=== PATIENT | male | born 1960 | race Hispanic/Latino ===

== ENCOUNTER 2019-04-22 16:27 | Inpatient (IN) | payer OTHER, SELFPAY ==
[2019-04-22] VITALS (17 sets, daily range): BP systolic 112–164; BP diastolic 56–102; PULSE 88–133; RESP 17–33; TEMP 36.9–38.8; O2SAT 90–94; BMI 26.7
--- NOTE | 2019-04-22 16:38 | ED_ITS ---
HPI - Fall General Chief Complaint: Fall Stated Complaint: CP Time Seen by Provider: 04/22/19 16:35 Source: patient, family and EMS Mode of arrival: EMS Limitations: no limitations History of Present Illness HPI Narrative: This is a 58-year-old who comes to the emergency department complaint of left-sided chest pain. Patient and his state that yesterday he tripped on his flip-flops and fell in the kitchen onto the edge of a step stool. It was sort of hard corner made out of wood. Since then patient has had left-sided chest pain. Patient states that it hurts if he coughs, he takes a deep breath her rolls over. Patient states that he does feel like he can breathe okay. He denies hitting his head or any loss of consciousness. The injury was witnessed by his . He denies any neck pain, back pain, no issues with his hips or lower extremities. Patient does have increased pain with movement of his left upper extremity. Patient denies any headache, no vision changes, no nausea vomiting no other GI or urinary symptoms. He does have a fever upon arrival. He has been feeling shaky. Patient takes medication for diabetes, He denies any surgical history. Smokes tobacco, he drinks about a six-pack daily, denies illicit Related Data Allergies Allergy/AdvReac Type Severity Reaction Status Date / Time No Known Drug Allergies Allergy Verified 04/22/19 16:34 Review of Systems Review of Systems ROS Unobtainable: All systems reviewed & are unremarkable except as noted in HPI and below Constitutional Reports chills, Denies fever(s), Denies lethargy, Denies weakness and Reports other (feeling shaky.) ENT Ears, Nose, Mouth, and Throat: Denies neck pain Cardiovascular Reports chest pain, Denies diaphoresis, Denies syncope, Denies leg edema, Denies lightheadedness, Denies radiating jaw, neck or arm pain, Reports dyspnea, Denies orthopnea and Denies paroxysmal nocturnal dyspnea Respiratory Denies chest congestion, Denies hemoptysis, Reports pain on inspiration, Reports pain with cough, Reports dyspnea and Denies wheezing Gastrointestinal Gastrointestinal: Denies abdominal pain, Denies melena, Denies hematochezia, Denies change in bowel habits, Denies diarrhea, Denies nausea and Denies vomiti ng Genitourinary Denies hematuria, Denies flank pain, Denies urinary frequency, Denies urinary incontinence and Denies urinary urgency Musculoskeletal Denies back pain, Denies muscle weakness, Denies neck pain, Denies numbness and Denies tingling Integumentary/Breasts Denies erythema and Denies unusual bruising Neurologic Denies confusion, Denies syncope, Denies focal weakness, Denies numbness, Denies tingling and Denies weakness Psychiatric Denies confusion Allergic/Immunologic Denies wheezing Exam Narrative Exam Narrative: GEN: Patient appears in moderate distress. HEAD: No evidence of trauma, no raccoon/Mckeon sign. NECK: Nontender, painless range of motion, trachea midline Negative Nexus criteria, there is no midline tenderness, distracting injury, altered mental status, neuro deficit, denies recent EtOH. EYES: PERRLA, EOMI ENT: External inspection normal, trachea is midline, TM's are normal no hemotypanum, Nares are clear, no septal hematoma, no dental or oral injury, airway is normal and with normal occlusion, No bony tenderness RESP: Chest is tender to palpation on left,has symmetric movement, no ecchymosis, breath sounds are normal no crackles, wheezes or rales, no subcutaneous emphysema, no flail chest. CVS: Heart sounds are normal, no murmur noted, No JVD. ABG/GI: Nontender, soft, normal bowel sounds, no distention, no organomegaly, pelvic rock is negative NEURO: Oriented AOx3, neuro is grossly intact, sensation and motor is normal all 4 extremities moving, cranial nerves II through XII are intact, GCS is 15 PSYCH: Normal mood and affect SKIN: Intact, warm and dry, no crepitus and without decubitus BACK: No CVA tenderness, no vertebral tenderness, no step-off's, no crepitus EXT: Atraumatic, hips are nontender, no pedal edema, normal color and temperature, normal range of motion of extremities with normal tendon exam, 2+ pulses in all four extremities Initial Vital Signs Initial Vital Signs: Vital Signs Pulse Rate 133 H 04/22/19 16:25 Respiratory Rate 18 04/22/19 16:25 Blood Pressure 164/102 H 04/22/19 16:25 Pulse Oximetry 93 04/22/19 16:25 [facility] Medical History (Updated 04/22/19 @ 19:06 by La Arce DO) Diabetes (Chronic) GERD (gastroesophageal reflux disease) (Chronic) Hypertension (Chronic) Social History (Updated 04/22/19 @ 16:54 by La Arce DO) marital status: Smoking Status: Current every day smoker alcohol intake: current substance use type: does not use Social History (Updated 04/22/19 @ 16:54 by La Arce DO) marital status: Smoking Status: Current every day smoker alcohol intake: current substance use type: does not use Scores GCS Selfridge coma scale eye opening: Spontaneous Selfridge coma scale verbal response: Orientated Lili coma scale motor response: Obey commands Lili coma scale total score: 15 Course Orders Ordered: ED Orders 04/22/19 16:31 EKG-12 Lead Stat 04/22/19 16:56 Blood Culture Stat Complete Blood Count AUTO DIFF Stat Comprehensive Metabolic Panel Stat Ethanol (ETOH) Stat Lactate (Lactic Acid) Stat Lipase Stat Partial Thromboplastin Time Stat Procalcitonin Stat Prothrombin Time INR Stat Troponin & CK Cardiac Panel Stat Type and Screen Stat 04/22/19 17:06 XR chest 1V Stat 04/22/19 17:36 CT cervical spine wo con Stat CT chest abd pel w con Stat CT head/brain wo con Stat 04/22/19 18:30 Urine Drug Screen, Rapid Stat Clindamycin Phosphate (Cleocin) 900 mg in 50 mls @ 50 mls/hr IV NOW ONE Stop: 04/22/19 19:53 Last Admin: 04/22/19 19:00 Dose: 50 mls/hr Discontinued Medications Acetaminophen (Tylenol) 975 mg PO NOW ONE Stop: 04/22/19 16:41 Last Admin: 04/22/19 16:54 Dose: 975 mg Sodium Chloride (Normal Saline 0.9%) 1,000 mls @ 1,000 mls/hr IV BOLUS ONE Stop: 04/22/19 17:34 Last Infusion: 04/22/19 17:54 Dose: 0 mls/hr Admin: 04/22/19 16:43 Dose: 1,000 mls/hr Sodium Chloride (Normal Saline 0.9%) 1,000 mls @ 1,000 mls/hr IV BOLUS ONE Stop: 04/22/19 18:52 Last Infusion: 04/22/19 18:46 Dose: 125 mls/hr Admin: 04/22/19 17:54 Dose: 1,000 mls/hr Lorazepam (Ativan) 1 mg IV NOW ONE Stop: 04/22/19 17:38 Last Admin: 04/22/19 17:45 Dose: 1 mg Lorazepam (Ativan) 1 mg IV NOW ONE Stop: 04/22/19 18:53 Last Admin: 04/22/19 19:00 Dose: 1 mg Morphine Sulfate (Morphine) 4 mg IV NOW ONE Stop: 04/22/19 16:36 Last Admin: 04/22/19 16:42 Dose: 4 mg Morphine Sulfate (Morphine) 4 mg IV NOW ONE Stop: 04/22/19 18:04 Last Admin: 04/22/19 18:17 Dose: 4 mg Pantoprazole Sodium (Protonix) 40 mg IV NOW ONE Stop: 04/22/19 17:42 Last Admin: 04/22/19 17:46 Dose: 40 mg Vital Signs - 8 hr 04/22/19 16:25 04/22/19 16:37 04/22/19 16:54 Temperature 101.6 F H 101.6 F H Pulse Rate 133 H Respiratory Rate 18 Blood Pressure 164/102 H Blood Pressure [Right Arm] Pulse Oximetry 93 04/22/19 17:01 04/22/19 17:30 04/22/19 17:40 Temperature 101.6 F H 101.8 F H Pulse Rate 133 H 123 H 123 H Respiratory Rate 18 25 H 29 H Blood Pressure 164/102 H Blood Pressure [Right Arm] 142/81 H 145/80 H Pulse Oximetry 93 94 93 04/22/19 17:45 04/22/19 17:50 04/22/19 18:22 Temperature 101.8 F H Pulse Rate 120 H 118 H Respiratory Rate 33 H 30 H Blood Pressure Blood Pressure [Right Arm] 146/83 H Pulse Oximetry 93 93 04/22/19 18:30 Temperature Pulse Rate 120 H Respiratory Rate 30 H Blood Pressure Blood Pressure [Right Arm] 147/79 H Pulse Oximetry MDM - Fall Lab Data Attestation: I reviewed the patient's lab results. Result diagrams: 04/22/19 16:56 04/22/19 16:56 Lab Results 04/22/19 04/22/19 04/22/19 Range/Units 16:56 16:56 16:56 WBC 14.3 H (4.5-11.0) X10^3/uL RBC 3.74 L (4.5-5.9) X10^6/uL Hgb 12.8 L (13.5-17.5) g/dL Hct 36.5 L (41-53) % MCV 97.7 (80-100) fL MCH 34.3 H (26-34) PG MCHC 35.1 (30-36) % RDW 13.3 (11.6-14.8) % Plt Count 254 (150-400) X10^3/uL Neut % (Auto) 88.7 H (50-75) % Lymph % (Auto) 3.2 L (25-40) % [place] % (Auto) 7.8 (3-14) % Eos % (Auto) 0.1 L (2-4) % Baso % (Auto) 0.2 (0-2) % Neut # (Auto) 69978 H (6376-6853) /uL Lymph # (Auto) 500 L (6373-7158) /uL [place] # (Auto) 1100 H (0-900) /uL Eos # (Auto) 0 (0-450) /uL Baso # (Auto) 0 (0-100) /uL PT 11.0 (10.1-12.7) SECONDS INR 1.0 (0.9-1.3) APTT 35 (26.4-36.2) SECONDS Sodium 127 L (137-145) mmol/L Potassium 3.9 (3.4-5.1) mmol/L Chloride 95 L (98-107) mmol/L Carbon Dioxide 21 L (22-32) mmol/L BUN 5 L (9-20) mg/dL Creatinine 0.50 L (0.66-1.25) mg/dL Estimated GFR > 60.0 (>60) mL/min BUN/Creatinine Ratio 10.0 (6-22) Glucose 134 H (70-100) mg/dL Lactate (0.7-2.1) mmol/L Calcium 8.6 (8.4-10.2) mg/dL Total Bilirubin 0.7 (0.2-1.3) mg/dL AST 22 (17-59) IU/L ALT 14 L (21-72) IU/L Alkaline Phosphatase 58 (38-126) U/L Total Creatine Kinase 104 (55-170) U/L CK-MB (CK-2) 1.36 (<2.37) ng/mL CK-MB (CK-2) Rel Index 1.3 L (1.5-5.0) % Troponin I < 0.012 (0.01-0.034) ng/mL Total Protein 5.9 L (6.3-8.2) g/dL Albumin 3.6 (3.5-5.0) g/dL Globulin 2.3 (1.7-4.1) g/dL Albumin/Globulin Ratio 1.6 (1.0-2.8) Lipase 29 (23-300) U/L Procalcitonin (<0.5) ng/mL Urine Opiates Screen (Negative) Ur Oxycodone Screen (Negative) Urine Methadone Screen (Negative) Ur Barbiturates Screen (Negative) U Tricyclic Antidepress (Negative) Ur Phencyclidine Scrn (Negative) Ur Amphetamines Screen (Negative) U Methamphetamines Scrn (Negative) Ur MDMA Scrn (Ecstasy) (Negative) U Benzodiazepines Scrn (Negative) Urine Cocaine Screen (Negative) U Marijuana (THC) Screen (Negative) Ethyl Alcohol 37 mg/dL Blood Type Antibody Screen 04/22/19 04/22/19 04/22/19 Range/Units 16:56 16:56 16:56 WBC (4.5-11.0) X10^3/uL RBC (4.5-5.9) X10^6/uL Hgb (13.5-17.5) g/dL Hct (41-53) % MCV (80-100) fL MCH (26-34) PG MCHC (30-36) % RDW (11.6-14.8) % Plt Count (150-400) X10^3/uL Neut % (Auto) (50-75) % Lymph % (Auto) (25-40) % [place] % (Auto) (3-14) % Eos % (Auto) (2-4) % Baso % (Auto) (0-2) % Neut # (Auto) (5751-9753) /uL Lymph # (Auto) (8535-4918) /uL [place] # (Auto) (0-900) /uL Eos # (Auto) (0-450) /uL Baso # (Auto) (0-100) /uL PT (10.1-12.7) SECONDS INR (0.9-1.3) APTT (26.4-36.2) SECONDS Sodium (137-145) mmol/L Potassium (3.4-5.1) mmol/L Chloride (98-107) mmol/L Carbon Dioxide (22-32) mmol/L BUN (9-20) mg/dL Creatinine (0.66-1.25) mg/dL Estimated GFR (>60) mL/min BUN/Creatinine Ratio (6-22) Glucose (70-100) mg/dL Lactate 2.3 H (0.7-2.1) mmol/L Calcium (8.4-10.2) mg/dL Total Bilirubin (0.2-1.3) mg/dL AST (17-59) IU/L ALT (21-72) IU/L Alkaline Phosphatase (38-126) U/L Total Creatine Kinase (55-170) U/L CK-MB (CK-2) (<2.37) ng/mL CK-MB (CK-2) Rel Index (1.5-5.0) % Troponin I (0.01-0.034) ng/mL Total Protein (6.3-8.2) g/dL Albumin (3.5-5.0) g/dL Globulin (1.7-4.1) g/dL Albumin/Globulin Ratio (1.0-2.8) Lipase (23-300) U/L Procalcitonin < 0.05 (<0.5) ng/mL Urine Opiates Screen (Negative) Ur Oxycodone Screen (Negative) Urine Methadone Screen (Negative) Ur Barbiturates Screen (Negative) U Tricyclic Antidepress (Negative) Ur Phencyclidine Scrn (Negative) Ur Amphetamines Screen (Negative) U Methamphetamines Scrn (Negative) Ur MDMA Scrn (Ecstasy) (Negative) U Benzodiazepines Scrn (Negative) Urine Cocaine Screen (Negative) U Marijuana (THC) Screen (Negative) Ethyl Alcohol mg/dL Blood Type B Positive Antibody Screen Negative 04/22/19 Range/Units 18:30 WBC (4.5-11.0) X10^3/uL RBC (4.5-5.9) X10^6/uL Hgb (13.5-17.5) g/dL Hct (41-53) % MCV (80-100) fL MCH (26-34) PG MCHC (30-36) % RDW (11.6-14.8) % Plt Count (150-400) X10^3/uL Neut % (Auto) (50-75) % Lymph % (Auto) (25-40) % [place] % (Auto) (3-14) % Eos % (Auto) (2-4) % Baso % (Auto) (0-2) % Neut # (Auto) (1012-1911) /uL Lymph # (Auto) (3717-6079) /uL [place] # (Auto) (0-900) /uL Eos # (Auto) (0-450) /uL Baso # (Auto) (0-100) /uL PT (10.1-12.7) SECONDS INR (0.9-1.3) APTT (26.4-36.2) SECONDS Sodium (137-145) mmol/L Potassium (3.4-5.1) mmol/L Chloride (98-107) mmol/L Carbon Dioxide (22-32) mmol/L BUN (9-20) mg/dL Creatinine (0.66-1.25) mg/dL Estimated GFR (>60) mL/min BUN/Creatinine Ratio (6-22) Glucose (70-100) mg/dL Lactate (0.7-2.1) mmol/L Calcium (8.4-10.2) mg/dL Total Bilirubin (0.2-1.3) mg/dL AST (17-59) IU/L ALT (21-72) IU/L Alkaline Phosphatase (38-126) U/L Total Creatine Kinase (55-170) U/L CK-MB (CK-2) (<2.37) ng/mL CK-MB (CK-2) Rel Index (1.5-5.0) % Troponin I (0.01-0.034) ng/mL Total Protein (6.3-8.2) g/dL Albumin (3.5-5.0) g/dL Globulin (1.7-4.1) g/dL Albumin/Globulin Ratio (1.0-2.8) Lipase (23-300) U/L Procalcitonin (<0.5) ng/mL Urine Opiates Screen Negative (Negative) Ur Oxycodone Screen Negative (Negative) Urine Methadone Screen Negative (Negative) Ur Barbiturates Screen Negative (Negative) U Tricyclic Antidepress Negative (Negative) Ur Phencyclidine Scrn Negative (Negative) Ur Amphetamines Screen Negative (Negative) U Methamphetamines Scrn Negative (Negative) Ur MDMA Scrn (Ecstasy) Negative (Negative) U Benzodiazepines Scrn Negative (Negative) Urine Cocaine Screen Negative (Negative) U Marijuana (THC) Screen Negative (Negative) Ethyl Alcohol mg/dL Blood Type Antibody Screen Urine Dip Bedside Urine Glucose 1000 mg/dl Bedside Urine Bilirubin - Negative Bedside Urine Ketone - Negative Urine Specific [place] 1.015 Bedside Urine Occult Blood - Negative Bedside Urine Protein - Negative Bedside Urine Urobilinogen - Negative Bedside Urine Nitrite - Negative Bedside Urine Leukocytes - Negative Esterase Imaging Data Chest x-ray: My impression: multiple #3 rib fractures on left, no pneumothorax noted. CT scan - head: Radiologist's impression: Bharat Mcpherson 58 M 1960 [place] [address] CT Scan Report Signed Patient: Bharat Mcpherson GMR#: [id number] : [id number] Age/Sex: 58 / MDate of Service: 04/22/19 Loc: ED Accession Number: [id number] Procedure: CT head/brain wo con Ordering Provider: La Arce D.O. PROCEDURE: CT HEAD/BRAIN WO CON INDICATIONS: left chest wall pain, rib fx's, tachy, ? etoh TECHNIQUE: Noncontrast 4.5 mm thick angled axial sections acquired from the foramen magnum to the vertex, with coronal and sagittal reformats. For radiation dose reduction, the following was used: automated exposure control, adjustment of mA and/or kV according to patient size. COMPARISON: None. FINDINGS: Image quality: Diagnostic. CSF spaces: Basal cisterns are patent. No extra-axial fluid collections. Ventricles are normal in size and shape. Brain: No midline shift. No intracranial masses or hemorrhage. Caceres-white matter interface is normal. Skull and face: Calvarium and visualized facial bones are intact, without suspicious lesions. Sinuses: Mild mucosal thickening is identified involving the inferior bilateral maxillary sinuses, ethmoid air cells, and sphenoid air cells. There is also mucosal thickening of the right frontal sinuses. No air-fluid levels are evident. Otherwise, the remainder of the paranasal sinuses and mastoid air cells are clear. IMPRESSION: 1. No acute intracranial hemorrhage. 2. Moderate paranasal sinus disease. Dictated by: Faisal Mason M.D. on 04/22/2019 at 18:38 Approved by: Faisal Mason M.D. on 04/22/2019 at 18:39 ECG Data Attestation: I personally reviewed and interpreted this ECG as follows: Prior ECG tracings: not available for review Interpretation: Sinus tachycardia rate of 128, P are 125 QRS of [address] elevation or depression. No prior EKGs available for review. MDM Narrative Medical decision making narrative: Patient comes in with complaint of left-sided chest pain. His states he did not hit his head, she did visualize his fall. He also states he did hit his head or any loss of consciousness. He is tachycardic, he also is febrile. But patient is also quite tender to palpation. Chest x-ray shows at least 3 rib fractures, I do not appreciate a pneumothorax. Patient is tachycardic, he is hypertensive with a fever. He also drinks at least a 6 pack daily. Patient denies any alcohol today but his EtOH is still 37. Patient was sent back for imaging, he and his both deny head or neck injury but is patient was drinking alcohol earlier we did send back for laguerre scan. Some of his symptoms could be secondary to alcohol withdrawal although SP or makes this less likely. Hemoglobin is 12, no labs are available for comparison. But he is hypertensive so volume loss or blood loss is less likely. Coags are normal, electrolytes are abnormal with a sodium 127 and chloride of 95, patient's glucose is 134 lactate elevated at 2.3. LFTs and coags are normal. Troponin is negative. Procalcitonin was added on. He does have 3 rib fractures on chest x-ray but no obvious pneumo. Patient was sent to CT scan, included head and neck as patient denies any trauma and his did not visualize any trauma but he is positive for EtOH. Spoke with Dr. German who is on for General surgery, we discussed that it is unclear if this is all secondary to his rib fractures or if he may have a more complicated scenario with alcohol withdrawl included and/or infection as well. CT of head, neck or negative, chest abdomen pelvis shows 5 per fractures on the left, no pneumothorax,Right lower lobe consolidation likely representing aspi ration versus pneumonia although atelectasis or contusion can't be totally excluded. Patient a distended urinary bladder which, ring and some prominent thickening of the distal esophageal wall likely related to chronic esophagitis. Discussed these findings with Dr. Costa plan for surgical consult with admission to Medicine. Patient was started on antibiotics, he has received 30 cc/kilos fluids and Tylenol for temperature. He has also received Ativan x2 for possible alcohol withdrawal as well as morphine 4 mg x2 for pain control. Patient is feeling much better. He is still tachycardic although slowly improving, his pressure has improved approved he has not been hypotensive but he is not quite as hypertensive. Respiratory rate has been elevated, he has not been hypoxic. Discharge Plan Departure Clinical Impression: Alcohol withdrawal Multiple fractures of ribs Qualifiers: Encounter type: initial encounter Fracture type: closed Laterality: left Qualified Code(s): S22.42XA - Multiple fractures of ribs, left side, initial encounter for closed fracture Pneumonia Qualifiers: Pneumonia type: aspiration pneumonia Referrals: Sophie Zepeda PA-C [Primary Care Provider] -
[2019-04-22] MEDS: MORPHINE 4 MG/ML INJ IV ×2 (16:42→18:17)
[2019-04-22] MEDS: SODIUM CHLORIDE 0.9% 1,000 ML 1000 ML IV ×2 (16:43→17:54)
[2019-04-22] MEDS: ACETAMINOPHEN 325 MG TABLET 975 MG PO (16:54)
--- NOTE | 2019-04-22 17:06 | DI.RAD.S_ITS ---
PROCEDURE: XR CHEST 1V INDICATIONS: left chest pain, trauma to left chest last night. TECHNIQUE: One view of the chest was acquired. COMPARISON: [facility], CR, RIBS UNILATERAL WITH PA CXR, 07/20/2014, 9:30. FINDINGS: Surgical changes and devices: None. Lungs and pleura: Lungs are clear. No pleural effusions or pneumothorax. Mediastinum: Mediastinal contours appear normal. Heart size is normal. Bones and chest wall: No suspicious bony lesions. Overlying soft tissues appear unremarkable. IMPRESSION: No acute process. Dictated by: Sánchez Armenta M.D. on 04/22/2019 at 16:37 Approved by: Sánchez Armenta M.D. on 04/22/2019 at 16:38
[2019-04-22 17:10] LABS: Add Manual Diff / Slide Review NO; Basophils Absolute Auto 0 /uL (0-100); Basophils Percent Auto 0.2 % (0-2); Eosinophils Absolute Auto 0 /uL (0-450); Eosinophils Percent Auto 0.1 % (2-4); Hematocrit 36.5 % (41-53); Hemoglobin 12.8 g/dL (13.5-17.5); Lymphocytes Absolute Auto 500 /uL (1100-4500); Lymphocytes Percent Auto 3.2 % (25-40); Mean Corpuscular HGB Conc 35.1 % (30-36); Mean Corpuscular Hemoglobin 34.3 PG (26-34); Mean Corpuscular Volume 97.7 fL (80-100); Monocytes Absolute Auto 1100 /uL (0-900); Monocytes Percent Auto 7.8 % (3-14); Neutrophils Absolute Auto 12700 /uL (1500-7000); Neutrophils Percent Auto 88.7 % (50-75); Platelet Count 254 X10^3/uL (150-400); Red Blood Cell Count 3.74 X10^6/uL (4.5-5.9); Red Cell Distribution Width 13.3 % (11.6-14.8); White Blood Cell Count 14.3 X10^3/uL (4.5-11.0)
[2019-04-22 17:18] LABS: PTT Partial Thromboplastin Tim 35 SECONDS (26.4-36.2)
[2019-04-22 17:20] LABS: Alanine Aminotransferase 14 IU/L (21-72); Albumin 3.6 g/dL (3.5-5.0); Albumin Globulin Ratio 1.6 (1.0-2.8); Alkaline Phosphatase 58 U/L (38-126); Aspartate Aminotransferase 22 IU/L (17-59); Bilirubin Total 0.7 mg/dL (0.2-1.3); Blood Urea Nitrogen 5 mg/dL (9-20); Calcium 8.6 mg/dL (8.4-10.2); Carbon Dioxide 21 mmol/L (22-32); Chloride 95 mmol/L (98-107); Creatine Kinase 104 U/L (55-170); Estimated Glomerular Filt Rate > 60.0 mL/min (>60); Ethanol (ETOH) 37 mg/dL; Globulin 2.3 g/dL (1.7-4.1); Glucose 134 mg/dL (70-100); HEMOLYSIS < 15 (0-50); Lactate (Lactic Acid) 2.3 mmol/L (0.7-2.1); Lipase 29 U/L (23-300); Potassium 3.9 mmol/L (3.4-5.1); Sodium 127 mmol/L (137-145); Total Protein 5.9 g/dL (6.3-8.2)
[2019-04-22 17:31] LABS: Troponin I < 0.012 ng/mL (0.01-0.034)
[2019-04-22 17:35] LABS: CKMB % Relative Index 1.3 % (1.5-5.0); Creatine Kinase MB 1.36 ng/mL (<2.37)
--- NOTE | 2019-04-22 17:36 | DI.CT.S_ITS ---
PROCEDURE: CT CHEST ABD PEL W CON INDICATIONS: left chest wall pain, rib fx's, tachy, ? etoh TECHNIQUE: After the administration of intravenous contrast, 5 mm thick sections acquired from the lung apices to the symphysis. 2.5 mm thick coronal and sagittal reformats were acquired. Additional 7 mm thick coronal maximum intensity projection (MIP) reformats acquired through the lungs. Optional 10-minute delayed imaging may be performed from the kidneys to the bladder. For radiation dose reduction, the following was used: automated exposure control, adjustment of mA and/or kV according to patient size. COMPARISON: None. FINDINGS: Image quality: Diagnostic. CHEST: Lungs: There is moderate consolidation identified within the inferior aspect of the right lower lobe which does not demonstrate significant enhancement. Mild consolidation within the posterior aspect of the left lower lobe is present. There is no pneumothorax. No pleural effusion is evident. There is no lung mass. No definite pulmonary nodules are appreciated. Mediastinum: No mediastinal hematomas. Heart size is normal. No pericardial effusion. Thoracic aorta and pulmonary arteries demonstrate normal size and enhancement. No mediastinal or hilar adenopathy. Esophageal wall thickening is identified diffusely. Chest wall and bones: There are nondisplaced fractures involving the fourth, fifth, sixth, seventh, and eighth left posterior ribs. No definite additional rib fractures are present. No definite compression fractures are appreciated involving the thoracic spine. Age-appropriate degenerative changes of the thoracic spine are present. No subcutaneous emphysema. No axillary or supraclavicular adenopathy. Thyroid gland is not enlarged or adequately evaluated. ABDOMEN: Solid organs: Liver is normal in size and enhancement, without lacerations. Gallbladder is normal in size. Biliary system is non-dilated. Pancreas enhances normally, without transection. Spleen is normal in size and enhancement, without lacerations. No adrenal hematomas. Both kidneys are normal in size. There is mild hydronephrosis involving both kidneys with associated hydroureter, likely related to the markedly distended urinary bladder. No lacerations or contusions are significant abnormal enhancement of the kidneys is appreciated. Small amount of perinephric fluid probably is senescent. Peritoneum and bowel: Stomach, duodenum and remainder of the small bowel loops are nondilated. Moderate residual stool is seen within the colon. The appendix is well-visualized and normal. No free fluid or loculated fluid collection is present. Nodes and vessels: No retroperitoneal or mesenteric adenopathy. Aorta and inferior vena cava are normal in size and enhancement. Bones: No acute fracture or suspicious osseous lesion is evident. There are mild/moderate degenerative changes of the lumbar spine. PELVIS: Genitourinary: Bladder wall thickness is normal. However, marked distention of the urinary bladder is identified which extends to near the umbilicus. The prostate does not appear to be significantly enlarged. Miscellaneous: Small fat-containing bilateral inguinal hernias are present. No free fluid or loculated fluid collection is seen within the pelvis. Bones: Pelvic ring and hip joints appear intact. No acute fractures are evident. There may be an old injury of the superior left acetabulum, given the rounded well-corticated appearance. IMPRESSION: 1. Multiple nondisplaced left-sided rib fractures. No pneumothorax. 2. No evidence of solid organ laceration or contusion of the abdomen. 3. Right lower lobe consolidation most likely represents aspiration versus pneumonia. However, atelectasis or contusion cannot be excluded. 4. Mild atelectasis within the left lower lobe. 5. Markedly distended urinary bladder is of uncertain etiology and may be intentional holding of urine. Please correlate clinically. The prostate does not appear to be enlarged. There is mild hydronephrosis of the kidneys, which is felt to be related to marked distention of the bladder. 6. Probable constipation. 7. Prominent thickening of the distal esophageal wall may be related to chronic esophagitis. 8. Small fat-containing bilateral inguinal hernias. Dictated by: Faisal Mason M.D. on 04/22/2019 at 18:40 Approved by: Faisal Mason M.D. on 04/22/2019 at 18:51
--- NOTE | 2019-04-22 17:36 | DI.CT.S_ITS ---
PROCEDURE: CT CERVICAL SPINE WO CON INDICATIONS: left chest wall pain, rib fx's, tachy, ? etoh TECHNIQUE: Noncontrast 3 mm thick sections acquired from the skull base to the T4 level. Sagittal and coronal reformats were then constructed. For radiation dose reduction, the following was used: automated exposure control, adjustment of mA and/or kV according to patient size. COMPARISON: None. FINDINGS: Image quality: Diagnostic. Bones: The craniocervical: Cervical thoracic, and atlantoaxial junctions are well-maintained. The vertebral body heights are also well-maintained throughout the cervical spine. Bony alignment is within normal limits. There is no acute fracture or dislocation. No suspicious osseous lesions are present. These mild degenerative changes of the cervical spine are evident. Soft tissues: Prevertebral soft tissues are normal in thickness. No paravertebral hematomas. No apical pneumothoraces. Carotid artery atherosclerosis is noted. IMPRESSION: Mild degenerative changes of the cervical spine. No fractures. Dictated by: Faisal Mason M.D. on 04/22/2019 at 18:51 Approved by: Faisal Mason M.D. on 04/22/2019 at 18:53
--- NOTE | 2019-04-22 17:36 | DI.CT.S_ITS ---
PROCEDURE: CT HEAD/BRAIN WO CON INDICATIONS: left chest wall pain, rib fx's, tachy, ? etoh TECHNIQUE: Noncontrast 4.5 mm thick angled axial sections acquired from the foramen magnum to the vertex, with coronal and sagittal reformats. For radiation dose reduction, the following was used: automated exposure control, adjustment of mA and/or kV according to patient size. COMPARISON: None. FINDINGS: Image quality: Diagnostic. CSF spaces: Basal cisterns are patent. No extra-axial fluid collections. Ventricles are normal in size and shape. Brain: No midline shift. No intracranial masses or hemorrhage. Caceres-white matter interface is normal. Skull and face: Calvarium and visualized facial bones are intact, without suspicious lesions. Sinuses: Mild mucosal thickening is identified involving the inferior bilateral maxillary sinuses, ethmoid air cells, and sphenoid air cells. There is also mucosal thickening of the right frontal sinuses. No air-fluid levels are evident. Otherwise, the remainder of the paranasal sinuses and mastoid air cells are clear. IMPRESSION: 1. No acute intracranial hemorrhage. 2. Moderate paranasal sinus disease. Dictated by: Faisal Mason M.D. on 04/22/2019 at 18:38 Approved by: Faisal Mason M.D. on 04/22/2019 at 18:39
[2019-04-22] MEDS: LORazepam 2 MG/ML INJ 1 MG IV ×2 (17:45→19:00)
[2019-04-22] MEDS: PANTOPRAZOLE 40 MG VIAL IV (17:46)
[2019-04-22 18:25] LABS: Procalcitonin < 0.05 ng/mL (<0.5)
[2019-04-22 18:51] LABS: Urine Tetrahydrocannabinol Negative (Negative)
[2019-04-22 18:52] LABS: Urine Amphetamines Negative (Negative); Urine Barbiturates Negative (Negative); Urine Benzodiazepines Negative (Negative); Urine Cocaine Negative (Negative); Urine MDMA Negative (Negative); Urine Methadone Negative (Negative); Urine Methamphetamines Negative (Negative); Urine Morphine/Opi cutoff 2000 Negative (Negative); Urine Oxycodone Negative (Negative); Urine Phencyclidine Negative (Negative); Urine Tricyclic Antidepressant Negative (Negative)
[2019-04-22] MEDS: CLINDAMYCIN 900 MG/50 ML PIGGYBACK 50 MG IV (19:00)
[2019-04-22 19:04] LABS: Reflexed Lactate in 2 Hours Y
[2019-04-22 19:37] LABS: Lactate 2HR (Lactic Acid Rflx) 0.9 mmol/L (0.7-2.1)
--- NOTE | 2019-04-22 20:08 | P.CONS_ITS ---
History of Present Illness Date Patient Seen: 04/22/19 Time Patient Seen: 20:20 Chief complaint: CP Reason for consult: rib fractures in trauma Requesting provider: La Arce Narrative: 58yo M s/p mechanical fall last evening into a sitting stool. Per his , who provides history, he fell into that hitting his left chest and then she otherwise broke his fall. He did not hit his head nor lose consciousness. He was in pain and went to bed. He slept on his back, no nausea or vomiting. When he woke this morning, he was in such pain along his left chest he could not get out of bed. When this persisted, family called an ambulance. Did drink last evening, per family none today but etoh reads 37 in ED. Had pancreatitis and underwent an ex lap at some point for this; etoh was inciting factor. Per , he has not had withdrawal symptoms. He is also a smoker and has not smoked since last night. In ED, pt is hypertensive and tachycardic. He is febrile to 101.6. Imaging shows 5 non-displaced left posterior rib fractures and a right lower lobe consolidation concerning for aspiration versus atelectasis. He is 93% on RA when I visited and BP and HR have improved, as has temp. Pt is resting with eyes closed, awake but chooses to speak minimally and allows to tell story and answer questions. He tenses abdomen during exam but indicates that palpation hurts his left chest wall and not his abdomen. notes he has had some groin pain recently and inguinal hernias were incidentally noted on CT. His respirations are symmetric and even on RA. Examined skin otherwise intact and pt moves extremities and notes no neurologic deficits. He has a mild leukocytosis with a left shift and is anemic but we have no baseline for this. LFTs are essentially normal, as is CK. No coagulopathy. His Na- is 127, K+ normal. He is diabetic but not on insulin. [facility] Medical History Diabetes (Chronic) GERD (gastroesophageal reflux disease) (Chronic) Hypertension (Chronic) Social History marital status: Smoking Status: Current every day smoker alcohol intake: current substance use type: does not use Social History marital status: Smoking Status: Current every day smoker alcohol intake: current substance use type: does not use Meds Allergies Allergy/AdvReac Type Severity Reaction Status Date / Time No Known Drug Allergies Allergy Verified 04/22/19 16:34 Review of Systems Constitutional Constitutional: Reports as per HPI Exam Vital Signs (past 8 hours): - 04/22/19 16:25 04/22/19 16:37 04/22/19 16:54 Temperature 101.6 F H 101.6 F H Pulse Rate 133 H Respiratory Rate 18 Blood Pressure 164/102 H Blood Pressure [Right Arm] Pulse Oximetry 93 04/22/19 17:01 04/22/19 17:30 04/22/19 17:40 Temperature 101.6 F H 101.8 F H Pulse Rate 133 H 123 H 123 H Respiratory Rate 18 25 H 29 H Blood Pressure 164/102 H Blood Pressure [Right Arm] 142/81 H 145/80 H Pulse Oximetry 93 94 93 04/22/19 17:45 04/22/19 17:50 04/22/19 18:22 Temperature 101.8 F H Pulse Rate 120 H 118 H Respiratory Rate 33 H 30 H Blood Pressure Blood Pressure [Right Arm] 146/83 H Pulse Oximetry 93 93 04/22/19 18:30 04/22/19 19:50 04/22/19 20:01 Temperature 99.8 F H Pulse Rate 120 H 116 H 114 H Respiratory Rate 30 H 20 20 Blood Pressure Blood Pressure [Right Arm] 147/79 H 113/71 125/75 Pulse Oximetry 93 93 Oxygen Delivery Method Room Air Narrative Exam Narrative: AAO, NAD, male of healthy weight MMM; pt does not open eyes for our conversation unlabored RA; ttp left chest wall and flank soft, nt/nd, mild guarding due to rib frx MAEW visible skin dry and intact Objective Imaging CT scan - chest: Radiologist's impression: - 5 left sided posterior non-displaced rib fractures - right lower lobe consolidation, atelectasis versus aspiration Labs Result Diagrams: 04/22/19 16:56 04/22/19 16:56 Labs: Laboratory Results - last 24 hr 04/22/19 04/22/19 04/22/19 16:56 16:56 16:56 WBC 14.3 H RBC 3.74 L Hgb 12.8 L Hct 36.5 L MCV 97.7 MCH 34.3 H MCHC 35.1 RDW 13.3 Plt Count 254 Neut % (Auto) 88.7 H Lymph % (Auto) 3.2 L [place] % (Auto) 7.8 Eos % (Auto) 0.1 L Baso % (Auto) 0.2 Neut # (Auto) 59984 H Lymph # (Auto) 500 L [place] # (Auto) 1100 H Eos # (Auto) 0 Baso # (Auto) 0 PT 11.0 INR 1.0 APTT 35 Sodium 127 L Potassium 3.9 Chloride 95 L Carbon Dioxide 21 L BUN 5 L Creatinine 0.50 L Estimated GFR > 60.0 BUN/Creatinine Ratio 10.0 Glucose 134 H Lactate Calcium 8.6 Total Bilirubin 0.7 AST 22 ALT 14 L Alkaline Phosphatase 58 Total Creatine Kinase 104 CK-MB (CK-2) 1.36 CK-MB (CK-2) Rel Index 1.3 L Troponin I < 0.012 Total Protein 5.9 L Albumin 3.6 Globulin 2.3 Albumin/Globulin Ratio 1.6 Lipase 29 Procalcitonin Urine Opiates Screen Ur Oxycodone Screen Urine Methadone Screen Ur Barbiturates Screen U Tricyclic Antidepress Ur Phencyclidine Scrn Ur Amphetamines Screen U Methamphetamines Scrn Ur MDMA Scrn (Ecstasy) U Benzodiazepines Scrn Urine Cocaine Screen U Marijuana (THC) Screen Ethyl Alcohol 37 Blood Type Antibody Screen 04/22/19 04/22/19 04/22/19 16:56 16:56 16:56 WBC RBC Hgb Hct MCV MCH MCHC RDW Plt Count Neut % (Auto) Lymph % (Auto) [place] % (Auto) Eos % (Auto) Baso % (Auto) Neut # (Auto) Lymph # (Auto) [place] # (Auto) Eos # (Auto) Baso # (Auto) PT INR APTT Sodium Potassium Chloride Carbon Dioxide BUN Creatinine Estimated GFR BUN/Creatinine Ratio Glucose Lactate 2.3 H Calcium Total Bilirubin AST ALT Alkaline Phosphatase Total Creatine Kinase CK-MB (CK-2) CK-MB (CK-2) Rel Index Troponin I Total Protein Albumin Globulin Albumin/Globulin Ratio Lipase Procalcitonin < 0.05 Urine Opiates Screen Ur Oxycodone Screen Urine Methadone Screen Ur Barbiturates Screen U Tricyclic Antidepress Ur Phencyclidine Scrn Ur Amphetamines Screen U Methamphetamines Scrn Ur MDMA Scrn (Ecstasy) U Benzodiazepines Scrn Urine Cocaine Screen U Marijuana (THC) Screen Ethyl Alcohol Blood Type B Positive Antibody Screen Negative 04/22/19 04/22/19 18:30 19:25 WBC RBC Hgb Hct MCV MCH MCHC RDW Plt Count Neut % (Auto) Lymph % (Auto) [place] % (Auto) Eos % (Auto) Baso % (Auto) Neut # (Auto) Lymph # (Auto) [place] # (Auto) Eos # (Auto) Baso # (Auto) PT INR APTT Sodium Potassium Chloride Carbon Dioxide BUN Creatinine Estimated GFR BUN/Creatinine Ratio Glucose Lactate 0.9 Calcium Total Bilirubin AST ALT Alkaline Phosphatase Total Creatine Kinase CK-MB (CK-2) CK-MB (CK-2) Rel Index Troponin I Total Protein Albumin Globulin Albumin/Globulin Ratio Lipase Procalcitonin Urine Opiates Screen Negative Ur Oxycodone Screen Negative Urine Methadone Screen Negative Ur Barbiturates Screen Negative U Tricyclic Antidepress Negative Ur Phencyclidine Scrn Negative Ur Amphetamines Screen Negative U Methamphetamines Scrn Negative Ur MDMA Scrn (Ecstasy) Negative U Benzodiazepines Scrn Negative Urine Cocaine Screen Negative U Marijuana (THC) Screen Negative Ethyl Alcohol Blood Type Antibody Screen Assessment & Plan Assessment & Plan narrative: L Posterior Non-displaced rib frx x5 - pulm toilet - pain control, recommend Toradol versus high dose Ibuprofen as well as narcotic - mobilize - currently 93% on RA with comfortable and non-labored respirations RLL Consolidation - concern for aspiration, pt met sepsis criteria on admission although trauma pain and/or etoh withdrawal this may be contributory, PNA is a high concern - pulm toilet, if fevers and leukocytosis persist he may need abx Hyponatremia - etoh v dehydration, LA was elevated on admission but improved with fluids; no neuro changes on my exam or per family, monitor ETOH Abuse - monitor closely, no history of symptoms per family but concerning history - recommend CIWA protocol, benzos given in ED with improvement in vitals - labs not consistent with cirrhosis Anemia - no baseline for comparison, no evidence of bleeding so likely chronic - monitor
--- NOTE | 2019-04-22 20:22 | P.HP_ITS ---
History of Present Illness Date Patient Seen: 04/22/19 Time Patient Seen: 20:22 Chief complaint: CP Narrative: The patient is a 58-year-old male w/ PMHx of HTN, carotid atherosclerosis, DM 2T, GERD, current every day tobacco use (1 ppd), and current every day EtOH use (6 pack beer daily). Patient presented to the ED on 04/22/2019 complaining of chest pain. Pain is localized to the left anterior aspect of the chest / upper torso. Pain is described as aching and constant. Magnitude has been as high as 10/10, at time of the interview is noted as 4/10. Pain does not not radiate to the back, extremities, neck, or jaw. Patient has sustained a ground level mechanical following at approximately 04/21/2019 at 11:00 pm. Patient was said to be intoxicated at the time (having a BBQ libertarian at home). At time of the event patient was walking, he had some type of trouble with his flip flop that caused him to trip and fall forward on to a step stool with impact to the left anterior aspect of the torso. There is no injury to the head, neck, or face. No loss of consciousness. Event witnessed by spouse. Patient was helped to get up into an upright position by and another family member. At that time patient did not complain of any particular pain or chest discomfort. One hour after the event, patient went to sleep and was able to sleep through the night. Woke up on the morning of 04/22 with discomfort in the left anterior upper aspect of the torso. He had difficulty getting out of bed and remained in bed most of the day. He had poor appetite and fluid intake. Chest discomfort exacerbated with mobility, cough and deep breathing. Taken Ibuprofen 800 mg once, which was minimally effective. Patient denies fever and chills. Denies headache. No dizziness, lightheadedness or syncopal events. No abdomianl pain, nausea, vomiting, or diarrhea. No hemoptysis, menena or hematochezia. Patient does take ASA 81 mg daily for preventatively. Denies upper and lower extremity weakness, numbness, and paresthesia. No recent ill ness or hospitalization. Patient is said to have a chronic cough. No increase in purulence reported. Patient does suffer from chronic sinus drainage. ED presentation and work-up GCS 15 on arrival VS? T 101.6F BP 164/102 mmHg HR 133 RR 19 SpO2 93% RA EKG, 04/22/2019 @ Labs , 04/22/2019 @ 1656 WBC 14.3 Hgb 12.8 Plt 254 Lactate 2.3 Trop < 0.012 PCT < 0.05 Na 127 K 3.9 Cl 95 Ca 8.6 Alb 3.6 Glu 134 CO2 21 BUN 5 Cr 0.5 T. Bili 0.7 AST 22 ALT 14 Alk Phos 58 Lipase 29 UA Toxicology Screen negative EtOH level 37 CXR Chest - No acute process. No pleural effusions or pneumothorax. Mediastinal contours appear normal. Heart size is normal. No suspicious bony lesions. Overlying soft tissues appear unremarkable. CT Head - Calvarium and visualized facial bones are intact, without suspicious lesions. - No midline shift. No intracranial masses or hemorrhage - Moderate paranasal sinus disease CT Cervical Spine - no acute fracture or dislocation; no suspicious osseous lesions - mild degenerative changes of the cervical spine - prevertebral soft tissues are normal in thickness; no paravertebral hematomas - no apical pneumothoraces CT [id number] - Multiple nondisplaced left-sided rib fractures. No pneumothorax. - No evidence of solid organ laceration or contusion of the abdomen. - RLL consolidation most likely represents aspiration versus pneumonia. Atelectasis or contusion cannot be excluded. - Mild atelectasis within the left lower lobe. - Markedly distended urinary bladder is of uncertain etiology and may be intent ional holding of urine. Please correlate clinically. The prostate does not appear to be enlarged. - Mild hydronephrosis of the kidneys, which is felt to be related to marked distention of the bladder. - Probable constipation. - Prominent thickening of the distal esophageal wall may be related to chronic esophagitis. - Small fat-containing bilateral inguinal hernias. Patient History Medical History (Updated 04/23/19 @ 02:51 by MARY Owens) Alcohol dependence (Chronic) Diabetes (Chronic) GERD (gastroesophageal reflux disease) (Chronic) Hypertension (Chronic) Pancreatitis (Chronic) Tobacco dependency (Chronic) Surgical History (Updated 04/23/19 @ 02:51 by MARY Owens) S/P exploratory laparotomy (Chronic) Status post hernia repair (Chronic) Family History (Updated 04/23/19 @ 02:52 by MARY Owens) Mother Diabetes mellitus Father Hypertension Bladder cancer Social History marital status: household members: spouse Smoking Status: Current every day smoker alcohol intake: current substance use type: does not use Family & Social History Safety & Behavioral: Feels Safe in Current Yes Environment Been Physically Hurt or No Threatened By a Person Tobacco & Substance use: Smoking Status Current every day smoker, 1 ppd x30 yrs alcohol intake current alcohol intake frequency 3 or more drinks per day Substance Use Type does not use Meds Home Medications Medication Instructions Recorded Confirmed Type Aspir-81 81 mg PO DAILY 04/23/19 04/23/19 History cyanocobalamin (vitamin B-12) 1,000 mcg PO DAILY 04/23/19 04/23/19 History [Vitamin B-12] glipizide 5 mg PO DAILY 04/23/19 04/23/19 History lisinopril 40 mg PO DAILY 04/23/19 04/23/19 History metformin 1,000 mg PO QPM 04/23/19 04/23/19 History omeprazole 20 mg PO DAILY 04/23/19 04/23/19 History potassium chloride 20 meq PO DAILY 04/23/19 04/23/19 History Allergies Allergy/AdvReac Type Severity Reaction Status Date / Time No Known Drug Allergies Allergy Verified 04/22/19 16:34 Review of Systems Review of Systems All systems reviewed & are unremarkable except as noted in HPI and below Exam Vital Signs (past 8 hours): - 04/22/19 16:25 04/22/19 16:37 04/22/19 16:54 Temperature 101.6 F H 101.6 F H Pulse Rate 133 H Respiratory Rate 18 Blood Pressure 164/102 H Blood Pressure [Right Arm] Pulse Oximetry 93 04/22/19 17:01 04/22/19 17:30 04/22/19 17:40 Temperature 101.6 F H 101.8 F H Pulse Rate 133 H 123 H 123 H Respiratory Rate 18 25 H 29 H Blood Pressure 164/102 H Blood Pressure [Right Arm] 142/81 H 145/80 H Pulse Oximetry 93 94 93 04/22/19 17:45 04/22/19 17:50 04/22/19 18:22 Temperature 101.8 F H Pulse Rate 120 H 118 H Respiratory Rate 33 H 30 H Blood Pressure Blood Pressure [Right Arm] 146/83 H Pulse Oximetry 93 93 04/22/19 18:30 04/22/19 19:50 04/22/19 20:01 Temperature 99.8 F H Pulse Rate 120 H 116 H 114 H Respiratory Rate 30 H 20 20 Blood Pressure Blood Pressure [Right Arm] 147/79 H 113/71 125/75 Pulse Oximetry 93 93 Oxygen Delivery Method Room Air Narrative Exam Narrative: Constitutional: NAD Neurologic: AOx3, no focal neurological deficits Head: NC, AT Eyes: PERRL, EOMI Ears: external ears normal, no otorrhea Nose: external nose normal, no rhinorrhea or epistaxis Throat: MMM, oropharynx w/o exudate Neck: no masses, lymphadenopathy, or JVD Chest / Respiratory: equal chest rise, unlabored respiratory effort, no tachypnea RLL crackles, RML/RUL clear, JOAQUIN and LLL crackles, on RA Discomfort with palpation of left lateral aspect of the chest / torso, no crepitus Heart / CV: S1S2, no murmur Abdomen / GI: round, NT, ND, + BS, no organomegaly : no suprapubic tenderness Peripheral / Vascular: warm to touch, DP and PT pulses palpable, no edema Musc: full ROM of upper and lower extremities, adequate muscle tone and bulk Skin: no ecchymosis or suspicious lesions / ulcers Objective Labs Result Diagrams: 04/23/19 05:01 04/23/19 05:01 Labs: Laboratory Results - last 24 hr 04/22/19 04/22/19 04/22/19 16:56 16:56 16:56 WBC 14.3 H RBC 3.74 L Hgb 12.8 L Hct 36.5 L MCV 97.7 MCH 34.3 H MCHC 35.1 RDW 13.3 Plt Count 254 Neut % (Auto) 88.7 H Lymph % (Auto) 3.2 L Wake % (Auto) 7.8 Eos % (Auto) 0.1 L Baso % (Auto) 0.2 Neut # (Auto) 94739 H Lymph # (Auto) 500 L Wake # (Auto) 1100 H Eos # (Auto) 0 Baso # (Auto) 0 PT 11.0 INR 1.0 APTT 35 Sodium 127 L Potassium 3.9 Chloride 95 L Carbon Dioxide 21 L BUN 5 L Creatinine 0.50 L Estimated GFR > 60.0 BUN/Creatinine Ratio 10.0 Glucose 134 H Lactate Calcium 8.6 Total Bilirubin 0.7 AST 22 ALT 14 L Alkaline Phosphatase 58 Total Creatine Kinase 104 CK-MB (CK-2) 1.36 CK-MB (CK-2) Rel Index 1.3 L Troponin I < 0.012 Total Protein 5.9 L Albumin 3.6 Globulin 2.3 Albumin/Globulin Ratio 1.6 Lipase 29 Procalcitonin Urine Opiates Screen Ur Oxycodone Screen Urine Methadone Screen Ur Barbiturates Screen U Tricyclic Antidepress Ur Phencyclidine Scrn Ur Amphetamines Screen U Methamphetamines Scrn Ur MDMA Scrn (Ecstasy) U Benzodiazepines Scrn Urine Cocaine Screen U Marijuana (THC) Screen Ethyl Alcohol 37 Blood Type Antibody Screen 04/22/19 04/22/19 04/22/19 16:56 16:56 16:56 WBC RBC Hgb Hct MCV MCH MCHC RDW Plt Count Neut % (Auto) Lymph % (Auto) Wake % (Auto) Eos % (Auto) Baso % (Auto) Neut # (Auto) Lymph # (Auto) Wake # (Auto) Eos # (Auto) Baso # (Auto) PT INR APTT Sodium Potassium Chloride Carbon Dioxide BUN Creatinine Estimated GFR BUN/Creatinine Ratio Glucose Lactate 2.3 H Calcium Total Bilirubin AST ALT Alkaline Phosphatase Total Creatine Kinase CK-MB (CK-2) CK-MB (CK-2) Rel Index Troponin I Total Protein Albumin Globulin Albumin/Globulin Ratio Lipase Procalcitonin < 0.05 Urine Opiates Screen Ur Oxycodone Screen Urine Methadone Screen Ur Barbiturates Screen U Tricyclic Antidepress Ur Phencyclidine Scrn Ur Amphetamines Screen U Methamphetamines Scrn Ur MDMA Scrn (Ecstasy) U Benzodiazepines Scrn Urine Cocaine Screen U Marijuana (THC) Screen Ethyl Alcohol Blood Type B Positive Antibody Screen Negative 04/22/19 04/22/19 18:30 19:25 WBC RBC Hgb Hct MCV MCH MCHC RDW Plt Count Neut % (Auto) Lymph % (Auto) Wake % (Auto) Eos % (Auto) Baso % (Auto) Neut # (Auto) Lymph # (Auto) Wake # (Auto) Eos # (Auto) Baso # (Auto) PT INR APTT Sodium Potassium Chloride Carbon Dioxide BUN Creatinine Estimated GFR BUN/Creatinine Ratio Glucose Lactate 0.9 Calcium Total Bilirubin AST ALT Alkaline Phosphatase Total Creatine Kinase CK-MB (CK-2) CK-MB (CK-2) Rel Index Troponin I Total Protein Albumin Globulin Albumin/Globulin Ratio Lipase Procalcitonin Urine Opiates Screen Negative Ur Oxycodone Screen Negative Urine Methadone Screen Negative Ur Barbiturates Screen Negative U Tricyclic Antidepress Negative Ur Phencyclidine Scrn Negative Ur Amphetamines Screen Negative U Methamphetamines Scrn Negative Ur MDMA Scrn (Ecstasy) Negative U Benzodiazepines Scrn Negative Urine Cocaine Screen Negative U Marijuana (THC) Screen Negative Ethyl Alcohol Blood Type Antibody Screen Assessment & Plan Assessment & Plan narrative: Multiple Rib fractures (involving 4+ ribs), acute, present on admission, active Nondisplaced fractures involving the 4th, 5th, 6th, 7th, and 8th left posterior rib - general surgery consulted - Incentive spirometer - Pain control, will start on high dose Tylenol and Oxy IR prn consider Toradol per general surgery recommendations - Consult PT eval and treat - Bowel regimen prn - Consult RT, eval and treat, needs aggressive pulmonary hygiene Q4H re: rib fx Chest wall trauma, acute, present on admission, active - Consult general surgery. Case discussed w/ Dr. German by ED physician. - 5 rib fractures RLL pneumonia, acute, present on admission, active Pneumonia vs RLL atelectasis. No known recent nausea or vomiting. No dysphagia. Patient known to have persistent sinus drainage and post nasal drip w/ parasinus disease noted on CT. He has a cough, which was noted to be chronic, at his baseline w/o increased purulence or dyspnea prior to hospital presentation. No fever or chills. He does have elevated lactate and wbc on admission. qSofa score is 1 (increased RR), at risk for sepsis. - Blood cx collected in ED, pending - Started on Clindamycin, will continue - Add probiotic in liue of abx therapy - consult RT, eval and treat - UA for completeness - CXR, repeat 2V, on 04/24/19 Hyponatremia, acute, present on admission, active Suspected to be in the setting of EtOH intoxication vs. hypovolemia (decreased food / fluid intake) vs. hypermetabolic state (+ fever, PNA) - Received 2L NS in ED - Repeat labs in am - CBC, BMP, Mg - May need to resume gentle hydration, pending am labs EtOH intoxication, acute on chronic, present on admission, active Lifelong h/o EtOH use, 30+yrs. Currently drinks 6 pack of beer, daily. Liver enzymes WNL. H/o of pancreatitis (x3 prior episodes, most recent 5 years ago). CIWA of 12 in ED, received a total of 2 mg of ativan IV in ED (1745 and 1900) - EtOH level 37 on presentation, lifelong h/o EtOH dependence, last drink in the evening of 04/21 - CIWA assessment until score down to 8 or below x24 hours - Banana bag x1 - MTW / Thiamine oral x5 days starting 04/24 - Diazepam 5 mg Q8H x8 doses... will trial a fixed schedule, monitor for oversedation - No known h/o EtOH withdrawal, psychosis or hallucinosis - EtOH cessation highly encouraged - Monitor for e-lyte deficiencies, replete accordingly Tobacco dependence, chronic, present on admission, active - nicotine patch, currently smokes 1PPD - smoking cessation education DM 2T, chronic condition, present on admission, active DM controlled per family's report. Not on insulin, oral anti-glycemic regimen only w/ metformin and glipizide. Noted to have hypoglycemic episodes. - Glu POC Q8H - Resume ENTRY LEVEL [place] glipizide regimen. Will hold metformin at this time. - Trend glucose level at this time, no need for SSI - RN's to monitor for s/s of hypoglycemia, notify provider for glu level < 70 GERD w/ esophagitis on CT imaging, chronic condition, present on admission, active - Protonix 40 mg daily Anemia, chronic condition / stable, present on admission, active - Asymptomatic. No active s/s of bleeding. RF EtOH dependence and GERD / esophagitis. On ASA 81 mg daily. - Hgb 12.8 on admission. Trend w/ am lab. VTE prophylaxis w/ SCDs Code status discussed with patient and family. Wishes to be full code. No formal health directive. Designates as proxy to make healthcare decisions in an event patient is not able to make his own. Home medications reviewed and reconciled accordingly. Scores GCS [place] coma scale eye opening: Spontaneous [place] coma scale verbal response: Orientated L[place] coma scale motor response: Obey commands [place] coma scale total score: 15
[2019-04-23] VITALS (21 sets, daily range): BP systolic 136–156; BP diastolic 81–87; PULSE 86–108; RESP 16–22; TEMP 36.3–37.1; O2SAT 87–100
[2019-04-23] MEDS: OXYCODONE IR 5 MG TABLET PO ×4 (00:24→15:59)
[2019-04-23] MEDS: CLINDAMYCIN 600 MG/50 ML PIGGYBACK 50 MG IV (03:17)
[2019-04-23] MEDS: MAGNESIUM SULFATE 2 GM, FOLIC ACID 1 MG, THIAMINE 100 MG, MULTIVITAMIN 10 ML in SODIUM ... IV (04:45)
--- NOTE | 2019-04-23 05:19 | PC.NURSE ---
Addendum entered by Jenni Hayes R.N. 04/23/19 06:38: Pt is on 10L high flow NC per RT, currently sating 99%. PRN oxycodone given for a second pime for pain 5/10 to Ribs. HOB elevated at 45 degrees at this time. IVF running as ordered. HR in 80 and is NSR. Original Note: NOC Note Patient arrived at approx 2345, pain 8/10 to ribs, LS coarse with crackles in the bases. Pt instucted to deep breath and splint chest to cough. PRN oxycodone with good results. Pt placed on 3L NC at 0030 to maintain O2 sats at 92%. Pt voided in urinal with assist from for a total of 1525ml. SCD's in place as ordered. HOB elevated to 20-[address] and SR.
[2019-04-23 05:24] LABS: Blood Urea Nitrogen 9 mg/dL (9-20); Calcium 8.6 mg/dL (8.4-10.2); Carbon Dioxide 28 mmol/L (22-32); Chloride 102 mmol/L (98-107); Estimated Glomerular Filt Rate > 60.0 mL/min (>60); Glucose 135 mg/dL (70-100); HEMOLYSIS 20 (0-50); Magnesium 1.5 mg/dL (1.6-2.3); Potassium 4.7 mmol/L (3.4-5.1); Sodium 134 mmol/L (137-145)
[2019-04-23 05:33] LABS: Hemoglobin 12.5 g/dL (13.5-17.5); Mean Corpuscular HGB Conc 34.6 % (30-36); Mean Corpuscular Hemoglobin 34.3 PG (26-34); Mean Corpuscular Volume 99.2 fL (80-100); Platelet Count 236 X10^3/uL (150-400); Red Blood Cell Count 3.63 X10^6/uL (4.5-5.9); White Blood Cell Count 15.3 X10^3/uL (4.5-11.0)
[2019-04-23 05:38] LABS: Neutrophils Absolute Manual 13005 /uL (3000-5900); Total Cells Counted 100
[2019-04-23 05:39] LABS: Macrocytosis 1+; RBC Morphology See
[2019-04-23] MEDS: PANTOPRAZOLE 20 MG TABLET 40 MG PO (06:16)
[2019-04-23 07:55] LABS: Procalcitonin 0.94 ng/mL (<0.5)
[2019-04-23] MEDS: LACTOBACILLUS ACIDOPHILUS TABLET 1 EACH PO ×2 (08:39→17:04)
[2019-04-23] MEDS: NICOTINE 21 MG PATCH TOP (08:39)
[2019-04-23] MEDS: MAGNESIUM CHLORIDE 64 MG TABLET PO (08:39)
[2019-04-23] MEDS: DOCUSATE 100 MG CAPSULE PO ×2 (08:41→20:13)
[2019-04-23] MEDS: AMOXICILLIN/CLAV 875/125 MG 1 TAB PO ×2 (08:45→20:13)
[2019-04-23] MEDS: ACETAMINOPHEN 325 MG TABLET 975 MG PO (08:45)
[2019-04-23] MEDS: MULTIVIT,CALC,MINS/IRON/FOLIC 1 TABLET 1 TAB PO (08:55)
[2019-04-23] MEDS: THIAMINE 100 MG TABLET PO (08:55)
[2019-04-23] MEDS: MAGNESIUM OXIDE 400 MG TABLET PO ×2 (08:58→20:14)
--- NOTE | 2019-04-23 09:46 | PC.NURSE ---
Addendum entered by Karo Ruth R.N. 04/23/19 12:11: MS/PAIN/RESP - phys therapy in and pt slowly moved to dangle position, sat briefly, unable mobilize further due discomfort, ret to lying r side w/pillow supports, bp 156/86 and hr elev to 112 while seated, 4L 98%, sat did decr briefly to 88% during cough and mobilization, hr 106 when on side, rr unlabored. Addendum entered by Karo Ruth R.N. 04/23/19 11:20: PAIN/RESP - l torso discomfort continues 02/14 when not moving, able use IS w/teaching RT to 750, 02 98% 6L high flow decr to 4L, after discussion with , new orders for prn toradol and given 5mg po oxycodone prior to PT eval. Original Note: AM NOTE - pt awakens easily, spouse at bedside, pain l chest, rib area controlled with earlier oxycodone, hr 86, 98% 10L HF cannula, decr to 8L this am, bs dim, spouse assisted with feeding as it is painful for pt to move his lue, added 650mg po tylenol with breakfast.
[2019-04-23 10:59] LABS: Bacteria Urine None Seen; WBC Urine None Seen (0-5/HPF)
[2019-04-23 11:01] LABS: Appearance Urine UA CLEAR; Bilirubin Urine UA NEGATIVE (NEGATIVE); Color Urine UA YELLOW; Glucose Urine UA TRACE g/dL (Negative); Ketones Urine UA NEGATIVE (NEGATIVE); Leukocyte Esterase Urine UA NEGATIVE (NEGATIVE); Nitrite Urine UA NEGATIVE (Negative); Occult Blood Urine UA TRACE-INTACT (Negative); Protein Urine UA NEGATIVE (Negative); pH Urine UA 6.5 (4.5-8.0)
[2019-04-23 11:12] LABS: Culture Indicated Urine Cult Not Indicated; RBC Urine 1-5/HPF (0-5/HPF)
[2019-04-23] MEDS: KETOROLAC 15 MG/ML VIAL IV ×2 (11:16→20:12)
[2019-04-23 11:57] LABS: Adenovirus Not Detected (Not Detect); Bordetella pertussis Not Detected (Not Detect); Chlamydophila pneumoniae Not Detected (Not Detect); Coronavirus 229E Not Detected (Not Detect); Coronavirus HKU1 Not Detected (Not Detect); Coronavirus NL 63 Not Detected (Not Detect); Coronavirus OC43 Not Detected (Not Detect); Human Metapneumovirus Not Detected (Not Detect); Human Rhinovirus/Enterovirus Not Detected (Not Detect); Influenza A Not Detected (Not Detect); Influenza B Not Detected (Not Detect); Mycoplasma pneumoniae Not Detected (Not Detect); Parainfluenza Virus 1 Not Detected (Not Detect); Parainfluenza Virus 2 Not Detected (Not Detect); Parainfluenza Virus 3 Not Detected (Not Detect); Parainfluenza Virus 4 Not Detected (Not Detect); Respiratory Syncytial Virus Not Detected (Not Detect)
--- NOTE | 2019-04-23 12:06 | PM.PN.1 ---
Subjective Date Patient Seen: 04/23/19 Time Patient Seen: 11:20 Interval history: Up to 10 LNC overnight, weaned down through AM to current 4 LNC. Sitting comfortably now but says his pain is bad when he moves; has not been walking yet. Afebrile but still with a mild leukocytosis and left shift. Na improved to nearly normal. Exam Vital Signs (past 8 hours): - 04/23/19 04:11 04/23/19 04:23 04/23/19 04:33 Temperature 98.4 F Pulse Rate 91 H Respiratory Rate 17 Blood Pressure 136/83 Pulse Oximetry 92 87 L 94 04/23/19 05:25 04/23/19 08:00 04/23/19 08:33 Temperature 97.7 F Pulse Rate 89 86 Respiratory Rate 22 16 Blood Pressure 141/81 H Pulse Oximetry 94 98 98 04/23/19 10:05 04/23/19 10:18 04/23/19 10:54 Temperature Pulse Rate 91 H Respiratory Rate 18 Blood Pressure Pulse Oximetry 100 100 99 04/23/19 11:09 Temperature Pulse Rate Respiratory Rate Blood Pressure Pulse Oximetry 98 Oxygen Delivery Method High Flow Nasal Cannula Oxygen Flow Rate 4 Narrative Exam Narrative: AAO, NAD, male of healthy weight EOMI, MMM, no scleral icterus unlabored 4 LNC soft, nt/nd MAEW visible skin dry and intact Objective Labs Result Diagrams: 04/23/19 05:01 04/23/19 05:01 Labs: Laboratory Results - last 24 hr 04/22/19 04/22/19 04/22/19 16:56 16:56 16:56 WBC 14.3 H RBC 3.74 L Hgb 12.8 L Hct 36.5 L MCV 97.7 MCH 34.3 H MCHC 35.1 RDW 13.3 Plt Count 254 Neut % (Auto) 88.7 H Lymph % (Auto) 3.2 L [place] % (Auto) 7.8 Eos % (Auto) 0.1 L Baso % (Auto) 0.2 Neut # (Auto) 80480 H Lymph # (Auto) 500 L [place] # (Auto) 1100 H Eos # (Auto) 0 Baso # (Auto) 0 Total Counted Seg Neutrophils % Band Neutrophils % Lymphocytes % (Manual) Monocytes % (Manual) Neutrophils # (Manual) RBC Morphology Macrocytosis PT 11.0 INR 1.0 APTT 35 Sodium 127 L Potassium 3.9 Chloride 95 L Carbon Dioxide 21 L BUN 5 L Creatinine 0.50 L Estimated GFR > 60.0 BUN/Creatinine Ratio 10.0 Glucose 134 H Lactate Calcium 8.6 Magnesium Total Bilirubin 0.7 AST 22 ALT 14 L Alkaline Phosphatase 58 Total Creatine Kinase 104 CK-MB (CK-2) 1.36 CK-MB (CK-2) Rel Index 1.3 L Troponin I < 0.012 Total Protein 5.9 L Albumin 3.6 Globulin 2.3 Albumin/Globulin Ratio 1.6 Lipase 29 Procalcitonin Urine Color Urine Appearance Urine pH Ur Specific [place] Urine Protein Urine Glucose (UA) Urine Ketones Urine Occult Blood Urine Nitrate Urine Bilirubin Urine Urobilinogen Ur Leukocyte Esterase Urine RBC Urine WBC Urine Bacteria Ur Culture Indicated? Nasal Screen MRSA (PCR) Urine Opiates Screen Ur Oxycodone Screen Urine Methadone Screen Ur Barbiturates Screen U Tricyclic Antidepress Ur Phencyclidine Scrn Ur Amphetamines Screen U Methamphetamines Scrn Ur MDMA Scrn (Ecstasy) U Benzodiazepines Scrn Urine Cocaine Screen U Marijuana (THC) Screen Ethyl Alcohol 37 Chlamy pneumoniae PCR Adenovirus (PCR) B.parapertussis DNA PCR Coronavirus OC43 (PCR) Coronavirus HKU1 (PCR) Coronavirus 229E (PCR) Coronavirus NL63 (PCR) Human Metapneumovir PCR Influenza Type A (PCR) Influenza Type B (PCR) M. pneumoniae (PCR) Parainfluenza 1 (PCR) Parainfluenza 2 (PCR) Parainfluenza 3 (PCR) Parainfluenza 4 (PCR) RSV (PCR) Entero/Rhino (PCR) Blood Type Antibody Screen 04/22/19 04/22/19 04/22/19 16:56 16:56 16:56 WBC RBC Hgb Hct MCV MCH MCHC RDW Plt Count Neut % (Auto) Lymph % (Auto) [place] % (Auto) Eos % (Auto) Baso % (Auto) Neut # (Auto) Lymph # (Auto) [place] # (Auto) Eos # (Auto) Baso # (Auto) Total Counted Seg Neutrophils % Band Neutrophils % Lymphocytes % (Manual) Monocytes % (Manual) Neutrophils # (Manual) RBC Morphology Macrocytosis PT INR APTT Sodium Potassium Chloride Carbon Dioxide BUN Creatinine Estimated GFR BUN/Creatinine Ratio Glucose Lactate 2.3 H Calcium Magnesium Total Bilirubin AST ALT Alkaline Phosphatase Total Creatine Kinase CK-MB (CK-2) CK-MB (CK-2) Rel Index Troponin I Total Protein Albumin Globulin Albumin/Globulin Ratio Lipase Procalcitonin < 0.05 Urine Color Urine Appearance Urine pH Ur Specific [place] Urine Protein Urine Glucose (UA) Urine Ketones Urine Occult Blood Urine Nitrate Urine Bilirubin Urine Urobilinogen Ur Leukocyte Esterase Urine RBC Urine WBC Urine Bacteria Ur Culture Indicated? Nasal Screen MRSA (PCR) Urine Opiates Screen Ur Oxycodone Screen Urine Methadone Screen Ur Barbiturates Screen U Tricyclic Antidepress Ur Phencyclidine Scrn Ur Amphetamines Screen U Methamphetamines Scrn Ur MDMA Scrn (Ecstasy) U Benzodiazepines Scrn Urine Cocaine Screen U Marijuana (THC) Screen Ethyl Alcohol Chlamy pneumoniae PCR Adenovirus (PCR) B.parapertussis DNA PCR Coronavirus OC43 (PCR) Coronavirus HKU1 (PCR) Coronavirus 229E (PCR) Coronavirus NL63 (PCR) Human Metapneumovir PCR Influenza Type A (PCR) Influenza Type B (PCR) M. pneumoniae (PCR) Parainfluenza 1 (PCR) Parainfluenza 2 (PCR) Parainfluenza 3 (PCR) Parainfluenza 4 (PCR) RSV (PCR) Entero/Rhino (PCR) Blood Type B Positive Antibody Screen Negative 04/22/19 04/22/19 04/23/19 18:30 19:25 00:00 WBC RBC Hgb Hct MCV MCH MCHC RDW Plt Count Neut % (Auto) Lymph % (Auto) [place] % (Auto) Eos % (Auto) Baso % (Auto) Neut # (Auto) Lymph # (Auto) [place] # (Auto) Eos # (Auto) Baso # (Auto) Total Counted Seg Neutrophils % Band Neutrophils % Lymphocytes % (Manual) Monocytes % (Manual) Neutrophils # (Manual) RBC Morphology Macrocytosis PT INR APTT Sodium Potassium Chloride Carbon Dioxide BUN Creatinine Estimated GFR BUN/Creatinine Ratio Glucose Lactate 0.9 Calcium Magnesium Total Bilirubin AST ALT Alkaline Phosphatase Total Creatine Kinase CK-MB (CK-2) CK-MB (CK-2) Rel Index Troponin I Total Protein Albumin Globulin Albumin/Globulin Ratio Lipase Procalcitonin Urine Color Urine Appearance Urine pH Ur Specific [place] Urine Protein Urine Glucose (UA) Urine Ketones Urine Occult Blood Urine Nitrate Urine Bilirubin Urine Urobilinogen Ur Leukocyte Esterase Urine RBC Urine WBC Urine Bacteria Ur Culture Indicated? Nasal Screen MRSA (PCR) Negative for mrsa Urine Opiates Screen Negative Ur Oxycodone Screen Negative Urine Methadone Screen Negative Ur Barbiturates Screen Negative U Tricyclic Antidepress Negative Ur Phencyclidine Scrn Negative Ur Amphetamines Screen Negative U Methamphetamines Scrn Negative Ur MDMA Scrn (Ecstasy) Negative U Benzodiazepines Scrn Negative Urine Cocaine Screen Negative U Marijuana (THC) Screen Negative Ethyl Alcohol Chlamy pneumoniae PCR Adenovirus (PCR) B.parapertussis DNA PCR Coronavirus OC43 (PCR) Coronavirus HKU1 (PCR) Coronavirus 229E (PCR) Coronavirus NL63 (PCR) Human Metapneumovir PCR Influenza Type A (PCR) Influenza Type B (PCR) M. pneumoniae (PCR) Parainfluenza 1 (PCR) Parainfluenza 2 (PCR) Parainfluenza 3 (PCR) Parainfluenza 4 (PCR) RSV (PCR) Entero/Rhino (PCR) Blood Type Antibody Screen 04/23/19 04/23/19 04/23/19 05:01 05:01 05:01 WBC 15.3 H RBC 3.63 L Hgb 12.5 L Hct 36.0 L MCV 99.2 MCH 34.3 H MCHC 34.6 RDW 14.0 Plt Count 236 Neut % (Auto) Lymph % (Auto) [place] % (Auto) Eos % (Auto) Baso % (Auto) Neut # (Auto) Lymph # (Auto) [place] # (Auto) Eos # (Auto) Baso # (Auto) Total Counted 100 Seg Neutrophils % 74.0 H Band Neutrophils % 11.0 H Lymphocytes % (Manual) 8.0 L Monocytes % (Manual) 7.0 Neutrophils # (Manual) 68258 H RBC Morphology See Macrocytosis 1+ H PT INR APTT Sodium 134 L Potassium 4.7 Chloride 102 Carbon Dioxide 28 BUN 9 Creatinine 0.60 L Estimated GFR > 60.0 BUN/Creatinine Ratio 15.0 Glucose 135 H Lactate Calcium 8.6 Magnesium 1.5 L Total Bilirubin AST ALT Alkaline Phosphatase Total Creatine Kinase CK-MB (CK-2) CK-MB (CK-2) Rel Index Troponin I Total Protein Albumin Globulin Albumin/Globulin Ratio Lipase Procalcitonin 0.94 H Urine Color Urine Appearance Urine pH Ur Specific [place] Urine Protein Urine Glucose (UA) Urine Ketones Urine Occult Blood Urine Nitrate Urine Bilirubin Urine Urobilinogen Ur Leukocyte Esterase Urine RBC Urine WBC Urine Bacteria Ur Culture Indicated? Nasal Screen MRSA (PCR) Urine Opiates Screen Ur Oxycodone Screen Urine Methadone Screen Ur Barbiturates Screen U Tricyclic Antidepress Ur Phencyclidine Scrn Ur Amphetamines Screen U Methamphetamines Scrn Ur MDMA Scrn (Ecstasy) U Benzodiazepines Scrn Urine Cocaine Screen U Marijuana (THC) Screen Ethyl Alcohol Chlamy pneumoniae PCR Adenovirus (PCR) B.parapertussis DNA PCR Coronavirus OC43 (PCR) Coronavirus HKU1 (PCR) Coronavirus 229E (PCR) Coronavirus NL63 (PCR) Human Metapneumovir PCR Influenza Type A (PCR) Influenza Type B (PCR) M. pneumoniae (PCR) Parainfluenza 1 (PCR) Parainfluenza 2 (PCR) Parainfluenza 3 (PCR) Parainfluenza 4 (PCR) RSV (PCR) Entero/Rhino (PCR) Blood Type Antibody Screen 04/23/19 04/23/19 10:38 10:58 WBC RBC Hgb Hct MCV MCH MCHC RDW Plt Count Neut % (Auto) Lymph % (Auto) [place] % (Auto) Eos % (Auto) Baso % (Auto) Neut # (Auto) Lymph # (Auto) [place] # (Auto) Eos # (Auto) Baso # (Auto) Total Counted Seg Neutrophils % Band Neutrophils % Lymphocytes % (Manual) Monocytes % (Manual) Neutrophils # (Manual) RBC Morphology Macrocytosis PT INR APTT Sodium Potassium Chloride Carbon Dioxide BUN Creatinine Estimated GFR BUN/Creatinine Ratio Glucose Lactate Calcium Magnesium Total Bilirubin AST ALT Alkaline Phosphatase Total Creatine Kinase CK-MB (CK-2) CK-MB (CK-2) Rel Index Troponin I Total Protein Albumin Globulin Albumin/Globulin Ratio Lipase Procalcitonin Urine Color Yellow Urine Appearance Clear Urine pH 6.5 Ur Specific [place] 1.010 Urine Protein Negative Urine Glucose (UA) Trace H Urine Ketones Negative Urine Occult Blood Trace-intact Urine Nitrate Negative Urine Bilirubin Negative Urine Urobilinogen 1.0 Ur Leukocyte Esterase Negative Urine RBC 1-5/hpf Urine WBC None seen Urine Bacteria None seen Ur Culture Indicated? Cult not indicated Nasal Screen MRSA (PCR) Urine Opiates Screen Ur Oxycodone Screen Urine Methadone Screen Ur Barbiturates Screen U Tricyclic Antidepress Ur Phencyclidine Scrn Ur Amphetamines Screen U Methamphetamines Scrn Ur MDMA Scrn (Ecstasy) U Benzodiazepines Scrn Urine Cocaine Screen U Marijuana (THC) Screen Ethyl Alcohol Chlamy pneumoniae PCR Not detected Adenovirus (PCR) Not detected B.parapertussis DNA PCR Not detected Coronavirus OC43 (PCR) Not detected Coronavirus HKU1 (PCR) Not detected Coronavirus 229E (PCR) Not detected Coronavirus NL63 (PCR) Not detected Human Metapneumovir PCR Not detected Influenza Type A (PCR) Not detected Influenza Type B (PCR) Not detected M. pneumoniae (PCR) Not detected Parainfluenza 1 (PCR) Not detected Parainfluenza 2 (PCR) Not detected Parainfluenza 3 (PCR) Not detected Parainfluenza 4 (PCR) Not detected RSV (PCR) Not detected Entero/Rhino (PCR) Not detected Blood Type Antibody Screen Assessment & Plan Assessment & Plan narrative: L Posterior non-displaced rib frx 4-8 - pulm toilet - pain control inadequate especially to mobilize, added scheduled Toradol as well as narcotic - mobilize with PT - weaned to 4 LNC from 10 this AM; breathing fairly comfortably while resting and very still RLL Consolidation - concern for aspiration, pt met sepsis criteria on admission with resolution via meds and is not toxic appearing --> trauma pain and/or etoh withdrawal may be contributory, PNA is a high concern --> blood cultures sent --> afebrile but still with leukocytosis and left shift - pulm toilet, if fevers and leukocytosis persist he may need abx Hyponatremia - improving with IVFs, nearly to normal ETOH Abuse - monitor closely, no history of symptoms per family but concerning history - recommend CIWA protocol, benzos given in ED with improvement in vitals - labs not consistent with cirrhosis Anemia - no baseline for comparison, no evidence of bleeding so likely chronic - monitor Quality VTE Deep Vein Thrombosis/Pulmonary Embolism Present on Admission: No
--- NOTE | 2019-04-23 12:10 | PT.IIE ---
Current Diagnoses Pneumonia, unspecified organism (04/22/19) Surgical History (Last Updated 04/23/19 @ 02:51 by MARY Owens) S/P exploratory laparotomy (Chronic) Status post hernia repair (Chronic) Medical History (Last Updated 04/23/19 @ 02:51 by MARY Owens) Alcohol dependence (Chronic) Diabetes (Chronic) GERD (gastroesophageal reflux disease) (Chronic) Hypertension (Chronic) Pancreatitis (Chronic) Tobacco dependency (Chronic) Physical Therapy Inpatient Evaluation/Re-Eval M1 PT/OT-IP Prior Functional Status Start: 04/23/19 08:00 Freq: NEEDED Status: Active Protocol: Document 04/23/19 12:10 RS (Rec: 04/23/19 13:50 RS [id number]) Medical Review Prior Functional Status Medical History Reviewed Yes Diet/Fluid Consistency Regular Communication no known deficits Mobility and Gait ind without device Activities of Daily Living and IADL's ind Social History Household Members spouse Living Arrangements House 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 Additional Social History Comment 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 work, pt/ reports no concerns M2 PT-IP Current Condition Start: 04/23/19 08:00 Freq: NEEDED Status: Active Protocol: Document 04/23/19 12:10 RS (Rec: 04/23/19 13:50 RS [id number]) Physical Therapy Current Condition Current Condition Evaluation Date 04/23/19 Treatment Diagnosis impaired mobility s/p fall w/ 5 L rib fxs Onset Date 04/22/19 M3 PT-IP Subjective Start: 04/23/19 08:00 Freq: NEEDED Status: Active Protocol: Document 04/23/19 12:10 RS (Rec: 04/23/19 13:50 RS [id number]) Subjective Physical Therapy Visit Type Type Initial Evaluation Visit Start Time 11:17 Visit Stop Time 12:10 Total Visit Minutes 53 Physical Therapy Visit Comments Patient Comments Pt hesitantly agreeable to participate in therapy. Patient Goals go home Therapy Pain Assessment Pain When Pain Assessed During Mobility Pain Present Pain Present Pain Reported Location L chest Intensity 10 Scale Used Numeric (1 - 10) M4 PT-IP Mobility and Gait Start: 04/23/19 08:00 Freq: NEEDED Status: Active Protocol: Document 04/23/19 12:10 RS (Rec: 04/23/19 13:50 [id number]) PT-Bed Mobility Assessment Rolling Type of Rolling Roll to Right Level of Assist Moderate Assistance Supine to Sit Supine to Sit Moderate Assistance Sit to Supine Sit to Supine Moderate Assistance Scooting Scooting Up and Down in Bed Dependent PT-Transfer Assessment Comments Mobility Comments Pt extremeley painful with all movement, did better continuing to hug pillow while performing bed mobility. Needs step by step instructions and mod A due to such high pain levels. Once up in sitting pt cued to hug pillow due to sensation of needing to cough. Pt ended up coughing consistently and forcefully for a full 30 seconds, quite productive, but with 10/10 pain. Pt likely would have fallen over while cough (sitting EOB) if he hasn 't been stabilized by PT. Pt too painful to attempt any further mobility, needed mod A to return to sidelying, opted to stay in sidelying. Gait Assessment Comments Gait Comments too painful to assess PT-Balance Assessment Sitting Balance and Reactions Static Sitting Balance Ability Fair Dynamic Sitting Balance Ability Poor M5 PT-IP Objective Assessments Start: 04/23/19 08:00 Freq: NEEDED Status: Active Protocol: Document 04/23/19 12:10 RS (Rec: 04/23/19 13:50 [id number]) Orientation Orientation/Cognition Level of Alertness Lethargic Orientation Name Age Birthday Month Date Year Day of Week Place Situation Language Function Ability No Deficits Noted Safety Awareness Understands Safety Issues Memory Description No Deficits Noted Gross Range of Motion Upper Extremity ROM Impairments LUE grossly limited due to pain with movement (active and passive) Lower Extremity ROM Assessment Within Functional Limits Strength Comments Strength Comments strength not formally assessed , LUE demonstrates less than antigravity strength likely due to pain, RUE and BLE demo at least antigravity strength M6 PT-IP Treatment Start: 04/23/19 08:00 Freq: NEEDED Status: Active Protocol: Document 04/23/19 12:10 RS (Rec: 04/23/19 13:50 RS [id number]) Physical Therapy Treatment Education Education Provided Safety M7 PT-IP Assessment and Plan Start: 04/23/19 08:00 Freq: NEEDED Status: Active Protocol: Document 04/23/19 12:10 RS (Rec: 04/23/19 13:50 [id number]) PT Summary Assessment and Plan Potential Rehabilitation Potential Good Status of Condition at Evaluation Evolving Summary Impairments Pain ROM Strength Balance Bed Mobility Transfers Gait Activity Tolerance Assessment Summary Pt presents s/p GLF onto stool resulting in L rib fxs x 5. Pt is experiencing high levels of pain with both rest and activity and the correlating pain-related weakness. Pt currently requires up to mod A just for bed mobility and cannot tolerate OOB mobility yet at this time. Pt also limited slightly from respiratory standpoint as pt is requiring HFNC, dropped to 89% with activity. Pt's current status is significantly below pt's reported functional baseline. Pt does have potential for functional improvement and will benefit from ongoing skilled therapies while here in the acute setting. Pt may require transition to SNF once medically ready to continue daily skilled therapies. Pending pain control, pt may be able to progress directly to home but will likely need initial 24/7 assist and HHPT in that case. Due to patient's high level of pain and need for HFNC, will start acute PT POC at 1x/day but this could be increased to 2x/day as pt's ability to tolerate mobility improves. Goals Bed Mobility Goal Standby Assistance Transfer Goal Standby Assistance Gait Goal Standby Assistance Gait Distance 50 Days to Meet Goals 4 Frequency of Treatment Frequency Of Treatment Once a Day Treatment Plan Physical Therapy Treatment Plan Bed Mobility Training Transfer Training Gait Training Therapeutic Exercise Balance Retraining Post Op Education Discharge Planning Hot or Cold Pack Neuromuscular Re-ed Coordination Retraining Manual Therapy Other Recommendations and Next Treatment reinforce rolling for bed Focus mobility, transfer to chair, initiate gait once off HFNC Recommendations To Nursing Amount of Assist Needed Mechanical Lift Discharge Recommendations PT Discharge Recommendations SNF Rehab Other Discharge Recommendations may progress to home w/ initial 24/7 assist
[2019-04-23] MEDS: SODIUM CHLORIDE 0.9% 1,000 ML 100 ML IV ×2 (13:27→23:00)
[2019-04-23] MEDS: LISINOPRIL 20 MG TABLET 40 MG PO (14:03)
[2019-04-23] MEDS: LIDOCAINE PATCH 1 EACH ADH..PATCH TOP (14:03)
[2019-04-23] MEDS: ENOXAPARIN 40 MG/0.4 ML SYRINGE SUBCUT (14:03)
--- NOTE | 2019-04-23 15:13 | CM.DANOTE ---
DCP/Assessment: Reviewed chart. Patient is a 58yr old male admitted to I.. with chest pain. PCP is Dr. Ponce Jack at [facility]. Primary Payor is 1)[facility] 2)[place]. Met with patient and spouse/Crissy at bedside explained [employer] role. Per spouse, they were at a [employer] yesterday and patient tripped while in flip flops. This caused him to fall and fracture multiple ribs. Patient also with possible pneumonia. Patient resting in bed uncomfortable due to pain at time of [employer] visit. Spouse reports that prior to admit patient completely I in all ADL's. 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 Spouse and patient report that patient drinks approximately 1 (6) pack of beer every night. Both patient and spouse do not report any issues related over usage. Patient reports he drinks to relax after work. Patient also smoke 1 pack of cigarettes per day. Patient denies having drinking problem and spouse agrees. Patient and spouse do anticipate that patient will go through detox. Patient is currently on CIWA protocol and nicotine patch. Therapy following for mobilization. CM team to continue to follow. P: Anticipate home when medically stable vs. ? following closely. RICHARD Case Discharge Planning/Care Management Advanced directive, confirm from FAMILY Start: 04/23/19 00:08 Freq: Q24H Status: Active Protocol: Document 04/23/19 00:08 DKB (Rec: 04/23/19 00:32 DKB [id number]) Advance Directive, confirm on record Time 00:00 Person contacted Crissy Delongirez Copy received No Advanced directive available on record No CM Discharge Assessment Start: 04/23/19 15:06 Freq: Status: Active Protocol: Document 04/23/19 15:06 KJS (Rec: 04/23/19 15:12 KJS [id number]) Discharge Planning Assessment Assigned Primary Therapist RICHARD Case Contact Information Crissy Ky (spouse) [phone] Advance Directives? No History Provided By Patient Family Member Significant Other Has Patient been admitted in last 30 No days? Prior Living Arrangements House Household Members spouse Type of transporation used prior to Drives own vehicle admit Independent with ADL's Yes Is patient alert and oriented? Yes Caregiver for Another No Barriers to Discharge No Discharge Plan Home Transportation Arrangement Family to provide transport. Referrals Initiated Other Additional Comment Pending hospitalization Whiteboard Updated in Patient Room with Yes name and ext. # of Primary Therapist Review Status In Process Next Review Type Continued Stay Review
[2019-04-23] MEDS: INSULIN ASPART 100 UNIT/ML INSULN PEN SUBCUT (17:04)
--- NOTE | 2019-04-23 19:17 | PC.NURSE ---
Pt resting in bed this shift. Sat up in the bed to eat. Has been on RA since 1630 with sats in the mid 90s. Pt drowsy but wakes up easily. Pt has been calm and cooperative.
[2019-04-23] MEDS: LORazepam 0.5 MG TABLET PO (20:13)
--- NOTE | 2019-04-23 20:21 | P.PN_ITS ---
Subjective Date Patient Seen: 04/23/19 Interval history: Bharat Mcpherson is a 58-year-old male with a past medical history significant for hypertension, carotid atherosclerosis, diabetes mellitus type 2, non-insulin using, GERD, current every day tobacco use (1 ppd), and current every day EtOH use (6 pack beer daily) who presented to the ED complaining of chest wall pain after GLF. Interval History: Patient was up to 10 L supplemental oxygen via nasal cannula. He is down to 4L with oxygen saturation goal reestablished at 88% as he is current smoker and plan to continue to titrate down as tolerated. The patient is resting in bed and appears to be in mild to moderate discomfort. He is diaphoretic, slightly tremulous, very withdrawn and hardly will open his eyes while answering questions. His last CIWA score was 5. He has had a score as high as 12 thus far. He denies previous alcohol withdrawal other than the shakes. He reports he has pain with coughing and any movement. He has had little relief with oxycodone 5 mg every 6 hours. He states he needs a cigarette despite having a nicotine patch currently in place. He denies headache, shortness of breath, chest pain, abdominal pain, nausea, vomiting, fever, chills, formication, hallucinations, delusions, voices, dysuria, diarrhea or con stipation. He is voiding and eliminating without difficulty. He is up ambulating minimally due to pain. Exam Vital Signs (past 8 hours): - 04/23/19 12:33 04/23/19 13:54 04/23/19 15:35 Temperature Pulse Rate Respiratory Rate Blood Pressure Pulse Oximetry 94 96 96 04/23/19 16:26 04/23/19 19:10 04/23/19 20:19 Temperature 98.1 F 98.7 F Pulse Rate 96 H 95 H Respiratory Rate 16 18 Blood Pressure 146/81 H 153/87 H Pulse Oximetry 96 96 95 Oxygen Delivery Method Room Air Oxygen Flow Rate 4 Narrative Exam Narrative: General: Middle-aged male lying in bed in no acute distress but appears significantly uncomfortable, mildly diaphoretic and tremulous, well-developed, well-nourished, withdrawn but appropriately interactive otherwise. HEENT: Normocephalic, atraumatic. External ears without defect. Pupils equal, round, and reactive to light. Anicteric sclerae, moist conjunctivae, and no lid lag. Neck: Supple with full range of motion. No lymphadenopathy or thyromegaly. Cardiovascular: Regular rhythm mildly tachycardic, without murmurs, rubs, or gallops appreciated. Pulmonary: Clear to auscultation bilaterally but diminished at right base without crackles, wheezes, or rhonchi. Normal respiratory effort with no use of accessory muscles. Abdomen:Soft, bowel sounds present, nontender in abdomen, nondistended. Tenderness to palpation of posteriorolateral left rib cage. No hepatosplenomegaly or masses appreciated. Extremities: No clubbing, cyanosis, or edema. Skin: Normal temperature, turgor, and texture; no rash, ulcers, or subcutaneous nodules appreciated. Neurological: Cranial nerves grossly intact. Psychiatric: Withdrawn with flat affect. Appears to be alert and oriented to person, place, and time. Objective Labs Result Diagrams: 04/24/19 04:46 04/24/19 04:46 Labs: Laboratory Results - last 24 hr 04/23/19 04/23/19 04/23/19 00:00 05:01 05:01 WBC 15.3 H RBC 3.63 L Hgb 12.5 L Hct 36.0 L MCV 99.2 MCH 34.3 H MCHC 34.6 RDW 14.0 Plt Count 236 Total Counted 100 Seg Neutrophils % 74.0 H Band Neutrophils % 11.0 H Lymphocytes % (Manual) 8.0 L Monocytes % (Manual) 7.0 Neutrophils # (Manual) 03141 H RBC Morphology See Macrocytosis 1+ H Sodium 134 L Potassium 4.7 Chloride 102 Carbon Dioxide 28 BUN 9 Creatinine 0.60 L Estimated GFR > 60.0 BUN/Creatinine Ratio 15.0 Glucose 135 H Calcium 8.6 Magnesium 1.5 L Procalcitonin Urine Color Urine Appearance Urine pH Ur Specific [place] Urine Protein Urine Glucose (UA) Urine Ketones Urine Occult Blood Urine Nitrate Urine Bilirubin Urine Urobilinogen Ur Leukocyte Esterase Urine RBC Urine WBC Urine Bacteria Ur Culture Indicated? Nasal Screen MRSA (PCR) Negative for mrsa Chlamy pneumoniae PCR Adenovirus (PCR) B.parapertussis DNA PCR Coronavirus OC43 (PCR) Coronavirus HKU1 (PCR) Coronavirus 229E (PCR) Coronavirus NL63 (PCR) Human Metapneumovir PCR Influenza Type A (PCR) Influenza Type B (PCR) M. pneumoniae (PCR) Parainfluenza 1 (PCR) Parainfluenza 2 (PCR) Parainfluenza 3 (PCR) Parainfluenza 4 (PCR) RSV (PCR) Entero/Rhino (PCR) 04/23/19 04/23/19 04/23/19 05:01 10:38 10:58 WBC RBC Hgb Hct MCV MCH MCHC RDW Plt Count Total Counted Seg Neutrophils % Band Neutrophils % Lymphocytes % (Manual) Monocytes % (Manual) Neutrophils # (Manual) RBC Morphology Macrocytosis Sodium Potassium Chloride Carbon Dioxide BUN Creatinine Estimated GFR BUN/Creatinine Ratio Glucose Calcium Magnesium Procalcitonin 0.94 H Urine Color Yellow Urine Appearance Clear Urine pH 6.5 Ur Specific [place] 1.010 Urine Protein Negative Urine Glucose (UA) Trace H Urine Ketones Negative Urine Occult Blood Trace-intact Urine Nitrate Negative Urine Bilirubin Negative Urine Urobilinogen 1.0 Ur Leukocyte Esterase Negative Urine RBC 1-5/hpf Urine WBC None seen Urine Bacteria None seen Ur Culture Indicated? Cult not indicated Nasal Screen MRSA (PCR) Chlamy pneumoniae PCR Not detected Adenovirus (PCR) Not detected B.parapertussis DNA PCR Not detected Coronavirus OC43 (PCR) Not detected Coronavirus HKU1 (PCR) Not detected Coronavirus 229E (PCR) Not detected Coronavirus NL63 (PCR) Not detected Human Metapneumovir PCR Not detected Influenza Type A (PCR) Not detected Influenza Type B (PCR) Not detected M. pneumoniae (PCR) Not detected Parainfluenza 1 (PCR) Not detected Parainfluenza 2 (PCR) Not detected Parainfluenza 3 (PCR) Not detected Parainfluenza 4 (PCR) Not detected RSV (PCR) Not detected Entero/Rhino (PCR) Not detected Assessment & Plan Assessment & Plan narrative: Bharat Mcpherson is a 58-year-old male with a past medical history significant for hypertension, carotid atherosclerosis, diabetes mellitus type 2, non-insulin using, GERD, current every day tobacco use (1 ppd), and current every day EtOH use (6 pack beer daily) who presented to the ED complaining of chest wall pain after GLF. 1. Acute left multiple rib fractures, after ground level fall, present on admission. Active. -CT abdomen and pelvis demonstrated multiple nondisplaced left-sided rib fractures involving the 4th, 5th, 6th, 7th, and 8th left posterior ribs. No pneumothorax or evidence of solid organ laceration or contusion of the abdomen. -General surgery, Dr. German was consulted for trauma. We appreciate her time, recommendations and care of the patient. -Continue Tylenol for mild pain, oxycodone 5-10 mg every 4 hours for moderate to severe pain and toradol 15 mg every 6 hours for pain and inflammation. -Continue PT and OT evaluation and treatment. -Ordered bowel regimen as CT notes probable constipation and patient is now on narcotics for pain management. -Consulted RT for evaluation and treatment as patient needs aggressive pulmonary hygiene every 4 hours for posterior rib fractures. -Ordered incentive spirometer and encouraged patient to use frquently to keep bases of lungs ex panded to prevent atelectasis and pneumonia. Goal 10x/hr. 2. Acute probable RLL aspiration pneumonia, present on admission. Active. -Chest X-ray demonstrated right lower lobe possible pneumonia (aspiration) vs RLL atelectasis. -No known recent nausea or vomiting. No dysphagia. Patient known to have persistent sinus drainage and post nasal drip with parasinus disease noted on CT. He has a cough, which was noted to be chronic, at his baseline without increased purulence or dyspnea prior to hospital presentation. No fever or chills. He does have elevated lactate and wbc on admission. qSofa score is 1 (increased RR), at risk for sepsis. -Blood cultures x 2 have no growth to date. -Received Clindamycin in ED. Switched to augmentin twice daily to cover broadly gram positive and negative and anaerobes for possible aspiration in setting of chronic alcohol abuse. -Consulted RT for evaluation and treatment. Oxygen saturation goal 88%. 3. Acute hyponatremia, present on admission. Active. -Suspected to be in the setting of EtOH intoxication vs. hypovolemia (decreased food / fluid intake) vs. hypermetabolic state (+ fever, PNA) -Received 2L NS boluses in ED. Continue IV fluid with NS at 100 mL/hr until adequately taking in PO fluids. 4. Acute on chronic alcohol intoxication with acute alcohol withdrawal, present on admission. Active. -Lifelong history of alcohol use, 30+yrs. Currently drinks 6 pack of beer, daily. Liver enzymes WNL. H/o of pancreatitis (x3 prior episodes, most recent 5 years ago). CIWA of 12 in ED, received a total of 2 mg of ativan IV in ED (1745 and 1900). -EtOH level 37 on presentation, lifelong h/o EtOH dependence, last drink in the evening of 04/21 -Receievd Banana bag x1. Continue IV fluids with normal saline at 100 mL/hr until adequately taking in PO fluids. -Continue CIWA protocol including: Lorazepam, thiamine, folate, and multivitamin -No known h/o EtOH withdrawal, psychosis or hallucinosis. -Alcohol cessation highly encouraged. -Monitor for electrolyte deficiencies and replete accordingly. 5.Tobacco dependence, chronic, present on admission, active - nicotine patch, currently smokes 1PPD - smoking cessation education 6. Diabetes mellitus type 2, non-insulin using, present on admission. Stable. -DM controlled per family's report. Not on insulin, oral anti-glycemic regimen only with metformin and glipizide. Noted to have previous hypoglycemic episodes. -Continue ACHS blood glucose checks and will consider correction scale insulin is needed -Held metformin and glipizide. -RN's to monitor for s/s of hypoglycemia, notify provider for glu level < 70 7. GERD with esophagitis on CT imaging, chronic, present on admission. Active. -Continue Protonix 40 mg daily 8. Macrocytic anemia, likely chronic, present on admission. Active. -Hgb 12.8 on admission. Asymptomatic. No active s/s of bleeding. RF EtOH dependence and GERD / esophagitis. On ASA 81 mg daily. -Ordered B12 and folate levels, pending. -Continue folate, thiamine, and multivitamin. -Continue to monitor CBC periodically. Disposition: Patient will likely discharge home in several days once adequately mobilizing. Quality VTE Deep Vein Thrombosis/Pulmonary Embolism Present on Admission: No
[2019-04-24] VITALS (10 sets, daily range): BP systolic 153–179; BP diastolic 86–99; PULSE 81–106; RESP 13–22; TEMP 36.2–36.8; O2SAT 91–100
--- NOTE | 2019-04-24 | DI.US.S_ITS ---
PROCEDURE: US CHEST COMPARISON: [facility], CR, XR CHEST 1V, 04/24/2019, 5:33. INDICATIONS: POSSIBLE PLEURAL EFFUSION FINDINGS: No significant right pleural fluid is identified sonographically. IMPRESSION: No right pleural effusion identified sonographically. Therefore scheduled thoracentesis was canceled. Dictated by: Humberto Goodman M.D. on 04/24/2019 at 15:14 Approved by: Humberto Goodman M.D. on 04/24/2019 at 15:16
[2019-04-24] MEDS: OXYCODONE IR 5 MG TABLET PO ×2 (00:09→05:01)
[2019-04-24] MEDS: LORazepam 0.5 MG TABLET PO ×2 (02:28→08:44)
[2019-04-24] MEDS: PANTOPRAZOLE 20 MG TABLET 40 MG PO (05:01)
[2019-04-24] MEDS: KETOROLAC 15 MG/ML VIAL IV (05:01)
[2019-04-24 05:12] LABS: Add Manual Diff / Slide Review NO; Basophils Absolute Auto 0 /uL (0-100); Basophils Percent Auto 0.4 % (0-2); Eosinophils Absolute Auto 100 /uL (0-450); Eosinophils Percent Auto 1.4 % (2-4); Hematocrit 33.1 % (41-53); Hemoglobin 11.3 g/dL (13.5-17.5); Lymphocytes Absolute Auto 800 /uL (1100-4500); Lymphocytes Percent Auto 10.5 % (25-40); Mean Corpuscular HGB Conc 34.1 % (30-36); Mean Corpuscular Hemoglobin 34.6 PG (26-34); Mean Corpuscular Volume 101.4 fL (80-100); Monocytes Absolute Auto 400 /uL (0-900); Monocytes Percent Auto 5.6 % (3-14); Neutrophils Absolute Auto 6600 /uL (1500-7000); Neutrophils Percent Auto 82.1 % (50-75); Platelet Count 201 X10^3/uL (150-400); Red Blood Cell Count 3.27 X10^6/uL (4.5-5.9); Red Cell Distribution Width 13.9 % (11.6-14.8)
[2019-04-24 05:15] LABS: Alanine Aminotransferase 10 IU/L (21-72); Albumin 2.6 g/dL (3.5-5.0); Albumin Globulin Ratio 1.1 (1.0-2.8); Alkaline Phosphatase 47 U/L (38-126); Aspartate Aminotransferase 16 IU/L (17-59); Bilirubin Total 0.4 mg/dL (0.2-1.3); Blood Urea Nitrogen 9 mg/dL (9-20); Calcium 8.2 mg/dL (8.4-10.2); Carbon Dioxide 26 mmol/L (22-32); Chloride 105 mmol/L (98-107); Estimated Glomerular Filt Rate > 60.0 mL/min (>60); Globulin 2.4 g/dL (1.7-4.1); Glucose 85 mg/dL (70-100); HEMOLYSIS < 15 (0-50); Potassium 4.4 mmol/L (3.4-5.1); Sodium 133 mmol/L (137-145)
--- NOTE | 2019-04-24 05:25 | PC.NURSE ---
NOC Note Pt requesting PRN oxycodone 2 times this shift and Toradol once for pain 4-6/10 at rest reporting that pain increases with cough. Occ cough noted, no sputum this shift. Prn Ativan given once for s/sx of withdrawal and anxiety with good results. has been at the bedside and assists with use of the urinal. Pt reported pain in back and requested to be on right side. O2 sat was 97-98% on RA while on his back with HOB elevated, once on his side O2 sat decreased to 91-92%. Deep breathing encouraged. Pt had been SR on tele.
--- NOTE | 2019-04-24 06:00 | DI.RAD.S_ITS ---
PROCEDURE: XR CHEST 1V INDICATIONS: chest trauma, Pneumonia, rib fracture TECHNIQUE: One view of the chest was acquired. COMPARISON: [facility], CR, XR CHEST 1V, 04/22/2019, 17:13. FINDINGS: Surgical changes and devices: None. Lungs and pleura: Moderate-sized right pleural effusion with right lung atelectasis is seen. Pulmonary vascular congestion is also noted. No pleural effusions or pneumothorax. Mediastinum: Mediastinal contours appear normal. Heart size is normal. Bones and chest wall: Patient's known nondisplaced right rib fractures are not well identified on this chest radiograph study.. Overlying soft tissues appear unremarkable. IMPRESSION: Moderate-sized right pleural effusion with right lung atelectasis and mild pulmonary vascular congestion. No gross pneumothorax. Patient's known rib fractures are not well-seen on this study. Dictated by: Sumit Robles M.D. on 04/24/2019 at 8:45 Approved by: Sumit Robles M.D. on 04/24/2019 at 8:47
[2019-04-24] MEDS: LACTOBACILLUS ACIDOPHILUS TABLET 1 EACH PO ×2 (08:41→18:42)
[2019-04-24] MEDS: MULTIVIT,CALC,MINS/IRON/FOLIC 1 TABLET 1 TAB PO (08:42)
[2019-04-24] MEDS: DOCUSATE 100 MG CAPSULE PO ×2 (08:42→21:03)
[2019-04-24] MEDS: NICOTINE 21 MG PATCH TOP (08:42)
[2019-04-24] MEDS: THIAMINE 100 MG TABLET PO (08:43)
[2019-04-24] MEDS: MAGNESIUM OXIDE 400 MG TABLET PO (08:44)
[2019-04-24] MEDS: ENOXAPARIN 40 MG/0.4 ML SYRINGE SUBCUT (08:47)
[2019-04-24] MEDS: LISINOPRIL 20 MG TABLET 40 MG PO (09:04)
[2019-04-24] MEDS: AMOXICILLIN/CLAV 875/125 MG 1 TAB PO ×2 (09:04→21:02)
[2019-04-24] MEDS: SODIUM CHLORIDE 0.9% 1,000 ML 100 ML IV (09:11)
[2019-04-24] MEDS: LIDOCAINE PATCH 1 EACH ADH..PATCH TOP (09:12)
[2019-04-24] MEDS: OXYCODONE IR 5 MG TABLET 10 MG PO ×3 (09:37→21:07)
--- NOTE | 2019-04-24 10:45 | P.PN_ITS ---
Subjective Date Patient Seen: 04/24/19 Interval history: Mr. gee floyd is a 58-year-old male who suffered a ground level fall resulting in multiple rib fractures on the right, aspiration pneumonia, and with a known history of ETOH abuse. Patient's pain is well controlled with oxycodone. He rates the pain at 3/4 in intensity. He is off oxygen. He has no evidence of withdrawal. Specifically no hallucinations no tremor or headache. Patient was nauseated earlier, but no actual tiana hematemesis. He is mobilizing with PT at this time. Exam Vital Signs (past 8 hours): - 04/24/19 05:00 04/24/19 05:11 04/24/19 05:43 Temperature 98.3 F Pulse Rate 105 H Respiratory Rate 14 Blood Pressure 179/99 H Pulse Oximetry 96 91 04/24/19 07:40 Temperature 98.2 F Pulse Rate 106 H Respiratory Rate 13 Blood Pressure 153/90 H Pulse Oximetry 96 Oxygen Delivery Method Room Air Oxygen Flow Rate 4 Narrative Exam Narrative: Pleasant ill-appearing male who appears uncomfortable Lungs: Decreased breath sounds on the right, clear to auscultation on the left Cardiac exam: Regular rate rhythm normal S1-S2 Abdomen: Soft nontender nondistended Extremities: No edema Psychiatric exam: No active hallucinations, no tremor, no evidence of withdrawal Objective Labs Result Diagrams: 04/24/19 04:46 04/24/19 04:46 Labs: Laboratory Results - last 24 hr 04/23/19 04/23/19 04/24/19 10:38 10:58 04:46 WBC 8.0 RBC 3.27 L Hgb 11.3 L Hct 33.1 L MCV 101.4 H MCH 34.6 H MCHC 34.1 RDW 13.9 Plt Count 201 Neut % (Auto) 82.1 H Lymph % (Auto) 10.5 L [place] % (Auto) 5.6 Eos % (Auto) 1.4 L Baso % (Auto) 0.4 Neut # (Auto) 6600 Lymph # (Auto) 800 L [place] # (Auto) 400 Eos # (Auto) 100 Baso # (Auto) 0 Sodium Potassium Chloride Carbon Dioxide BUN Creatinine Estimated GFR BUN/Creatinine Ratio Glucose Calcium Magnesium Total Bilirubin AST ALT Alkaline Phosphatase Total Protein Albumin Globulin Albumin/Globulin Ratio Urine Color Yellow Urine Appearance Clear Urine pH 6.5 Ur Specific [place] 1.010 Urine Protein Negative Urine Glucose (UA) Trace H Urine Ketones Negative Urine Occult Blood Trace-intact Urine Nitrate Negative Urine Bilirubin Negative Urine Urobilinogen 1.0 Ur Leukocyte Esterase Negative Urine RBC 1-5/hpf Urine WBC None seen Urine Bacteria None seen Ur Culture Indicated? Cult not indicated Chlamy pneumoniae PCR Not detected Adenovirus (PCR) Not detected B.parapertussis DNA PCR Not detected Coronavirus OC43 (PCR) Not detected Coronavirus HKU1 (PCR) Not detected Coronavirus 229E (PCR) Not detected Coronavirus NL63 (PCR) Not detected Human Metapneumovir PCR Not detected Influenza Type A (PCR) Not detected Influenza Type B (PCR) Not detected M. pneumoniae (PCR) Not detected Parainfluenza 1 (PCR) Not detected Parainfluenza 2 (PCR) Not detected Parainfluenza 3 (PCR) Not detected Parainfluenza 4 (PCR) Not detected RSV (PCR) Not detected Entero/Rhino (PCR) Not detected 04/24/19 04:46 WBC RBC Hgb Hct MCV MCH MCHC RDW Plt Count Neut % (Auto) Lymph % (Auto) [place] % (Auto) Eos % (Auto) Baso % (Auto) Neut # (Auto) Lymph # (Auto) [place] # (Auto) Eos # (Auto) Baso # (Auto) Sodium 133 L Potassium 4.4 Chloride 105 Carbon Dioxide 26 BUN 9 Creatinine 0.60 L Estimated GFR > 60.0 BUN/Creatinine Ratio 15.0 Glucose 85 Calcium 8.2 L Magnesium 2.0 Total Bilirubin 0.4 AST 16 L ALT 10 L Alkaline Phosphatase 47 Total Protein 5.0 L Albumin 2.6 L Globulin 2.4 Albumin/Globulin Ratio 1.1 Urine Color Urine Appearance Urine pH Ur Specific [place] Urine Protein Urine Glucose (UA) Urine Ketones Urine Occult Blood Urine Nitrate Urine Bilirubin Urine Urobilinogen Ur Leukocyte Esterase Urine RBC Urine WBC Urine Bacteria Ur Culture Indicated? Chlamy pneumoniae PCR Adenovirus (PCR) B.parapertussis DNA PCR Coronavirus OC43 (PCR) Coronavirus HKU1 (PCR) Coronavirus 229E (PCR) Coronavirus NL63 (PCR) Human Metapneumovir PCR Influenza Type A (PCR) Influenza Type B (PCR) M. pneumoniae (PCR) Parainfluenza 1 (PCR) Parainfluenza 2 (PCR) Parainfluenza 3 (PCR) Parainfluenza 4 (PCR) RSV (PCR) Entero/Rhino (PCR) Assessment & Plan Assessment & Plan narrative: Acute left multiple rib fractures, after ground level fall, present on admission. Active. -CT abdomen and pelvis demonstrated multiple nondisplaced left-sided rib fractures involving the 4th, 5th, 6th, 7th, and 8th left posterior ribs. No pneumothorax or evidence of solid organ laceration or contusion of the abdomen. -General surgery, Dr. German was consulted for trauma. We appreciate her time, recommendations and care of the patient. -Continue Tylenol for mild pain, oxycodone 5-10 mg every 4 hours for moderate to severe pain and toradol 15 mg every 6 hours for pain and inflammation. -Continue PT and OT evaluation and treatment. -Ordered bowel regimen as CT notes probable constipation and patient is now on narcotics for pain management. -Consulted RT for evaluation and treatment as patient needs aggressive pulmonary hygiene every 4 hours for posterior rib fractures. -Ordered incentive spirometer and encouraged patient to use frquently to keep bases of lungs expanded to prevent atelectasis and pneumonia. Goal 10x/hr. 2. Acute probable RLL aspiration pneumonia, present on admission. Active. -Chest X-ray demonstrated right lower lobe possible pneumonia (aspiration) vs RLL atelectasis. -No known recent nausea or vomiting. No dysphagia. Patient known to have persistent sinus drainage and post nasal drip with parasinus disease noted on CT. He has a cough, which was noted to be chronic, at his baseline without increased purulence or dyspnea prior to hospital presentation. No fever or chills. He does have elevated lactate and wbc on admission. qSofa score is 1 (increased RR), at risk for sepsis. -Blood cultures x 2 have no growth to date. -Received Clindamycin in ED. Switched to augmentin twice daily to cover broadly gram positive and negative and anaerobes for possible aspiration in setting of chronic alcohol abuse. -Consulted RT for evaluation and treatment. Oxygen saturation goal 88%. 3. Acute hyponatremia, present on admission. Active. -Suspected to be in the setting of EtOH intoxication vs. hypovolemia (decreased food / fluid intake) vs. hypermetabolic state (+ fever, PNA) -Received 2L NS boluses in ED. Continue IV fluid with NS at 100 mL/hr until saleem quately taking in PO fluids. 4. Acute on chronic alcohol intoxication with acute alcohol withdrawal, present on admission. Active. -Lifelong history of alcohol use, 30+yrs. Currently drinks 6 pack of beer, daily. Liver enzymes WNL. H/o of pancreatitis (x3 prior episodes, most recent 5 years ago). CIWA of 12 in ED, received a total of 2 mg of ativan IV in ED (1745 and 1900). -EtOH level 37 on presentation, lifelong h/o EtOH dependence, last drink in the evening of 04/21 -Receievd Banana bag x1. Continue IV fluids with normal saline at 100 mL/hr until adequately taking in PO fluids. -Continue CIWA protocol including: Lorazepam, thiamine, folate, and multivitamin -No known h/o EtOH withdrawal, psychosis or hallucinosis. -Alcohol cessation highly encouraged. -Monitor for electrolyte deficiencies and replete accordingly. 5.Tobacco dependence, chronic, present on admission, active - nicotine patch, currently smokes 1PPD - smoking cessation education 6. Diabetes mellitus type 2, non-insulin using, present on admission. Stable. -DM controlled per family's report. Not on insulin, oral anti-glycemic regimen only with metformin and glipizide. Noted to have previous hypoglycemic episodes. -Continue [facility] blood glucose checks and will consider correction scale insulin is needed -Held metformin and glipizide. -RN's to monitor for s/s of hypoglycemia, notify provider for glu level < 70 7. GERD with esophagitis on CT imaging, chronic, present on admission. Active. -Continue Protonix 40 mg daily 8. Macrocytic anemia, likely chronic, present on admission. Active. -Hgb 12.8 on admission. Asymptomatic. No active s/s of bleeding. RF EtOH dependence and GERD / esophagitis. On ASA 81 mg daily. -Ordered B12 and folate levels, pending. -Continue folate, thiamine, and multivitamin. -Continue to monitor CBC periodically. 9. Patient presented with acute hypoxic respiratory failure on admission. He required 10 L of oxygen. He was rapidly tapered down to 4 L. he is now off of oxygen. His hypoxic respiratory failure has since resolved. Disposition: Patient will likely discharge home in several days once adequately mobilizing. Quality VTE Deep Vein Thrombosis/Pulmonary Embolism Present on Admission: No
--- NOTE | 2019-04-24 10:46 | PM.EVENT ---
Date Patient Seen: 04/24/19 Patient's chest x-ray shows a moderate right-sided pleural effusion. Examination reveals decreased breath sounds on the right. Will schedule right-sided thoracentesis today. Oxygenation has improved. Patient is oxygenating in the 90 percentile range on room air.
--- NOTE | 2019-04-24 11:05 | PC.NURSE ---
[id number] Received in bed, awake, alert, oriented. Describes 6/10 pain on affected side. VSS. Sp02>/= 90% on RA. Lung sounds diminished bilat. bases. R side effusion noted per radiology. CIWA =2. Taking p.o. without difficulty, but mild nausea with no vomiting during breakfast. Bowel sounds present. Voids per urinal. IVF NS infusing at ordered rate. PIVs flushed and intact. OOB to chair with PT and [employer] assist. Tolerated well with pre-medication. Additional medication lidocaine patch applied. Encouraging IS use. Scheduled for effusion drainage later this shift.
--- NOTE | 2019-04-24 11:50 | PM.PN.1 ---
Subjective Date Patient Seen: 04/24/19 Time Patient Seen: 09:40 Interval history: On RA this AM, pt appears uncomfortable but unlabored breathing. Has some tremors and tachycardia overnight and was treated with ativan with apparently good repsonse. AM CXR shows a R pleural effusion. Exam Vital Signs (past 8 hours): - 04/24/19 05:00 04/24/19 05:11 04/24/19 05:43 Temperature 98.3 F Pulse Rate 105 H Respiratory Rate 14 Blood Pressure 179/99 H Pulse Oximetry 96 91 04/24/19 07:40 Temperature 98.2 F Pulse Rate 106 H Respiratory Rate 13 Blood Pressure 153/90 H Pulse Oximetry 96 Oxygen Delivery Method Room Air Oxygen Flow Rate 4 Narrative Exam Narrative: AAO, NAD, male of healthy weight EOMI, MMM, no scleral icterus unlabored but splinting RA soft, nt/nd MAEW visible skin dry and intact Objective Imaging Chest x-ray: Radiologist's impression: - large R pleural effusion Labs Result Diagrams: 04/24/19 04:46 04/24/19 04:46 Labs: Laboratory Results - last 24 hr 04/23/19 04/24/19 04/24/19 10:38 04:46 04:46 WBC 8.0 RBC 3.27 L Hgb 11.3 L Hct 33.1 L MCV 101.4 H MCH 34.6 H MCHC 34.1 RDW 13.9 Plt Count 201 Neut % (Auto) 82.1 H Lymph % (Auto) 10.5 L [place] % (Auto) 5.6 Eos % (Auto) 1.4 L Baso % (Auto) 0.4 Neut # (Auto) 6600 Lymph # (Auto) 800 L [place] # (Auto) 400 Eos # (Auto) 100 Baso # (Auto) 0 Sodium 133 L Potassium 4.4 Chloride 105 Carbon Dioxide 26 BUN 9 Creatinine 0.60 L Estimated GFR > 60.0 BUN/Creatinine Ratio 15.0 Glucose 85 Calcium 8.2 L Magnesium 2.0 Total Bilirubin 0.4 AST 16 L ALT 10 L Alkaline Phosphatase 47 Total Protein 5.0 L Albumin 2.6 L Globulin 2.4 Albumin/Globulin Ratio 1.1 Chlamy pneumoniae PCR Not detected Adenovirus (PCR) Not detected B.parapertussis DNA PCR Not detected Coronavirus OC43 (PCR) Not detected Coronavirus HKU1 (PCR) Not detected Coronavirus 229E (PCR) Not detected Coronavirus NL63 (PCR) Not detected Human Metapneumovir PCR Not detected Influenza Type A (PCR) Not detected Influenza Type B (PCR) Not detected M. pneumoniae (PCR) Not detected Parainfluenza 1 (PCR) Not detected Parainfluenza 2 (PCR) Not detected Parainfluenza 3 (PCR) Not detected Parainfluenza 4 (PCR) Not detected RSV (PCR) Not detected Entero/Rhino (PCR) Not detected Assessment & Plan Assessment & Plan narrative: L Posterior non-displaced rib frx 4-8 - pulm toilet - pain control inadequate especially to mobilize, scheduled Toradol as well as prn PO narcotic - mobilize with PT - on RA but splinting this morning, appears to have been placed back on 4 LNC per chart by later morning RLL Consolidation - concern for aspiration, pt met sepsis criteria on admission with resolution via meds and is not toxic appearing --> trauma pain and/or etoh withdrawal may be contributory, PNA is a high concern --> blood cultures sent --> afebrile but still with leukocytosis and left shift - pulm toilet - AM CXR shows a R pleural effusion, thoracentesis appears to have been ordered Hyponatremia - improving with IVFs, nearly to normal ETOH Abuse - monitor closely, no history of symptoms per family but concerning history - on CIWA protocol, benzos given in ED with improvement in vitals - labs not consistent with cirrhosis Anemia - no baseline for comparison, no evidence of bleeding so likely chronic - monitor Quality VTE Deep Vein Thrombosis/Pulmonary Embolism Present on Admission: No
--- NOTE | 2019-04-24 13:01 | PT.IPTN ---
Current Diagnoses Pneumonia, unspecified organism (04/22/19) Physical Therapy Treatment Note M2 PT-IP Current Condition Start: 04/23/19 08:00 Freq: NEEDED Status: Active Protocol: Document 04/24/19 10:00 [facility] (Rec: 04/24/19 13:01 [facility] [id number]) Physical Therapy Current Condition Current Condition Evaluation Date 04/23/19 Treatment Diagnosis impaired mobility s/p fall w/ 5 L rib fxs Onset Date 04/22/19 M3 PT-IP Subjective Start: 04/23/19 08:00 Freq: NEEDED Status: Active Protocol: Document 04/24/19 10:00 [facility] (Rec: 04/24/19 13:01 [facility] [id number]) Subjective Physical Therapy Visit Type Type Treatment Note Visit Start Time 10:00 Visit Stop Time 10:30 Total Visit Minutes 30 Physical Therapy Visit Comments Patient Comments pt agrees to PT and sitting up . He rates pain as 3-4/10 Patient Goals go home Therapy Pain Assessment Pain When Pain Assessed At Rest Pain Present Pain Present Pain Reported Location L chest Intensity 4 Scale Used Numeric (1 - 10) Pain Management Techniques Timing of Activity with Medications M4 PT-IP Mobility and Gait Start: 04/23/19 08:00 Freq: NEEDED Status: Active Protocol: Document 04/24/19 10:00 [facility] (Rec: 04/24/19 13:01 [facility] [id number]) PT-Bed Mobility Assessment Rolling Type of Rolling Roll to Right Level of Assist Minimal Assistance Supine to Sit Supine to Sit Moderate Assistance Scooting Scooting to Edge of Bed Minimal Assistance PT-Transfer Assessment Sit to and From Stand Sit to and from Stand Minimal Assistance 2 Person Assistance Equipment Transfer Assistive Device Standard Walker Transfers Transfer Destination Chair Transfer Technique gait x 20 feet with FWW in room Transfer Ability Level of Assist Minimal Assistance Comments Mobility Comments two person assist was used initially as Bharat felt as if he may become light headed. The actual amount of assist that he needed was min A to stand. We were there primarly for balance and assessment. Bharat reported he felt better sitting up today than laying down Gait Assessment Gait Gait Assistance Required: Minimum Assistance Distance (Feet) 20 Able to Maintain Weight Bearing Status Yes During Gait Assistive Devices Assistive Device Front Wheeled Walker Gait Deviations General Gait Pattern Decreased Stride Length Flexed Trunk Comments Gait Comments able to walk slow and steady with the walker today PT-Balance Assessment Sitting Balance and Reactions Static Sitting Balance Ability Fair Dynamic Sitting Balance Ability Fair M5 PT-IP Objective Assessments Start: 04/23/19 08:00 Freq: NEEDED Status: Active Protocol: Document 04/23/19 12:10 RS (Rec: 04/23/19 13:50 RS [id number]) Orientation Orientation/Cognition Level of Alertness Lethargic Orientation Name Age Birthday Month Date Year Day of Week Place Situation Language Function Ability No Deficits Noted Safety Awareness Understands Safety Issues Memory Description No Deficits Noted Gross Range of Motion Upper Extremity ROM Impairments LUE grossly limited due to pain with movement (active and passive) Lower Extremity ROM Assessment Within Functional Limits Strength Comments Strength Comments strength not formally assessed , LUE demonstrates less than antigravity strength likely due to pain, RUE and BLE demo at least antigravity strength M6 PT-IP Treatment Start: 04/23/19 08:00 Freq: NEEDED Status: Active Protocol: Document 04/23/19 12:10 RS (Rec: 04/23/19 13:50 RS [id number]) Physical Therapy Treatment Education Education Provided Safety M7 PT-IP Assessment and Plan Start: 04/23/19 08:00 Freq: NEEDED Status: Active Protocol: Document 04/24/19 10:00 [facility] (Rec: 04/24/19 13:01 [facility] [email or web address]) PT Summary Assessment and Plan Summary Assessment Summary Bharat was able to do more today with PT. He sat at the edge of the bed, performed sit- stand with min A x 2 two times and ambulated in room x 20 feet to bedside chair. He was given a pillow for his abdomen as he is coughing alot . His timing with pain meds seemed to help today. He wished to stay seated in the chair verses reclining Goals Bed Mobility Goal Standby Assistance Transfer Goal Standby Assistance Gait Goal Standby Assistance Gait Distance 50 Days to Meet Goals 4 Frequency of Treatment Frequency Of Treatment Once a Day Treatment Plan Physical Therapy Treatment Plan Bed Mobility Training Transfer Training Gait Training Therapeutic Exercise Balance Retraining Post Op Education Discharge Planning Hot or Cold Pack Neuromuscular Re-ed Coordination Retraining Manual Therapy Other Recommendations and Next Treatment progress tolerance for being Focus upright, work on transfers with less assist and continue to progress gait Recommendations To Nursing Amount of Assist Needed 2 Person Assist Discharge Recommendations PT Discharge Recommendations SNF Rehab Other Discharge Recommendations may progress to home w/ initial 30/05 assist
--- NOTE | 2019-04-24 13:51 | PC.NURSE ---
FULFILLMENT MAIL CLERK note: patient nauseated and coughing into emesis bag. Nothing to measure though.
--- NOTE | 2019-04-24 14:31 | PC.NURSE ---
1420 Pt. off unit by to radiology for effusion drainage. Explained procedure to pt. and family. Pre-medicated with PRN oxycodone 10mg p.o. Ambulated to without difficulty IVF suspended.
--- NOTE | 2019-04-24 17:09 | OT.IP.EVAL ---
Current Diagnoses Pneumonia, unspecified organism (04/22/19) Past Medical History (Last Updated 04/23/19 @ 02:51 by MARY Owens) Alcohol dependence (Chronic) Diabetes (Chronic) GERD (gastroesophageal reflux disease) (Chronic) Hypertension (Chronic) Pancreatitis (Chronic) Tobacco dependency (Chronic) Surgical History (Last Updated 04/23/19 @ 02:51 by MARY Owens) S/P exploratory laparotomy (Chronic) Status post hernia repair (Chronic) Occupational Therapy Inpatient Evaluation/Re-Eval M1 PT/OT-IP Prior Functional Status Start: 04/23/19 08:00 Freq: NEEDED Status: Active Protocol: Document 04/23/19 12:10 RS (Rec: 04/23/19 13:50 RS [id number]) Medical Review Prior Functional Status Medical History Reviewed Yes Diet/Fluid Consistency Regular Communication no known deficits Mobility and Gait ind without device Activities of Daily Living and IADL's ind Social History Household Members spouse Living Arrangements House 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 Additional Social History Comment 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, pt/ reports no concerns M1 PT/OT-IP Prior Functional Status Start: 04/24/19 16:47 Freq: NEEDED Status: Active Protocol: Document 04/24/19 16:49 [facility] (Rec: 04/24/19 17:09 [facility] [id number]) Medical Review Prior Functional Status Medical History Reviewed Yes Diet/Fluid Consistency Regular Communication no known deficits Mobility and Gait ind without device Activities of Daily Living and IADL's ind Social History Household Members spouse Living Arrangements House Number of Floors (Floors) One Floor Number of Stairs To Enter/Railing? 2 steps and left hand rail to the porch and then threshold to enter the house. 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 Pt' s to go back to work on Tuesday. Pt's son in law has all LB AED, RTS with handles, tub bench, and fww from hip surgery that pt is able to use /borrow. M2 OT-IP Current Condition Start: 04/24/19 16:47 Freq: Status: Active Protocol: Document 04/24/19 16:49 [facility] (Rec: 04/24/19 17:09 [facility] [email or web address]) Occupational Therapy Current Condition Current Condition Evaluation Date 04/24/19 Treatment Diagnosis 5 left rib fractures Diagnosis Onset Date 04/22/19 Post Operative Precautions Other Precautions Log rolling, belt placed low Weight Bearing Status Weight Bearing Status Weight Bear as Tolerated M3 OT- IP Subjective and Pain Start: 04/24/19 16:47 Freq: Status: Active Protocol: Document 04/24/19 16:49 [facility] (Rec: 04/24/19 17:09 [facility] [email or web address]) OT- Subjective Occupational Therapy Visit Type Type Initial Evaluation Visit Start Time 16:20 Visit Stop Time 16:45 Total Visit Minutes 25 Occupational Therapy Visit Comments Patient Comments Pt wanting to get up. Pt's present for Ot eval. OT Pain Assessment Pain When Pain Assessed At Rest Pain Present Pain Present Denied Pain M4 OT- IP ADL's Start: 04/24/19 16:47 Freq: Status: Active Protocol: Document 04/24/19 16:49 [facility] (Rec: 04/24/19 17:09 [facility] [id number]) OT ADL-Dressing General Eval Lower Body Dressing Ability Minimal Assistance Areas Needing Assistance Pants/Shorts Socks Comments OT Dressing Comments Pt able to cross legs over to angel socks with increaed time. JEANNE for completeness. Pt educated for use of sock aid, tradeshow worker, long handled shoe horn as pt may need to use pending on pt's pain level. OT ADL-Toileting Comments OT Toileting Comments Pt not needing to use at this time. Pt has a sink to the right of the hi toilet. Pt states has already had a bowel movement and able to do his own hygiene needs since being in the hospital. OT ADL-Bathing Comments OT Bathing Comments Not at this time. To try tomorrow if appropriate. M5 OT- IP IADL's Start: 04/24/19 16:47 Freq: Status: Active Protocol: Document 04/24/19 16:49 [facility] (Rec: 04/24/19 17:09 [facility] [id number]) OT-Instrumental Activities of Daily Living Home Safety Awareness Home Safety Comments Pt will need assist for IADL at this time. M6 OT- IP Functional Cognition Start: 04/24/19 16:47 Freq: Status: Active Protocol: Document 04/24/19 16:49 [facility] (Rec: 04/24/19 17:09 [facility] [id number]) Cognitive Factors Limiting Selfcare Function Cognitive Ability Level of Alertness Alert Patient Orientation Name Age Birthday Month Date Year Day of Week Place Situation Attention Span Ability Capable of Focused Attention Capable of Sustained Attention Ability to Follow Commands Able to Follow Multi-Step Commands Safety Awareness Underestimates Need for Assistance Cognitive Comments Cognitive Assessment Comments Pt able ot follow multiple commands and appears intact at this time. However had to correct pt to say has left hand rail for getting into the house versus pt forget. Therefore to continue to assess. OT- Vision and Hearing OT- Hearing Assessment OT- Hearing Assessment WFL M7 OT- IP Mobility and Balance Start: 04/24/19 16:47 Freq: Status: Active Protocol: Document 04/24/19 16:49 [facility] (Rec: 04/24/19 17:09 [facility] [email or web address]) OT- Bed Mobility Assessment Rolling Type of Rolling Roll to Right Level of Assistance Standby Assistance Supine to Sit Supine to Sit Assist Standby Assistance Sit to Supine Sit to Supine Assist Standby Assistance Scooting Scooting to Edge of Bed Standby Assistance Scooting Up and Down in Bed Standby Assistance OT-Transfer Assessment Sit to and From Stand Sit to and from Stand Standby Assistance Transfers Transfer Ability Standby Assistance Technique Transfer Destination Bed Chair Devices Transfer Assistive Devices Gait Belt Front Wheeled Walker Comments Mobility Comments Pt initially needing vc for log rolling and then able to show good safety . Pt has a high bed at home and able to stimulate with hospital bed today with good awareness and increased time. OT- Gait Assessment Comments Gait Ability Comments SBA with FWW for level surface . OT- Balance Assessment Sitting Balance and Reactions Static Sitting Balance Ability Normal Dynamic Sitting Balance Ability Normal Standing Balance and Reactions Static Standing Balance Ability Good M8 OT- IP Objective Assessments Start: 04/24/19 16:47 Freq: Status: Active Protocol: Document 04/24/19 16:49 [facility] (Rec: 04/24/19 17:09 [facility] [id number]) OT Gross Range of Motion Upper Extremity Range of Motion Assessment Left Impaired ROM Impairments Decreased at end range for left shoulder due to pain and rib fractures. OT Strength Comments Strength Comments WFl for needs but not formally tested due to rib fractures. OT-Muscle Tone Assessment Muscle Tone WNL Yes M9 OT- IP Assessment and Plan Start: 04/24/19 16:47 Freq: Status: Active Protocol: Document 04/24/19 16:49 [facility] (Rec: 04/24/19 17:09 [facility] [id number]) OT Summary Assessment and Plan Potential Rehabilitation Potential Excellent Analytic Complexity at Evaluation Low Summary OT Impairments Functional Mobility Grooming Dressing Toileting Bathing Toilet Transfers Shower Transfers Progress Towards Goals Progressing Toward Goals Assessment Summary Pt main barrier is steps, pain , and needing use of FWW at this time for mobility. Pt needing minimal assist for ADL 's at this time. Pt's son in law has all LB AED, FWW and bathroom equipment needs for pt to borrow. Pt's to be home to assist until Tuesday and having to go back to work on Tuesday. Pt doing well and when medically stable home with . Goals Grooming Goal Independent Dressing Goal Independent Toileting Goal Independent Bathing Goal Standby Assistance Toilet Transfer Goal Independent Shower Transfer Goal Standby Assistance Patient/Caregiver Education Goal Caregiver Independent Assisting Patient OT-Other Goals Grooming goal in standing. Days to Meet Goals 3 Frequency of Treatment Frequency Of Treatment Once a Day Treatment Plan OT Treatment Plan ADL Training Functional Mobility Patient/Family Education Discharge Planning Other Treatment Recommendations and Next Shower, caregiver training Treatment Focus Discharge Recommendations OT Discharge Recommendations Home with Assistance Home Equipment Needs Pt has access to all equipment needs from son in law.
[2019-04-25] VITALS (7 sets, daily range): BP systolic 158–179; BP diastolic 83–99; PULSE 81–96; RESP 16–18; TEMP 36.6–36.9; O2SAT 95–98
[2019-04-25] MEDS: OXYCODONE IR 5 MG TABLET 10 MG PO ×3 (01:19→09:27)
--- NOTE | 2019-04-25 01:49 | PC.NURSE ---
Pt is diaphoretic, and hypertensive BP 160/97, no elevation in temp. Uncovered some blankets and offered Ice pack for rib pain. Pt has pain level 5/10. Denies nausea. Lung sounds are diminished in the bases bilaterally, and there is some expiratory wheezing bilaterally upper posterior lobes. Pt was educated about SCD's and agreed to have them put on this night, IS encouraged. is resting in room w/ patient.
[2019-04-25] MEDS: PANTOPRAZOLE 20 MG TABLET 40 MG PO (05:56)
[2019-04-25 07:04] LABS: Add Manual Diff / Slide Review NO; Basophils Absolute Auto 0 /uL (0-100); Basophils Percent Auto 0.3 % (0-2); Eosinophils Absolute Auto 200 /uL (0-450); Eosinophils Percent Auto 3.3 % (2-4); Hematocrit 36.3 % (41-53); Hemoglobin 12.1 g/dL (13.5-17.5); Lymphocytes Absolute Auto 900 /uL (1100-4500); Lymphocytes Percent Auto 14.1 % (25-40); Mean Corpuscular HGB Conc 33.2 % (30-36); Mean Corpuscular Hemoglobin 33.8 PG (26-34); Mean Corpuscular Volume 101.6 fL (80-100); Monocytes Absolute Auto 500 /uL (0-900); Monocytes Percent Auto 7.6 % (3-14); Neutrophils Absolute Auto 4800 /uL (1500-7000); Neutrophils Percent Auto 74.7 % (50-75); Platelet Count 247 X10^3/uL (150-400); Red Blood Cell Count 3.57 X10^6/uL (4.5-5.9); Red Cell Distribution Width 13.8 % (11.6-14.8); White Blood Cell Count 6.4 X10^3/uL (4.5-11.0)
[2019-04-25 07:15] LABS: BUN Creatinine Ratio 11.7 (6-22); Blood Urea Nitrogen 7 mg/dL (9-20); Calcium 8.9 mg/dL (8.4-10.2); Carbon Dioxide 27 mmol/L (22-32); Chloride 103 mmol/L (98-107); Estimated Glomerular Filt Rate > 60.0 mL/min (>60); Glucose 130 mg/dL (70-100); HEMOLYSIS < 15 (0-50); Potassium 4.7 mmol/L (3.4-5.1); Sodium 135 mmol/L (137-145)
[2019-04-25 07:16] LABS: Magnesium 1.5 mg/dL (1.6-2.3)
[2019-04-25 07:41] LABS: Procalcitonin 0.42 ng/mL (<0.5)
[2019-04-25] MEDS: ENOXAPARIN 40 MG/0.4 ML SYRINGE SUBCUT (08:27)
[2019-04-25] MEDS: LISINOPRIL 20 MG TABLET 40 MG PO (08:27)
[2019-04-25] MEDS: LIDOCAINE PATCH 1 EACH ADH..PATCH TOP (08:27)
[2019-04-25] MEDS: NICOTINE 21 MG PATCH TOP (08:27)
[2019-04-25] MEDS: THIAMINE 100 MG TABLET PO (08:27)
[2019-04-25] MEDS: LACTOBACILLUS ACIDOPHILUS TABLET 1 EACH PO (08:27)
[2019-04-25] MEDS: POLYETHYLENE GLYCOL 3350 17 GM POWD.PACK PO (08:27)
[2019-04-25] MEDS: MULTIVIT,CALC,MINS/IRON/FOLIC 1 TABLET 1 TAB PO (08:28)
[2019-04-25] MEDS: DOCUSATE 100 MG CAPSULE PO (08:28)
[2019-04-25] MEDS: INSULIN ASPART 100 UNIT/ML INSULN PEN SUBCUT ×2 (08:29→12:13)
[2019-04-25] MEDS: AMOXICILLIN/CLAV 875/125 MG 1 TAB PO (09:26)
[2019-04-25] MEDS: MAGNESIUM SULFATE 2 GM/50 ML PIGGYBACK IV (09:28)
--- NOTE | 2019-04-25 11:06 | PT.IPTN ---
Current Diagnoses Pneumonia, unspecified organism (04/22/19) Physical Therapy Treatment Note M2 PT-IP Current Condition Start: 04/23/19 08:00 Freq: NEEDED Status: Active Protocol: Document 04/24/19 10:00 [facility] (Rec: 04/24/19 13:01 [facility] [email or web address]) Physical Therapy Current Condition Current Condition Evaluation Date 04/23/19 Treatment Diagnosis impaired mobility s/p fall w/ 5 L rib fxs Onset Date 04/22/19 M3 PT-IP Subjective Start: 04/23/19 08:00 Freq: NEEDED Status: Active Protocol: Document 04/25/19 10:30 [facility]GD (Rec: 04/25/19 11:05 GGD [id number]) Subjective Physical Therapy Visit Type Type Treatment Note Visit Start Time 10:00 Visit Stop Time 10:30 Total Visit Minutes 30 Physical Therapy Visit Comments Patient Comments Pt states he moving in room. Therapy Pain Assessment Pain When Pain Assessed At Rest Pain Present Pain Present Pain Reported M4 PT-IP Mobility and Gait Start: 04/23/19 08:00 Freq: NEEDED Status: Active Protocol: Document 04/25/19 10:30 [facility]GD (Rec: 04/25/19 11:05 GGD [id number]) PT-Bed Mobility Assessment Rolling Type of Rolling Roll to Right Level of Assist Standby Assistance Supine to Sit Supine to Sit Standby Assistance Sit to Supine Sit to Supine Standby Assistance Scooting Scooting to Edge of Bed Standby Assistance PT-Transfer Assessment Sit to and From Stand Sit to and from Stand Contact Guard Assistance Use of Upper Extremities Equipment Transfer Assistive Device Front Wheeled Walker Transfers Transfer Destination Bed Transfer Ability Level of Assist Contact Guard Assistance Gait Assessment Gait Gait Assistance Required: Standby Assistance Contact Guard Assist Distance (Feet) 240 Able to Maintain Weight Bearing Status Yes During Gait Assistive Devices Assistive Device Front Wheeled Walker Gait Deviations General Gait Pattern Decreased Stride Length Decreased Feet Clearance Wide Based Gait Comments Gait Comments PT ambulated 20 feet without AD with CGA and wide base gait . He amublated 200 feet with fWW with SBA. Stair Climbing Assessment Evaluation Level of Assist On Stairs Standby Assistance Contact Guard Assistance Devices Stair Climbing Assistive Devices Left Railing Technique/Endurance Stair Climbing Direction Ascend and Descend Stair Climbing Technique Step to Step Number of Steps Climbed 3 Stair Climbing Set # Repetitions (reps) 1 M5 PT-IP Objective Assessments Start: 04/23/19 08:00 Freq: NEEDED Status: Active Protocol: Document 04/23/19 12:10 RS (Rec: 04/23/19 13:50 RS [id number]) Orientation Orientation/Cognition Level of Alertness Lethargic Orientation Name Age Birthday Month Date Year Day of Week Place Situation Language Function Ability No Deficits Noted Safety Awareness Understands Safety Issues Memory Description No Deficits Noted Gross Range of Motion Upper Extremity ROM Impairments LUE grossly limited due to pain with movement (active and passive) Lower Extremity ROM Assessment Within Functional Limits Strength Comments Strength Comments strength not formally assessed , LUE demonstrates less than antigravity strength likely due to pain, RUE and BLE demo at least antigravity strength M6 PT-IP Treatment Start: 04/23/19 08:00 Freq: NEEDED Status: Active Protocol: Document 04/23/19 12:10 RS (Rec: 04/23/19 13:50 RS [id number]) Physical Therapy Treatment Education Education Provided Safety M7 PT-IP Assessment and Plan Start: 04/23/19 08:00 Freq: NEEDED Status: Active Protocol: Document 04/25/19 10:30 GGD (Rec: 04/25/19 11:05 GGD [id number]) PT Summary Assessment and Plan Summary Assessment Summary Pt improving with mobility and need SBA. He improved stability with gait with fWW. He was safe and stable with stair mobility. Frequency of Treatment Frequency Of Treatment Once a Day Recommendations To Nursing Amount of Assist Needed Standby Assistance Discharge Recommendations PT Discharge Recommendations Home with Assistance
--- NOTE | 2019-04-25 12:07 | PC.NURSE ---
Pt is A&Ox3. Given 2 percolone for pain and discomfort to r.side of rib area. He is up with 1 pa and walker. in room and very attentive to patients care. He just had a shower and seems to be feeling better. Nicotine patch is placed to r.shoulder and lidocaine patch to right side of back. Pts appetite poor at this time, he only ate about 20% of his breakfast. Pts bs just now at lunch 171. Will give insulin coverage now.
--- NOTE | 2019-04-25 13:34 | OT.IP.TRT ---
Current Diagnoses Pneumonia, unspecified organism (04/22/19) Occupational Therapy Treatment Note M3 OT- IP Subjective and Pain Start: 04/24/19 16:47 Freq: Status: Active Protocol: Document 04/25/19 13:34 PJM (Rec: 04/25/19 16:50 PJM [id number]) OT- Subjective Occupational Therapy Visit Type Type Treatment Note Visit Start Time 13:20 Visit Stop Time 13:34 Total Visit Minutes 14 Notes Pt's here for education this session. Occupational Therapy Visit Comments Patient Comments I feel much better today. 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 OT Pain Assessment Pain When Pain Assessed At Rest Pain Present Pain Present Pain Reported Location L chest Intensity 1 Scale Used Numeric (1 - 10) Description Aching M4 OT- IP ADL's Start: 04/24/19 16:47 Freq: Status: Active Protocol: Document 04/25/19 13:34 PJM (Rec: 04/25/19 16:50 PJM [id number]) OT [id number] General Evaluation Self-Feeding Ability Independent OT ADL-Grooming General Evaluation Grooming Ability Independent Comments OT Grooming Comments standing at sink by pt report OT ADL-Dressing General Eval Upper Body Dressing Ability Independent Lower Body Dressing Ability Minimal Assistance Areas Needing Assistance Pants/Shorts Socks Comments OT Dressing Comments pt declines observation nurse or sock aid; he will have assist before she goes to work until he is able, OT ADL-Toileting General Evaluation Toileting Ability Independent Comments OT Toileting Comments by pt report OT ADL-Bathing Devices Bathing Equipment Shower Chair with Arms Comments OT Bathing Comments pt declines to shower here, will assist PRN at home, they plan to put plastic chair in tub shower combo with doors at home M5 OT- IP IADL's Start: 04/24/19 16:47 Freq: Status: Active Protocol: Document 04/25/19 13:34 PJM (Rec: 04/25/19 16:50 PJM [id number]) OT-Instrumental Activities of Daily Living Deficits IADL Deficits Identified Deficits Home Safety Awareness Awareness of Need for Assistance at Home Good Awareness Ability to Problem Solve Emergency Able to Problem Solve Situations Medication Management Medication Management No Deficits Identified Money Management Money Management No Deficits Identified Meal Preparation Meal Preparation Caregiver Provides Assist Meal Preparation Comments will assist PRN Inspector Machine Parts Inspector Machine Parts Caregiver Provides Assist Inspector Machine Parts Comments will assist PRN Driving Driving Caregiver Provides Assist Driving Comments will assist PRN M6 OT- IP Functional Cognition Start: 04/24/19 16:47 Freq: Status: Active Protocol: Document 04/25/19 13:34 PJM (Rec: 04/25/19 16:50 PJM [id number]) Cognitive Factors Limiting Selfcare Function Cognitive Ability Level of Alertness Alert Patient Orientation Name Age Birthday Month Date Year Day of Week Place Situation Attention Span Ability Capable of Focused Attention Capable of Sustained Attention Ability to Follow Commands Able to Follow One Step Commands Memory Description No Deficits Noted Safety Awareness Underestimates Need for Assistance Problem Solving Ability No deficits Noted M7 OT- IP Mobility and Balance Start: 04/24/19 16:47 Freq: Status: Active Protocol: Document 04/25/19 13:34 PJM (Rec: 04/25/19 16:50 PJM [id number]) OT-Transfer Assessment Technique Transfer Destination Car Comments Mobility Comments provided education to pt/ re: car transfer techniques OT- Gait Assessment Comments Gait Ability Comments pt did much better with P.T. today, walked 240 ft, completed stairs and has been cleared for d/c M9 OT- IP Assessment and Plan Start: 04/24/19 16:47 Freq: Status: Active Protocol: Document 04/25/19 13:34 PJM (Rec: 04/25/19 16:50 PJM [id number]) OT Summary Assessment and Plan Summary Progress Towards Goals Safe For Discharge Goals Met Assessment Summary Pt much improved today and all OT goals achieved for this admission. Pt plans to d/c home today with 24 hr assist from supportive for next 4 days, then she will return to work. Daughter lives close by and can assist pt PRN while at work. Frequency of Treatment Frequency Of Treatment Discharge Discharge Recommendations OT Discharge Recommendations Home with Assistance Home Equipment Needs shower chair
[2019-04-25 13:44] LABS: Anti-Streptolysin O Antibody < 50 IU/mL (< 200)
--- NOTE | 2019-04-25 13:47 | PM.DS.1 ---
History of Present Illness Date Patient Seen: 04/22/19 Chief complaint: CP Narrative: Written by Xuan Gomez: The patient is a 58-year-old male w/ PMHx of HTN, carotid atherosclerosis, DM 2T, GERD, current every day tobacco use (1 ppd), and current every day EtOH use (6 pack beer daily). Patient presented to the ED on 04/22/2019 complaining of chest pain. Pain is localized to the left anterior aspect of the chest / upper torso. Pain is described as aching and constant. Magnitude has been as high as 10/10, at time of the interview is noted as 4/10. Pain does not not radiate to the back, extremities, neck, or jaw. Patient has sustained a ground level mechanical following at approximately 04/21/2019 at 11:00 pm. Patient was said to be intoxicated at the time (having a BBQ green party at home). At time of the event patient was walking, he had some type of trouble with his flip flop that caused him to trip and fall forward on to a step stool with impact to the left anterior aspect of the torso. There is no injury to the head, neck, or face. No loss of consciousness. Event witnessed by spouse. Patient was helped to get up into an upright position by and another family member. At that time patient did not complain of any particular pain or chest discomfort. One hour after the event, patient went to sleep and was able to sleep through the night. Woke up on the morning of 04/22 with discomfort in the left anterior upper aspect of the torso. He had difficulty getting out of bed and remained in bed most of the day. He had poor appetite and fluid intake. Chest discomfort exacerbated with mobility, cough and deep breathing. Taken Ibuprofen 800 mg once, which was minimally effective. Patient denies fever and chills. Denies headache. No dizziness, lightheadedness or syncopal events. No abdomianl pain, nausea, vomiting, or diarrhea. No hemoptysis, menena or hematochezia. Patient does take ASA 81 mg daily for preventatively. Denies upper and lower extremity weakness, numbness, and paresthesia. No recent ill ness or hospitalization. Patient is said to have a chronic cough. No increase in purulence reported. Patient does suffer from chronic sinus drainage. Discharge Providers Date of admission: 04/22/19 19:51 Discharge Date: 04/25/19 Primary care physician: Sophie Zepeda PA-C Consults: 04/22/19 19:16 Consult to General Surgery Stat Comment: Consulting Provider: Ivette German Reason for consultation: multiple rib fractures on left. Has provider been notified: Yes 04/22/19 20:09 Consult to Physical Therapy Evaluate & Treat Comment: rib fractures Physician Instructions: Evaluate and Treat 04/23/19 00:08 Consult to Patient Access Associate Routine Comment: 04/23/19 04:06 Consult to Respiratory Therapy Evaluate & Treat Comment: aggressive pulmonary hygiene Q4H re: rib fracture Physician Instructions: Evaluate and treat 04/24/19 00:16 Consult to Occupational Therapy Evaluate & Treat Comment: Physician Instructions: Evaluate and treat Discharge provider: Loyda Perez DO Summary Discharge Diagnosis: 1. Acute left multiple rib fractures, after ground level fall, present on admission. Improving. 2. Acute probable RLL aspiration pneumonia, present on admission. Resolving. 3. Acute hypoxemic respiratory failure, present on admission. Resolved. 4. Acute hyponatremia, present on admission. Resolving. 5. Acute on chronic alcohol intoxication with acute alcohol withdrawal, present on admission. Resolved. 6. Tobacco dependence, chronic, present on admission, active 7. Diabetes mellitus type 2, non-insulin using, present on admission. Stable. 8. GERD with esophagitis on CT imaging, chronic, present on admission. Active. 9. Macrocytic anemia, likely chronic, present on admission. Active. Hospital Course: Bharat Mcpherson is a 58-year-old male with a past medical history significant for hypertension, carotid atherosclerosis, diabetes mellitus type 2, non-insulin using, GERD, current every day tobacco use (1 ppd), and current every day EtOH use (6 pack beer daily) who presented to the ED complaining of chest wall pain after GLF. 1. Acute left multiple rib fractures, after ground level fall, present on admission. Improving. -CT abdomen and pelvis demonstrated multiple nondisplaced left-sided rib fractures involving the 4th, 5th, 6th, 7th, and 8th left posterior ribs. No pneumothorax or evidence of solid organ laceration or contusion of the abdomen. -General surgery, Dr. German was consulted for trauma. We appreciate her time, recommendations and care of the patient. -Continued Tylenol for mild pain, oxycodone 5-10 mg every 4 hours for moderate to severe pain and toradol 15 mg every 6 hours for pain and inflammation. -Continued PT and OT evaluation and treatment. -Ordered bowel regimen as CT noted probable constipation and patient is now on narcotics for pain management. -Consulted RT for evaluation and treatment as patient needs aggressive pulmonary hygiene every 4 hours for posterior rib fractures. -Ordered incentive spirometer and encouraged patient to use frquently to keep bases of lungs expanded to prevent atelectasis and pneumonia. Goal 10x/hr. 2. Acute probable RLL aspiration pneumonia, present on admission. Resolving. -Chest X-ray demonstrated right lower lobe possible pneumonia (aspiration) vs RLL atelectasis. -No known recent nausea or vomiting. No dysphagia. Patient known to have persistent sinus drainage and post nasal drip with parasinus disease noted on CT. He has a cough, which was noted to be chronic, at his baseline without increased purulence or dyspnea prior to hospital presentation. No fever or chills. He does have elevated lactate and wbc on admission. qSofa score is 1 (increased RR), at risk for sepsis. -Blood cultures x 2 have no growth to date. -Received Clindamycin in ED. Switched to augmentin twice daily for 7 days to cover broadly gram positive and negative and anaerobes for possible aspiration in setting of chronic alcohol abuse. -Consulted RT for evaluation and treatment. Oxygen saturation goal 88%. Recommended continued use of incentive spirometer with goal 10x/hour. -Repeat chest x-ray demonstrated possible right pleural effusion and ultrasound-guided thoracentesis was ordered. Ultrasound did not demonstrate any pleural fluid, therefore, thoracentesis was not performed. 3. Acute hypoxemic respiratory failure, present on admission. Resolved. -On admission the patient required 10 L of supplemental oxygen via nasal cannula. He was rapidly tapered down to 4 L which he likely require due to pain and splinting. Now off of oxygen. 4. Acute hyponatremia, present on admission. Resolving. -Suspected to be in the setting of EtOH intoxication vs. hypovolemia (decreased food / fluid intake) vs. hypermetabolic state (+ fever, PNA). -Initial sodium level 127. Repeat sodium now up to 135. -Received 2L NS boluses in ED. Continued IV fluid with NS at 100 mL/hr until adequately taking in PO fluids. 5. Acute on chronic alcohol intoxication with acute alcohol withdrawal, present on admission. Resolved. -Lifelong history of alcohol use, 30+yrs. Currently drinks 6 pack of beer, daily. Liver enzymes WNL. History of of pancreatitis (x3 prior episodes, most recent 5 years ago).No known history of alcohol withdrawal, psychosis or hallucinosis. -EtOH level 37 on admission. Last drink the evening of 04/21. CIWA score was 12 in ED and received a total of Ativan 2 mg IV with improvement in symptoms. -Receievd Banana bag x1. Continued IV fluids with normal saline at 100 mL/hr until adequately taking in PO fluids. -Continued CIWA protocol including: Lorazepam, thiamine, folate, and multivitamin. -Alcohol cessation was highly encouraged and resources were provided. -Monitored for electrolyte deficiencies and repleted accordingly. 6. Tobacco dependence, chronic, present on admission, active -Ordered nicotine patch 21 mg daily and discharged with prescription. Currently smokes 1PPD. -Provided smoking cessation education. 7. Diabetes mellitus type 2, non-insulin using, present on admission. Stable. -DM controlled per family's report. Not on insulin, oral anti-glycemic regimen only with metformin and glipizide. Noted to have previous hypoglycemic episodes. -Held metformin and glipizide and may be restarted at time of discharge. -Continued ACHS blood glucose checks and low-dose correctional scale insulin. -RN's monitored for s/s of hypoglycemia for which he did not have during his hospitalization. 8. GERD with esophagitis on CT imaging, chronic, present on admission. Active. -Continued Protonix 40 mg daily. 9. Macrocytic anemia, likely chronic, present on admission. Active. -Hgb 12.8 on admission. Asymptomatic. No active s/s of bleeding. RF EtOH dependence and GERD / esophagitis. On ASA 81 mg daily. -Continued folate, thiamine, and multivitamin. -Continued to monitor CBC periodically. Status at Discharge Functional status at discharge: uses cane/walker Exam Vital Signs (past 8 hours): - 04/25/19 07:56 04/25/19 09:31 04/25/19 12:00 Temperature 98.2 F 98 F Pulse Rate 83 81 96 H Respiratory Rate 16 16 18 Blood Pressure 160/83 H 158/95 H Pulse Oximetry 95 96 97 Fraction of Inspired Oxygen 21 Oxygen Delivery Method Room Air Oxygen Flow Rate 0 Narrative Exam Narrative: General: Middle-aged male sitting in bedside chair and appears comfortable, in no acute distress, well-developed, well-nourished, appropriately interactive otherwise. HEENT: Normocephalic, atraumatic. External ears without defect. Pupils equal, round, and reactive to light. Anicteric sclerae, moist conjunctivae, and no lid lag. Neck: Supple with full range of motion. No lymphadenopathy or thyromegaly. Cardiovascular: Regular rhythm and rate without murmurs, rubs, or gallops appreciated. Pulmonary: Clear to auscultation bilaterally but diminished at right base without crackles, wheezes, or rhonchi. Normal respiratory effort with no use of accessory muscles. Abdomen:Soft, bowel sounds present, nontender in abdomen, nondistended. Tenderness to palpation of posteriorolateral left rib cage. No hepatosplenomegaly or masses appreciated. Extremities: No clubbing, cyanosis, or edema. Lidocaine patch in place over left ribcage. Skin: Normal temperature, turgor, and texture; no rash, ulcers, or subcutaneous nodules appreciated. Neurological: Cranial nerves grossly intact. Psychiatric: Normal mood with flat affect. Appears to be alert and oriented to person, place, and time. Objective Labs Result Diagrams: 04/25/19 06:27 04/25/19 06:27 Labs: Laboratory Results - last 24 hr 04/23/19 04/25/19 04/25/19 05:01 06:27 06:27 WBC RBC Hgb Hct MCV MCH MCHC RDW Plt Count Neut % (Auto) Lymph % (Auto) [place] % (Auto) Eos % (Auto) Baso % (Auto) Neut # (Auto) Lymph # (Auto) [place] # (Auto) Eos # (Auto) Baso # (Auto) Sodium Potassium Chloride Carbon Dioxide BUN Creatinine Estimated GFR BUN/Creatinine Ratio Glucose Calcium Magnesium 1.5 L Procalcitonin 0.42 Anti-Streptolysin O Ab < 50 04/25/19 04/25/19 06:27 06:27 WBC 6.4 RBC 3.57 L Hgb 12.1 L Hct 36.3 L MCV 101.6 H MCH 33.8 MCHC 33.2 RDW 13.8 Plt Count 247 Neut % (Auto) 74.7 Lymph % (Auto) 14.1 L [place] % (Auto) 7.6 Eos % (Auto) 3.3 Baso % (Auto) 0.3 Neut # (Auto) 4800 Lymph # (Auto) 900 L [place] # (Auto) 500 Eos # (Auto) 200 Baso # (Auto) 0 Sodium 135 L Potassium 4.7 Chloride 103 Carbon Dioxide 27 BUN 7 L Creatinine 0.60 L Estimated GFR > 60.0 BUN/Creatinine Ratio 11.7 Glucose 130 H Calcium 8.9 Magnesium Procalcitonin Anti-Streptolysin O Ab Discharge Plan Discharge Plan Patient Disposition: Home Discharge comment: You're being discharged home. Please follow-up with your PCP, Dr. Jack, at your scheduled appointment. You have been prescribed Augmentin twice daily for 3 more days to complete your antibiotic course for aspiration pneumonia. Please try to cut back or quit drinking alcohol altogether as you went through alcohol withdrawal and are at high risk in the future of alcohol withdrawal (which may be fatal) and complications of alcohol use. Also recommend smoking cessation indefinitely and you were prescribed a Nicoderm patch to help continue abstinence. You were prescribed a small prescription of oxycodone to use sparingly for severe pain and lidocaine patches. Your pain related to your rib fractures should get better everyday and you may continue icing area to decrease inflammation. You may become constipated from narcotic use and recommend Colace and MiraLax as needed for constipation. You may be off work for several weeks and recommend discussing FMLA (family medical leave of absence) or short-term disability with your employer and primary care physician Dr. Jack who would fill out paperwork for you. Discharge Med Rec/Prescriptions Prescriptions: New amoxicillin-pot clavulanate 875-125 mg tablet 1 tab PO BID Qty: 7 RF: 0 docusate sodium [DOK] 100 mg Capsule 100 mg PO BID PRN (Reason: constipation) Qty: 30 RF: 0 lidocaine 5 % adhesive patch,medicated 1 patch topical DAILY Qty: 30 RF: 0 polyethylene glycol 3350 17 gram Powder In Packet 17 gm PO DAILY Qty: 30 RF: 0 oxycodone 5 mg Tablet 10 mg PO Q6-8H PRN (Reason: pain, severe (8-10)) Qty: 30 RF: 0 nicotine [Nicoderm CQ] 21 mg/24 hr patch 24 hour 1 patch transdermal DAILY Qty: 28 RF: 0 Continued lisinopril 40 mg tablet 40 mg PO DAILY RF: 0 omeprazole 20 mg Tablet,Delayed Release (Dr/Ec) 20 mg PO DAILY RF: 0 Aspir-81 81 mg PO DAILY RF: 0 potassium chloride 20 mEq Tablet Extended Release 20 meq PO DAILY RF: 0 metformin 1,000 mg Tablet Extended Release 24hr 1,000 mg PO QPM RF: 0 glipizide 5 mg Tablet Extended Release 24hr 5 mg PO DAILY RF: 0 cyanocobalamin (vitamin B-12) [Vitamin B-12] 1,000 mcg Tablet 1,000 mcg PO DAILY RF: 0 Follow up/Referrals: Ponce Jack MD [Non-Staff] - 3-5 Days (Follow up with at [facility] on April 30 at 10:45 @1045 with a 1030 checkin.) Provider Discharge Instructions Diet: Carb-consistent/Diabetic Activity: Activity as tolerated with walker Visit Report/Discharge Packet Instructions: Alcohol Use Disorder, Nicotine Addiction, DI for Delirium Tremens, DI for Alcohol Abuse, How To Perform RICE (Rest, Ice, Compress, Elevate), DI for Drug or Alcohol Withdrawal, Nicotine Transdermal Patch Visit Report Forms: Stroke Signs & Symptoms Discharge Data Primary Care Provider: Sophie Zepeda Attending Provider: Xuan Gomez Admjarrett Date/Time: 04/22/19 19:51 Quality VTE Deep Vein Thrombosis/Pulmonary Embolism Present on Admission: No
--- NOTE | 2019-04-25 16:22 | PC.NURSE ---
Discharge information provided. Reviewed medications, follow-up appointment, smoking ceasation and alcohol abstinence. Discussed fall precautions and reviewed additional discharge information provided by Dr. Perez, including I.S. use 10 times per hour and increased activity/ambulation. Discharge instructions reviewed with pt and spouse. Questions answered. Discharged with prescriptions via wc.
== END 2019-04-25 16:15 | disposition home or self-care (01) | DRG 183 ==
LOC: ED 19:17 → AC 19:52 → ICU 04-23 00:07 → AC 04-24 15:59
PROVIDERS: Internal Medicine; Admitting Provider Nurse Practitioner Gerontology; Emergency Provider Emergency Medicine; PCP Physician Assistant Medical; Visit Provider Nurse Practitioner Gerontology
DX: S22.42XA Multiple fractures of ribs, left side, initial encounter for closed fracture (principal); J69.0 Pneumonitis due to inhalation of food and vomit; J96.01 Acute respiratory failure with hypoxia; E87.1 Hypo-osmolality and hyponatremia; F10.230 Alcohol dependence with withdrawal, uncomplicated; J90 Pleural effusion, not elsewhere classified; Y90.1 Blood alcohol level of 20-39 mg/100 ml; F10.220 Alcohol dependence with intoxication, uncomplicated; W18.39XA Other fall on same level, initial encounter; E11.9 Type 2 diabetes mellitus without complications; I10 Essential (primary) hypertension; F17.210 Nicotine dependence, cigarettes, uncomplicated; D64.9 Anemia, unspecified; Z79.84 Long term (current) use of oral hypoglycemic drugs; K21.9 Gastro-esophageal reflux disease without esophagitis
CPT/HCPCS: 36415; 70450; 71045; 71260; 72125; 74177; 76604; 80048; 80053; 80305; 80320; 81001; 81003; 82550; 82553; 82962; 83605; 83690; 83735; 84145; 84484; 85025; 85610; 85730; 86060; 86850; 86900; 86901; 87040; 87449; 87633; 87797; 93005; 94760; 96365; 96375; 96376; 97116; 97163; 97165; 97530; 97535; 99231; 99232; 99285; 99406; C9113; J1650; J1885; J2060; J2270; J3475; Q9967

== ENCOUNTER 2020-11-08 11:08 | Observation (INO) | payer OTHER, SELFPAY ==
[2019-04-22 23:46] VITALS: BMI 26.7
[2020-11-08] VITALS (34 sets, daily range): BP systolic 161–202; BP diastolic 74–101; PULSE 71–101; RESP 16–30; TEMP 36.3–37.2; O2SAT 96–100; BMI 23.6
--- NOTE | 2020-11-08 11:17 | DI.CT.S_ITS ---
PROCEDURE: CT HEAD/BRAIN WO CON INDICATIONS: right arm weakness x2 days TECHNIQUE: Noncontrast 4.5 mm thick angled axial sections acquired from the foramen magnum to the vertex, with coronal and sagittal reformats. For radiation dose reduction, the following was used: automated exposure control, adjustment of mA and/or kV according to patient size. COMPARISON: [facility], CT, CT HEAD/BRAIN WO CON, 04/22/2019, 17:53. FINDINGS: Image quality: Excellent. CSF spaces: Basal cisterns are patent. No extra-axial fluid collections. Ventricles are normal in size and shape. Brain: No midline shift. No intracranial masses or hemorrhage. Caceres-white matter interface is normal. Skull and face: Calvarium and visualized facial bones are intact, without suspicious lesions. Sinuses: Visualized sinuses and mastoids are clear. IMPRESSION: No acute intracranial hemorrhage is seen. No CT findings of acute stroke can be seen. If there is strong clinical suspicion for an acute stroke, please consider an MRI for further evaluation, as it is more sensitive (assuming that there is no contraindication to MRI). Dictated by: Sushil Sanches M.D. on 11/08/2020 at 10:43 Approved by: Sushil Sanches M.D. on 11/08/2020 at 10:44
--- NOTE | 2020-11-08 11:17 | ED_ITS ---
HPI - Neuro Symptoms/Deficit General Chief Complaint: Neuro Symptoms/Deficit Stated Complaint: Sent over per his Doctor. right arm is numb Time Seen by Provider: 11/08/20 11:10 Source: patient Mode of arrival: Ambulatory Limitations: no limitations History of Present Illness HPI Narrative: 60-year-old male smoker with history of hypertension, diabetes presents with his , at the request of his primary care provider for evaluation of weakness of his right arm which has been present since night. He has had no neurologic symptoms otherwise, denies blurred vision, trouble speech, dizziness, balance issues or any numbness, tingling or weakness otherwise. Related Data Home Medications Medication Instructions Recorded Confirmed cyanocobalamin (vitamin B-12) 1,000 mcg PO QAM 04/23/19 11/08/20 [Vitamin B-12] lisinopril 40 mg PO BID 04/23/19 11/08/20 metformin 1,000 mg PO QAM 04/23/19 11/08/20 omeprazole 20 mg PO QAM 04/23/19 11/08/20 potassium chloride 20 meq PO QAM 04/23/19 11/08/20 aspirin [Adult Low Dose Aspirin] 81 mg PO QAM 11/08/20 11/08/20 calcium carbonate [Antacid 215 mg PO QAM 11/08/20 11/08/20 (calcium carbonate)] cholecalciferol (vitamin D3) 125 mcg PO DAILY 11/08/20 11/08/20 [Vitamin D3] Allergies Allergy/AdvReac Type Severity Reaction Status Date / Time No Known Drug Allergies Allergy Verified 04/22/19 16:34 Review of Systems Constitutional Constitutional: Denies chills, Denies fatigue, Denies fever(s), Denies frequent falls, Denies lethargy and Reports weakness Eyes Eyes: Denies change in vision, Denies eye discharge, Denies irritation and Denies loss of vision ENT Ears, Nose, Mouth, and Throat: Denies change in voice, Denies dizziness, Denies neck pain, Denies sore throat and Denies throat swelling Cardiovascular Cardiovascular: Denies chest pain, Denies irregular heart rhythm, Denies lightheadedness, Denies palpitations, Denies dyspnea, Denies dyspnea on exertion and Denies orthopnea Respiratory Respiratory: Denies cough, Denies dyspnea, Denies dyspnea on exertion and Denies wheezing Gastrointestinal Gastrointestinal: Denies abdominal pain, Denies change in bowel habits, Denies diarrhea, Denies nausea and Denies vomiting Musculoskeletal Musculoskeletal: Denies neck pain Integumentary/Breasts Skin/Breast: Denies pruritus, Denies erythema, Denies rash and Denies wounds Neurologic Neurologic: Denies behavioral changes, Denies confusion, Denies dizziness, Denies frequent falls, Denies loss of vision and Reports weakness Psychiatric Psychiatric: Denies anxiety, Denies behavioral changes, Denies confusion, Denies depression, Denies homicidal ideation and Denies suicidal ideation Endocrine Endocrine: Denies fatigue, Denies flushing and Denies palpitations Hematologic/Lymphatic Hematologic/Lymphatic: Denies easy bruising Allergic/Immunologic Allergic/Immunologic: Denies urticaria, Denies throat swelling and Denies wheezing Patient History Medical History Alcohol dependence Diabetes GERD (gastroesophageal reflux disease) Hypertension Pancreatitis Tobacco dependency Surgical History S/P exploratory laparotomy Status post hernia repair Family History Mother Diabetes mellitus Father Hypertension Bladder cancer Social History marital status: household members: spouse Smoking Status: Current every day smoker alcohol intake: current substance use type: does not use Smoking Status: Current every day smoker alcohol intake frequency: 3 or more drinks per day Substance Use Type: does not use Exam Narrative Exam Narrative: GENERAL: [60] year old patient appears stated age. Well- nourished, well-developed patient, in mild distress. HEAD: Atraumatic. Normocephalic. EYES: Pupils equal round and reactive. Extraocular motions intact. No scleral icterus. No injection or drainage. ENT: Nose without bleeding, purulent drainage. Throat without erythema, tons illar hypertrophy or exudate. Airway patent. NECK: Trachea midline. Non tender CARDIOVASCULAR: Regular rate and rhythm without murmurs, gallops, or rubs. RESPIRATORY: Clear to auscultation. Breath sounds equal bilaterally. No wheezes, rales, or rhonchi. GASTROINTESTINAL: Abdomen soft, non-tender, nondistended. EXTREMITIES: No measurable strength with extension of wrist or extension of fingers on R hand. He can make a fist. He has 5/5 strength in triceps, biceps, shoulder adduction/abducion. No edema or joint tenderness. BACK: Nontender without deformity or crepitance. No flank tenderness. NEURO: AOx3. SKIN: No rash or erythema of visible areas Initial Vital Signs Initial Vital Signs: Vital Signs Temperature 98.9 F 11/08/20 11:16 Pulse Rate 101 H 11/08/20 11:16 Respiratory Rate 20 11/08/20 11:16 Blood Pressure 202/95 H 11/08/20 11:16 Pulse Oximetry 96 11/08/20 11:16 Scores NIH Stroke Scale Level of Conciousness: Alert, keenly responsive Ask month/age: Answers both questions correctly. Open/close eyes, close hand: Performs both tasks correctly Best gaze horizontal: Normal Visual [place]: No visual loss Facial palsy: Normal symetrical movement Left arm drift: No drift for full 10 sec Right arm drift: No drift for full 10 sec Left leg drift: No drift for full 5 sec Right leg drift: No drift for full 5 sec Limb ataxia: Absent Sensory on face/arms/legs: Normal, no sensory loss Best language: No aphasia, normal Dysarthria: Normal Extinction or inattention: No abnormality Total NIH Stroke scale score: 0 Course Orders Ordered: ED Orders 11/08/20 11:17 CT head/brain wo con Stat EKG-12 Lead Stat 11/08/20 11:24 Basic Metabolic Panel Stat COVID19 Stat Complete Blood Count AUTO DIFF Stat Partial Thromboplastin Time Stat Prothrombin Time INR Stat Troponin & CK Cardiac Panel Stat 11/08/20 13:03 MR cervical spine wo con Stat 11/08/20 14:38 Urine Drug Screen, Rapid Stat 11/08/20 15:56 CT angio head and neck Stat Sodium Chloride (Normal Saline 0.9%) 1,000 mls @ 150 mls/hr IV CONT MICHAEL Last Admin: 11/08/20 11:29 Dose: 150 mls/hr Documented by: ALBERTO Discontinued Medications Labetalol HCl (Labetalol 20 Mg/4 Ml Syringe) 10 mg IV NOW ONE Stop: 11/08/20 12:28 Last Admin: 11/08/20 13:11 Dose: Not Given Documented by: ALBERTO Consultations Consultation #1: call to TeleStroke: agrees no stroke, recommends MR of C spine. OK to get BP under control now. call to Ortho: does not appear to be orthopedic surgical problem upon receipt of MRI I called back to ortho who again states there are no findings consistent with need for orthopedic intervention call to [facility] to discuss further options. The most concerning element to him is the sudden onset, while awake, in the absence of other findings Vital Signs Vital signs: Vital Signs - 8 hr 11/08/20 11:16 11/08/20 11:21 11/08/20 11:35 Temperature 98.9 F Pulse Rate 101 H 98 H 96 H Respiratory Rate 20 22 27 H Blood Pressure 202/95 H Pulse Oximetry 96 99 100 11/08/20 11:39 11/08/20 11:40 11/08/20 11:45 Temperature Pulse Rate 92 H 95 H 97 H Respiratory Rate 19 16 22 Blood Pressure 193/88 H 184/100 H 188/93 H Pulse Oximetry 98 99 98 11/08/20 12:00 11/08/20 12:15 11/08/20 12:30 Temperature Pulse Rate 100 H 90 82 Respiratory Rate 30 H 18 22 Blood Pressure 200/101 H 169/86 H Pulse Oximetry 98 98 99 11/08/20 12:45 11/08/20 13:00 11/08/20 13:15 Temperature Pulse Rate 88 81 99 H Respiratory Rate 16 19 17 Blood Pressure 174/81 H Pulse Oximetry 99 98 100 11/08/20 13:30 11/08/20 13:45 11/08/20 14:00 Temperature Pulse Rate 80 82 73 Respiratory Rate 18 17 25 H Blood Pressure 194/88 H 190/88 H Pulse Oximetry 99 99 99 11/08/20 14:31 11/08/20 14:32 11/08/20 14:45 Temperature Pulse Rate 84 80 84 Respiratory Rate Blood Pressure 198/90 H Pulse Oximetry 100 100 100 11/08/20 15:00 11/08/20 15:15 11/08/20 15:30 Temperature Pulse Rate 80 76 75 Respiratory Rate Blood Pressure 176/85 H 178/85 H Pulse Oximetry 100 100 100 11/08/20 15:45 11/08/20 16:00 11/08/20 16:15 Temperature Pulse Rate 76 79 78 Respiratory Rate Blood Pressure 161/74 H Pulse Oximetry 100 99 99 11/08/20 16:30 11/08/20 16:57 Temperature Pulse Rate 75 91 H Respiratory Rate Blood Pressure 173/84 H Pulse Oximetry 99 100 MDM - Neuro Symptoms/Deficit Lab Data Result diagrams: 11/08/20 11:24 11/08/20 11:24 Labs: Lab Results 11/08/20 11/08/20 11/08/20 Range/Units 11:24 11:24 11:24 WBC 5.6 (4.5-11.0) X10^3/uL RBC 4.04 L (4.5-5.9) X10^6/uL Hgb 13.1 L (13.5-17.5) g/dL Hct 38.0 L (41-53) % MCV 94.1 (80-100) fL MCH 32.4 (26-34) PG MCHC 34.4 (30-36) % RDW 14.0 (11.6-14.8) % Plt Count 390 (150-400) X10^3/uL Neut % (Auto) 66.2 (50-75) % Lymph % (Auto) 19.1 L (25-40) % [place] % (Auto) 10.9 (3-14) % Eos % (Auto) 2.9 (2-4) % Baso % (Auto) 0.9 (0-2) % Neut # (Auto) 3700 (1865-9150) /uL Lymph # (Auto) 1100 (9397-2938) /uL [place] # (Auto) 600 (0-900) /uL Eos # (Auto) 200 (0-450) /uL Baso # (Auto) 100 (0-100) /uL PT 10.8 (10.1-12.7) SECONDS INR 0.9 (0.9-1.3) APTT 37 H (26.4-36.2) SECONDS Sodium 122 L (137-145) mmol/L Potassium 4.7 (3.4-5.1) mmol/L Chloride 90 L (98-107) mmol/L Carbon Dioxide 29 (22-32) mmol/L BUN 5 L (9-20) mg/dL Creatinine 0.68 (0.66-1.25) mg/dL Estimated GFR > 60.0 (>60) mL/min BUN/Creatinine Ratio 7.4 (6-22) Glucose 150 H (70-100) mg/dL Calcium 9.8 (8.4-10.2) mg/dL Total Creatine Kinase 42 L (55-170) U/L CK-MB (CK-2) TNP CK-MB (CK-2) Rel Index TNP Troponin I < 0.012 (0.01-0.034) ng/mL U Opiates 300ng/mL cut (Negative) Ur Oxycodone Screen (Negative) Urine Methadone Screen (Negative) Ur Barbiturates Screen (Negative) U Tricyclic Antidepress (Negative) Ur Phencyclidine Scrn (Negative) Ur Amphetamines Screen (Negative) U Methamphetamines Scrn (Negative) Ur MDMA Scrn (Ecstasy) (Negative) U Benzodiazepines Scrn (Negative) Urine Cocaine Screen (Negative) U Marijuana (THC) Screen (Negative) SARS-CoV-2 (PCR) (Negative) 11/08/20 11/08/20 Range/Units 11:24 14:38 WBC (4.5-11.0) X10^3/uL RBC (4.5-5.9) X10^6/uL Hgb (13.5-17.5) g/dL Hct (41-53) % MCV (80-100) fL MCH (26-34) PG MCHC (30-36) % RDW (11.6-14.8) % Plt Count (150-400) X10^3/uL Neut % (Auto) (50-75) % Lymph % (Auto) (25-40) % [place] % (Auto) (3-14) % Eos % (Auto) (2-4) % Baso % (Auto) (0-2) % Neut # (Auto) (5872-0623) /uL Lymph # (Auto) (5412-9068) /uL [place] # (Auto) (0-900) /uL Eos # (Auto) (0-450) /uL Baso # (Auto) (0-100) /uL PT (10.1-12.7) SECONDS INR (0.9-1.3) APTT (26.4-36.2) SECONDS Sodium (137-145) mmol/L Potassium (3.4-5.1) mmol/L Chloride (98-107) mmol/L Carbon Dioxide (22-32) mmol/L BUN (9-20) mg/dL Creatinine (0.66-1.25) mg/dL Estimated GFR (>60) mL/min BUN/Creatinine Ratio (6-22) Glucose (70-100) mg/dL Calcium (8.4-10.2) mg/dL Total Creatine Kinase (55-170) U/L CK-MB (CK-2) CK-MB (CK-2) Rel Index Troponin I (0.01-0.034) ng/mL U Opiates 300ng/mL cut Negative (Negative) Ur Oxycodone Screen Negative (Negative) Urine Methadone Screen Negative (Negative) Ur Barbiturates Screen Negative (Negative) U Tricyclic Antidepress Negative (Negative) Ur Phencyclidine Scrn Negative (Negative) Ur Amphetamines Screen Negative (Negative) U Methamphetamines Scrn Negative (Negative) Ur MDMA Scrn (Ecstasy) Negative (Negative) U Benzodiazepines Scrn Negative (Negative) Urine Cocaine Screen Negative (Negative) U Marijuana (THC) Screen Negative (Negative) SARS-CoV-2 (PCR) Negative (Negative) Urine Dip Bedside Urine Glucose Negative Bedside Urine Bilirubin - Negative Bedside Urine Ketone +/- 5 Urine Specific [place] 1.015 Bedside Urine Occult Blood - Negative Bedside Urine pH 6.0 Bedside Urine Protein - Negative Bedside Urine Urobilinogen - Negative Bedside Urine Nitrite - Negative Bedside Urine Leukocytes - Negative Esterase Imaging Data MRI Cervical: Radiologist's Impression: DO [facility] Patient Imaging - Bharat Mcpherson G 60 M 1960 ACTIVITY DATE EXAM STATUS AUTHOR 11/08/20 13:03 Signed Sumit Robles 11/08/20 11:[address] [id number] Resonance Report Signed Patient: Bharat Mcpherson R#: [id number]: 1960cct:[id number]/Sex: 60 / MDate of Service: 11/08/20Loc: EDAccession Number: [id number] Procedure: MR cervical spine wo con Ordering Provider: Daryl Martinez D.O. PROCEDURE: MR CERVICAL SPINE WO CON INDICATIONS: R hand/arm weakness, per ortho/stroke neuro TECHNIQUE: Noncontrast sagittal T1 spin echo and T2 fast spin echo, sagittal STIR, foraminal oblique sagittal T2 fast spin echo, and axial gradient echo or T2 fast spin echo through the cervical spine. COMPARISON: [facility], CT, CT HEAD/BRAIN WO CON, 04/22/2019, 17:53. FINDINGS: Image quality: Excellent. Alignment and Curvature: There is normal bony alignment. Bone Marrow: Marrow demonstrates normal overall signal. Spinal Cord: Visualized spinal cord has normal size and signal. No cerebellar tonsillar herniation. Paraspinous Soft Tissues: No paravertebral masses. Prevertebral soft tissues are normal in thickness. C2-C3: Normal appearance. C3-C4: Decreased intervertebral disc space and degenerative endplate changes are seen. Broad-based disc bulge causing [id number] central canal stenosis is seen. Bilateral uncinate hypertrophic changes also noted with right worse than left bilateral neural foraminal narrowing at this level. C4-C5: Central disc bulge is seen. Bilateral facet hypertrophic changes also noted. No significant central canal stenosis. Right-sided neural foraminal narrowing is noted. C5-C6: Broad-based, more left-sided disc bulge is noted with bilateral uncinate hypertrophic changes. No significant central canal stenosis. Mild to moderate left-sided neural foraminal narrowing is seen. C6-C7: Central to left-sided disc bulge and bilateral uncinate hypertrophic changes are noted. No significant central canal stenosis. Moderate left-sided neural foraminal narrowing is noted. C7-T1: Normal appearance. IMPRESSION: 1. No marrow edema. No acute compression fracture or spondylolisthesis. 2. No Chiari malformation. No abnormal cervical spinal cord signal. 3. Degenerative disc bulge and bilateral uncinate hypertrophic changes are noted at C3-4 through C6-7 levels causing [id number] central canal stenosis and left worse than right bilateral neural foraminal narrowing as above. Dictated by: Sumit Robles M.D. on 11/08/2020 at 14:44 Approved by: Sumit Robles M.D. on 11/08/2020 at 14:47 CT scan - head: Radiologist's Impression: Radha Martinez, DO Find Patient Imaging - Bharat Mcpherson 60 M 1960 ACTIVITY DATE EXAM STATUS AUTHOR 11/08/20 15:56 Signed Sushil Sanches 11/08/20 13:03 Signed Sumit Robles 11/08/20 11:17 Signed Myron,[facility] [place] [id number] Scan ReportSigned Patient: Bharat Mcpherson R#: [id number]: 1960cct:[id number]/Sex: 60 / MDate of Service: 11/08/20Loc: EDAccession Number: [id number] Procedure: CT angio head and neck Ordering Provider: Daryl Martinez D.O. PROCEDURE: CT ANGIO HEAD AND NECK INDICATIONS: abrupt onset right wrist drop TECHNIQUE: Noncontrast images were performed earlier in the day and not repeated. After the administration of intravenous contrast, 1 mm thick sections acquired from the aortic arch through the [place] of [place]. Post-contrast 4.5 mm thick sections then re- acquired from the foramen magnum to the vertex. 3-dimensional hfdeofo-zhlzkhdof-beptdkcdva (MIP) and/or volume rendering reformats were acquired of the central intracranial vasculature and neck separately. COMPARISON: [facility], MR, MR CERVICAL SPINE WO [facility], 11/08/2020, 13:58. [facility], CT, CT HEAD/BRAIN WO CON, 11/08/2020, 11:18. FINDINGS: Image quality: Excellent. BRAIN: CSF spaces: Ventricles are normal in size and shape. Basal cisterns are patent. No extra-axial fluid collections. Brain: No midline shift. No intracranial bleeds or masses. Caceres-white matter interface appears intact. Skull and face: Calvarium and facial bones appear intact, without suspicious lesions. Orbits appear normal. Sinuses: Sinuses and mastoids are clear. HEAD CT ANGIOGRAPHY: Anterior circulation: Intracranial internal carotid arteries are normal in size and flow. The flow within the paired anterior cerebral arteries is normal and symmetric. The flow within the middle cerebral arteries is normal and symmetric. The anterior communicating artery is seen. No aneurysms are seen. Posterior circulation: Visualized portions of the vertebral arteries demonstrate normal caliber, and join to form a normal appearing basilar artery. Flow within the posterior cerebral arteries is normal and symmetric. No aneurysms are seen. NECK CT ANGIOGRAPHY: Carotid system: The great vessels demonstrate a conventional anatomy as they arise from the aortic arch. The origins of the common carotid arteries appear patent. The common carotid arteries demonstrate normal caliber and courses. The bifurcation regions demonstrate atherosclerotic calcification and irregularity. There is 40 50% narrowing seen involving the right proximal internal carotid artery, with approximately 30% narrowing seen involving the left proximal internal carotid artery. Posterior circulation: The origins of the vertebral arteries both appear widely patent. The more superior extracranial portions of both vertebral arteries also demonstrate normal courses and calibers. They join to form a normal appearing basilar artery. Soft tissues: Visualized neck soft tissues demonstrate no suspicious abnormalities. Bones: No suspicious bony lesions. Visualized cervical spine appears normally aligned. Age-appropriate bony degenerative changes are seen. IMPRESSION: No acute intracranial process is seen. No significant intracranial arterial abnormality is seen. Atherosclerotic irregularity of the carotid bifurcation regions, yet without a hemodynamically significant stenosis seen. No findings of dissection can be seen. No significant vertebral artery abnormality is seen. Any quantitative measurements of stenosis were performed using NASCET criteria. Dictated by: Sushil Sanches M.D. on 11/08/2020 at 16:29 Approved by: Sushil Sanches M.D. on 11/08/2020 at 16:32 Discharge Plan Departure Patient Disposition: Admitted As Inpatient Clinical Impression: Acute hyponatremia, Acute radial nerve palsy Admit Date/Time: 11/08/20 17:59 Admit Provider: Sophie Taylor
[2020-11-08] MEDS: SODIUM CHLORIDE 0.9% 1,000 ML 150 ML IV ×3 (11:29→20:18)
[2020-11-08 11:40] LABS: Add Manual Diff / Slide Review NO; Basophils Absolute Auto 100 /uL (0-100); Basophils Percent Auto 0.9 % (0-2); Eosinophils Absolute Auto 200 /uL (0-450); Eosinophils Percent Auto 2.9 % (2-4); Hemoglobin 13.1 g/dL (13.5-17.5); Lymphocytes Absolute Auto 1100 /uL (1100-4500); Lymphocytes Percent Auto 19.1 % (25-40); Mean Corpuscular HGB Conc 34.4 % (30-36); Mean Corpuscular Hemoglobin 32.4 PG (26-34); Mean Corpuscular Volume 94.1 fL (80-100); Monocytes Absolute Auto 600 /uL (0-900); Monocytes Percent Auto 10.9 % (3-14); Neutrophils Absolute Auto 3700 /uL (1500-7000); Neutrophils Percent Auto 66.2 % (50-75); Platelet Count 390 X10^3/uL (150-400); Red Blood Cell Count 4.04 X10^6/uL (4.5-5.9); White Blood Cell Count 5.6 X10^3/uL (4.5-11.0)
--- NOTE | 2020-11-08 11:57 | PC.NURSE ---
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 His right arm felt fine and hand normal function all day during work. He stated that around 11pm he noticed that his hand did not function properly he had weakness in his right hand without pain or numbness. He denies injury or pain in his ext or neck/ shoulder. He went to bed and woke up the next day with same deficit.
[2020-11-08 12:02] LABS: INR 0.9 (0.9-1.3); Prothrombin Time 10.8 SECONDS (10.1-12.7)
[2020-11-08 12:04] LABS: PTT Partial Thromboplastin Tim 37 SECONDS (26.4-36.2)
[2020-11-08 12:05] LABS: BUN Creatinine Ratio 7.4 (6-22); Blood Urea Nitrogen 5 mg/dL (9-20); COVID19 -Nasal RAPID Negative (Negative); Calcium 9.8 mg/dL (8.4-10.2); Carbon Dioxide 29 mmol/L (22-32); Chloride 90 mmol/L (98-107); Creatine Kinase 42 U/L (55-170); Estimated Glomerular Filt Rate > 60.0 mL/min (>60); Glucose 150 mg/dL (70-100); HEMOLYSIS < 15 (0-50); Potassium 4.7 mmol/L (3.4-5.1); Sodium 122 mmol/L (137-145)
[2020-11-08 12:17] LABS: Troponin I < 0.012 ng/mL (0.01-0.034)
--- NOTE | 2020-11-08 13:03 | DI.MRI.S_ITS ---
PROCEDURE: MR CERVICAL SPINE WO CON INDICATIONS: R hand/arm weakness, per ortho/stroke neuro TECHNIQUE: Noncontrast sagittal T1 spin echo and T2 fast spin echo, sagittal STIR, foraminal oblique sagittal T2 fast spin echo, and axial gradient echo or T2 fast spin echo through the cervical spine. COMPARISON: [facility], CT, CT HEAD/BRAIN WO CON, 04/22/2019, 17:53. FINDINGS: Image quality: Excellent. Alignment and Curvature: There is normal bony alignment. Bone Marrow: Marrow demonstrates normal overall signal. Spinal Cord: Visualized spinal cord has normal size and signal. No cerebellar tonsillar herniation. Paraspinous Soft Tissues: No paravertebral masses. Prevertebral soft tissues are normal in thickness. C2-C3: Normal appearance. C3-C4: Decreased intervertebral disc space and degenerative endplate changes are seen. Broad-based disc bulge causing yebc-zo-igxdfslh central canal stenosis is seen. Bilateral uncinate hypertrophic changes also noted with right worse than left bilateral neural foraminal narrowing at this level. C4-C5: Central disc bulge is seen. Bilateral facet hypertrophic changes also noted. No significant central canal stenosis. Right-sided neural foraminal narrowing is noted. C5-C6: Broad-based, more left-sided disc bulge is noted with bilateral uncinate hypertrophic changes. No significant central canal stenosis. Mild to moderate left-sided neural foraminal narrowing is seen. C6-C7: Central to left-sided disc bulge and bilateral uncinate hypertrophic changes are noted. No significant central canal stenosis. Moderate left-sided neural foraminal narrowing is noted. C7-T1: Normal appearance. IMPRESSION: 1. No marrow edema. No acute compression fracture or spondylolisthesis. 2. No Chiari malformation. No abnormal cervical spinal cord signal. 3. Degenerative disc bulge and bilateral uncinate hypertrophic changes are noted at C3-4 through C6-7 levels causing yeyh-so-nifqeikw central canal stenosis and left worse than right bilateral neural foraminal narrowing as above. Dictated by: Sumit Robles M.D. on 11/08/2020 at 14:44 Approved by: Sumit Robles M.D. on 11/08/2020 at 14:47
[2020-11-08 14:50] LABS: UR Morphine/Opiate cutoff 300 Negative (Negative); Ur Creatinine Normal (Normal); Ur Specific Gravity Normal (Normal); Urine Amphetamines Negative (Negative); Urine Barbiturates Negative (Negative); Urine Benzodiazepines Negative (Negative); Urine Cocaine Negative (Negative); Urine MDMA Negative (Negative); Urine Methadone Negative (Negative); Urine Methamphetamines Negative (Negative); Urine Oxycodone Negative (Negative); Urine Phencyclidine Negative (Negative); Urine Tetrahydrocannabinol Negative (Negative); Urine Tricyclic Antidepressant Negative (Negative); Urine pH Normal (Normal)
--- NOTE | 2020-11-08 15:56 | DI.CT.S_ITS ---
PROCEDURE: CT ANGIO HEAD AND NECK INDICATIONS: abrupt onset right wrist drop TECHNIQUE: Noncontrast images were performed earlier in the day and not repeated. After the administration of intravenous contrast, 1 mm thick sections acquired from the aortic arch through the [place] of [place]. Post-contrast 4.5 mm thick sections then re-acquired from the foramen magnum to the vertex. 3-dimensional dsrkbcs-bnwinoiyc-awwjjnxuve (MIP) and/or volume rendering reformats were acquired of the central intracranial vasculature and neck separately. COMPARISON: [facility], MR, MR CERVICAL SPINE WO CON, 11/08/2020, 13:58. [facility], CT, CT HEAD/BRAIN WO CON, 11/08/2020, 11:18. FINDINGS: Image quality: Excellent. BRAIN: CSF spaces: Ventricles are normal in size and shape. Basal cisterns are patent. No extra-axial fluid collections. Brain: No midline shift. No intracranial bleeds or masses. Caceres-white matter interface appears intact. Skull and face: Calvarium and facial bones appear intact, without suspicious lesions. Orbits appear normal. Sinuses: Sinuses and mastoids are clear. HEAD CT ANGIOGRAPHY: Anterior circulation: Intracranial internal carotid arteries are normal in size and flow. The flow within the paired anterior cerebral arteries is normal and symmetric. The flow within the middle cerebral arteries is normal and symmetric. The anterior communicating artery is seen. No aneurysms are seen. Posterior circulation: Visualized portions of the vertebral arteries demonstrate normal caliber, and join to form a normal appearing basilar artery. Flow within the posterior cerebral arteries is normal and symmetric. No aneurysms are seen. NECK CT ANGIOGRAPHY: Carotid system: The great vessels demonstrate a conventional anatomy as they arise from the aortic arch. The origins of the common carotid arteries appear patent. The common carotid arteries demonstrate normal caliber and courses. The bifurcation regions demonstrate atherosclerotic calcification and irregularity. There is 40 50% narrowing seen involving the right proximal internal carotid artery, with approximately 30% narrowing seen involving the left proximal internal carotid artery. Posterior circulation: The origins of the vertebral arteries both appear widely patent. The more superior extracranial portions of both vertebral arteries also demonstrate normal courses and calibers. They join to form a normal appearing basilar artery. Soft tissues: Visualized neck soft tissues demonstrate no suspicious abnormalities. Bones: No suspicious bony lesions. Visualized cervical spine appears normally aligned. Age-appropriate bony degenerative changes are seen. IMPRESSION: No acute intracranial process is seen. No significant intracranial arterial abnormality is seen. Atherosclerotic irregularity of the carotid bifurcation regions, yet without a hemodynamically significant stenosis seen. No findings of dissection can be seen. No significant vertebral artery abnormality is seen. Any quantitative measurements of stenosis were performed using NASCET criteria. Dictated by: Sushil Sanches M.D. on 11/08/2020 at 16:29 Approved by: Sushil Sanches M.D. on 11/08/2020 at 16:32
--- NOTE | 2020-11-08 18:09 | PC.NURSE ---
Patient cannot extend his fingers on his right hand without flexing his wrist.
--- NOTE | 2020-11-08 19:56 | DI.MRI.S_ITS ---
PROCEDURE: MR STROKE Pre- and post-contrast brain MRI, non-contrast brain MR angiogram, pre- and postcontrast neck MR angiogram INDICATIONS: r/o stroke TIA TECHNIQUE: Brain: Noncontrast axial T1 spin echo, axial T2 fast spin echo, sagittal and axial FLAIR, coronal T2 fast spin echo, axial gradient echo, axial diffusion and ADC through the brain. After the administration of contrast, axial 3D VIBE of the cranial vasculature and brain. Brain MRA: Non-contrast 3-D time of flight MR angiogram, with multiple eyvynop-slcdrdiec-ufknyizuck (MIP) reformats performed. Neck MRA: Axial and sagittal TruFISP through the neck. Coronal dynamic MR angiogram during administration of contrast in the arterial and venous phases, with 3-dimenstional iryznnf-elqpxxxwn-bcdqecaivc (MIP) reformats constructed from subtraction images. COMPARISON: [facility], CT, CT HEAD/BRAIN WO CON, 11/08/2020, 11:18. [facility], MR, MR CERVICAL SPINE WO CON, 11/08/2020, 13:58. [facility], CT, CT ANGIO HEAD AND NECK, 11/08/2020, 16:35. FINDINGS: Image quality: Excellent. BRAIN: CSF spaces: Ventricles are normal in size and shape. Basal cisterns are patent. No extra-axial fluid collections. Brain: No intracranial bleeds or mass effects. Caceres-white matter interface is normal. Diffusion weighted images show no acute ischemic insults. Mild cerebral volume loss. Brainstem appears normal. Normal intravascular flow voids are present. No abnormal intracranial enhancement. Skull and face: Calvarial marrow signal is normal. Orbits appear normal. Sinuses: There is bilateral frontal, ethmoid, sphenoid and maxillary sinus mucosal thickening. The mastoids are clear. BRAIN MR ANGIOGRAM: Anterior circulation: Intracranial internal carotid arteries are normal in size and enhancement. 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 There is large caliber of left A1 segment. Findings are most likely congenital. More distally, flow within the paired anterior cerebral arteries is normal and symmetric. The flow within the middle cerebral arteries is normal and symmetric. The anterior communicating artery is seen. No stenoses, occlusions, or aneurysms. Posterior circulation: The visualized portions of the vertebral arteries demonstrate normal caliber, and join to form a normal appearing basilar artery. The flow within the posterior cerebral arteries is normal and symmetric. No stenoses, occlusions, or aneurysms. NECK MR ANGIOGRAM: Carotids: Great vessels demonstrate a conventional anatomy as they arise from the aortic arch. The origins of the common carotid arteries appear patent. The calibers and courses of both common carotid arteries are normal. The bifurcation regions appear normal bilaterally. The internal carotid arteries demonstrate normal course and caliber. Posterior circulation: The origins of the vertebral arteries appear patent. More superior portions of both vertebral arteries demonstrate normal course and caliber, and join to form a normal appearing basilar artery. Miscellaneous: Subclavian arteries appear patent. Pre-contrast images through the neck show no soft tissue abnormalities. IMPRESSION: BRAIN MRI: 1. No acute intracranial abnormalities. 2. Mild cerebral volume loss. 3. Bilateral paranasal sinus mucosal thickening. BRAIN MR ANGIOGRAM: 1. No significant stenosis or occlusion in anterior or posterior circulations. 2. 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 NECK MR ANGIOGRAM: 1. Normal neck angiogram. Dictated by: John Pierre M.D. on 11/09/2020 at 11:11 Approved by: John Pierre M.D. on 11/09/2020 at 11:20
[2020-11-08 21:25] LABS: Troponin I < 0.012 ng/mL (0.01-0.034)
[2020-11-08 21:26] LABS: Hemoglobin A1C% w Est Avg Glu 7.7 % (4.0-6.0)
[2020-11-08] MEDS: lisinopriL 20 MG TABLET 40 MG PO (21:46)
[2020-11-08] MEDS: ATORVASTATIN 20 MG TABLET 80 MG PO (21:46)
[2020-11-08] MEDS: INSULIN GLARGINE 100 UNIT/ML 3ML PEN 10 UNIT SUBCUT (22:33)
--- NOTE | 2020-11-08 22:35 | PC.NURSE ---
shift note- Pt arrived to room 205 from ED via WC @ 1900. Head CT neg. Denies pain, nausea, and SOB. 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 Pt here for rule out CVA. Pt Hx HTN with 172/92 75. BG-183 given 10 units lantus per new orders @ 2230 due to computer glitches and night pharm verification. RAC SL. Pt indep in room, understands to call so a staff member is in the room when uses toilet or sink. 100%RA. nurse swallow screen- good no issues, provided with snacks and fluids. Call light in reach and uses appropriately.
--- NOTE | 2020-11-08 23:34 | P.HP_ITS ---
History of Present Illness History of Present Illness Date Patient Seen: 11/08/20 Time Patient Seen: 20:00 Chief complaint: Sent over per his Doctor. right arm is numb Narrative: Patient is a 60-year-old male Bharat Mcpherson who presented to the ED with his , at the request of his primary care provider for evaluation of weakness of his right arm which has been present since night. He has had no neurologic symptoms otherwise, denies blurred vision, trouble speech, dizziness, balance issues or any numbness, tingling or weakness otherwise. Patient has a past medical history of HTN, carotid atherosclerosis, DM type 2, GERD, current every day tobacco use (1 ppd), and current every day EtOH use (6 pack beer daily). Patient presented to the ER with BP 180/94, HR 93, RR 16, 99% O2 saturation, hemoglobin 13.1, hematocrit 38, sodium 122, chloride 90, BUN 5, glucose 150, total creatinine kinase 42, negative troponin.Head/Neck CTA: No acute intracranial process is seen. No significant intracranial arterial abnormality is seen. Atherosclerotic irregularity of the carotid bifurcation regions, yet without a hemodynamically significant stenosis seen. No findings of dissection can be seen. No significant vertebral artery abnormality is seen. Head CT:No acute intracranial hemorrhage is seen. No CT findings of acute stroke can be seen. C-Spine MRI: No abnormal cervical spinal cord signal. Degenerative disc bulge and bilateral uncinate hypertrophic changes are noted at C3-4 through C6-7 levels causing vrib-xs-rjswkkyu central canal stenosis and left worse than right bilateral neural foraminal narrowing as above. When patient was admitted to floor BP 178/87, HR 75, RR 25, SaO2 100%. Patient reports that evening approximately 11:00 p.m. while he was sitting watching TV he noticed that when he went to grab the remote he was unable to move his hands, feels only slight discomfort when he tries to move it, has complete movement and muscle strength of his arm and shoulder the weakness is specifically focused at the wrist. Wrist is in a flexed motion downwards, No deformity, erythema or inflammation noted. Patient denies fevers, night sweats, chills, malaise, weight loss, or chronic fatigue, and symptoms are not bilateral. Patient also denies chest pain shortness of breath diaphoresis changes in vision difficulty with ambulation or weakness 1 side of the body, or urination or bowel issues. Patient denies recent illness, injury, history of wrist issues, or trauma. 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 Patient presented to the ER with BP 180/94, HR 93, RR 16, 99% O2 saturation, hemoglobin 13.1, hematocrit 38, sodium 122, chloride 90, BUN 5, glucose 150, total creatinine kinase 42, negative troponin.Head/Neck CTA: No acute intracranial process is seen. No significant intracranial arterial abnormality is seen. Atherosclerotic irregularity of the carotid bifurcation regions, yet without a hemodynamically significant stenosis seen. No findings of dissection can be seen. No significant vertebral artery abnormality is seen. Head CT:No acute intracranial hemorrhage is seen. No CT findings of acute stroke can be seen. C-Spine MRI: No abnormal cervical spinal cord signal. Degenerative disc bulge and bilateral uncinate hypertrophic changes are noted at C3-4 through C6-7 levels causing qeun-wt-mcotuznc central canal stenosis and left worse than right bilateral neural foraminal narrowing as above. Patient is admitted for right hand weakness rule out stroke/TIA. Patient History Medical History Alcohol dependence Diabetes GERD (gastroesophageal reflux disease) Hypertension Pancreatitis Tobacco dependency Surgical History S/P exploratory laparotomy Status post hernia repair Family & Social History Family History Mother Diabetes mellitus Father Hypertension Bladder cancer Social History: household members spouse Safety & Behavioral: Feels Safe in Current Yes Environment Been Physically Hurt or No Threatened By a Person Suicidal Ideation Description None Tobacco & Substance use: Tobacco type cigarettes Smoking Status Current every day smoker alcohol intake current alcohol intake frequency 3 or more drinks per day Substance Use Type does not use Meds Home Medications and Allergies Home Medications Medication Instructions Recorded Confirmed Type cyanocobalamin (vitamin B-12) 1,000 mcg PO QAM 04/23/19 11/08/20 History [Vitamin B-12] lisinopril 40 mg PO BID 04/23/19 11/08/20 History metformin 1,000 mg PO QAM 04/23/19 11/08/20 History omeprazole 20 mg PO QAM 04/23/19 11/08/20 History potassium chloride 20 meq PO QAM 04/23/19 11/08/20 History aspirin [Adult Low Dose Aspirin] 81 mg PO QAM 11/08/20 11/08/20 History calcium carbonate [Antacid 215 mg PO QAM 11/08/20 11/08/20 History (calcium carbonate)] cholecalciferol (vitamin D3) 125 mcg PO DAILY 11/08/20 11/08/20 History [Vitamin D3] Allergies Allergy/AdvReac Type Severity Reaction Status Date / Time No Known Drug Allergies Allergy Verified 04/22/19 16:34 Review of Systems Review of Systems ROS: Yes All systems reviewed with the patient and are negative except as otherwise documented Constitutional Constitutional: Reports weakness Cardiovascular Cardiovascular: Reports system reviewed and no additional complaints, except as documented Respiratory Respiratory: Reports system reviewed and no additional complaints, except as documented Musculoskeletal Musculoskeletal: Reports muscle weakness Comments: Weakness of right hand, and inability to straighten his hand and difficulty with fine motor skill x approximately 72 hours Neurologic Neurologic: Reports system reviewed and no additional complaints, except as documented and Reports weakness Exam Vital Signs (past 8 hours): - 11/08/20 15:45 11/08/20 16:00 11/08/20 16:15 Temperature Pulse Rate 76 79 78 Respiratory Rate Blood Pressure 161/74 H Pulse Oximetry 100 99 99 11/08/20 16:30 11/08/20 16:57 11/08/20 18:05 Temperature Pulse Rate 75 91 H 80 Respiratory Rate Blood Pressure 173/84 H Pulse Oximetry 99 100 99 11/08/20 18:06 11/08/20 18:15 11/08/20 18:30 Temperature Pulse Rate 93 H 71 75 Respiratory Rate Blood Pressure 180/94 H 178/87 H Pulse Oximetry 99 99 100 11/08/20 19:00 11/08/20 19:21 11/08/20 19:41 Temperature 97.4 F L 97.4 F L Pulse Rate 75 75 Respiratory Rate 16 16 Blood Pressure 177/92 H 177/92 H Pulse Oximetry 100 99 100 11/08/20 21:46 Temperature Pulse Rate 75 Respiratory Rate Blood Pressure 177/92 H Pulse Oximetry Oxygen Delivery Method Room Air Oxygen Flow Rate 0 Narrative Exam Narrative: General: Patient is a pleasant male, well-developed, well-nourished in no distress at this time. HEENT: Normocephalic, atraumatic, extraocular muscles intact, oral pharynx is clear and mucous membranes are moist. Poor dentition and missing teeth. Neck is supple and symmetric, trachea is midline, no adenopathy, no thyroid enlargement, nontender, no masses palpated. Negative for JVD Chest: Normal AP diameter and contour without kyphoscoliosis, no nasal flaring, retractions, or tachypneic labored Lungs: Auscultation of all lung [place] are without rhonchi, or rales. Occasional expiratory wheezes throughout Cardio: S1 & S2 with regular rate and rhythm without murmur, rubs, or gallops, no carotid bruit, no cardiac pulsations present. Abdomen: Soft nontender, negative for organomegaly, or masses. Bowel sounds are present in all 4 quadrants without guarding or rebound, no CVA tenderness. Musculoskeletal: Muscle strength and tone are equal within normal limits, no deformity with the exception of the right hand which is contracted in a downward fashion, radial pulse intact capillary refills appropriate, patient able to complete fine motor skills had a slowed pace but unable to extend fingers abduct and fan fingers, experiences pain completing this activity. 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 Full range of motion intact radial and pedal pulses are normal. Skin: Warm dry and intact without rashes, ulcerations or petechiae. Neuro: Alert and orientated x3, strength is +5/5 in all extremities, sensation to touch intact, no gross deficits noted of cranial nerves. Psych: Patient has a well-kept appearance, appropriate affect, mental status attitude thought context and judgment are appropriate for age. Objective Labs Result Diagrams: 11/08/20 11:24 11/08/20 11:24 Labs: Laboratory Results - last 24 hr 11/08/20 11/08/20 11/08/20 11:24 11:24 11:24 WBC 5.6 RBC 4.04 L Hgb 13.1 L Hct 38.0 L MCV 94.1 MCH 32.4 MCHC 34.4 RDW 14.0 Plt Count 390 Neut % (Auto) 66.2 Lymph % (Auto) 19.1 L [place] % (Auto) 10.9 Eos % (Auto) 2.9 Baso % (Auto) 0.9 Neut # (Auto) 3700 Lymph # (Auto) 1100 [place] # (Auto) 600 Eos # (Auto) 200 Baso # (Auto) 100 PT 10.8 INR 0.9 APTT 37 H Sodium 122 L Potassium 4.7 Chloride 90 L Carbon Dioxide 29 BUN 5 L Creatinine 0.68 Estimated GFR > 60.0 BUN/Creatinine Ratio 7.4 Glucose 150 H Hemoglobin A1c Calcium 9.8 Total Creatine Kinase 42 L CK-MB (CK-2) TNP CK-MB (CK-2) Rel Index TNP Troponin I < 0.012 U Opiates 300ng/mL cut Ur Oxycodone Screen Urine Methadone Screen Ur Barbiturates Screen U Tricyclic Antidepress Ur Phencyclidine Scrn Ur Amphetamines Screen U Methamphetamines Scrn Ur MDMA Scrn (Ecstasy) U Benzodiazepines Scrn Urine Cocaine Screen U Marijuana (THC) Screen SARS-CoV-2 (PCR) 11/08/20 11/08/20 11/08/20 11:24 14:38 21:00 WBC RBC Hgb Hct MCV MCH MCHC RDW Plt Count Neut % (Auto) Lymph % (Auto) [place] % (Auto) Eos % (Auto) Baso % (Auto) Neut # (Auto) Lymph # (Auto) [place] # (Auto) Eos # (Auto) Baso # (Auto) PT INR APTT Sodium Potassium Chloride Carbon Dioxide BUN Creatinine Estimated GFR BUN/Creatinine Ratio Glucose Hemoglobin A1c Calcium Total Creatine Kinase CK-MB (CK-2) CK-MB (CK-2) Rel Index Troponin I < 0.012 U Opiates 300ng/mL cut Negative Ur Oxycodone Screen Negative Urine Methadone Screen Negative Ur Barbiturates Screen Negative U Tricyclic Antidepress Negative Ur Phencyclidine Scrn Negative Ur Amphetamines Screen Negative U Methamphetamines Scrn Negative Ur MDMA Scrn (Ecstasy) Negative U Benzodiazepines Scrn Negative Urine Cocaine Screen Negative U Marijuana (THC) Screen Negative SARS-CoV-2 (PCR) Negative 11/08/20 21:00 WBC RBC Hgb Hct MCV MCH MCHC RDW Plt Count Neut % (Auto) Lymph % (Auto) [place] % (Auto) Eos % (Auto) Baso % (Auto) Neut # (Auto) Lymph # (Auto) [place] # (Auto) Eos # (Auto) Baso # (Auto) PT INR APTT Sodium Potassium Chloride Carbon Dioxide BUN Creatinine Estimated GFR BUN/Creatinine Ratio Glucose Hemoglobin A1c 7.7 H Calcium Total Creatine Kinase CK-MB (CK-2) CK-MB (CK-2) Rel Index Troponin I U Opiates 300ng/mL cut Ur Oxycodone Screen Urine Methadone Screen Ur Barbiturates Screen U Tricyclic Antidepress Ur Phencyclidine Scrn Ur Amphetamines Screen U Methamphetamines Scrn Ur MDMA Scrn (Ecstasy) U Benzodiazepines Scrn Urine Cocaine Screen U Marijuana (THC) Screen SARS-CoV-2 (PCR) Assessment & Plan Assessment & Plan narrative: This patient requires acute care inpatient hospital management for right hand weakness, rule out stroke/TIA. The patient is at much higher risk for medical and surgical complications because of past medical history of HTN, carotid atherosclerosis, DM type 2, GERD, current every day tobacco use (1 ppd), and current every day EtOH use (6 pack beer daily). These factors increase the difficulty and complexity of medical and surgical interventions and increases the chances of poor outcomes such as morbidity and mortality. ER consultation:Consultation #1: call to TeleStroke: agrees no stroke, recommends MR of C spine. OK to get BP under control now. call to Ortho: does not appear to be orthopedic surgical problem upon receipt of MRI I called back to ortho who again states there are no findings consistent with need for orthopedic intervention call to [facility] to discuss further options. The most concerning element to him is the sudden onset, while awake, in the absence of other findings 1. Right hand weakness, rule out stroke/TIA, verses compressive radial neuropathy verses overuse injury, versus Neurapraxia, acute, present on admission -180/94, HR 93, RR 16, 99% O2 saturation, hemoglobin 13.1, hematocrit 38, sodium 122, chloride 90, BUN 5, glucose 150, total creatinine kinase 42, negative tropo mando.Head/Neck CTA: No acute intracranial process is seen. No significant intracranial arterial abnormality is seen. Atherosclerotic irregularity of the carotid bifurcation regions, yet without a hemodynamically significant stenosis seen. No findings of dissection can be seen. No significant vertebral artery abnormality is seen. Head CT:No acute intracranial hemorrhage is seen. No CT findings of acute stroke can be seen. C-Spine MRI: No abnormal cervical spinal cord signal. Degenerative disc bulge and bilateral uncinate hypertrophic changes are noted at C3-4 through C6-7 levels causing vcud-ei-jpuuahxn central canal stenosis and left worse than right bilateral neural foraminal narrowing as above. -orthopedic consult noted above determined that CT findings of the C-spine would not result in patient's presentation and ruled out cord impingement. -patient admitted on telemetry stroke protocol in place, NIHSS Q shift, NIHSS on admission 0 -patient to be monitored on tele medicine, initial neuro assessment, vital signs Q 2 hours times 12, then q.4 hours times 12, then Q shift, intake and output monitored Q shift, weight measure daily, diet: NPO until bedside swallow completed and cleared, then patient may advance as tolerated to low carbohydrate diet. -head CT was negative, MR head ordered per protocol, carotid Doppler-likely these will not be able to be completed until Tuesday11/11/2020. - -possibly consider echo with bubble based on patient's smoking history and cardiovascular risk factors of ethnicity, history of carotid atherosclerosis, tobacco abuse, alcohol abuse, diabetes type 2, hypertension, and GERD. -once stroke/TIA has been ruled out, patient to be discharged: Outpatient recommendations: Preventative treatment avoid repetitive activities like power washing or heavy equipment work for prolonged hours or days at a time, conservative treatment brace, rest, ice, elevation, anti-inflammatories, if condition sustained greater than 4 weeks recommend referral to physical therapy and outpatient follow-up and EMG studies -patient placed on ASA 81 mg daily and Plavix 80 mg -continue patient's lisinopril 40 mg b.i.d. -patient's vitals on the unit BP 159/79, HR 66, 18, SaO2 100% on room air -a.m. labs ordered CMP and CBC daily, A1c, Mag, lipids, TSH, PT/PTT, serial troponins x3, blood cultures pending from ER -consults ordered physical therapy, occupational therapy, speech therapy. -prevention vaccine recommend yearly flu vaccine 2. Hypertension, likely secondary to carotid atherosclerosis likely resulting from tobacco and alcoholic abuse, acute on chronic present on admission -continue patient's lisinopril 40 mg b.i.d. 3. Diabetes mellitus 2T, acute on chronic chronic, present on admission -will hold oral anti-glycemic regimen metformin 1000 mg q.day, glucose on admission 150, A1c 7.7. Or I believe patient has stops his glyburide and needs to take metformin a 1000 mg twice daily upon discharge with glyburide 10 mg daily for better glycemic control. -Noted to have hypoglycemic episodes. Patient monitored for hypoglycemia nurse to report blood sugars less than 70, blood sugar a.c. and HS -as in-patient will place patient on Lantus 10 mg q.h.s., will check a.m. fasting glucose level is greater than 120 blood sugar will add additional units of Lantus (2-10units), if less than 120 will decrease Lantus by 5 units. -Patient placed on a reduced carbohydrate diet 4.EtOH Abuse, chronic, not present on admission, control on Lifelong h/o EtOH use, 30+yrs. Currently drinks 6 pack of beer, daily. H/o of pancreatitis (x3 prior episodes, most recent 5 years ago). - EtOH level ordered in the a.m. - [facility] assessment/protocol -monitor for EtOH withdrawal, psychosis or hallucinosis - EtOH cessation highly encouraged - Monitor for e-lyte deficiencies, replete accordingly -electrolytes upon admission in the ER: Sodium 122, potassium 4.7, chloride 90, BUN 5, creatinine 0.68, total creatinine kinase 42, a.m. magnesium ordered along with daily CBC and CMP 5.Tobacco dependence, chronic, present on admission, active - nicotine patch, currently smokes 1PPD - smoking cessation education 6. GERD,chronic condition, not present on admission, control unknown - Protonix 40 mg daily 7. Anemia, chronic condition, present on admission, mild - Asymptomatic. No active s/s of bleeding. RF EtOH dependence and GERD / esophagitis. On ASA 81 mg daily. - Hgb 13.1/HCT 38% on admission. Code status: Full code Surrogate/plan of care:Crissy Mcpherson spouse COVID PCR: Negative VTE prophylaxis: SCDs, contraindicated patient placed on Plavix 80 in ASA 81 Scores GCS [place] coma scale eye opening: Spontaneous Lili coma scale verbal response: Orientated Lili coma scale motor response: Obey commands [place] coma scale total score: 15 NIHSS Level of Conciousness: Alert, keenly responsive Ask month/age: Answers both questions correctly. Open/close eyes, close hand: Performs both tasks correctly Best gaze horizontal: Normal Visual [place]: No visual loss Facial palsy: Normal symetrical movement Left arm drift: No drift for full 10 sec Right arm drift: No drift for full 10 sec Left leg drift: No drift for full 5 sec Right leg drift: No drift for full 5 sec Limb ataxia: Absent Sensory on face/arms/legs: Normal, no sensory loss Best language: No aphasia, normal Dysarthria: Normal Extinction or inattention: No abnormality Total NIH Stroke scale score: 0
[2020-11-09 00:08] VITALS: BP 159/79; PULSE 66; RESP 18; TEMP 37; O2SAT 99
[2020-11-09 00:20] LABS: Ethanol (ETOH) < 10 mg/dL
[2020-11-09] MEDS: NICOTINE 21 MG PATCH TOP (01:39)
[2020-11-09] MEDS: SODIUM CHLORIDE 0.9% 1,000 ML 150 ML IV (03:06)
--- NOTE | 2020-11-09 03:31 | PC.NURSE ---
Pt glucose at 0230 60 mg/dL. Gave pt orange juice. Informed provider, ordered q15 BGC until BG >100. Next check at 0245 showed BG @ 103, provider informed.
[2020-11-09 04:57] VITALS: BP 163/89; PULSE 83; RESP 18; TEMP 37.1; O2SAT 98
[2020-11-09 08:00] VITALS: BP 164/86; PULSE 86; RESP 17; TEMP 36.7; O2SAT 98
[2020-11-09 08:23] LABS: Add Manual Diff / Slide Review NO; Basophils Absolute Auto 0 /uL (0-100); Basophils Percent Auto 0.6 % (0-2); Eosinophils Absolute Auto 100 /uL (0-450); Eosinophils Percent Auto 1.3 % (2-4); Hematocrit 36.6 % (41-53); Hemoglobin 12.3 g/dL (13.5-17.5); Lymphocytes Absolute Auto 1100 /uL (1100-4500); Lymphocytes Percent Auto 14.4 % (25-40); Mean Corpuscular HGB Conc 33.5 % (30-36); Mean Corpuscular Hemoglobin 31.9 PG (26-34); Mean Corpuscular Volume 95.1 fL (80-100); Monocytes Absolute Auto 800 /uL (0-900); Neutrophils Absolute Auto 5500 /uL (1500-7000); Neutrophils Percent Auto 72.7 % (50-75); Platelet Count 339 X10^3/uL (150-400); Red Blood Cell Count 3.85 X10^6/uL (4.5-5.9); Red Cell Distribution Width 13.7 % (11.6-14.8); White Blood Cell Count 7.5 X10^3/uL (4.5-11.0)
[2020-11-09 08:33] VITALS: PULSE 83; RESP 16; O2SAT 98
[2020-11-09 08:33] LABS: INR 1.1 (0.9-1.3); Prothrombin Time 12.2 SECONDS (10.1-12.7)
[2020-11-09 08:37] LABS: Alanine Aminotransferase 10 IU/L (<50); Albumin 3.7 g/dL (3.5-5.0); Albumin Globulin Ratio 1.6 (1.0-2.8); Alkaline Phosphatase 47 U/L (38-126); Aspartate Aminotransferase 20 IU/L (17-59); BUN Creatinine Ratio 13.1 (6-22); Bilirubin Total 0.5 mg/dL (0.2-1.3); Blood Urea Nitrogen 8 mg/dL (9-20); Carbon Dioxide 27 mmol/L (22-32); Chloride 97 mmol/L (98-107); Estimated Glomerular Filt Rate > 60.0 mL/min (>60); Globulin 2.3 g/dL (1.7-4.1); Glucose 65 mg/dL (70-100); HEMOLYSIS < 15 (0-50); Sodium 127 mmol/L (137-145)
[2020-11-09] MEDS: ASPIRIN 81 MG CHEW TAB PO (09:08)
[2020-11-09] MEDS: AMLODIPINE 5 MG TABLET PO (09:08)
[2020-11-09] MEDS: lisinopriL 20 MG TABLET 40 MG PO (09:09)
[2020-11-09] MEDS: POTASSIUM CHLORIDE 20 MEQ TAB PO (09:09)
[2020-11-09] MEDS: CLOPIDOGREL 75 MG TABLET PO (09:09)
[2020-11-09] MEDS: PANTOPRAZOLE 20 MG TABLET PO (09:09)
--- NOTE | 2020-11-09 09:13 | CM.DANOTE ---
DCP: Case received, EMR reviewed and met with patient. , Crissy, was in his room as well. Introduced self and role. Was able to obtain information from patient regarding his baseline activity status prior to hospitalization, as well as some health information. DCP assessment completed with information currently available. Patient is a 60 year old male who admitted yesterday afternoon to the care of the hospitalist team. PCP: Dr. Dillon. Payer: confirmed: [facility]. Patient came to the hospital via private vehicle secondary to having symptoms of numbness to his right arm and hand. Patient is here to rule out CVA/TIA. Patient also has history of drinking 6 pack of bear a day. According to nurse, his CIWA has been 0. Met with patient and . He is pleasant, he did state that he drinks a 6 pack of beer a day. He is not concerned that there is a problem. He is independent at baseline, and is employed at [employer]. He resides with his , Crissy, in [place]. Patient indicated, he's having no trouble walking, it's just the numbness in his arm. He will be working with P.T/O.T. P: DCP to continue to follow and will be available for any resources needed. He may be having an MRI today, will discuss at team rounds. Chloe Carrizales RN/Head Counselor
[2020-11-09 09:16] LABS: Thyroid Stimulating Hormone 0.653 uIU/mL (0.47-4.68)
--- NOTE | 2020-11-09 11:51 | P.DS_ITS ---
History of Present Illness History of Present Illness Date Patient Seen: 11/09/20 Chief complaint: Sent over per his Doctor. right arm is numb Narrative: Patient is a 60-year-old male Bharat Mcpherson who presented to the ED with his , at the request of his primary care provider for evaluation of weakness of his right arm which has been present since night. He has had no neurologic symptoms otherwise, denies blurred vision, trouble speech, dizziness, balance issues or any numbness, tingling or weakness otherwise. Patient has a past medical history of HTN, carotid atherosclerosis, DM type 2, GERD, current every day tobacco use (1 ppd), and current every day EtOH use (6 pack beer daily). Patient presented to the ER with BP 180/94, HR 93, RR 16, 99% O2 saturation, hemoglobin 13.1, hematocrit 38, sodium 122, chloride 90, BUN 5, glucose 150, total creatinine kinase 42, negative troponin.Head/Neck CTA: No acute intracranial process is seen. No significant intracranial arterial abnormality is seen. Atherosclerotic irregularity of the carotid bifurcation regions, yet without a hemodynamically significant stenosis seen. No findings of dissection can be seen. No significant vertebral artery abnormality is seen. Head CT:No acute intracranial hemorrhage is seen. No CT findings of acute stroke can be seen. C-Spine MRI: No abnormal cervical spinal cord signal. Degenerative disc bulge and bilateral uncinate hypertrophic changes are noted at C3-4 through C6-7 levels causing [id number] central canal stenosis and left worse than right bilateral neural foraminal narrowing as above. When patient was admitted to floor BP 178/87, HR 75, RR 25, SaO2 100%. Patient reports that evening approximately 11:00 p.m. while he was sitting watching TV he noticed t hat when he went to grab the remote he was unable to move his hands, feels only slight discomfort when he tries to move it, has complete movement and muscle strength of his arm and shoulder the weakness is specifically focused at the wrist. Wrist is in a flexed motion downwards, No deformity, erythema or inflammation noted. Patient denies fevers, night sweats, chills, malaise, weight loss, or chronic fatigue, and symptoms are not bilateral. Patient also denies chest pain shortness of breath diaphoresis changes in vision difficulty with ambulation or weakness 1 side of the body, or urination or bowel issues. Patient denies recent illness, injury, history of wrist issues, or trauma. 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 Patient presented to the ER with BP 180/94, HR 93, RR 16, 99% O2 saturation, hemoglobin 13.1, hematocrit 38, sodium 122, chloride 90, BUN 5, glucose 150, total creatinine kinase 42, negative troponin.Head/Neck CTA: No acute intracranial process is seen. No significant intracranial arterial abnormality is seen. Atherosclerotic irregularity of the carotid bifurcation regions, yet without a hemodynamically significant stenosis seen. No findings of dissection can be seen. No significant vertebral artery abnormality is seen. Head CT:No acute intracranial hemorrhage is seen. No CT findings of acute stroke can be seen. C-Spine MRI: No abnormal cervical spinal cord signal. Degenerative disc bulge and bilateral uncinate hypertrophic changes are noted at C3-4 through C6-7 levels causing [id number] central canal stenosis and left worse than right bilateral neural foraminal narrowing as above. Patient is admitted for right hand weakness rule out stroke/TIA. Discharge Providers Provider Date of admission: 11/08/20 17:59 Discharge Date: 11/09/20 Primary care physician: Tyrese Dillon MD Consults: 11/08/20 19:56 Consult to Discharge Planning Routine Comment: Consult to Occupational Therapy Evaluate & Treat Comment: Physician Instructions: Evaluate and treat Consult to Physical Therapy Evaluate & Treat Comment: Physician Instructions: Evaluate and Treat Consult to Speech Therapy Evaluate & Treat Comment: Physician Instructions: Evaluate and treat Discharge provider: Sophie Taylor MD Summary Hospital Course Discharge Diagnosis: 1. Isolated right hand weakness-suspect overuse injury/radial nerve palsy 2. Type 2 DM 3. Hypertension 4. GERD 5. Hyponatremia Hospital Course: Patient admitted to the hospital for abrupt onset right arm/hand weakness. He has been pressure washing using a large industrial hose for 6 hours per day for the last several days. Patient had no slurred speech, numbness, or other neurological symptoms. Patient underwent MRI of the brain w [facility] showed no evidence of acute stroke. He sees Dr. Dillon and will follow up with him as an outpatient Patient was deemed appropriate for discharge home. Status at Discharge Cognitive/behavioral status at discharge: oriented Functional status at discharge: independent ambulation Overall status at discharge: patient is not back to baseline Time Spent with Patient Time spent: Less than 30 minutes Exam Vital Signs (past 8 hours): - 11/09/20 04:57 11/09/20 08:00 11/09/20 08:33 Temperature 98.7 F 98.0 F Pulse Rate 83 86 83 Respiratory Rate 18 17 16 Blood Pressure 163/89 H 164/86 H Pulse Oximetry 98 98 98 Oxygen Delivery Method Room Air Oxygen Flow Rate 0 Narrative Exam Narrative: Pleasant gentleman with clear speech Lungs: Clear to auscultation CV: RRR nl Sl S2 Abd: soft/ non tender/ non distended Ext: right hand senior foreman strength less than left, no numbness or tingling Objective Labs Result Diagrams: 11/09/20 08:15 11/09/20 08:15 Labs: Laboratory Results - last 24 hr 11/08/20 11/08/20 11/08/20 11:24 11:24 11:24 WBC RBC Hgb Hct MCV MCH MCHC RDW Plt Count Neut % (Auto) Lymph % (Auto) [place] % (Auto) Eos % (Auto) Baso % (Auto) Neut # (Auto) Lymph # (Auto) [place] # (Auto) Eos # (Auto) Baso # (Auto) PT 10.8 INR 0.9 APTT 37 H Sodium 122 L Potassium 4.7 Chloride 90 L Carbon Dioxide 29 BUN 5 L Creatinine 0.68 Estimated GFR > 60.0 BUN/Creatinine Ratio 7.4 Glucose 150 H Hemoglobin A1c Calcium 9.8 Total Bilirubin AST ALT Alkaline Phosphatase Total Creatine Kinase 42 L CK-MB (CK-2) TNP CK-MB (CK-2) Rel Index TNP Troponin I < 0.012 Total Protein Albumin Globulin Albumin/Globulin Ratio TSH U Opiates 300ng/mL cut Ur Oxycodone Screen Urine Methadone Screen Ur Barbiturates Screen U Tricyclic Antidepress Ur Phencyclidine Scrn Ur Amphetamines Screen U Methamphetamines Scrn Ur MDMA Scrn (Ecstasy) U Benzodiazepines Scrn Urine Cocaine Screen U Marijuana (THC) Screen Ethyl Alcohol SARS-CoV-2 (PCR) Negative 11/08/20 11/08/20 11/08/20 14:38 21:00 21:00 WBC RBC Hgb Hct MCV MCH MCHC RDW Plt Count Neut % (Auto) Lymph % (Auto) [place] % (Auto) Eos % (Auto) Baso % (Auto) Neut # (Auto) Lymph # (Auto) [place] # (Auto) Eos # (Auto) Baso # (Auto) PT INR APTT Sodium Potassium Chloride Carbon Dioxide BUN Creatinine Estimated GFR BUN/Creatinine Ratio Glucose Hemoglobin A1c 7.7 H Calcium Total Bilirubin AST ALT Alkaline Phosphatase Total Creatine Kinase CK-MB (CK-2) CK-MB (CK-2) Rel Index Troponin I < 0.012 Total Protein Albumin Globulin Albumin/Globulin Ratio TSH U Opiates 300ng/mL cut Negative Ur Oxycodone Screen Negative Urine Methadone Screen Negative Ur Barbiturates Screen Negative U Tricyclic Antidepress Negative Ur Phencyclidine Scrn Negative Ur Amphetamines Screen Negative U Methamphetamines Scrn Negative Ur MDMA Scrn (Ecstasy) Negative U Benzodiazepines Scrn Negative Urine Cocaine Screen Negative U Marijuana (THC) Screen Negative Ethyl Alcohol SARS-CoV-2 (PCR) 11/09/20 11/09/20 11/09/20 00:05 08:15 08:15 WBC 7.5 RBC 3.85 L Hgb 12.3 L Hct 36.6 L MCV 95.1 MCH 31.9 MCHC 33.5 RDW 13.7 Plt Count 339 Neut % (Auto) 72.7 Lymph % (Auto) 14.4 L [place] % (Auto) 11.0 Eos % (Auto) 1.3 L Baso % (Auto) 0.6 Neut # (Auto) 5500 Lymph # (Auto) 1100 [place] # (Auto) 800 Eos # (Auto) 100 Baso # (Auto) 0 PT 12.2 INR 1.1 APTT Sodium Potassium Chloride Carbon Dioxide BUN Creatinine Estimated GFR BUN/Creatinine Ratio Glucose Hemoglobin A1c Calcium Total Bilirubin AST ALT Alkaline Phosphatase Total Creatine Kinase CK-MB (CK-2) CK-MB (CK-2) Rel Index Troponin I Total Protein Albumin Globulin Albumin/Globulin Ratio TSH U Opiates 300ng/mL cut Ur Oxycodone Screen Urine Methadone Screen Ur Barbiturates Screen U Tricyclic Antidepress Ur Phencyclidine Scrn Ur Amphetamines Screen U Methamphetamines Scrn Ur MDMA Scrn (Ecstasy) U Benzodiazepines Scrn Urine Cocaine Screen U Marijuana (THC) Screen Ethyl Alcohol < 10 SARS-CoV-2 (PCR) 11/09/20 11/09/20 08:15 08:15 WBC RBC Hgb Hct MCV MCH MCHC RDW Plt Count Neut % (Auto) Lymph % (Auto) [place] % (Auto) Eos % (Auto) Baso % (Auto) Neut # (Auto) Lymph # (Auto) [place] # (Auto) Eos # (Auto) Baso # (Auto) PT INR APTT Sodium 127 L Potassium 4.0 Chloride 97 L Carbon Dioxide 27 BUN 8 L Creatinine 0.61 L Estimated GFR > 60.0 BUN/Creatinine Ratio 13.1 Glucose 65 L Hemoglobin A1c Calcium 9.0 Total Bilirubin 0.5 AST 20 ALT 10 Alkaline Phosphatase 47 Total Creatine Kinase CK-MB (CK-2) CK-MB (CK-2) Rel Index Troponin I Total Protein 6.0 L Albumin 3.7 Globulin 2.3 Albumin/Globulin Ratio 1.6 TSH 0.653 U Opiates 300ng/mL cut Ur Oxycodone Screen Urine Methadone Screen Ur Barbiturates Screen U Tricyclic Antidepress Ur Phencyclidine Scrn Ur Amphetamines Screen U Methamphetamines Scrn Ur MDMA Scrn (Ecstasy) U Benzodiazepines Scrn Urine Cocaine Screen U Marijuana (THC) Screen Ethyl Alcohol SARS-CoV-2 (PCR) [facility] Medical History Alcohol dependence Diabetes GERD (gastroesophageal reflux disease) Hypertension Pancreatitis Tobacco dependency Surgical History S/P exploratory laparotomy Status post hernia repair Family History Mother Diabetes mellitus Father Hypertension Bladder cancer Social History marital status: household members: spouse Smoking Status: Current every day smoker alcohol intake: current substance use type: does not use Discharge Assessment & Plan Assessment and Plan Assessment: 1. Right hand weakness, suspect radial nerve palsy 2. Hyponatremia-present on admission, improving 3. Type 2 Diabetes Mellitus 4. Hypertension Plan of Treatment: Discharge home today Follow up with Dr. Dillon next week Discharge Plan Discharge Plan Patient Disposition: Home Discharge orders & Medications Prescriptions: New atorvastatin 20 mg tablet 20 mg PO BEDTIME Qty: 30 RF: 0 amlodipine [Norvasc] 5 mg Tablet 5 mg PO DAILY Qty: 30 RF: 0 Continued lisinopril 40 mg tablet 40 mg PO BID RF: 0 omeprazole 20 mg Tablet,Delayed Release (Dr/Ec) 20 mg PO QAM RF: 0 potassium chloride 20 mEq Tablet Extended Release 20 meq PO QAM RF: 0 metformin 1,000 mg Tablet Extended Release 24hr 1,000 mg PO QAM RF: 0 cyanocobalamin (vitamin B-12) [Vitamin B-12] 1,000 mcg Tablet 1,000 mcg PO QAM RF: 0 Adult Low Dose Aspirin 81 mg Tablet 81 mg PO QAM RF: 0 cholecalciferol (vitamin D3) [Vitamin D3] 125 mcg (5,000 unit) Tablet 125 mcg PO DAILY RF: 0 Antacid (calcium carbonate) 215 mg calcium (500 mg) Tablet,Chewable 215 mg PO QAM RF: 0 Follow up/Referrals: Tyrese Dillon MD [Primary Care Provider] - Diet/Activity/Treatments Diet: Low-fat and Low-sodium Discharge Data Primary Care Provider: Tyrese Dillon Attending Provider: Sophie Taylor
[2020-11-09 12:00] VITALS: BP 164/84; PULSE 70; RESP 18; TEMP 36.7; O2SAT 98
--- NOTE | 2020-11-09 12:21 | PT-IP ANOTE ---
Discussed pt with hospitalist Dr. Taylor who advised PT and OT orders should be cancelled. Pt is to discharge without therapy needs.
[2020-11-09] MEDS: METOPROLOL TARTRATE 5 MG/5 ML INJ IV (12:28)
--- NOTE | 2020-11-09 12:46 | PC.NURSE ---
Patient educated about about diet, activity, and new medications. Sent home note for work purposes. Patient left facility with all belongings and prescriptions were sent electronically to pharmacy. Patient educated about ss of stroke. Patient left facility with all belongings via wheelchair to private vehicle.
== END 2020-11-09 12:49 | disposition home or self-care (01) ==
LOC: ED 11:12 → AC 18:00
PROVIDERS: Nurse Practitioner Family; Admitting Provider Internal Medicine; Emergency Provider Emergency Medicine; PCP Internal Medicine; Referring Provider Nurse Practitioner Family; Visit Provider Internal Medicine
DX: R53.1 Weakness (principal); F17.210 Nicotine dependence, cigarettes, uncomplicated; I10 Essential (primary) hypertension; E11.9 Type 2 diabetes mellitus without complications; K21.9 Gastro-esophageal reflux disease without esophagitis; Z79.84 Long term (current) use of oral hypoglycemic drugs; D64.9 Anemia, unspecified; F10.20 Alcohol dependence, uncomplicated; E87.1 Hypo-osmolality and hyponatremia; Z20.822 Contact with and (suspected) exposure to COVID-19
CPT/HCPCS: 36415; 70450; 70496; 70498; 70548; 70553; 72141; 80048; 80053; 80305; 80320; 81003; 82550; 82962; 83036; 84443; 84484; 85025; 85610; 85730; 87635; 93005; 94762; 96361; 96372; 96374; 99284; G0378; A9579; Q9967

== ENCOUNTER → 2021-07-18 11:00 | Outpatient (CLI) | payer OTHER, MEDICAID, SELFPAY ==
[2020-11-08 19:14] VITALS: BMI 23.6
[2021-07-18 11:38] LABS: Add Manual Diff / Slide Review NO; Basophils Absolute Auto 0 /uL (0-100); Basophils Percent Auto 0.8 % (0-2); Eosinophils Absolute Auto 200 /uL (0-450); Eosinophils Percent Auto 3.8 % (2-4); Hematocrit 35.5 % (41-53); Lymphocytes Absolute Auto 1000 /uL (1100-4500); Lymphocytes Percent Auto 19.3 % (25-40); Mean Corpuscular HGB Conc 33.7 % (30-36); Mean Corpuscular Hemoglobin 32.2 PG (26-34); Mean Corpuscular Volume 95.4 fL (80-100); Monocytes Absolute Auto 500 /uL (0-900); Monocytes Percent Auto 10.2 % (3-14); Neutrophils Absolute Auto 3400 /uL (1500-7000); Neutrophils Percent Auto 65.9 % (50-75); Platelet Count 380 X10^3/uL (150-400); Red Blood Cell Count 3.72 X10^6/uL (4.5-5.9); Red Cell Distribution Width 13.9 % (11.6-14.8); White Blood Cell Count 5.2 X10^3/uL (4.5-11.0)
[2021-07-18 11:43] LABS: Hemoglobin A1C% w Est Avg Glu 6.5 % (4.0-6.0)
[2021-07-18 12:03] LABS: Alanine Aminotransferase 12 IU/L (<50); Albumin 4.5 g/dL (3.5-5.0); Albumin Globulin Ratio 1.8 (1.0-2.8); Alkaline Phosphatase 65 U/L (38-126); Aspartate Aminotransferase 27 IU/L (17-59); BUN Creatinine Ratio 5.3 (6-22); Bilirubin Total 0.3 mg/dL (0.2-1.3); Blood Urea Nitrogen 3 mg/dL (9-20); Calcium 9.7 mg/dL (8.4-10.2); Carbon Dioxide 25 mmol/L (22-32); Chloride 94 mmol/L (98-107); Estimated Glomerular Filt Rate > 60.0 mL/min (>60); Globulin 2.5 g/dL (1.7-4.1); Glucose 126 mg/dL (70-100); HEMOLYSIS < 15 (0-50); Potassium 5.1 mmol/L (3.4-5.1); Sodium 125 mmol/L (137-145)
[2021-07-18 12:48] LABS: Vitamin B12 Reflex MMA if <400 > 1000 pg/mL (239-931)
== END ==
PROVIDERS: PCP Family Medicine; Referring Provider Family Medicine; Visit Provider Family Medicine
DX: E11.9 Type 2 diabetes mellitus without complications (principal); I10 Essential (primary) hypertension; F17.200 Nicotine dependence, unspecified, uncomplicated; E78.5 Hyperlipidemia, unspecified; E78.2 Mixed hyperlipidemia; D64.9 Anemia, unspecified
CPT/HCPCS: 36415; 80053; 82607; 83036; 85025

== ENCOUNTER → 2021-08-27 13:40 | Outpatient (CLI) | payer OTHER, MEDICAID, SELFPAY ==
[2020-11-08 19:14] VITALS: BMI 23.6
[2021-08-27 14:39] LABS: Add Manual Diff / Slide Review NO; Basophils Absolute Auto 0 /uL (0-100); Basophils Percent Auto 0.6 % (0-2); Eosinophils Absolute Auto 200 /uL (0-450); Eosinophils Percent Auto 3.2 % (2-4); Hematocrit 31.3 % (41-53); Hemoglobin 10.9 g/dL (13.5-17.5); Lymphocytes Absolute Auto 1200 /uL (1100-4500); Lymphocytes Percent Auto 19.2 % (25-40); Mean Corpuscular HGB Conc 34.6 % (30-36); Mean Corpuscular Hemoglobin 32.9 PG (26-34); Mean Corpuscular Volume 95.1 fL (80-100); Monocytes Absolute Auto 600 /uL (0-900); Monocytes Percent Auto 9.1 % (3-14); Neutrophils Absolute Auto 4300 /uL (1500-7000); Neutrophils Percent Auto 67.9 % (50-75); Platelet Count 325 X10^3/uL (150-400); Red Cell Distribution Width 14.1 % (11.6-14.8); White Blood Cell Count 6.4 X10^3/uL (4.5-11.0)
[2021-08-27 15:01] LABS: Alanine Aminotransferase 13 IU/L (<50); Albumin 4.2 g/dL (3.5-5.0); Albumin Globulin Ratio 2.1 (1.0-2.8); Alkaline Phosphatase 65 U/L (38-126); Aspartate Aminotransferase 23 IU/L (17-59); BUN Creatinine Ratio 7.5 (6-22); Bilirubin Total 0.2 mg/dL (0.2-1.3); Blood Urea Nitrogen 5 mg/dL (9-20); Calcium 9.4 mg/dL (8.4-10.2); Carbon Dioxide 25 mmol/L (22-32); Chloride 89 mmol/L (98-107); Estimated Glomerular Filt Rate > 60.0 mL/min (>60); Glucose 328 mg/dL (70-100); HEMOLYSIS < 15 (0-50); Potassium 4.8 mmol/L (3.4-5.1); Sodium 122 mmol/L (137-145); Total Protein 6.2 g/dL (6.3-8.2)
== END ==
PROVIDERS: PCP Family Medicine; Referring Provider Family Medicine; Visit Provider Family Medicine
DX: E11.9 Type 2 diabetes mellitus without complications (principal); E78.2 Mixed hyperlipidemia; E87.1 Hypo-osmolality and hyponatremia; I10 Essential (primary) hypertension
CPT/HCPCS: 36415; 80053; 85025

== ENCOUNTER → 2021-09-04 09:56 | Outpatient (CLI) | payer OTHER, MEDICAID, SELFPAY ==
[2020-11-08 19:14] VITALS: BMI 23.6
[2021-09-04 11:10] LABS: HEMOLYSIS < 15 (0-50); Iron 130 ug/dL (49-181)
[2021-09-04 11:12] LABS: Alanine Aminotransferase 12 IU/L (<50); Albumin 4.6 g/dL (3.5-5.0); Albumin Globulin Ratio 2.2 (1.0-2.8); Alkaline Phosphatase 54 U/L (38-126); Aspartate Aminotransferase 28 IU/L (17-59); Bilirubin Total 0.5 mg/dL (0.2-1.3); Blood Urea Nitrogen 3 mg/dL (9-20); Carbon Dioxide 26 mmol/L (22-32); Chloride 88 mmol/L (98-107); Estimated Glomerular Filt Rate > 60.0 mL/min (>60); Globulin 2.1 g/dL (1.7-4.1); Glucose 113 mg/dL (70-100); HEMOLYSIS < 15 (0-50); Potassium 4.6 mmol/L (3.4-5.1); Sodium 123 mmol/L (137-145); Total Protein 6.7 g/dL (6.3-8.2)
[2021-09-04 11:22] LABS: Percent Iron Saturation 31 % (20-50); Total Iron Binding Capacity 413 ug/dL (261-462); Transferrin 315 mg/dL (206-381)
[2021-09-04 11:47] LABS: Ferritin 20 ng/mL (18-464)
[2021-09-04 12:01] LABS: Vitamin B12 Reflex MMA if <400 > 1000 pg/mL (239-931)
[2021-09-04 12:15] LABS: Creatinine Urine Random 19.5 mg/dL; Potassium Urine Random 10.6 mmol/L; Sodium Urine Random 15 mmol/L (30-90)
== END ==
PROVIDERS: PCP Family Medicine; Referring Provider Family Medicine; Visit Provider Family Medicine
DX: D64.9 Anemia, unspecified (principal); E11.9 Type 2 diabetes mellitus without complications; E87.1 Hypo-osmolality and hyponatremia; I10 Essential (primary) hypertension
CPT/HCPCS: 36415; 80053; 82570; 82607; 82728; 83540; 83550; 84133; 84300

== ENCOUNTER 2021-11-18 08:56 | Emergency (ER) | payer OTHER, MEDICAID, SELFPAY ==
[2020-11-08 19:14] VITALS: BMI 23.6
[2021-11-18 09:06] VITALS: BP 155/69; PULSE 99; RESP 14; TEMP 36.7; O2SAT 100; BMI 23.7
--- NOTE | 2021-11-18 09:10 | DI.RAD.S_ITS ---
PROCEDURE: XR CHEST 1V INDICATIONS: Possible stroke TECHNIQUE: One view of the chest was acquired. COMPARISON: [facility], CT, CT LOW DOSE LUNG CA SCREENING, 05/01/2021, 14:02. [facility], CR, XR CHEST 1V, 04/24/2019, 5:33. FINDINGS: Surgical changes and devices: None. Lungs and pleura: Lungs are clear. No pleural effusions or pneumothorax. Mediastinum: Mediastinal contours appear normal. Heart size is normal. Bones and chest wall: No suspicious bony lesions. Overlying soft tissues appear unremarkable. IMPRESSION: No acute pulmonary process. Dictated by: Rosa Vanegas M.D. on 11/18/2021 at 9:30 Approved by: Rosa Vanegas M.D. on 11/18/2021 at 9:32
--- NOTE | 2021-11-18 09:14 | DI.CT.S_ITS ---
PROCEDURE: CT STROKE INDICATIONS: unable to move left hand TECHNIQUE: Noncontrast 4.5 mm thick angled axial sections acquired from the foramen magnum to the vertex, with coronal reformats. For radiation dose reduction, the following was used: automated exposure control, adjustment of mA and/or kV according to patient size. COMPARISON: [facility], MR, MR STROKE, 11/09/2020, 9:53. [facility], CT, CT ANGIO HEAD AND NECK, 11/08/2020, 16:35. FINDINGS: Image quality: Excellent. CSF spaces: Basal cisterns are patent. No extra-axial fluid collections. Ventricles are normal in size and shape. Brain: No midline shift. No intracranial masses or hemorrhage. Caceres-white matter interface is normal. Skull and face: Calvarium and visualized facial bones are intact, without suspicious lesions. Sinuses: Visualized sinuses and mastoids are clear. IMPRESSION: 1. No acute intracranial process. The above findings were discussed with Dr. Tyrese Michele on 11/18/2021 at 9:28 a.m. This study fulfills neurological imaging criteria for inclusion or exclusion of acute stroke therapies based on available published neurological imaging guidelines. Dictated by: Rosa Vanegas M.D. on 11/18/2021 at 9:26 Approved by: Rosa Vanegas M.D. on 11/18/2021 at 9:30
--- NOTE | 2021-11-18 09:36 | ED.EXTPRO ---
HPI - Extremity Problem General Chief complaint: Extremity Problem,Nontraumatic Stated complaint: Left hand gone limp- sent by Tee Time Seen by Provider: 11/18/21 09:30 Source: patient Mode of arrival: Ambulatory History of Present Illness HPI Narrative: Patient here with . Awoke this morning with left wrist drop. Denies any numbness or tingling. No neck pain. Never had this happen before. No slurred speech or facial droop. Has strong biceps and triceps muscle use. Patient seen here last November for right arm weakness. Had MRI and CT angiogram which were unremarkable for stroke. Patient went to bed last night with no complaints. Awoke this morning with left wrist drop. Denies any pain. No known injuries. 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 No slurred speech or facial droop. No ataxia. Patient states he does drink alcohol but only on weekends. Not daily Related Data Home Medications Medication Instructions Recorded Confirmed cyanocobalamin (vitamin B-12) 1,000 mcg PO QAM 04/23/19 09/11/21 1,000 mcg tablet (Vitamin B-12) aspirin 81 mg tablet 81 mg PO QAM 11/08/20 09/11/21 calcium carbonate 215 mg calcium 215 mg PO QAM 11/08/20 09/11/21 (500 mg) chewable tablet (Antacid (calcium carbonate)) cholecalciferol (vitamin D3) 125 125 mcg PO DAILY 11/08/20 09/11/21 mcg (5,000 unit) tablet (Vitamin D3) Previous Rx's Medication Instructions Recorded lancets ([employer] UltraSoft #100 ea 04/17/21 Lancets) sildenafil 50 mg tablet (Viagra) 50 mg PO DAILY PRN #20 tab 04/17/21 lisinopril 40 mg tablet 40 mg PO BID #180 tab 07/10/21 metformin 1,000 mg tablet,extended 1,000 mg PO QAM #90 tab 07/10/21 release 24hr amlodipine 5 mg tablet (Norvasc) 10 mg PO DAILY #90 tab 08/25/21 atorvastatin 20 mg tablet 20 mg PO BEDTIME #90 tab 08/25/21 omeprazole 20 mg tablet,delayed 20 mg PO QAM #90 tab 08/25/21 release blood sugar diagnostic (TOBESOFTTouch #100 strip 11/04/21 Ultra Test) Allergies Allergy/AdvReac Type Severity Reaction Status Date / Time No Known Drug Allergies Allergy Verified 11/18/21 09:06 Review of Systems Review of Systems Narrative: GENERAL: Denies chills, fatigue, malaise, fever, sweats. HEENT: Denies sinus pain, ear pain, sore throat RESPIRATORY: Denies dyspnea, cough CARDIOVASCULAR: Denies chest pain, palpitations GASTROINTESTINAL: Denies nausea, vomiting, abdominal pain : Denies dysuria, frequency, hematuria MUSCULOSKELETAL: denies muscle or bony pain SKIN: Denies rash, skin lesions NEUROLOGIC: Positive weakness, negative numbness, no slurred speech confusion ROS Unobtainable: All systems reviewed & are unremarkable except as noted in HPI and below Patient History Medical History Acute radial nerve palsy Alcohol dependence Alcohol withdrawal Anemia Chicken pox Chronic hyponatremia Diabetes Erectile dysfunction Fractures (~2004) GERD (gastroesophageal reflux disease) Hemorrhoid Hyperlipidemia Hypertension Multiple fractures of ribs Osteoporosis (~2018) Pancreatitis (~2001) Pneumonia Tobacco dependency Vertigo Wears glasses Surgical History Anesthesia S/P exploratory laparotomy (~2001) Status post hernia repair Family History Mother Diabetes mellitus Father Hypertension Bladder cancer Social History marital status: household members: spouse Smoking Status: Current every day smoker alcohol intake: current substance use type: does not use Smoking Status: Current every day smoker alcohol intake frequency: 3 or more drinks per day Substance Use Type: does not use Exam Narrative Exam Narrative: GENERAL: in no distress, not toxic not dyspneic HEAD: Normocephalic. EYES: Pupils equal round No scleral icterus. ENT: Mucous membranes moist. NECK: Trachea midline. CARDIOVASCULAR: Regular rate and rhythm without murmurs RESPIRATORY: Clear to auscultation. Breath sounds equal bilaterally. No wheezes, rales, or rhonchi. GASTROINTESTINAL: Abdomen soft, non-tender EXTREMITIES: No gross deformities. BACK: No flank tenderness. NEURO: Clear speech no facial droop steady self gait no foot drop. Light touch intact to bilateral face hands and feet. 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 Able to supinate pronate the forearm. Strong equal bilaterally and ankle flexion hip flexion and knee flexion. Strong bilateral patellar reflexes. Steady Romberg, negative pronator drift. Unable to do finger-nose with left hand due to left wrist drop SKIN: Warm and dry PSYCH: Not anxious, is cooperative Initial Vital Signs Initial Vital Signs: Vital Signs Temperature 98.1 F 11/18/21 09:06 Pulse Rate 99 H 11/18/21 09:06 Respiratory Rate 14 11/18/21 09:06 Blood Pressure 155/69 H 11/18/21 09:06 Pulse Oximetry 100 11/18/21 09:06 Procedures Orthopedic Splinting/Casting Left wrist palsy: Upper Extremity Injury Location: wrist Upper Extremity Immobilizer: wrist splint and thumb spica Post splinting neuro exam: no change Post splinting vascular exam: intact Placed by: Nursing Scores NIH Stroke Scale Level of Conciousness: Alert, keenly responsive Ask month/age: Answers both questions correctly. Open/close eyes, close hand: Performs both tasks correctly Best gaze horizontal: Normal Visual [place]: No visual loss Facial palsy: Normal symetrical movement Left arm drift: No drift for full 10 sec Right arm drift: No drift for full 10 sec Left leg drift: No drift for full 5 sec Right leg drift: No drift for full 5 sec Limb ataxia: Present in one limb Sensory on face/arms/legs: Normal, no sensory loss Best language: No aphasia, normal Dysarthria: Normal Extinction or inattention: No abnormality Total NIH Stroke scale score: 1 Citation:: Patient unable to accounts receivable administrator with the left hand. Course Course Course Narrative: No new issues during course of stay Orders Ordered: Discontinued Medications Sodium Chloride (Normal Saline 0.9%) 500 mls @ 1,000 mls/hr IV BOLUS ONE Stop: 11/18/21 10:04 Reevaluation(s) Reevaluation #1: Reviewed results with patient. Discussed with patient likely diagnosis of radial nerve palsy and needs to follow-up with orthopedics. At this time no signs of stroke on imaging. He agrees with treatment plan Time: 12:50 Reevaluation #2: at bedside. Patient now able to accounts receivable administrator with his left hand. Improved since arrival. Reviewed again with patient and diagnosis. And follow-up treatment plan. Patient states last year his right arm did the same thing and it resolved by itself within a week Time: 12:59 Consultations Consultation #1: Spoke with tele stroke, Dr. De La Cruz, order MR stroke and MRI of the cervical spine. If unremarkable then no indication to admit patient. Will need wrist splint and follow-up with orthopedics and rehab. And have outpatient EMG Time: 10:23 Consultation #2: Spoke with tele stroke again,, Dr De La Cruz, regarding MRI results and angiogram results. At this time wrist drop not likely stroke. Appropriate for follow-up outpatient EMG as well as Orthopedics. Place in splint other wrist. Wrist drop likely not nutritionally paste. Consultation #3: Spoke with Orthopedics, Dr. Aaron. Reviewed with her symptoms and imaging. At this time likely radial nerve palsy. Recommends getting a Velcro wrist splint with thumb spica and follow-up in her office. Time: 12:48 Vital Signs Vital signs: Vital Signs - 8 hr 11/18/21 09:06 11/18/21 10:08 11/18/21 12:27 Temperature 98.1 F Pulse Rate 99 H 106 H 44 L Respiratory Rate 14 Blood Pressure 155/69 H 172/81 H Pulse Oximetry 100 11/18/21 12:30 Temperature Pulse Rate 83 Respiratory Rate 23 Blood Pressure 170/86 H Pulse Oximetry 100 MDM - Extremity (Nontraumatic) Differential Diagnosis Differential diagnosis: Likely other (Nerve palsy/stroke) Lab Data Result diagrams: 11/18/21 09:30 11/18/21 09:30 Labs: Lab Results 11/18/21 11/18/21 11/18/21 Range/Units 09:30 09:30 09:30 WBC 6.8 (4.5-11.0) X10^3/uL RBC 3.56 L (4.5-5.9) X10^6/uL Hgb 11.8 L (13.5-17.5) g/dL Hct 33.6 L (41-53) % MCV 94.4 (80-100) fL MCH 33.0 (26-34) PG MCHC 35.0 (30-36) % RDW 14.1 (11.6-14.8) % Plt Count 351 (150-400) X10^3/uL Neut % (Auto) 77.6 H (50-75) % Lymph % (Auto) 13.1 L (25-40) % Bee % (Auto) 7.5 (3-14) % Eos % (Auto) 1.3 L (2-4) % Baso % (Auto) 0.5 (0-2) % Neut # (Auto) 5300 (6961-6025) /uL Lymph # (Auto) 900 L (7945-0864) /uL Bee # (Auto) 500 (0-900) /uL Eos # (Auto) 100 (0-450) /uL Baso # (Auto) 0 (0-100) /uL PT 10.6 (10.1-12.7) SECONDS INR 1.0 (0.9-1.3) APTT 39 H (26.4-36.2) SECONDS Sodium 123 L (137-145) mmol/L Potassium 4.5 (3.4-5.1) mmol/L Chloride 90 L (98-107) mmol/L Carbon Dioxide 25 (22-32) mmol/L BUN 4 L (9-20) mg/dL Creatinine 0.57 L (0.66-1.25) mg/dL Estimated GFR > 60.0 (>60) mL/min BUN/Creatinine Ratio 7.0 (6-22) Glucose 150 H (70-100) mg/dL Calcium 9.9 (8.4-10.2) mg/dL Total Bilirubin 0.6 (0.2-1.3) mg/dL AST 26 (17-59) IU/L ALT 13 (<50) IU/L Alkaline Phosphatase 67 (38-126) U/L Total Creatine Kinase 88 (55-170) U/L CK-MB (CK-2) TNP CK-MB (CK-2) Rel Index TNP Troponin I < 0.012 (0.01-0.034) ng/mL Total Protein 7.0 (6.3-8.2) g/dL Albumin 4.7 (3.5-5.0) g/dL Globulin 2.3 (1.7-4.1) g/dL Albumin/Globulin Ratio 2.0 (1.0-2.8) Imaging Data Chest x-ray: Radiologist's Impression: [address] [address] XRay Report Signed Patient: Bharat Mcpherson MR#: [id number] : 1960 Acct:[id number] Age/Sex: 61 / M Date of Service: 11/18/21 Loc: ED Accession Number: [id number] ?? Procedure: XR chest 1V Ordering Provider: Tyrese Michele MD PROCEDURE:? XR CHEST 1V ? INDICATIONS:? Possible stroke ? TECHNIQUE:? One view of the chest was acquired.? ? COMPARISON:? [facility], CT, CT LOW DOSE LUNG CA SCREENING, 05/01/2021, 14:02. ?[facility], CR, XR CHEST 1V, 04/24/2019, 5:33. ? FINDINGS:? ? Surgical changes and devices:? None.? ? Lungs and pleura:? Lungs are clear.? No pleural effusions or pneumothorax.? ? Mediastinum:? Mediastinal contours appear normal.? Heart size is normal.? ? Bones and chest wall:? No suspicious bony lesions.? Overlying soft tissues appear unremarkable.? ? IMPRESSION:? No acute pulmonary process. ? ? Dictated by: Rosa Vanegas M.D. on 11/18/2021 at 9:30 ? ? Approved by: Rosa Vanegas M.D. on 11/18/2021 at 9:32 ? CT scan - head: Radiologist's Impression: [place] [address] CT Scan Report Signed Patient: Bharat Mcpherson MR#: [id number] : 1960 Acct:[id number] Age/Sex: 61 / M Date of Service: 11/18/21 Loc: ED Accession Number: [id number] ?? Procedure: CT Stroke Ordering Provider: Tyrese Michele MD PROCEDURE:? CT STROKE ? INDICATIONS:? unable to move left hand ? TECHNIQUE:? Noncontrast 4.5 mm thick angled axial sections acquired from the foramen magnum to the vertex, with coronal reformats.? For radiation dose reduction, the following was used:? automated exposure control, adjustment of mA and/or kV according to patient size.? ? COMPARISON:? [facility], MR, MR STROKE, 11/09/2020, 9:53.? [facility], CT, CT ANGIO HEAD AND NECK, 11/08/2020, 16:35. ? FINDINGS:? Image quality:? Excellent.? ? CSF spaces:? Basal cisterns are patent.? No extra-axial fluid collections.? Ventricles are normal in size and shape.? ? Brain:? No midline shift.? No intracranial masses or hemorrhage.? Caceres-white matter interface is normal.? ? Skull and face:? Calvarium and visualized facial bones are intact, without suspicious lesions.? ? Sinuses:? Visualized sinuses and mastoids are clear.? ? IMPRESSION:? ? 1. No acute intracranial process. ? The above findings were discussed with Dr. Tyrese Michele on 11/18/2021 at 9:28 a.m. ? This study fulfills neurological imaging criteria for inclusion or exclusion of acute stroke therapies based on available published neurological imaging guidelines.? ? ? Dictated by: Rosa Vanegas M.D. on 11/18/2021 at 9:26 ? ? Approved by: Rosa Vanegas M.D. on 11/18/2021 at 9:30 ? CTA - brain/neck: Radiologist's Impression: [place] [address] CT Scan Report Signed Patient: Bharat Mcpherson MR#: [id number] : 1960 Acct:[id number] Age/Sex: 61 / M Date of Service: 11/18/21 Loc: Accession Number: [id number] ?? Procedure: CT angio head and neck Ordering Provider: Tyrese Michele MD PROCEDURE:? CT ANGIO HEAD AND NECK ? INDICATIONS:? Left hand weakness ? TECHNIQUE:? ?After the administration of intravenous contrast, 1 mm thick sections acquired from the aortic arch through the [place] of [place].? Post-contrast 4.5 mm thick sections then re-acquired from the foramen magnum to the vertex.? 3-dimensional rdbwlxj-[id number]-[id number] (MIP) and/or volume rendering reformats were acquired of the central intracranial vasculature and neck separately. ? COMPARISON:? [facility], CT, CT ANGIO HEAD AND NECK, 11/08/2020, 16:35. ? FINDINGS:? Image quality:? Excellent.? ? BRAIN:? CSF spaces:? Ventricles are normal in size and shape.? Basal cisterns are patent.? No extra-axial fluid collections.? ? Brain:? No midline shift.? No intracranial bleeds or masses.? Caceres-white matter interface appears intact.? ? Skull and face:? Calvarium and facial bones appear intact, without suspicious lesions.? Orbits appear normal.? ? Sinuses:? Sinuses and mastoids are clear.? ? HEAD CT ANGIOGRAPHY:? Anterior circulation:? Mild calcific stenosis of the cavernous segments of the internal carotid arteries bilaterally.? Intracranial internal carotid arteries are otherwise normal in size and flow.? The flow within the paired anterior cerebral arteries is normal and symmetric.? The flow within the middle cerebral arteries is normal and symmetric.? The anterior communicating artery is seen.? No aneurysms are seen.? ? Posterior circulation:? Visualized portions of the vertebral arteries demonstrate normal caliber, and join to form a normal appearing basilar artery.? Flow within the posterior cerebral arteries is normal and symmetric.? No aneurysms are seen.? ? NECK CT ANGIOGRAPHY:? Carotid system:? The great vessels demonstrate a conventional anatomy as they arise from the aortic arch.? The origins of the common carotid arteries appear patent.? The common carotid arteries demonstrate normal caliber and courses.? There is mild calcific origin stenosis of the bilateral internal carotid arteries, roughly 20% bilaterally.? More superior cervical segments of the internal carotid arteries within the neck are widely patent. ? Posterior circulation:? High-grade right vertebral artery origin stenosis.? Patent left vertebral artery origin.? The more superior extracranial portions of both vertebral arteries also demonstrate normal courses and calibers.? They join to form a normal appearing basilar artery.? ? Soft tissues:? Visualized neck soft tissues demonstrate no suspicious abnormalities.? ? Bones:? No suspicious bony lesions.? Visualized cervical spine appears normally aligned.? IMPRESSION:? 1. No acute process involving the arterial tree of the head and neck. 2. Mild bilateral internal carotid artery stenosis as described above. 3. High-grade right vertebral artery origin stenosis.? Patent left vertebral artery.? ? Any quantitative measurements of stenosis were performed using NASCET criteria.? ? ? Dictated by: Sánchez Amrenta M.D. on 11/18/2021 at 10:26 ? ? Approved by: Sánchez Armenta M.D. on 11/18/2021 at 10:32 ? MRI brain: Radiologist's Impression: [address] [address] Magnetic Resonance Report Signed Patient: Bharat Mcpherson MR#: [id number] : 1960 Acct:[id number] Age/Sex: 61 / M Date of Service: 11/18/21 Loc: ED Accession Number: [id number] ?? Procedure: MR head/brain wo/w con Ordering Provider: Tyrese Michele MD PROCEDURE:? MR HEAD/BRAIN WO/W CON ? INDICATIONS:? Left hand weakness ? TECHNIQUE:? Noncontrast axial T1 spin echo, axial T2 fast spin echo, sagittal and axial FLAIR, coronal T2 fast spin echo, axial gradient echo, axial diffusion and ADC through the brain.? After the administration of contrast, axial and coronal 3D VIBE or T1 spin echo with fat saturation through the brain.? ? COMPARISON:? None. ? FINDINGS:? Image quality:? Excellent.? ? CSF Spaces:? Basal cisterns are patent.? No extra-axial fluid collections.? Ventricles are normal in size and shape.? ? Brain:? No midline shift.? No intracranial bleeds or masses.? No abnormal intracranial enhancement.? The brainstem appears normal.? Diffusion-weighted images demonstrate no acute ischemic insults.? Mild cerebral volume loss.? A few? foci of T2 hyperintensity compatible with chronic small vessel ischemic changes.? Normal intravascular flow voids are present.? ? Skull and face:? Calvarial marrow is normal in signal.? Orbits appear normal.? ? Sinuses:? There is mild frontal, ethmoidal and sphenoid sinus mucosal thickening bilaterally.? The? mastoids appear clear.? ? IMPRESSION: ? 1. No acute intracranial abnormalities. ? 2. Mild cerebral volume loss and chronic microvascular ischemic changes. ? 3. Mild paranasal sinus mucosal thickening bilaterally. ? ? Dictated by: John Pierre M.D. on 11/18/2021 at 11:38 ? ? Approved by: John Pierre M.D. on 11/18/2021 at 11:44 ? MRI cervical spine: Radiologist's Impression: [address] [address] Magnetic Resonance Report Signed Patient: Bharat Mcpherson MR#: [id number] : 1960 Acct:[id number] Age/Sex: 61 / M Date of Service: 11/18/21 Loc: ED Accession Number: [id number] ?? Procedure: MR cervical spine wo/w con Ordering Provider: Tyrese Michele MD PROCEDURE:? MR CERVICAL SPINE WO/W CON ? INDICATIONS:? lt wrist drop ? TECHNIQUE:? Noncontrast sagittal T1 spin echo and T2 fast spin echo, sagittal STIR, foraminal oblique sagittal T2 fast spin echo, axial gradient echo or T2 fast spin echo through the cervical spine.? After the administration of contrast, axial and sagittal T1 spin echo with fat saturation through the cervical spine.? ? COMPARISON:? None. ? FINDINGS:? ? Normal cervical spine vertebral body height and alignment.? Normal configuration of the craniocervical junction.? No suspicious focal marrow signal abnormality or bone marrow edema.? No abnormal osseous enhancement in the cervical spine. ? Normal appearance of the prevertebral and paraspinous soft tissues. ? Normal morphology and signal intensity of the cervical cord.? No abnormal intradural enhancement. ? C2-3:? No spinal canal or neural foraminal stenosis. ? C3-4:? Mild bilateral neural foraminal narrowing due to facet and uncovertebral hypertrophy.? No spinal canal stenosis. ? C4-5:? Mild bilateral neural foraminal narrowing due to facet and uncovertebral hypertrophy.? No spinal canal stenosis. ? C5-6:? No spinal canal or neural foraminal stenosis. ? C6-7:? No spinal canal or neural foraminal stenosis. ? C7-T1:? No spinal canal or neural foraminal stenosis. ? IMPRESSION:? ? Mild neural foraminal narrowing at C3-C4 and C4-C5 is of unlikely clinical significance, although correlation for any left C4/C5 radicular symptoms is recommended. ? No spinal canal stenosis. ? No cord signal abnormality or abnormal enhancement.? ? Dictated by: Parish Young M.D. on 11/18/2021 at 10:50 ? ? Approved by: Parish Young M.D. on 11/18/2021 at 10:53 ? ECG Data Interpretation: Normal sinus rhythm rate [address] elevation or depression MDM Narrative Medical decision making narrative: Appropriate for discharge home. Exam clinically correlates with radial nerve palsy. Reviewed with neurologist as well as Orthopedics and with MRI and CT scan imaging. Return precautions reviewed patient. Follow-up with orthopedics discussed with patient. He agrees with treatment plan and follow-up Discharge Plan Departure Patient Disposition: Home Clinical Impression: Acute radial nerve palsy of left upper extremity Instructions: DI for Peripheral Neuropathy Activity Restrictions/Additional Instructions: Call provided Orthopedics office today make appointment for re-evaluation of your wrist within a week. Use splint for comfort. Return if worse if any questions or concerns. Prescriptions: No Action amlodipine [Norvasc] 5 mg tablet 10 mg PO DAILY Qty: 90 3RF atorvastatin 20 mg tablet 20 mg PO BEDTIME Qty: 90 3RF omeprazole 20 mg tablet,delayed release (DR/EC) 20 mg PO QAM Qty: 90 3RF (DME) OneTouch Ultra Test Strip See Rx Instructions .ROUTE .COMPLEX Qty: 100 11RF Dose Instruction: USE TO TEST BLOOD SUGARS THREE TIMES DAILY Rx Instructions: USE TO TEST BLOOD SUGARS THREE TIMES DAILY (DME) lancets [OneTouch UltraSoft Lancets] Misc See Rx Instructions .ROUTE .MEDSUPPLY Qty: 100 3RF Rx Instructions: As directed daily sildenafil [Viagra] 50 mg tablet 50 mg PO DAILY PRN (Reason: sexual activity) Qty: 20 0RF Rx Instructions: administer 30 minutes to 4 hours before activity metformin 1,000 mg tablet extended release 24hr 1,000 mg PO QAM Qty: 90 3RF lisinopril 40 mg tablet 40 mg PO BID Qty: 180 3RF cyanocobalamin (vitamin B-12) [Vitamin B-12] 1,000 mcg Tablet 1,000 mcg PO QAM 0RF aspirin 81 mg Tablet 81 mg PO QAM 0RF cholecalciferol (vitamin D3) [Vitamin D3] 125 mcg (5,000 unit) Tablet 125 mcg PO DAILY 0RF Antacid (calcium carbonate) 215 mg calcium (500 mg) Tablet,Chewable 215 mg PO QAM 0RF Referrals: Sheila Tirado MD [Physician] - Rao Richard MD [Primary Care Provider] - Stand Alone Forms: Work Release Note
[2021-11-18 09:40] LABS: Add Manual Diff / Slide Review NO; Basophils Absolute Auto 0 /uL (0-100); Basophils Percent Auto 0.5 % (0-2); Eosinophils Absolute Auto 100 /uL (0-450); Eosinophils Percent Auto 1.3 % (2-4); Hematocrit 33.6 % (41-53); Hemoglobin 11.8 g/dL (13.5-17.5); Lymphocytes Absolute Auto 900 /uL (1100-4500); Lymphocytes Percent Auto 13.1 % (25-40); Mean Corpuscular Volume 94.4 fL (80-100); Monocytes Absolute Auto 500 /uL (0-900); Monocytes Percent Auto 7.5 % (3-14); Neutrophils Absolute Auto 5300 /uL (1500-7000); Neutrophils Percent Auto 77.6 % (50-75); Platelet Count 351 X10^3/uL (150-400); Red Blood Cell Count 3.56 X10^6/uL (4.5-5.9); Red Cell Distribution Width 14.1 % (11.6-14.8); White Blood Cell Count 6.8 X10^3/uL (4.5-11.0)
--- NOTE | 2021-11-18 09:43 | DI.CT.S_ITS ---
PROCEDURE: CT ANGIO HEAD AND NECK INDICATIONS: Left hand weakness TECHNIQUE: After the administration of intravenous contrast, 1 mm thick sections acquired from the aortic arch through the [place]. Post-contrast 4.5 mm thick sections then re-acquired from the foramen magnum to the vertex. 3-dimensional krvtvyo-sirmlfmub-yvbocyndnt (MIP) and/or volume rendering reformats were acquired of the central intracranial vasculature and neck separately. COMPARISON: [facility], CT, CT ANGIO HEAD AND NECK, 11/08/2020, 16:35. FINDINGS: Image quality: Excellent. BRAIN: CSF spaces: Ventricles are normal in size and shape. Basal cisterns are patent. No extra-axial fluid collections. Brain: No midline shift. No intracranial bleeds or masses. Caceres-white matter interface appears intact. Skull and face: Calvarium and facial bones appear intact, without suspicious lesions. Orbits appear normal. Sinuses: Sinuses and mastoids are clear. HEAD CT ANGIOGRAPHY: Anterior circulation: Mild calcific stenosis of the cavernous segments of the internal carotid arteries bilaterally. Intracranial internal carotid arteries are otherwise normal in size and flow. The flow within the paired anterior cerebral arteries is normal and symmetric. The flow within the middle cerebral arteries is normal and symmetric. The anterior communicating artery is seen. No aneurysms are seen. Posterior circulation: Visualized portions of the vertebral arteries demonstrate normal caliber, and join to form a normal appearing basilar artery. Flow within the posterior cerebral arteries is normal and symmetric. No aneurysms are seen. NECK CT ANGIOGRAPHY: Carotid system: The great vessels demonstrate a conventional anatomy as they arise from the aortic arch. The origins of the common carotid arteries appear patent. The common carotid arteries demonstrate normal caliber and courses. There is mild calcific origin stenosis of the bilateral internal carotid arteries, roughly 20% bilaterally. More superior cervical segments of the internal carotid arteries within the neck are widely patent. Posterior circulation: High-grade right vertebral artery origin stenosis. Patent left vertebral artery origin. The more superior extracranial portions of both vertebral arteries also demonstrate normal courses and calibers. They join to form a normal appearing basilar artery. Soft tissues: Visualized neck soft tissues demonstrate no suspicious abnormalities. Bones: No suspicious bony lesions. Visualized cervical spine appears normally aligned. IMPRESSION: 1. No acute process involving the arterial tree of the head and neck. 2. Mild bilateral internal carotid artery stenosis as described above. 3. High-grade right vertebral artery origin stenosis. Patent left vertebral artery. Any quantitative measurements of stenosis were performed using NASCET criteria. Dictated by: Sánchez Armenta M.D. on 11/18/2021 at 10:26 Approved by: Sánchez Armenta M.D. on 11/18/2021 at 10:32
[2021-11-18 09:47] LABS: Prothrombin Time 10.6 SECONDS (10.1-12.7)
[2021-11-18 09:50] LABS: PTT Partial Thromboplastin Tim 39 SECONDS (26.4-36.2)
[2021-11-18 09:52] LABS: Alanine Aminotransferase 13 IU/L (<50); Albumin 4.7 g/dL (3.5-5.0); Alkaline Phosphatase 67 U/L (38-126); Aspartate Aminotransferase 26 IU/L (17-59); Bilirubin Total 0.6 mg/dL (0.2-1.3); Blood Urea Nitrogen 4 mg/dL (9-20); Calcium 9.9 mg/dL (8.4-10.2); Carbon Dioxide 25 mmol/L (22-32); Chloride 90 mmol/L (98-107); Creatine Kinase 88 U/L (55-170); Estimated Glomerular Filt Rate > 60.0 mL/min (>60); Globulin 2.3 g/dL (1.7-4.1); Glucose 150 mg/dL (70-100); HEMOLYSIS < 15 (0-50); Potassium 4.5 mmol/L (3.4-5.1); Sodium 123 mmol/L (137-145)
[2021-11-18 10:03] LABS: Troponin I < 0.012 ng/mL (0.01-0.034)
[2021-11-18 10:08] VITALS: BP 172/81; PULSE 106
--- NOTE | 2021-11-18 10:10 | DI.MRI.S_ITS ---
PROCEDURE: MR HEAD/BRAIN WO/W CON INDICATIONS: Left hand weakness TECHNIQUE: Noncontrast axial T1 spin echo, axial T2 fast spin echo, sagittal and axial FLAIR, coronal T2 fast spin echo, axial gradient echo, axial diffusion and ADC through the brain. After the administration of contrast, axial and coronal 3D VIBE or T1 spin echo with fat saturation through the brain. COMPARISON: None. FINDINGS: Image quality: Excellent. CSF Spaces: Basal cisterns are patent. No extra-axial fluid collections. Ventricles are normal in size and shape. Brain: No midline shift. No intracranial bleeds or masses. No abnormal intracranial enhancement. The brainstem appears normal. Diffusion-weighted images demonstrate no acute ischemic insults. Mild cerebral volume loss. A few foci of T2 hyperintensity compatible with chronic small vessel ischemic changes. Normal intravascular flow voids are present. Skull and face: Calvarial marrow is normal in signal. Orbits appear normal. Sinuses: There is mild frontal, ethmoidal and sphenoid sinus mucosal thickening bilaterally. The mastoids appear clear. IMPRESSION: 1. No acute intracranial abnormalities. 2. Mild cerebral volume loss and chronic microvascular ischemic changes. 3. Mild paranasal sinus mucosal thickening bilaterally. Dictated by: John Pierre M.D. on 11/18/2021 at 11:38 Approved by: John Pierre M.D. on 11/18/2021 at 11:44
--- NOTE | 2021-11-18 10:20 | DI.MRI.S_ITS ---
PROCEDURE: MR CERVICAL SPINE WO/W CON INDICATIONS: lt wrist drop TECHNIQUE: Noncontrast sagittal T1 spin echo and T2 fast spin echo, sagittal STIR, foraminal oblique sagittal T2 fast spin echo, axial gradient echo or T2 fast spin echo through the cervical spine. After the administration of contrast, axial and sagittal T1 spin echo with fat saturation through the cervical spine. COMPARISON: None. FINDINGS: Normal cervical spine vertebral body height and alignment. Normal configuration of the craniocervical junction. No suspicious focal marrow signal abnormality or bone marrow edema. No abnormal osseous enhancement in the cervical spine. Normal appearance of the prevertebral and paraspinous soft tissues. Normal morphology and signal intensity of the cervical cord. No abnormal intradural enhancement. C2-3: No spinal canal or neural foraminal stenosis. C3-4: Mild bilateral neural foraminal narrowing due to facet and uncovertebral hypertrophy. No spinal canal stenosis. C4-5: Mild bilateral neural foraminal narrowing due to facet and uncovertebral hypertrophy. No spinal canal stenosis. C5-6: No spinal canal or neural foraminal stenosis. C6-7: No spinal canal or neural foraminal stenosis. C7-T1: No spinal canal or neural foraminal stenosis. IMPRESSION: Mild neural foraminal narrowing at C3-C4 and C4-C5 is of unlikely clinical significance, although correlation for any left C4/C5 radicular symptoms is recommended. No spinal canal stenosis. No cord signal abnormality or abnormal enhancement. Dictated by: Parish Young M.D. on 11/18/2021 at 10:50 Approved by: Parish Young M.D. on 11/18/2021 at 10:53
[2021-11-18 12:27] VITALS: PULSE 44
[2021-11-18 12:30] VITALS: BP 170/86; PULSE 83; RESP 23; O2SAT 100
[2021-11-18 13:49] VITALS: BP 170/86; PULSE 88; RESP 18; O2SAT 100
== END 2021-11-18 13:51 | disposition home or self-care (01) ==
PROVIDERS: Emergency Provider Emergency Medicine; PCP Family Medicine
DX: G56.32 Lesion of radial nerve, left upper limb (principal); I10 Essential (primary) hypertension; F17.200 Nicotine dependence, unspecified, uncomplicated
CPT/HCPCS: 36415; 70450; 70496; 70498; 70553; 71045; 72156; 80053; 82550; 84484; 85025; 85610; 85730; 93005; 93010; 99283; 99284; A9579

== ENCOUNTER → 2022-02-27 09:27 | Outpatient (CLI) | payer OTHER, MEDICAID, SELFPAY ==
[2020-11-08 19:14] VITALS: BMI 23.6
[2022-02-27 10:00] LABS: Add Manual Diff / Slide Review NO; Basophils Absolute Auto 0 /uL (0-100); Basophils Percent Auto 0.8 % (0-2); Eosinophils Absolute Auto 100 /uL (0-450); Eosinophils Percent Auto 2.3 % (2-4); Hematocrit 35.7 % (41-53); Hemoglobin 12.4 g/dL (13.5-17.5); Lymphocytes Absolute Auto 900 /uL (1100-4500); Lymphocytes Percent Auto 16.4 % (25-40); Mean Corpuscular HGB Conc 34.6 % (30-36); Mean Corpuscular Hemoglobin 32.9 PG (26-34); Mean Corpuscular Volume 95.1 fL (80-100); Monocytes Absolute Auto 500 /uL (0-900); Monocytes Percent Auto 8.3 % (3-14); Neutrophils Absolute Auto 4000 /uL (1500-7000); Neutrophils Percent Auto 72.2 % (50-75); Platelet Count 376 X10^3/uL (150-400); Red Blood Cell Count 3.75 X10^6/uL (4.5-5.9); Red Cell Distribution Width 14.1 % (11.6-14.8); White Blood Cell Count 5.5 X10^3/uL (4.5-11.0)
[2022-02-27 10:20] LABS: Hemoglobin A1C% w Est Avg Glu 7.1 % (4.0-6.0)
[2022-02-27 10:26] LABS: Alanine Aminotransferase 14 IU/L (<50); Albumin 4.4 g/dL (3.5-5.0); Albumin Globulin Ratio 1.6 (1.0-2.8); Alkaline Phosphatase 65 U/L (38-126); Aspartate Aminotransferase 33 IU/L (17-59); BUN Creatinine Ratio 4.7 (6-22); Bilirubin Total 0.7 mg/dL (0.2-1.3); Blood Urea Nitrogen 3 mg/dL (9-20); Calcium 9.5 mg/dL (8.4-10.2); Carbon Dioxide 26 mmol/L (22-32); Chloride 96 mmol/L (98-107); Estimated Glomerular Filt Rate > 60 mL/min (>60); Globulin 2.7 g/dL (1.7-4.1); Glucose 159 mg/dL (70-100); HEMOLYSIS 42 (0-50); Magnesium 1.5 mg/dL (1.6-2.3); Potassium 4.8 mmol/L (3.4-5.1); Sodium 130 mmol/L (137-145); Total Protein 7.1 g/dL (6.3-8.2)
== END ==
PROVIDERS: PCP Family Medicine; Referring Provider Family Medicine; Visit Provider Family Medicine
DX: E11.9 Type 2 diabetes mellitus without complications (principal); E78.5 Hyperlipidemia, unspecified; E87.1 Hypo-osmolality and hyponatremia; I10 Essential (primary) hypertension
CPT/HCPCS: 36415; 80053; 83036; 83735; 85025

== ENCOUNTER → 2022-04-08 13:53 | Outpatient (CLI) | payer OTHER, MEDICAID, SELFPAY ==
[2020-11-08 19:14] VITALS: BMI 23.6
[2022-04-08 14:39] LABS: COVID19 -Nasal RAPID Negative (Negative)
== END ==
PROVIDERS: PCP Family Medicine; Visit Provider Surgery
DX: Z01.812 Encounter for preprocedural laboratory examination (principal); Z20.822 Contact with and (suspected) exposure to COVID-19
CPT/HCPCS: 87635; C9803

== ENCOUNTER 2022-04-09 06:20 | Day surgery (SDC) | payer OTHER, MEDICAID, SELFPAY ==
[2020-11-08 19:14] VITALS: BMI 23.6
--- NOTE | 2022-04-09 | PATH_ITS ---
[facility] Accession Number: [id number] . 01 Material submitted: . sigmoid colon - SIGMOID COLON POLYP . 01 Diagnosis: Sigmoid Colon, Polyp, Biopsy: Tubular adenoma. MRV 04/12/2022 1534 Local . 01 Electronically signed: . Briseida Curtis MD, Pathologist NPI- [id number] . 01 Gross description: . SIGMOID COLON POLYP: Received in formalin is 1 fragment(s) of vides, soft tissue measuring 0.8 x 0.5 x 0.4 cm which is bisected and submitted entirely in 1 cassette(s) /CPE 04/10/2022 0622 Local . 01 Pathologist provided ICD-10: D12.5 . 01 CPT . 217298 Specimen Comment: A courtesy copy of this report has been sent to [phone] Performed at: 01 [facility] [address] [place] [address], [place], [place] [id number] MD Jose Carlos Dee MD Phone: [phone]
[2022-04-09 07:14] VITALS: BP 149/84; PULSE 100; RESP 20; TEMP 36.9; O2SAT 98; BMI 22.6
[2022-04-09] MEDS: LACTATED RINGERS 1,000 ML 150 ML IV (07:22)
--- NOTE | 2022-04-09 07:32 | PM.HP.1 ---
History of Present Illness History of Present Illness Date Patient Seen: 04/09/22 Time Patient Seen: 07:32 Chief complaint: SDC Narrative: Second colonoscopy for screening for colon cancer. No symptoms, no family hx for colon cancer. Patient History Medical History Acute radial nerve palsy Alcohol dependence Alcohol withdrawal Anemia Chicken pox Chronic hyponatremia Diabetes Erectile dysfunction Fractures (~2004) GERD (gastroesophageal reflux disease) Hemorrhoid Hyperlipidemia Hypertension Multiple fractures of ribs Osteoporosis (~2018) Pancreatitis (~2001) Pneumonia Tobacco dependency Vertigo Wears glasses Surgical History Anesthesia S/P exploratory laparotomy (~2001) Status post hernia repair Family & Social History Family History Mother Diabetes mellitus Father Hypertension Bladder cancer Social History: household members spouse Tobacco & Substance use: Tobacco type cigarettes Smoking Status Current every day smoker alcohol intake current alcohol intake frequency 3 or more drinks per day Substance Use Type does not use Meds Home Medications and Allergies Home Medications Medication Instructions Recorded Confirmed Type cyanocobalamin (vitamin B-12) 1,000 mcg PO QAM 04/23/19 04/09/22 History 1,000 mcg tablet (Vitamin B-12) aspirin 81 mg tablet 81 mg PO QAM 11/08/20 04/09/22 History calcium carbonate 215 mg calcium 215 mg PO QAM 11/08/20 04/09/22 History (500 mg) chewable tablet (Antacid (calcium carbonate)) cholecalciferol (vitamin D3) 125 125 mcg PO DAILY 11/08/20 04/09/22 History mcg (5,000 unit) tablet (Vitamin D3) sildenafil 50 mg tablet (Viagra) 50 mg PO DAILY PRN #20 tab 04/17/21 04/09/22 Rx lisinopril 40 mg tablet 40 mg PO BID #180 tab 07/10/21 04/09/22 Rx metformin 1,000 mg tablet,extended 1,000 mg PO QAM #90 tab 07/10/21 04/09/22 Rx release 24hr omeprazole 20 mg tablet,delayed 20 mg PO QAM #90 tab 08/25/21 04/09/22 Rx release blood sugar diagnostic (OneTouch #100 strip 11/04/21 02/19/22 Rx Ultra Test) lancets 33 gauge (BD Ultra Fine #100 ea 01/28/22 02/19/22 Rx Lancets) amlodipine 5 mg tablet (Norvasc) 10 mg PO DAILY #90 tab 02/02/22 04/09/22 Rx atorvastatin 20 mg tablet 40 mg PO BEDTIME #90 tab 03/30/22 04/09/22 Rx Allergies Allergy/AdvReac Type Severity Reaction Status Date / Time No Known Drug Allergies Allergy Verified 04/09/22 07:09 Review of Systems Review of Systems ROS: Yes All systems reviewed with the patient and are negative except as otherwise documented Exam Vital Signs (past 8 hours): - 04/09/22 07:14 Temperature 98.5 F Pulse Rate 100 H Respiratory Rate 20 Blood Pressure 149/84 H Pulse Oximetry 98 Oxygen Delivery Method Room Air Const General: cooperative and healthy appearing Nutritional Appearance: thin HENMT Head: normal to inspection, normocephalic and atraumatic Eyes Sclera: sclerae normal Neck Neck: full ROM and trachea midline Chest Chest: normal inspection of the chest Resp Effort & Inspection: normal respiratory effort and able to speak in complete sentences Cardio Rate: tachycardic Rhythm: regular rhythm GI Inspection: normal to inspection Skin General: atrophy Other: tatoos Neuro General: patient alert and patient oriented x3 Extrem General: full ROM Psych Appearance: grossly normal Mental Status: mental status grossly normal Assessment & Plan Assessment & Plan narrative: screening colonoscopy with colonoscope and moderate sedation COVID-19 COVID-19 status: Negative Time Spent With Patient Time with patient: less than 30 minutes Critical Care time: I spent a total of [] minutes of critical care time on this patient's care today; this time is exclusive of procedural time.
--- NOTE | 2022-04-09 07:43 | PM.OP.COLON ---
Operative Date/Time/Diagnoses Date of procedure: 04/09/22 Time of procedure: 07:43 Pre-op diagnosis: Screening for colon cancer Post-op diagnosis: same Procedure & Clinicians Study performed: colonoscopy Same procedure as scheduled: Yes Indications: Colon cancer screening Surgeon: Cayla Ramirez Procedure Notes SCOAP/Timeout: Done Procedure in detail: Prep diagnosis: Colon cancer screening Postop diagnosis: Same Operative procedure: Colonoscopy with moderate sedation and snare polypectomy Surgeon: Julieth Ramirez MD Anesthetic: Fentanyl 100 mcg, Versed 5 mg Findings: Single polyp 0.5 cm at approximately 30 cm from the anal verge of the sigmoid colon. No diverticulosis Procedure: Patient placed in lateral position. Rectal exam performed showing normal tone and inflammatory polyp but no concerning masses. Scope inserted in the rectum advanced to ileocecal valve with minimal difficulty. Insufflation extraction of scope and the above findings. Retroflex was included. Impression: Single 0.5 cm polyp at approximately 30 cm from the anal verge in the sigmoid colon taken hot snare. Plan: Repeat colonoscopy in 5 years unless otherwise indicated by change in clinical condition Sedation minutes: 23 Findings: polyp(s) (single 0.5 cm polyp in sigmoid colon around 30 cm) Specimen(s): other (polyp) Complications: none Impression: Repeat colonoscopy in 5 years Follow-up PCP for biopsy results Post-procedure Recommendations: Colonoscopy in 5 years and Continue medication(s) Follow up: as needed Disposition: PACU
[2022-04-09] MEDS: fentaNYL 250 MCG/5 ML INJ IV (07:45)
[2022-04-09] MEDS: MIDAZOLAM 5 MG/5 ML VIAL IV (07:45)
[2022-04-09 08:13] VITALS: BP 111/71; PULSE 88; RESP 18; TEMP 37.5; O2SAT 96
[2022-04-09 08:18] VITALS: BP 109/67; PULSE 82; RESP 16; O2SAT 94
[2022-04-09 08:23] VITALS: BP 111/67; PULSE 79; RESP 18; O2SAT 95
[2022-04-09 08:31] VITALS: BP 108/65; PULSE 88; RESP 19; O2SAT 99
== END 2022-04-09 08:39 | disposition home or self-care (01) ==
PROVIDERS: PCP Family Medicine; Referring Provider Surgery; Visit Provider Surgery
PROC: 0DJD8ZZ Inspection of Lower Intestinal Tract, Via Natural or Artificial Opening Endoscopic (ICD-10-PCS; CPT 45378; principal; 2022-04-09 07:45)
DX: Z12.11 Encounter for screening for malignant neoplasm of colon (principal); D12.5 Benign neoplasm of sigmoid colon
CPT/HCPCS: 45385; 99152; J2250; J3010

== ENCOUNTER → 2022-06-04 08:05 | Outpatient (CLI) | payer OTHER, MEDICAID, SELFPAY ==
[2020-11-08 19:14] VITALS: BMI 23.6
[2022-06-04 08:33] LABS: Add Manual Diff / Slide Review NO; Basophils Absolute Auto 0 /uL (0-100); Basophils Percent Auto 1.1 % (0-2); Eosinophils Absolute Auto 100 /uL (0-450); Hematocrit 34.8 % (41-53); Hemoglobin 12.2 g/dL (13.5-17.5); Lymphocytes Absolute Auto 800 /uL (1100-4500); Lymphocytes Percent Auto 25.2 % (25-40); Mean Corpuscular HGB Conc 35.1 % (30-36); Mean Corpuscular Hemoglobin 33.9 PG (26-34); Mean Corpuscular Volume 96.5 fL (80-100); Monocytes Absolute Auto 300 /uL (0-900); Monocytes Percent Auto 10.5 % (3-14); Neutrophils Absolute Auto 1800 /uL (1500-7000); Neutrophils Percent Auto 59.2 % (50-75); Platelet Count 329 X10^3/uL (150-400); Red Blood Cell Count 3.61 X10^6/uL (4.5-5.9); Red Cell Distribution Width 14.7 % (11.6-14.8); White Blood Cell Count 3.1 X10^3/uL (4.5-11.0)
[2022-06-04 09:27] LABS: Creatinine Urine Random 27.5 mg/dL
[2022-06-04 09:29] LABS: Microalbumi Creatinin Ratio Ur 36.3 ug/mg CR (<30)
[2022-06-04 09:30] LABS: Alanine Aminotransferase 16 IU/L (<50); Albumin 4.3 g/dL (3.5-5.0); Albumin Globulin Ratio 1.8 (1.0-2.8); Alkaline Phosphatase 63 U/L (38-126); Aspartate Aminotransferase 31 IU/L (17-59); BUN Creatinine Ratio 5.1 (6-22); Bilirubin Total 0.5 mg/dL (0.2-1.3); Blood Urea Nitrogen 3 mg/dL (9-20); Calcium 9.6 mg/dL (8.4-10.2); Carbon Dioxide 28 mmol/L (22-32); Chloride 91 mmol/L (98-107); Cholesterol 130 mg/dL (140-199); Estimated Glomerular Filt Rate > 60 mL/min (>60); Globulin 2.4 g/dL (1.7-4.1); Glucose 116 mg/dL (70-100); HEMOLYSIS < 15 (0-50); Potassium 4.2 mmol/L (3.4-5.1); Sodium 128 mmol/L (137-145); Total Protein 6.7 g/dL (6.3-8.2); Triglycerides 37 mg/dL (35-150)
[2022-06-04 09:38] LABS: HDL Cholesterol 115 mg/dL (40-60); LDL Cholesterol Calculated 8 mg/dL (<100)
[2022-06-04 09:52] LABS: Hemoglobin A1C% w Est Avg Glu 6.1 % (4.0-6.0)
== END ==
PROVIDERS: PCP Family Medicine; Referring Provider Family Medicine; Visit Provider Family Medicine
DX: D64.9 Anemia, unspecified (principal); E11.9 Type 2 diabetes mellitus without complications; E78.2 Mixed hyperlipidemia; E87.1 Hypo-osmolality and hyponatremia; I10 Essential (primary) hypertension
CPT/HCPCS: 36415; 80053; 80061; 82043; 82570; 83036; 85025

== ENCOUNTER → 2022-06-11 07:28 | Outpatient (CLI) | payer OTHER, MEDICAID, SELFPAY ==
[2020-11-08 19:14] VITALS: BMI 23.6
[2022-06-11 08:56] LABS: Calcium 9.6 mg/dL (8.4-10.2); Carbon Dioxide 29 mmol/L (22-32); Chloride 92 mmol/L (98-107); Estimated Glomerular Filt Rate > 60 mL/min (>60); Glucose 110 mg/dL (80-110); HEMOLYSIS < 15 (0-50); Potassium 4.2 mmol/L (3.4-5.1); Sodium 128 mmol/L (137-145)
[2022-06-11 08:57] LABS: BUN Creatinine Ratio 3.3 (6-22); Blood Urea Nitrogen 2 mg/dL (9-20)
[2022-06-11 09:27] LABS: Cortisol AM (Before 10AM) 14.5 ug/dL (4.46-22.7); Creatinine Urine Random 27.2 mg/dL; Sodium Urine Random 33 mmol/L (30-90)
[2022-06-11 09:28] LABS: TSH w/ Reflex to FT4 0.23 uIU/mL (0.47-4.68)
[2022-06-11 10:03] LABS: Free T4, Direct Thyroxine 1.12 ng/dL (0.78-2.19)
[2022-06-14 15:12] LABS: Osmolality Urine 149 mOsmol/kg (.)
[2022-06-14 15:48] LABS: Osmolality, Serum 277 mOsmol/kg (275-295)
== END ==
PROVIDERS: PCP Family Medicine; Referring Provider Internal Medicine Nephrology; Visit Provider Internal Medicine Nephrology
DX: E87.1 Hypo-osmolality and hyponatremia (principal)
CPT/HCPCS: 36415; 80048; 82533; 82570; 83930; 83935; 84300; 84439; 84443

== ENCOUNTER → 2023-01-07 14:44 | Outpatient (CLI) | payer OTHER, MEDICAID, SELFPAY ==
[2020-11-08 19:14] VITALS: BMI 23.6
--- NOTE | 2023-01-07 | DI.MRI.S_ITS ---
PROCEDURE: MR CERVICAL SPINE WO CON INDICATIONS: WRIST WEAKNESS TECHNIQUE: Noncontrast sagittal T1 spin echo and T2 fast spin echo, sagittal STIR, foraminal oblique sagittal T2 fast spin echo, and axial gradient echo or T2 fast spin echo through the cervical spine. COMPARISON: [facility], MR, MR CERVICAL SPINE WO CON, 11/08/2020, 13:58. FINDINGS: Image quality: Excellent. Alignment and Curvature: There is exaggerated lordosis of the cervical spine there is trace C3 on C4 retrolisthesis unchanged from the study dated November 08, 2020. Bone Marrow: Marrow demonstrates normal overall signal. Spinal Cord: Visualized spinal cord has normal size and signal. No cerebellar tonsillar herniation. Paraspinous Soft Tissues: No paravertebral masses. Prevertebral soft tissues are normal in thickness. C2-C3: Normal appearance. C3-C4: Mild disc desiccation and height loss. Retrolisthesis. Broad-based disc bulge. Moderate canal stenosis. Moderate to severe bilateral foraminal stenosis. These findings are similar to the MRI dated November 08, 2020 C4-C5: Mild disc bulge. No canal stenosis. Moderate right and mild left foraminal stenosis. C5-C6: No canal stenosis. Mild right and moderate left foraminal stenosis. The degree of left neural foraminal stenosis appears slightly increased from the 2020 study. C6-C7: No canal stenosis. No right foraminal stenosis. Moderate left foraminal stenosis unchanged from the prior study. C7-T1: Normal appearance. IMPRESSION: 1. Findings overall similar to the study dated November 08, 2020. There is slightly increased foraminal stenosis on the left at C5-6. Otherwise no interval change. 2. C3-4 retrolisthesis with resultant moderate canal stenosis and moderate to severe bilateral foraminal narrowing as before. Dictated by: Elle Martinez M.D. on 01/07/2023 at 17:00 Approved by: Elle Martinez M.D. on 01/07/2023 at 17:05
== END ==
PROVIDERS: PCP Family Medicine; Referring Provider Psychiatry & Neurology Neurology; Visit Provider Psychiatry & Neurology Neurology
DX: M48.02 Spinal stenosis, cervical region (principal); M43.12 Spondylolisthesis, cervical region; R29.898 Other symptoms and signs involving the musculoskeletal system
CPT/HCPCS: 72141

== ENCOUNTER → 2023-04-01 09:45 | Outpatient (CLI) | payer OTHER, MEDICAID, SELFPAY ==
[2020-11-08 19:14] VITALS: BMI 23.6
[2023-04-01 10:12] LABS: Add Manual Diff / Slide Review NO; Basophils Absolute Auto 100 /uL (0-100); Basophils Percent Auto 1.4 % (0-2); Eosinophils Absolute Auto 200 /uL (0-450); Eosinophils Percent Auto 4.8 % (2-4); Hematocrit 33.4 % (41-53); Hemoglobin 11.7 g/dL (13.5-17.5); Lymphocytes Absolute Auto 1100 /uL (1100-4500); Lymphocytes Percent Auto 29.3 % (25-40); Mean Corpuscular Hemoglobin 34.2 PG (26-34); Mean Corpuscular Volume 97.7 fL (80-100); Monocytes Absolute Auto 400 /uL (0-900); Monocytes Percent Auto 10.9 % (3-14); Neutrophils Absolute Auto 2000 /uL (1500-7000); Neutrophils Percent Auto 53.6 % (50-75); Platelet Count 389 X10^3/uL (150-400); Red Blood Cell Count 3.42 X10^6/uL (4.5-5.9); Red Cell Distribution Width 14.1 % (11.6-14.8); White Blood Cell Count 3.8 X10^3/uL (4.5-11.0)
[2023-04-02 03:36] LABS: x Labcorp Estim. Avg Glu (eAG) 140 mg/dL (.); x Labcorp Hemoglobin A1c 6.5 % (4.8-5.6)
== END ==
PROVIDERS: PCP Family Medicine; Referring Provider Family Medicine; Visit Provider Family Medicine
DX: E11.9 Type 2 diabetes mellitus without complications (principal); E87.1 Hypo-osmolality and hyponatremia; I10 Essential (primary) hypertension
CPT/HCPCS: 36415; 83036; 85025

== ENCOUNTER → 2023-04-15 11:24 | Outpatient (CLI) | payer OTHER, MEDICAID, SELFPAY ==
[2020-11-08 19:14] VITALS: BMI 23.6
--- NOTE | 2023-04-15 11:24 | DI.CT.S_ITS ---
PROCEDURE: CT CHEST WO CON INDICATIONS: low dose chest CT scan from greater than 30 py smoking hx TECHNIQUE: Noncontrast 2.0-2.5 mm thick sections acquired from the pulmonary apices to the posterior costophrenic angles. 7 mm thick axial MIP, and 5 mm coronal and sagittal reformats were then acquired. A low radiation dose technique was utilized. COMPARISON: None. FINDINGS: Image quality: Diagnostic, given the low radiation dose technique. Lungs and pleura: Mild centrilobular emphysema. Mediastinum: Heart size is normal. No pericardial effusion. No mediastinal adenopathy by size criteria. Thoracic aorta and central pulmonary arteries are normal in size. Esophagus is normal in caliber. No hiatal hernia. Marked coronary artery calcifications for age Bones and chest wall: No suspicious bony lesions. No vertebral body compression fractures. No axillary or supraclavicular adenopathy by size criteria. Thyroid gland is unremarkable. Abdomen: Visualized upper abdomen solid organs and bowel loops appear normal in the absence of contrast. IMPRESSION: LUNG-RADS 1 S; continued annual follow-up if eligible. Marked coronary artery calcifications for age. Consider cardiology referral. Dictated by: Genaro Cruz M.D. on 04/15/2023 at 12:40 Approved by: Genaro Cruz M.D. on 04/15/2023 at 12:44
== END ==
PROVIDERS: PCP Family Medicine; Referring Provider Family Medicine; Visit Provider Family Medicine
DX: J43.2 Centrilobular emphysema (principal); I25.10 Atherosclerotic heart disease of native coronary artery without angina pectoris; F17.210 Nicotine dependence, cigarettes, uncomplicated
CPT/HCPCS: 71250

== ENCOUNTER → 2023-07-08 08:06 | Outpatient (CLI) | payer OTHER, MEDICAID, SELFPAY ==
[2020-11-08 19:14] VITALS: BMI 23.6
[2023-07-08 09:21] LABS: Add Manual Diff / Slide Review NO; Basophils Absolute Auto 0 /uL (0-100); Basophils Percent Auto 0.6 % (0-2); Eosinophils Absolute Auto 100 /uL (0-450); Eosinophils Percent Auto 2.7 % (2-4); Hematocrit 34.9 % (41-53); Hemoglobin 12.2 g/dL (13.5-17.5); Lymphocytes Absolute Auto 1300 /uL (1100-4500); Lymphocytes Percent Auto 23.6 % (25-40); Mean Corpuscular Hemoglobin 34.5 PG (26-34); Mean Corpuscular Volume 98.6 fL (80-100); Monocytes Absolute Auto 500 /uL (0-900); Monocytes Percent Auto 9.2 % (3-14); Neutrophils Absolute Auto 3500 /uL (1500-7000); Neutrophils Percent Auto 63.9 % (50-75); Platelet Count 332 X10^3/uL (150-400); Red Blood Cell Count 3.54 X10^6/uL (4.5-5.9); Red Cell Distribution Width 14.7 % (11.6-14.8); White Blood Cell Count 5.5 X10^3/uL (4.5-11.0)
[2023-07-08 09:24] LABS: Hemoglobin A1C% w Est Avg Glu 8.2 % (4.0-6.0)
[2023-07-08 09:35] LABS: Cholesterol 104 mg/dL (140-199); HDL Cholesterol 84 mg/dL (40-60); LDL Cholesterol Calculated 11 mg/dL (<100); Triglycerides 47 mg/dL (35-150)
[2023-07-08 10:02] LABS: Creatinine Urine Random 122.5 mg/dL
[2023-07-08 10:05] LABS: TSH w/ Reflex to FT4 0.27 uIU/mL (0.47-4.68)
[2023-07-08 10:06] LABS: Microalbumi Creatinin Ratio Ur 10.6 ug/mg CR (<30); Microalbumin Urine Random 1.3 mg/dL (0-1.6)
[2023-07-08 10:32] LABS: Free T4, Direct Thyroxine 1.23 ng/dL (0.78-2.19)
[2023-07-08 11:31] LABS: Alanine Aminotransferase 25 IU/L (<50); Albumin 3.2 g/dL (3.5-5.0); Albumin Globulin Ratio 1.3 (1.0-2.8); Alkaline Phosphatase 86 U/L (38-126); Aspartate Aminotransferase 46 IU/L (17-59); Bilirubin Total 0.7 mg/dL (0.2-1.3); Calcium 9.1 mg/dL (8.4-10.2); Carbon Dioxide 27 mmol/L (22-32); Chloride 96 mmol/L (98-107); Estimated Glomerular Filt Rate > 60 mL/min (>60); Globulin 2.5 g/dL (1.7-4.1); Glucose 144 mg/dL (80-110); HEMOLYSIS < 15 (0-50); Potassium 4.5 mmol/L (3.4-5.1); Sodium 129 mmol/L (137-145); Total Protein 5.7 g/dL (6.3-8.2)
[2023-07-08 11:37] LABS: BUN Creatinine Ratio 3.4 (6-22); Blood Urea Nitrogen 2 mg/dL (9-20)
== END ==
PROVIDERS: PCP Family Medicine; Referring Provider Family Medicine; Visit Provider Family Medicine
DX: E11.9 Type 2 diabetes mellitus without complications (principal); E78.5 Hyperlipidemia, unspecified; F17.200 Nicotine dependence, unspecified, uncomplicated; F17.210 Nicotine dependence, cigarettes, uncomplicated; I10 Essential (primary) hypertension; E87.1 Hypo-osmolality and hyponatremia
CPT/HCPCS: 36415; 80053; 80061; 82043; 82570; 83036; 84439; 84443; 85025

== ENCOUNTER → 2023-07-16 08:30 | Outpatient (CLI) | payer OTHER, MEDICAID, SELFPAY ==
[2020-11-08 19:14] VITALS: BMI 23.6
--- NOTE | 2023-07-16 08:32 | DI.CT.S_ITS ---
PROCEDURE: CT CHEST ABD PEL W CON INDICATIONS: 15 pound weight loss, early satiety, smoking history TECHNIQUE: After the administration of intravenous contrast, 5 mm thick sections acquired from the lung apices to the symphysis. 2.5 mm thick coronal and sagittal reformats were acquired. Additional 7 mm thick coronal maximum intensity projection (MIP) reformats acquired through the lungs. For radiation dose reduction, the following was used: automated exposure control, adjustment of mA and/or kV according to patient size. COMPARISON: [facility], CT, CT CHEST ABD PEL W CON, 04/22/2019, 17:53. FINDINGS: Chest: Cardiovascular: Heart size is normal. No evidence of pulmonary embolism, aortic aneurysm or dissection. Lungs and pleural spaces: The lung [place] are clear without nodule, infiltrate or interstitial prominence. Pleural spaces show no effusion or pneumothorax. Mild hyperinflation Lymph nodes: No mediastinal, hilar or axillary adenopathy. Mediastinum: Unremarkable. No hiatal hernia. Thyroid within normal limits. Chest Wall and Bones: Unremarkable. No acute fracture. Abdomen and Pelvis: Liver: Normal in size and attenuation. No contour deformity present. Biliary system: No calcified cholelithiasis or pericholecystic inflammation. No intra or extrahepatic bile duct dilatation. Pancreas: Unremarkable without mass or inflammation evident. Spleen: Normal in size and density. Adrenals: Normal morphology and density. Reproductive system: Unremarkable as visualized. Urinary system: Normal renal size and attenuation. No renal calculi, hydronephrosis, or solid mass present. Bladder wall smooth thickening may also be related to underdistention Gastrointestinal system: The bowel is unremarkable with no evidence of bowel obstruction or inflammation. The stomach appears unremarkable. Right colon bowel wall thickening probably related to underdistention Appendix: No findings to suggest acute appendicitis. Lymph nodes: No mesenteric or retroperitoneal adenopathy. Peritoneal spaces: No free air. No free fluid. epigastric surgical clips noted with amorphous 1.2 cm calcification Vasculature: Dense atherosclerotic vascular calcification in the aorta and both iliacs results in severe stenosis in the proximal left common iliac. No aneurysm Abdominal wall: Bilateral inguinal hernia(s) contain fat without bowel involvement. The right teste is retracted in the inguinal canal Musculoskeletal: Normal bone mineralization. Degenerative disc disease and arthropathy noted in lower lumbar spine. No acute fractures. IMPRESSION: 1. Mild pulmonary hyperinflation without focal nodule, pleural effusion or pneumothorax. No adenopathy. 2. Degenerative changes detailed above without CT evidence of neoplasm Approved by: Joesph Tinsley M.D. on 07/16/2023 at 19:32
== END ==
PROVIDERS: PCP Family Medicine; Referring Provider Family Medicine; Visit Provider Family Medicine
DX: I70.203 Unspecified atherosclerosis of native arteries of extremities, bilateral legs (principal); K40.20 Bilateral inguinal hernia, without obstruction or gangrene, not specified as recurrent; M51.36 Other intervertebral disc degeneration, lumbar region; M47.816 Spondylosis without myelopathy or radiculopathy, lumbar region; E11.9 Type 2 diabetes mellitus without complications; R63.4 Abnormal weight loss; R68.81 Early satiety; E87.1 Hypo-osmolality and hyponatremia; F17.210 Nicotine dependence, cigarettes, uncomplicated
CPT/HCPCS: 71260; 74177; Q9967

== ENCOUNTER → 2023-07-29 08:36 | Outpatient (CLI) | payer OTHER, MEDICAID, SELFPAY ==
[2020-11-08 19:14] VITALS: BMI 23.6
--- NOTE | 2023-07-29 08:37 | DI.ECHO.S_ITS ---
[facility]---------+ [facility] +---------+ : : [address] : : : : [phone] : : : : Phone: [phone]+ Echocardiogram Report + + :Name: CRISTAL ALVARADO Study Date: 07/29/2023 Height: 66 in : :[facility] ReadingLocation: Weight: 125 lb : : Gender: Male BSA: 1.6 m2 : :: 1960 Age: 63 yrs BP: 144/81 mmHg: :Reason For Study: New Edema : :Ordering Physician: ASHLEY, : :ROSLYN Performed By: Aida Shaikh : :Referring: ROSLYN RAMIREZ : + + Interpretation Summary The study quality was technically adequate. The ejection fraction is estimated to be 55-60%. There are no obvious focal wall motion abnormalities noted but poor endocardial definition reduces the sensitivity for the detection of such. The aortic valve is not well visualized. There is trace mitral regurgitation. Pulmonary artery pressures cannot be estimated because of the lack of a measurable TR jet velocity. Procedure: A two-dimensional transthoracic echocardiogram with color flow and Doppler was performed. There is no prior echocardiogram noted for this patient. The study quality was technically adequate. The patient was in normal sinus rhythm during the exam. Left Ventricle: The left ventricle is normal in size. The ejection fraction is estimated to be 55-60%. There are no obvious focal wall motion abnormalities noted but poor endocardial definition reduces the sensitivity for the detection of such. Diastolic parameters suggest a pseudonormalization pattern, consistent with probable elevated filling pressures. Right Ventricle: The right ventricle is normal in size and function. Atria: The left atrial size is normal. Right atrial size is normal. There is no Doppler evidence for an interatrial shunt. Mitral Valve: The mitral valve is normal. There is no mitral valve stenosis. There is trace mitral regurgitation. Aortic Valve: The aortic valve is not well visualized. There is no aortic valve stenosis. There is trace aortic regurgitation. Tricuspid Valve: The tricuspid valve is normal. There is no tricuspid stenosis. There is trace tricuspid regurgitation. Pulmonary artery pressures cannot be estimated because of the lack of a measurable TR jet velocity. Pulmonic Valve: The pulmonic valve is not well visualized. There is no pulmonic valvular stenosis. There is no pulmonic valvular regurgitation. Great Vessels: The aortic root is normal size. The ascending aorta is normal in size. The pulmonary artery is normal size. The IVC is of normal diameter and collapses greater than 50% with a sniff. This suggests a low right atrial pressure of 3 mm Hg. Pericardium/ Pleura There is no pericardial effusion. There is no pleural effusion. MMode/2D Measurements & Calculations LVIDd: 3.9 cm LVOT diam: 2.0 cm LVIDs: 2.5 cm Ao root diam: 2.9 cm FS: 35.9 % asc Aorta Diam: 2.9 cm IVSd: 0.70 cm LVPWd: 0.70 cm LV couch. diameter/BSA (cm/m^2): 2.4 LV sys. diameter/BSA (cm/m^2): 1.5 LA A2 area: 17.0 cm2 RA long axis: 4.5 cm LA A4 area: 14.5 cm2 RA area: 13.1 cm2 LA length (vol): 5.7 cm RA vol: 32.4 ml LA vol: 37.0 ml RA : 19.8 ml/m2 LA vol index: 22.6 ml/m2 RVD1 (basal): 3.1 cm LVLs ap4: 5.7 cm LVLd ap2: 7.1 cm TAPSE_phl: 2.2 cm LVLs ap2: 5.6 cm Doppler Measurements & Calculations Ao V2 max: 133.5 cm/sec LVOT Max Vic: 126.5 cm/sec Ao V2 mean: 90.9 cm/sec LV V1 max P.4 mmHg Ao max P.0 mmHg LV V1 VTI: 19.8 cm Ao mean P.0 mmHg ELVIN(I,D): 2.7 cm2 Ao V2 VTI: 23.0 cm ELVIN(V,D): 3.0 cm2 sev ratio: 0.86 ELVIN indexed to BSA (cm^2/m^2): 1.6 MV E max vic: 85.7 cm/sec SV(LVOT): 62.0 ml MV A max vic: 77.6 cm/sec MV E/A: 1.1 Med Peak E' Vic: 11.7 cm/sec E/E' med: 7.3 Lat Peak E' Vic: 15.5 cm/sec E/E' lat: 5.5 E/e' average: 6.4 MV dec time: 0.17 sec AV VR_phl: 0.95 ELVIN(VTI)/BSA_phl: 1.6 Reading Physician:02:10 PM
== END ==
PROVIDERS: PCP Family Medicine; Referring Provider Family Medicine; Visit Provider Family Medicine
DX: I25.10 Atherosclerotic heart disease of native coronary artery without angina pectoris (principal); I10 Essential (primary) hypertension; R60.0 Localized edema
CPT/HCPCS: 93306

== ENCOUNTER → 2023-08-18 10:28 | Outpatient (CLI) | payer OTHER, MEDICAID, SELFPAY ==
[2020-11-08 19:14] VITALS: BMI 23.6
--- NOTE | 2023-08-19 14:26 | DI.NM.S_ITS ---
DATE OF SERVICE: 08/19/2023 STUDY: Pharmacological perfusion study. INDICATION: Coronary artery calcification on CT scan with underlying diabetes mellitus, hypertension and hyperlipidemia. RADIOPHARMACEUTICAL: 24.6 millicuries of technetium-99m Myoview IV was injected at stress and 12.1 millicuries technetium-99m Myoview IV was injected at rest. CARDIAC STRESS: The patient underwent IV Lexiscan perfusion study under the supervision of the attending staff. He walked at low level as well. The patient remained hemodynamically stable. Baseline EKG revealed sinus rhythm. During stress, no convincing ischemic change is seen. No significant arrhythmias seen. No significant symptoms with Lexiscan. RAW DATA: There is increased subdiaphragmatic activity. GATED STUDY: Stress LV ejection fraction 87% and resting LV ejection fraction 68% without any obvious wall motion abnormalities. Resting end- diastolic volume 66 mL. TID ratio 0.90, which is within normal limits. Lung/heart ratio 0.26, which is within normal limits. MYOCARDIAL PERFUSION SCAN: Stress supine, resting supine and stress prone images were compared to each other. There appears to be normal myocardial perfusion. No convincing ischemia or infarction pattern. Summed stress score and summed rest score zero. CONCLUSION: This is a normal myocardial perfusion study without any obvious evidence of ischemia infarction. Summed stress score and summed difference score zero. Overall preserved left ventricular function. This is a low-risk myocardial perfusion scan. Bharat Mcpherson - PRESCHOOL DISABILITY TEACHER/oscar/larry doc#: [id number]/job#: [id number] dd: 08/19/2023 12:35:00 dt: 08/19/2023 14:03:00 DICTATING MD/COPIES TO: Nestor Pacheco MD COPIES MNE: CJ;
== END ==
LOC: NUCM 10:29
PROVIDERS: PCP Family Medicine; Referring Provider Family Medicine; Visit Provider Family Medicine
DX: I25.10 Atherosclerotic heart disease of native coronary artery without angina pectoris (principal); R60.0 Localized edema; E11.9 Type 2 diabetes mellitus without complications; E78.5 Hyperlipidemia, unspecified; I10 Essential (primary) hypertension
CPT/HCPCS: 78452; 93017; A9502; J2785

== ENCOUNTER 2023-12-06 08:27 | Emergency (ER) | payer OTHER, MEDICAID, SELFPAY ==
[2020-11-08 19:14] VITALS: BMI 23.6
[2023-12-06 08:30] VITALS: BP 161/84; PULSE 97; RESP 18; TEMP 36.3; O2SAT 99; BMI 21.7
[2023-12-06 08:33] VITALS: BP 161/84; PULSE 93; RESP 19; O2SAT 99
--- NOTE | 2023-12-06 08:44 | ED_ITS ---
HPI - General Adult General Chief complaint: Dizziness Stated complaint: bs high, sweating & shaky dizzy Time Seen by Provider: 12/06/23 08:33 History of Present Illness HPI narrative: 63-year-old male with history of diabetes type 2, hypertension, dyslipidemia, GERD with complaint of feeling shaky and sweaty this morning. He states he checked his glucose was in the 230 range. He states it lasted for a couple hours. He states it is resolved he feels improved currently. He denies any headache, denies any fevers he felt more cold and chilled when this happened. Denies any cold cough or congestive symptoms. Station states no chest pain or pressure, no shortness of breath. He denies any nausea or vomiting. Denies any diarrhea or constipation. States he has been stooling regularly. Denies any changes to urination no dysuria, frequency or urgency or polyuria. Denies any swelling extremities. Patient states this does not typically happen. He states his blood sugar he checks daily averages over 200 most days. He has been taking his medications regularly. States he took his morning medications today. Patient states he keeps list but his manages his medications. He denies any prior surgeries. Smokes almost a pack daily, drinks 5 or 6 alcoholic drinks on the weekends, no recreational drug use. Dr. Richard is his primary care physician. Related Data Home Medications Medication Instructions Recorded Confirmed cyanocobalamin (vitamin B-12) 1,000 mcg PO QAM 04/23/19 12/06/23 1,000 mcg tablet (Vitamin B-12) aspirin 81 mg tablet 81 mg PO QAM 11/08/20 12/06/23 calcium carbonate 215 mg calcium 215 mg PO QAM 11/08/20 12/06/23 (500 mg) chewable tablet (Antacid (calcium carbonate)) cholecalciferol (vitamin D3) 125 125 mcg PO DAILY 11/08/20 12/06/23 mcg (5,000 unit) tablet (Vitamin D3) rivaroxaban 2.5 mg tablet (Xarelto) mg PO 12/06/23 Previous Rx's Medication Instructions Recorded lancets 33 gauge (BD Ultra Fine #100 ea 06/11/22 Lancets) blood sugar diagnostic #100 ea 04/08/23 blood sugar diagnostic (OneTouch #100 strips 04/08/23 Ultra Test strips) lisinopril 40 mg tablet 40 mg PO BID #180 tabs 06/13/23 metformin 1,000 mg tablet 1,000 mg PO QAM #90 tabs 07/05/23 Disabled Parking Permit #1 ea 07/08/23 omeprazole 20 mg tablet,delayed 20 mg PO QAM #90 tabs 07/08/23 release atorvastatin 10 mg tablet 10 mg PO BEDTIME #90 tabs 07/18/23 metoprolol succinate 50 mg 50 mg PO DAILY #90 tabs 09/16/23 tablet,extended release 24 hr dapagliflozin propanediol 5 mg 5 mg PO DAILY #90 tabs 09/19/23 tablet ([facility]) Allergies Allergy/AdvReac Type Severity Reaction Status Date / Time No Known Drug Allergies Allergy Verified 12/06/23 08:51 Review of Systems Review of Systems ROS Unobtainable: All systems reviewed & are unremarkable except as noted in HPI and below Patient History Medical History CAD (coronary artery disease) Early satiety Chronic hyponatremia Erectile dysfunction Wears glasses Osteoporosis (~2018) Fractures (~2004) Chicken pox Vertigo Hemorrhoid Anemia Hyperlipidemia Acute radial nerve palsy Pancreatitis (~2001) Alcohol dependence Tobacco dependency Alcohol withdrawal Pneumonia Multiple fractures of ribs Hypertension GERD (gastroesophageal reflux disease) Diabetes Surgical History Anesthesia S/P exploratory laparotomy (~2001) Status post hernia repair Family History Mother Diabetes mellitus Father Hypertension Bladder cancer Social History marital status: household members: spouse Smoking Status: Current every day smoker alcohol intake: current substance use type: does not use Smoking Status: Current every day smoker alcohol intake frequency: 3 or more drinks per day Substance Use Type: does not use Exam Narrative Exam Narrative: GENERAL: Alert and oriented x three, thin male in mild distress. No diaphoresis. HEENT: Head normocephalic, atraumatic, EOMI, pupils reactive, face symmetric, moist mucous membranes NECK: Supple, full range of motion CARDIOVASCULAR: Regular rate and rhythm without murmurs, rubs or gallops. No JVD. No swelling bilateral lower extremities. RESPIRATORY: Breath sounds equal bilaterally, no wheezes rales or rhonchi. No tachypnea accessory muscle use. No cough. ABDOMEN: Soft, nontender. Normoactive bowel sounds all 4 quadrants. No guarding or rebound, rigidity, no mass : No CVA tenderness EXTREMITIES: Normal range of motion, no clubbing or edema. Neurovascularly intact NEUROLOGICAL: Cranial nerves II through XII grossly intact. Moving all extremities SKIN: Warm, dry, no petechiae, no rashes or lesions. Initial Vital Signs Initial Vital Signs: Vital Signs Temperature 97.3 F L 12/06/23 08:30 Pulse Rate 97 H 12/06/23 08:30 Respiratory Rate 18 12/06/23 08:30 Blood Pressure 161/84 H 12/06/23 08:30 Pulse Oximetry 99 12/06/23 08:30 Oxygen Delivery Method Room Air 12/06/23 08:30 Course Orders Ordered: ED Orders 12/06/23 08:40 CBC Auto Diff [Complete Blood Count AUTO DIFF] Stat CMP [Comprehensive Metabolic Panel] Stat Ketones (Beta-Hydroxybutyrate) Stat Lipase Stat 12/06/23 09:11 VBG [Venous Blood Gas] Stat Discontinued Medications Sodium Chloride (Normal Saline 0.9%) 1,000 mls @ 1,000 mls/hr IV BOLUS ONE Stop: 12/06/23 09:47 Last Infusion: 12/06/23 09:54 Dose: Infused Documented By: MARIA M Admin: 12/06/23 09:05 Dose: 1,000 mls/hr Documented By: MARVA Vital Signs Vital signs: Vital Signs - 8 hr 12/06/23 08:30 12/06/23 08:33 12/06/23 08:33 Temperature 97.3 F L Pulse Rate 97 H 93 H Respiratory Rate 18 19 Blood Pressure 161/84 H 161/84 H Pulse Oximetry 99 99 Oxygen Delivery Method Room Air 12/06/23 09:00 12/06/23 09:00 12/06/23 09:30 Temperature Pulse Rate 83 79 Respiratory Rate 14 13 Blood Pressure 133/76 Pulse Oximetry 100 100 Oxygen Delivery Method 12/06/23 09:30 Temperature Pulse Rate Respiratory Rate Blood Pressure 146/74 H Pulse Oximetry Oxygen Delivery Method Medical Decision Making Lab Data 12/06/23 08:40 12/06/23 08:40 Labs: Lab Results 12/06/23 12/06/23 Range/Units 08:40 09:11 WBC 6.3 (4.5-11.0) X10^3/uL RBC 3.67 L (4.5-5.9) X10^6/uL Hgb 12.5 L (13.5-17.5) g/dL Hct 36.7 L (41-53) % MCV 99.8 (80-100) fL MCH 34.1 H (26-34) PG MCHC 34.1 (30-36) % RDW 15.7 H (11.6-14.8) % Plt Count 320 (150-400) X10^3/uL Neut % (Auto) 62.8 (50-75) % Lymph % (Auto) 21.7 L (25-40) % [place] % (Auto) 10.7 (3-14) % Eos % (Auto) 4.1 H (2-4) % Baso % (Auto) 0.7 (0-2) % Neut # (Auto) 4000 (7657-1268) /uL Lymph # (Auto) 1400 (0002-0548) /uL [place] # (Auto) 700 (0-900) /uL Eos # (Auto) 300 (0-450) /uL Baso # (Auto) 0 (0-100) /uL VBG pH 7.36 (7.33-7.43) VBG pCO2 48.6 (45-50) mmHg VBG pO2 37 (35-45) mmHg VBG HCO3 27 (24-28) mmol/L VBG Total CO2 29 (24-29) mmol/L VBG O2 Saturation 67 L (70-75) % VBG Base Excess 2.0 (0-4) mmol/L FiO2 21 Sodium 129 L (137-145) mmol/L Potassium 4.3 (3.4-5.1) mmol/L Chloride 92 L (98-107) mmol/L Carbon Dioxide 27 (22-32) mmol/L BUN 5 L (9-20) mg/dL Creatinine 0.58 L (0.66-1.25) mg/dL Estimated GFR > 60 (>60) mL/min BUN/Creatinine Ratio 8.6 (6-22) Glucose 331 H (80-110) mg/dL Calcium 9.5 (8.4-10.2) mg/dL Total Bilirubin 0.6 (0.2-1.3) mg/dL AST 30 (17-59) IU/L ALT 17 (<50) IU/L Alkaline Phosphatase 81 (38-126) U/L Total Protein 6.4 (6.3-8.2) g/dL Albumin 3.7 (3.5-5.0) g/dL Globulin 2.7 (1.7-4.1) g/dL Albumin/Globulin Ratio 1.4 (1.0-2.8) Lipase 50 (23-300) U/L Ketones 0.09 (<0.27) mmol/L Point of Care Testing Glucose POC 273 Urine Dip Bedside Urine Glucose 1000 mg/dl Bedside Urine Bilirubin - Negative Bedside Urine Ketone - Negative Urine Specific [place] 1.010 Bedside Urine Occult Blood - Negative Bedside Urine pH 6.0 Bedside Urine Protein - Negative Bedside Urine Urobilinogen - Negative Bedside Urine Nitrite - Negative Bedside Urine Leukocytes - Negative Esterase Point of care testing: Point of Care Testing Glucose POC 273 Urine Dip Bedside Urine Glucose 1000 mg/dl Bedside Urine Bilirubin - Negative Bedside Urine Ketone - Negative Urine Specific [place] 1.010 Bedside Urine Occult Blood - Negative Bedside Urine pH 6.0 Bedside Urine Protein - Negative Bedside Urine Urobilinogen - Negative Bedside Urine Nitrite - Negative Bedside Urine Leukocytes - Negative Esterase ECG Data Attestation: I personally reviewed and interpreted this ECG as follows: Prior ECG tracings: available for review Interpretation: Sinus rhythm rate 81 TN 136 QRS 84 QTC 439. No acute ST elevation depression noted. Patient likely has motion artifact in V1, patient's EKG overall appears similar to prior from 11/18/2021. MDM Narrative Medical decision making narrative: 63-year-old male who states earlier this morning he was sweaty and shaky and clammy. He states symptoms have resolved. Glucose was in the 260s he states he does tend to run 200 or above most days. States he has been taking his medication regularly. Patient here is slightly hypertensive but otherwise overall appropriate vitals. Glucose here in the department is 355 range. Labs show hemoglobin 12.5 consistent with patient's priors white count is 6.3, platelets are 320. Coags reviewed. Chemistry shows a sodium of 129, corrected for hyperglycemia is 133 similar to prior on 07/08/2023, chloride 92 creatinine 0.58 with a BUN of 5 glucose is 331 with normal LFTs. VBG shows a pH of significant 0.35, pCO2 of 48 with a bicarb of 27. Ketones is negative. Urine shows 1000 glucose but otherwise negative with a specific gravity of 1.010, no obvious signs infection Patient received a L of fluids, on recheck glucose is 273. He continues to feel improved. He is ambulated to the bathroom several times. Spoke with patient's he was started on Farxiga in July had some improvement of sugars but they started to become more consistently in the 200 range. He has follow up this Tuesday for lab draw and then follow-up at the beginning of next week. Recommend to continue with current plan. To reach out to primary care if he is starting to run higher than 200s over the next several days and they can adjust medications by phone or if he is feeling significantly worse to return to the ED. Discharge Plan Departure Patient Disposition: Home Clinical Impression: Hyperglycemia Activity Restrictions/Additional Instructions: Your workup today shows your glucose is elevated but overall labs are normal. Your sodium level is low on your lab draw but when collected for your hyperglycemia or elevated glucose it is appropriate at 135. Please follow-up with your physician for recheck and to adjust your medications as needed. Please return for new or worsening symptoms, chest pain, shortness of breath, lightheadedness or passing out, persistent vomiting or other new or concerning changes. Prescriptions: No Action lisinopril 40 mg tablet 40 mg PO BID Qty: 180 3RF metformin 1,000 mg tablet 1,000 mg PO QAM Qty: 90 1RF atorvastatin 10 mg tablet 10 mg PO BEDTIME Qty: 90 3RF Farxiga 5 mg tablet 5 mg PO DAILY Qty: 90 0RF (DME) lancets [BD Ultra Fine Lancets] 33 gauge misc See Rx Instructions .ROUTE .MEDSUPPLY Qty: 100 3RF Rx Instructions: Use to test blood glucose TID (DME) OneTouch Ultra Test Strip See Rx Instructions .ROUTE .COMPLEX Qty: 100 11RF Dose Instruction: USE TO TEST BLOOD SUGARS THREE TIMES DAILY Rx Instructions: USE TO TEST BLOOD SUGARS THREE TIMES DAILY (DME) OneTouch Ultra Blue Test Strip Strip See Rx Instructions .ROUTE .MEDSUPPLY Qty: 100 3RF Rx Instructions: As directed, daily omeprazole 20 mg tablet,delayed release (DR/EC) 20 mg PO QAM Qty: 90 3RF (DME) Disabled Parking Permit See Rx Instructions .ROUTE .MEDSUPPLY Qty: 1 0RF Rx Instructions: I find this patient to be medically disabled and qualified for Disabled Parking as indicated and signed on the accompanying Disabled Parking Application for Individuals. metoprolol succinate 50 mg tablet extended release 24 hr 50 mg PO DAILY Qty: 90 1RF cyanocobalamin (vitamin B-12) [Vitamin B-12] 1,000 mcg Tablet 1,000 mcg PO QAM aspirin 81 mg Tablet 81 mg PO QAM cholecalciferol (vitamin D3) [Vitamin D3] 125 mcg (5,000 unit) Tablet 125 mcg PO DAILY Antacid (calcium carbonate) 215 mg calcium (500 mg) Tablet,Chewable 215 mg PO QAM Xarelto 2.5 mg tablet PO Patient Comments: pt has not started due to high co pay Referrals: Rao Richard MD [Primary Care Provider] - Stand Alone Forms: Patient Portal/API, Work Release Note
[2023-12-06 08:59] LABS: Add Manual Diff / Slide Review NO; Basophils Absolute Auto 0 /uL (0-100); Basophils Percent Auto 0.7 % (0-2); Eosinophils Absolute Auto 300 /uL (0-450); Eosinophils Percent Auto 4.1 % (2-4); Hematocrit 36.7 % (41-53); Hemoglobin 12.5 g/dL (13.5-17.5); Lymphocytes Absolute Auto 1400 /uL (1100-4500); Lymphocytes Percent Auto 21.7 % (25-40); Mean Corpuscular HGB Conc 34.1 % (30-36); Mean Corpuscular Hemoglobin 34.1 PG (26-34); Mean Corpuscular Volume 99.8 fL (80-100); Monocytes Absolute Auto 700 /uL (0-900); Monocytes Percent Auto 10.7 % (3-14); Neutrophils Absolute Auto 4000 /uL (1500-7000); Neutrophils Percent Auto 62.8 % (50-75); Platelet Count 320 X10^3/uL (150-400); Red Blood Cell Count 3.67 X10^6/uL (4.5-5.9); Red Cell Distribution Width 15.7 % (11.6-14.8); White Blood Cell Count 6.3 X10^3/uL (4.5-11.0)
[2023-12-06 09:00] VITALS: BP 133/76; PULSE 83; RESP 14; O2SAT 100
[2023-12-06] MEDS: SODIUM CHLORIDE 0.9% 1,000 ML 1000 ML IV (09:05)
[2023-12-06 09:08] LABS: Alanine Aminotransferase 17 IU/L (<50); Albumin 3.7 g/dL (3.5-5.0); Albumin Globulin Ratio 1.4 (1.0-2.8); Alkaline Phosphatase 81 U/L (38-126); Aspartate Aminotransferase 30 IU/L (17-59); BUN Creatinine Ratio 8.6 (6-22); Bilirubin Total 0.6 mg/dL (0.2-1.3); Blood Urea Nitrogen 5 mg/dL (9-20); Calcium 9.5 mg/dL (8.4-10.2); Carbon Dioxide 27 mmol/L (22-32); Chloride 92 mmol/L (98-107); Estimated Glomerular Filt Rate > 60 mL/min (>60); Globulin 2.7 g/dL (1.7-4.1); Glucose 331 mg/dL (80-110); HEMOLYSIS < 15 (0-50); Lipase 50 U/L (23-300); Potassium 4.3 mmol/L (3.4-5.1); Sodium 129 mmol/L (137-145); Total Protein 6.4 g/dL (6.3-8.2)
[2023-12-06 09:21] LABS: Fractionated Inspired Oxygen 21; HCO3 VBG 27 mmol/L (24-28); Oxygen Saturation VBG 67 % (70-75); PCO2 VBG 48.6 mmHg (45-50); PO2 VBG 37 mmHg (35-45); Total CO2 VBG 29 mmol/L (24-29); pH VBG 7.36 (7.33-7.43)
[2023-12-06 09:30] VITALS: BP 146/74; PULSE 79; RESP 13; O2SAT 100
[2023-12-06 09:49] LABS: Ketones (Beta-Hydroxybutyrate) 0.09 mmol/L (<0.27)
== END 2023-12-06 10:45 | disposition home or self-care (01) ==
PROVIDERS: Emergency Provider Emergency Medicine; PCP Family Medicine
DX: E11.65 Type 2 diabetes mellitus with hyperglycemia (principal); I10 Essential (primary) hypertension; Z79.01 Long term (current) use of anticoagulants; Z79.899 Other long term (current) drug therapy
CPT/HCPCS: 36415; 80053; 81003; 82009; 82805; 82962; 83690; 85025; 93005; 96360; 99284

== ENCOUNTER → 2023-12-09 06:50 | Outpatient (CLI) | payer OTHER, MEDICAID, SELFPAY ==
[2020-11-08 19:14] VITALS: BMI 23.6
[2023-12-09 08:03] LABS: Add Manual Diff / Slide Review NO; Basophils Absolute Auto 0 /uL (0-100); Basophils Percent Auto 0.7 % (0-2); Eosinophils Absolute Auto 300 /uL (0-450); Eosinophils Percent Auto 5.8 % (2-4); Hematocrit 35.5 % (41-53); Hemoglobin 12.2 g/dL (13.5-17.5); Lymphocytes Absolute Auto 1300 /uL (1100-4500); Lymphocytes Percent Auto 29.8 % (25-40); Mean Corpuscular HGB Conc 34.3 % (30-36); Mean Corpuscular Hemoglobin 34.3 PG (26-34); Mean Corpuscular Volume 99.8 fL (80-100); Monocytes Absolute Auto 400 /uL (0-900); Monocytes Percent Auto 10.1 % (3-14); Neutrophils Absolute Auto 2400 /uL (1500-7000); Neutrophils Percent Auto 53.6 % (50-75); Platelet Count 343 X10^3/uL (150-400); Red Blood Cell Count 3.55 X10^6/uL (4.5-5.9); Red Cell Distribution Width 15.6 % (11.6-14.8); White Blood Cell Count 4.5 X10^3/uL (4.5-11.0)
[2023-12-09 08:08] LABS: Hemoglobin A1C% w Est Avg Glu 7.4 % (4.0-6.0)
[2023-12-09 08:30] LABS: Alanine Aminotransferase 15 IU/L (<50); Albumin 3.6 g/dL (3.5-5.0); Albumin Globulin Ratio 1.6 (1.0-2.8); Alkaline Phosphatase 71 U/L (38-126); Aspartate Aminotransferase 27 IU/L (17-59); BUN Creatinine Ratio 7.1 (6-22); Bilirubin Total 0.7 mg/dL (0.2-1.3); Blood Urea Nitrogen 4 mg/dL (9-20); Calcium 9.9 mg/dL (8.4-10.2); Carbon Dioxide 29 mmol/L (22-32); Chloride 95 mmol/L (98-107); Estimated Glomerular Filt Rate > 60 mL/min (>60); Globulin 2.3 g/dL (1.7-4.1); Glucose 146 mg/dL (80-110); HEMOLYSIS < 15 (0-50); Potassium 4.9 mmol/L (3.4-5.1); Sodium 130 mmol/L (137-145); Total Protein 5.9 g/dL (6.3-8.2)
== END ==
PROVIDERS: PCP Family Medicine; Referring Provider Family Medicine; Visit Provider Family Medicine
DX: E87.1 Hypo-osmolality and hyponatremia (principal); F17.210 Nicotine dependence, cigarettes, uncomplicated; E11.9 Type 2 diabetes mellitus without complications; I10 Essential (primary) hypertension; E78.5 Hyperlipidemia, unspecified; F17.200 Nicotine dependence, unspecified, uncomplicated; I25.10 Atherosclerotic heart disease of native coronary artery without angina pectoris
CPT/HCPCS: 36415; 80053; 83036; 84443; 85025

== ENCOUNTER 2024-01-20 12:18 | Day surgery (SDC) | payer OTHER, MEDICAID, SELFPAY ==
[2020-11-08 19:14] VITALS: BMI 23.6
--- NOTE | 2024-01-20 | PATH_ITS ---
[facility] Accession Number: [id number] No. of containers..03 Tissue . 01 Material submitted: . PART A: gastrointestinal site - GASTRIC PART B: colon - SIGMOID COLON POLYP PART C: colon - ASCENDING COLON POLYP TATTOO . 01 Diagnosis: Part A: GASTRIC : Gastric mucosa with mild chronic inflammation. No Helicobacter organisms identified. No intestinal metaplasia, dysplasia, or malignancy identified. . Part B: SIGMOID COLON POLYP: Tubular adenoma. . Part C: ASCENDING COLON POLYP TATTOO: Colonic mucosa with benign lymphoid aggregate. No neoplasm identified. . Specimen Comments: Additional step sections were examined. [facility] 01/25/2024 1717 Local . 01 Comment: Part A: An immunohistochemical stain was performed to evaluate for Helicobacter organisms and is negative. The control stains appropriately. * This test was developed and its performance characteristics determined by [facility]. It has not been cleared or approved by the U.S. Food and Drug Administration. The FDA has determined that such clearance or approval is not necessary. This test is used for clinical purposes. It should not be regarded as investigational or for research. . 01 Electronically signed: . Jose Carlos Dee MD, Pathologist NPI- [id number] . 01 Gross description: . Part A: GASTRIC : Received in formalin are 2 fragment(s) of vides, soft tissue measuring 0.2 x 0.2 x 0.2 cm to 0.3 x 0.2 x 0.2 cm submitted entirely in 1 cassette(s) . Part B: SIGMOID COLON POLYP: Received in formalin are 2 fragment(s) of vides, soft tissue measuring 0.6 x 0.6 x 0.3 cm to 0.7 x 0.6 x 0.3 cm submitted entirely in 1 cassette(s) . Part C: ASCENDING COLON POLYP TATTOO: Received in formalin is 1 fragment(s) of vides, soft tissue measuring 0.7 x 0.2 x 0.2 cm submitted entirely in 1 cassette(s) /THAD 01/25/2024 1717 Local . 01 Pathologist provided ICD-10: D12.5, K29.50, K63.5 . 01 CPT . 791512, 811566, 754392, [id number] Specimen Comment: A courtesy copy of this report has been sent to [phone] Performed at: 01 [facility] [address] [place] [address], [place], [place] [id number] MD Jose Carlos Dee MD Phone: [phone]
[2024-01-20 13:15] VITALS: BP 153/84; PULSE 88; RESP 16; TEMP 37.1; O2SAT 100
[2024-01-20] MEDS: LACTATED RINGERS 1,000 ML 42 ML IV (13:17)
--- NOTE | 2024-01-20 13:20 | PM.PREOP ---
Pre-operative Note Interval Note History & Physical reviewed/Exam performed by Physician: Yes Changes to H&P: No
[2024-01-20 14:04] VITALS: BP 104/59; PULSE 68; RESP 32; TEMP 36.6; O2SAT 100
[2024-01-20 14:09] VITALS: BP 113/66; PULSE 60; RESP 27; O2SAT 100
--- NOTE | 2024-01-20 14:09 | P.OP.EGD&C_ITS ---
Operative Date/Time/Diagnoses Date of procedure: 01/20/24 Time of procedure: 14:09 Pre-op diagnosis: Anemia Procedure & Clinicians Study performed: Esophagogastroduodenoscopy and colonoscopy Same procedure as scheduled: Yes Indications: 63-year-old male smoker with Anemia Surgeon: Gary Rachel Procedure Notes Procedure in detail: The history and physical was performed/updated and the patient is ASA class is 2. The procedure was discussed in detail with the patient. Potential risks complications including infection, bleeding, missed diagnosis, perforation, need for surgery, and were explained. Their questions were answered and informed consent was obtained. Patient placed in left lateral decubitus position. Time out was performed. Procedural sedation was administered by Anesthesia. A bite block was placed. the scope was inserted into the mouth and advanced through the esophagus and into the stomach. the pylorus was intubated and the duodenum was examined to the 2nd portion.. The scope was retroflexed within the stomach. The stomach was th en decompressed and scope pulled back to the GE junction. The scope was then removed Examination began with a thorough inspection of the perianal area there was no evidence of fissures, fistulae, external hemorrhoids or cutaneous malignancy. The colonoscopy scope was then placed into the anal canal and was advanced to the cecum, which was identified by the ileocecal valve, the appendiceal orifice and the confluence of the taenia. The scope was then slowly withdrawn examining colon thoroughly in all directions, irrigating it of any residual stool. FINDINGS Mild gastritis within the distal stomach. Biopsies taken with forceps. Active hemorrhage Sigmoid colon 3 mm polyp removed with cold snare Ascending colon within a mucosal fold there was a 1 cm sessile polyp. We were able to perform biopsy of the polyp but complete resection was not possible secondary to its location. Tattoo was placed adjacent to the lesion. The patient tolerated the procedure well. They will be discharged once criteria are met. The prep was of good/excellent quality. The withdrawl time was 9 minutes. Specimen(s): other (Gastric, ascending colon polyp, sigmoid colon polyp) Impression: Colonic polyp x2 with incomplete resection of polyp Gastritis Post-procedure Plan for aftercare: Follow up with General surgery Clinic for discussion of incomplete polypectomy. Disposition: same day surgery
[2024-01-20 14:14] VITALS: BP 120/75; PULSE 81; RESP 13; O2SAT 100
[2024-01-20 14:22] VITALS: BP 108/74; PULSE 70; RESP 12; TEMP 36.6; O2SAT 100
== END 2024-01-20 14:34 | disposition home or self-care (01) ==
PROVIDERS: PCP Family Medicine; Referring Provider Surgery; Visit Provider Surgery
PROC: 0DJ08ZZ Inspection of Upper Intestinal Tract, Via Natural or Artificial Opening Endoscopic (ICD-10-PCS; CPT 43235; principal; 2024-01-20 13:45)
PROC: 0DJD8ZZ Inspection of Lower Intestinal Tract, Via Natural or Artificial Opening Endoscopic (ICD-10-PCS; CPT 45378; 2024-01-20 13:45)
DX: D64.9 Anemia, unspecified (principal); Z86.010 Personal history of colon polyps; E11.9 Type 2 diabetes mellitus without complications; Z79.84 Long term (current) use of oral hypoglycemic drugs; F17.210 Nicotine dependence, cigarettes, uncomplicated; K29.50 Unspecified chronic gastritis without bleeding; D12.5 Benign neoplasm of sigmoid colon
CPT/HCPCS: 45381; 45380; 45385; 43239; J2704

== ENCOUNTER → 2024-06-02 07:34 | Outpatient (CLI) | payer OTHER, SELFPAY ==
[2020-11-08 19:14] VITALS: BMI 23.6
[2024-06-02 09:16] LABS: Add Manual Diff / Slide Review NO; Basophils Absolute Auto 0 /uL (0-100); Basophils Percent Auto 0.5 % (0-2); Eosinophils Absolute Auto 300 /uL (0-450); Eosinophils Percent Auto 4.7 % (2-4); Hematocrit 33.7 % (41-53); Hemoglobin 11.5 g/dL (13.5-17.5); Lymphocytes Absolute Auto 1300 /uL (1100-4500); Lymphocytes Percent Auto 22.4 % (25-40); Mean Corpuscular HGB Conc 34.2 % (30-36); Mean Corpuscular Hemoglobin 34.4 PG (26-34); Mean Corpuscular Volume 100.7 fL (80-100); Monocytes Absolute Auto 500 /uL (0-900); Monocytes Percent Auto 8.4 % (3-14); Neutrophils Absolute Auto 3700 /uL (1500-7000); Platelet Count 274 X10^3/uL (150-400); Red Blood Cell Count 3.34 X10^6/uL (4.5-5.9); Red Cell Distribution Width 14.4 % (11.6-14.8); White Blood Cell Count 5.8 X10^3/uL (4.5-11.0)
[2024-06-02 09:24] LABS: Hemoglobin A1C% w Est Avg Glu 7.7 % (4.0-6.0)
[2024-06-02 09:41] LABS: HEMOLYSIS < 15 (0-50); Iron 73 ug/dL (49-181)
[2024-06-02 09:43] LABS: Alanine Aminotransferase 12 IU/L (<50); Albumin 3.7 g/dL (3.5-5.0); Albumin Globulin Ratio 1.9 (1.0-2.8); Alkaline Phosphatase 83 U/L (38-126); Aspartate Aminotransferase 20 IU/L (17-59); BUN Creatinine Ratio 9.4 (6-22); Bilirubin Total 0.6 mg/dL (0.2-1.3); Blood Urea Nitrogen 6 mg/dL (9-20); Calcium 9.3 mg/dL (8.4-10.2); Carbon Dioxide 29 mmol/L (22-32); Chloride 97 mmol/L (98-107); Estimated Glomerular Filt Rate > 60 mL/min (>60); Glucose 141 mg/dL (80-110); HEMOLYSIS < 15 (0-50); Potassium 4.4 mmol/L (3.4-5.1); Sodium 132 mmol/L (137-145); Total Protein 5.7 g/dL (6.3-8.2)
[2024-06-02 09:53] LABS: Percent Iron Saturation 22 % (20-50); Total Iron Binding Capacity 334 ug/dL (261-462); Transferrin 268 mg/dL (206-381)
[2024-06-02 10:18] LABS: Ferritin 12 ng/mL (18-464)
[2024-06-02 10:32] LABS: Vitamin B12 > 1000 pg/mL (239-931)
== END ==
PROVIDERS: PCP Family Medicine; Referring Provider Family Medicine; Visit Provider Family Medicine
DX: K63.5 Polyp of colon (principal); I25.10 Atherosclerotic heart disease of native coronary artery without angina pectoris; F17.210 Nicotine dependence, cigarettes, uncomplicated; I10 Essential (primary) hypertension; E11.9 Type 2 diabetes mellitus without complications; E78.5 Hyperlipidemia, unspecified
CPT/HCPCS: 36415; 80053; 82607; 82728; 83036; 83540; 83550; 85025

== ENCOUNTER → 2024-07-06 08:27 | Outpatient (CLI) | payer OTHER, SELFPAY ==
[2020-11-08 19:14] VITALS: BMI 23.6
--- NOTE | 2024-07-06 08:28 | DI.CT.S_ITS ---
PROCEDURE: CT LUNG LOW DOSE SCREENING INDICATIONS: Nicotine dependence, cigarettes, uncomplicated TECHNIQUE: Noncontrast 2.0-2.5 mm thick sections acquired from the pulmonary apices to the posterior costophrenic angles. 7 mm thick axial MIP, and 5 mm coronal and sagittal reformats were then acquired. For radiation dose reduction, the following was used: automated exposure control, adjustment of mA and/or kV according to patient size. COMPARISON: [facility], CT, CT CHEST WO CON, 04/15/2023, 11:40. [facility], CT, CT CHEST ABD PEL W CON, 07/16/2023, 8:39. FINDINGS: Image quality: Diagnostic. Lower Neck: No enlarged lymph nodes. Thyroid: No thyroid nodules which require sonographic follow up, per consensus guidelines. Axillae: No enlarged lymph nodes. Chest Wall: Unremarkable. Bones: No aggressive appearing bony lesions. Lungs and Pleura: No pneumothorax or pleural effusions. No consolidation or suspicious nodules. Heart: Heart size is normal. No pericardial effusion. Thoracic Vessels: The aorta and pulmonary arteries demonstrate normal size. 2 vessel coronary artery atherosclerotic calcifications are seen. Mediastinum and Lidia: No enlarged lymph nodes. Esophagus: No wall thickening. No hiatal hernia. Upper Abdomen: Visualized upper abdomen solid organs and bowel loops appear normal. IMPRESSION: No suspicious pulmonary nodules. LUNG-RADS 1; continued annual screening, if eligible. Clinically Significant Non-pulmonary Findings: 2 vessel coronary artery atherosclerotic calcifications. Dictated by: Sumit Robles M.D. on 07/06/2024 at 10:57 Approved by: Sumit Robles M.D. on 07/06/2024 at 11:16
== END ==
PROVIDERS: PCP Family Medicine; Referring Provider Family Medicine; Visit Provider Family Medicine
DX: F17.210 Nicotine dependence, cigarettes, uncomplicated (principal); I25.10 Atherosclerotic heart disease of native coronary artery without angina pectoris
CPT/HCPCS: 71271

== ENCOUNTER 2024-08-19 17:35 | Emergency (ER) | payer OTHER, SELFPAY ==
[2020-11-08 19:14] VITALS: BMI 23.6
[2024-08-19] VITALS (8 sets, daily range): BP systolic 116–139; BP diastolic 70–80; PULSE 79–88; RESP 9–21; TEMP 37; O2SAT 99–100; BMI 20.2
--- NOTE | 2024-08-19 18:04 | ED_ITS ---
HPI - Abdominal Pain General Chief Complaint: Abdominal Pain Stated Complaint: abd pain t-1 Time Seen by Provider: 08/19/24 18:03 Source: patient Mode of arrival: Ambulatory History of Present Illness HPI narrative: Patient is a 64-year-old male history of hypertension diabetes great alcohol use osteoporosis anemia presenting today with abdominal pain. He reports that it started last night burning in the middle of his stomach. No radiation to his back or chest. He denies any nausea. He says he woke up and went to work at the [employer] this morning but continues to have pain. He had a normal bowel movement. No fever chills. He has previously had pancreatitis but he says this does not quite feel like that. He did not try to take anything at home for pain Related Data Home Medications Medication Instructions Recorded Confirmed cyanocobalamin (vitamin B-12) 1,000 mcg PO QAM 04/23/19 06/22/24 1,000 mcg tablet (Vitamin B-12) aspirin 81 mg tablet 81 mg PO QAM 11/08/20 06/22/24 calcium carbonate (Antacid 215 mg PO QAM 11/08/20 06/22/24 (calcium carbonate)) cholecalciferol (vitamin D3) 125 125 mcg PO DAILY 11/08/20 06/22/24 mcg (5,000 unit) tablet (Vitamin D3) Previous Rx's Medication Instructions Recorded blood sugar diagnostic #100 ea 04/08/23 blood sugar diagnostic (OneTouch #100 strips 04/08/23 Ultra Test strips) Disabled Parking Permit #1 ea 07/08/23 lancets 33 gauge #100 ea 12/16/23 atorvastatin 10 mg tablet 10 mg PO BEDTIME #90 tabs 03/16/24 dapagliflozin propanediol 10 mg 10 mg PO DAILY #90 tabs 03/16/24 tablet (Farxiga) lisinopril 40 mg tablet 40 mg PO BID #180 tabs 03/16/24 metformin 1,000 mg tablet,extended 1,000 mg PO QPM #90 tabs 03/16/24 release 24hr (osmotic) ferrous sulfate 324 mg (65 mg 324 mg PO DAILY #90 tabs 06/22/24 iron) tablet,delayed release metoprolol succinate 50 mg 50 mg PO DAILY #90 tabs 06/22/24 tablet,extended release 24 hr omeprazole 20 mg tablet,delayed 40 mg (2 x 20 mg) PO QAM #180 tabs 06/22/24 release Allergies Allergy/AdvReac Type Severity Reaction Status Date / Time No Known Drug Allergies Allergy Verified 06/22/24 10:45 Patient History Medical History CAD (coronary artery disease) Early satiety Chronic hyponatremia Erectile dysfunction Wears glasses Osteoporosis (~2018) Fractures (~2004) Chicken pox Vertigo Hemorrhoid Anemia Hyperlipidemia Acute radial nerve palsy Pancreatitis (~2001) Alcohol dependence Tobacco dependency Alcohol withdrawal Pneumonia Multiple fractures of ribs Hypertension GERD (gastroesophageal reflux disease) Diabetes Surgical History Anesthesia S/P exploratory laparotomy (~2001) Status post hernia repair Family History Mother Diabetes mellitus Father Hypertension Bladder cancer Social History marital status: household members: spouse lives independently: Yes occupational status: employed Smoking Status: Current every day smoker alcohol intake: current substance use type: does not use Smoking Status: Current every day smoker tobacco type: cigarettes alcohol intake frequency: 3 or more drinks per day Alcohol type: beer and hard liquor Substance Use Type: does not use Exam Initial Vital Signs Initial Vital Signs: Vital Signs Temperature 98.6 F 08/19/24 17:46 Pulse Rate 88 08/19/24 17:46 Respiratory Rate 18 08/19/24 17:46 Blood Pressure 116/70 08/19/24 17:46 Pulse Oximetry 99 08/19/24 17:46 Oxygen Delivery Method Room Air 08/19/24 17:46 GENERAL: Alert thin malnourished 64-year-old male and in no acute distress. HEENT: Head atraumatic,EOMI, pupils reactive, face symmetric, moist mucous membranes CARDIOVASCULAR: Regular rate and rhythm without murmurs, rubs or gallops. RESPIRATORY: Breath sounds equal bilaterally, no wheezes rales or rhonchi. ABDOMEN: Soft, no distention tender periumbilical region negative Lockhart's sign : No CVA tenderness EXTREMITIES: Normal range of motion, no clubbing or edema. Neurovascularly intact NEUROLOGICAL: Alert and oriented x4.Normal gait and speech. SKIN: Warm, dry, no laceration, no petechiae, no rashes or lesions. Course Orders Ordered: ED Orders 08/19/24 17:57 EKG-12 Lead Stat 08/19/24 18:02 Complete Blood Count AUTO DIFF Stat Comprehensive Metabolic Panel Stat Lipase Stat 08/19/24 19:00 CT abdomen pelvis w con Stat Discontinued Medications Morphine Sulfate (Morphine 2 Mg/Ml Inj) 2 mg IV NOW ONE Stop: 08/19/24 18:10 Last Admin: 08/19/24 18:16 Dose: 2 mg Documented By: HAIDER Ondansetron HCl (Ondansetron 4 Mg/2 Ml Inj) 4 mg IV NOW PRN PRN Reason: Nausea And Vomiting Ondansetron HCl (Ondansetron 4 Mg Odt) 4 mg PO NOW PRN PRN Reason: Nausea And Vomiting Ondansetron HCl (Ondansetron 4 Mg/2 Ml Inj) 4 mg IV NOW ONE Stop: 08/19/24 18:10 Last Admin: 08/19/24 18:46 Dose: Not Given Documented By: HAIDER Vital Signs Vital signs: Vital Signs - 8 hr 08/19/24 17:46 08/19/24 18:00 08/19/24 18:01 Temperature 98.6 F Pulse Rate 88 84 84 Respiratory Rate 18 Blood Pressure 116/70 Pulse Oximetry 99 100 100 Oxygen Delivery Method Room Air 08/19/24 18:01 08/19/24 18:30 08/19/24 19:00 Temperature Pulse Rate 81 80 Respiratory Rate 21 15 Blood Pressure 139/75 Pulse Oximetry 100 100 Oxygen Delivery Method 08/19/24 19:30 08/19/24 19:30 08/19/24 19:39 Temperature Pulse Rate 80 Respiratory Rate 9 L Blood Pressure 119/75 130/80 Pulse Oximetry 100 Oxygen Delivery Method 08/19/24 19:39 08/19/24 20:00 08/19/24 20:00 Temperature Pulse Rate 85 79 Respiratory Rate 14 11 L Blood Pressure 129/75 Pulse Oximetry 99 100 Oxygen Delivery Method Room Air MDM - Abdominal Pain Lab Data 08/19/24 18:02 08/19/24 18:02 Labs: Lab Results 08/19/24 Range/Units 18:02 WBC 6.0 (4.5-11.0) X10^3/uL RBC 3.42 L (4.5-5.9) X10^6/uL Hgb 11.7 L (13.5-17.5) g/dL Hct 34.9 L (41-53) % MCV 101.9 H (80-100) fL MCH 34.3 H (26-34) PG MCHC 33.7 (30-36) % RDW 14.5 (11.6-14.8) % Plt Count 269 (150-400) X10^3/uL Neut % (Auto) 51.3 (50-75) % Lymph % (Auto) 32.1 (25-40) % [place] % (Auto) 11.8 (3-14) % Eos % (Auto) 4.3 H (2-4) % Baso % (Auto) 0.5 (0-2) % Neut # (Auto) 3100 (4381-6286) /uL Lymph # (Auto) 1900 (6103-0320) /uL [place] # (Auto) 700 (0-900) /uL Eos # (Auto) 300 (0-450) /uL Baso # (Auto) 0 (0-100) /uL Sodium 128 L (137-145) mmol/L Potassium 4.0 (3.4-5.1) mmol/L Chloride 95 L (98-107) mmol/L Carbon Dioxide 17 L (22-32) mmol/L BUN 5 L (9-20) mg/dL Creatinine 0.68 (0.66-1.25) mg/dL Estimated GFR > 60 (>60) mL/min BUN/Creatinine Ratio 7.4 (6-22) Glucose 151 H (80-110) mg/dL Calcium 9.5 (8.4-10.2) mg/dL Total Bilirubin 0.3 (0.2-1.3) mg/dL AST 23 (17-59) IU/L ALT 17 (<50) IU/L Alkaline Phosphatase 79 (38-126) U/L Total Protein 5.7 L (6.3-8.2) g/dL Albumin 3.6 (3.5-5.0) g/dL Globulin 2.1 (1.7-4.1) g/dL Albumin/Globulin Ratio 1.7 (1.0-2.8) Lipase 35 (23-300) U/L Point of care testing: Urine Dip Bedside Urine Glucose 1000 mg/dl Bedside Urine Bilirubin - Negative Bedside Urine Ketone - Negative Urine Specific [place] 1.005 Bedside Urine Occult Blood - Negative Bedside Urine pH 6 Bedside Urine Protein - Negative Bedside Urine Urobilinogen - Negative Bedside Urine Nitrite - Negative Bedside Urine Leukocytes - Negative Esterase Imaging Data CT scan - abdomen/pelvis: Radiologist's Impression: PROCEDURE: CT ABDOMEN PELVIS W CON INDICATIONS: mid ab pain, hx pancreatitis TECHNIQUE: After the administration of intravenous contrast, axial sections acquired from the lung bases to the pubic symphysis. Coronal and sagittal reformats were performed. For radiation dose reduction, the following was used: automated exposure control, adjustment of mA and/or kV according to patient size. COMPARISON: [facility], CT, CT CHEST ABD PEL W CON, 07/16/2023, 8:39. FINDINGS: Image quality: Diagnostic. Lower Chest: No pleural or pericardial effusion. Moderate to heavy coronary artery calcification partially imaged. ABDOMEN: Liver: Mild hepatic steatosis. No solid mass. Gallbladder: Decompressed. No stones or wall thickening. Biliary ducts: No biliary dilation. Pancreas: Focal low-density enlargement of the proximal pancreatic tail. This area of focal low-density measures roughly 2.2 x 1.9 by 2.0 cm. The distal tail is relatively decompressed and there is no ductal dilatation. No significant peripancreatic inflammation. Spleen: Size is within normal limits. Adrenal Glands: No adrenal nodules. Kidneys and Ureters: Symmetric enhancement. No nephrolithiasis or hydronephrosis. No hydroureter. Stomach and Bowel: Mildly increased quantity of solid stool present in the ascending and transverse colon. There is mild ascending colonic wall edema and slight wall thickening. No significant pericolonic inflammation or fluid. Stomach and small bowel are normal. Peritoneum: There are several surgical clips in the anterior peritoneal cavity. No free fluid or free air. Ventral Wall: No significant ventral hernia. Abdominal Nodes: No retroperitoneal or mesenteric adenopathy by size criteria. Vessels: The abdominal aorta, IVC, and portal vein are of normal caliber. The splenic vein is attenuated and there are several perigastric varices. Moderate abdominal aortic atherosclerotic calcification. PELVIS: Pelvic Organs: Unremarkable. Bladder: Moderate circumferential bladder wall thickening. No stones or perivesicular inflammation. Pelvic Nodes: No enlarged lymph nodes. Miscellaneous: No inguinal hernias are seen. Bones: No aggressive osseous abnormality. IMPRESSION: No CT findings of acute pancreatitis. There is focal low-density in the proximal pancreatic tail which may be of resolving pancreatic pseudocyst or possible mass. Further evaluation as an outpatient with contrast-enhanced pancreas protocol MRI is recommended. There is attenuation of the splenic vein suggesting chronic pancreatitis and development of perigastric varices. Mild wall thickening and edema involving the proximal colon. Correlate with symptoms of colitis. Mild hepatic steatosis. Coronary artery disease. Dictated by: Makenna Browning M.D. on 08/19/2024 at 19:32 ECG Data Attestation: I personally reviewed and interpreted this ECG as follows: Prior ECG tracings: available for review Interpretation: Sinus rhythm rate 88 WI interval 140 QRS 76 QTC 428 no ischemia MDM Narrative Medical decision making narrative: MDM CC: Abdominal pain Complicating co-morbidities: Alcoholism gastritis diabetes Medical records reviewed: Previous visits Differential considered: Pancreatitis gastritis anemia Rocephin Exam documented above, pertinent findings include: Thin malnourished 64-year-old male pain middle abdomen without distention. No nausea or vomiting Lab Test results independently reviewed as above. Pertinent findings: WBC 6.0 CMP sodium 128 potassium 4.0 chloride 95 bicarb 17 BUN 5 creatinine 0.6 Lipase is 35, bilirubin liver enzymes within normal limits Independently reviewed EKG as above sinus rhythm without ischemia Imaging studies independently reviewed: CT does not show any evidence of pancreatitis or obstruction. However there is an abnormality in the pancreatic tail pseudocyst versus mass. Recommended outpatient treatment Consultations: None Treatments: Morphine Zofran Re-evaluations: After morphine patient's pain has improved completely Discussion: Patient 64-year-old male history pancreatitis alcoholism presenting today with abdominal pain. Exam VS some mid abdominal discomfort no distention or acute abdomen or peritoneal signs. Lipase is within normal limits, anemia is stable from previous blood draws there has no significant change. He is found to have some mild hyponatremia with a sodium of 128. CT does not show any cause of his abdominal pain. No evidence of pancreatitis. There is some abnormality the pancreatic tail which is a pseudocyst versus a mass. Not convinced today that this is causing his pain. Vitals have been stable Discussed with patient and family findings on CT needing further evaluation. understood that he would need further workup. Discussed about pain control at home they are not wanting anything related and feel like Tylenol Motrin will be suitable. 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 You do have a small abnormality on your pancreas that is causing her pain today. Please talk with your primary care provider you will likely need an outpatient MRI for better visualization of what is happening Please have blood work next week to recheck your sodium *Continue to take medications as directed Tylenol 650 mg every 4-6 hours if needed for [id number] pain *Follow up with your primary care provider in 2-3 days or call [phone] *Return to ER if you should have increased pain nausea vomiting fever [or] any new, worsening or concerning symptoms Prescriptions: No Action metformin 1,000 mg tablet extended release 24 hr 1,000 mg PO QPM Qty: 90 3RF Farxiga 10 mg tablet 10 mg PO DAILY Qty: 90 3RF atorvastatin 10 mg tablet 10 mg PO BEDTIME Qty: 90 3RF lisinopril 40 mg tablet 40 mg PO BID Qty: 180 3RF omeprazole 20 mg tablet,delayed release (DR/EC) 40 mg PO QAM Qty: 180 3RF ferrous sulfate 324 mg (65 mg iron) tablet,delayed release (DR/EC) 324 mg PO DAILY Qty: 90 2RF metoprolol succinate 50 mg tablet extended release 24 hr 50 mg PO DAILY Qty: 90 3RF (DME) OneTouch Ultra Test Strip See Rx Instructions .ROUTE .COMPLEX Qty: 100 11RF Dose Instruction: USE TO TEST BLOOD SUGARS THREE TIMES DAILY Rx Instructions: USE TO TEST BLOOD SUGARS THREE TIMES DAILY (DME) blood sugar diagnostic Strip See Rx Instructions .ROUTE .MEDSUPPLY Qty: 100 3RF Rx Instructions: As directed, daily (DME) Disabled Parking Permit See Rx Instructions .ROUTE .MEDSUPPLY Qty: 1 0RF Rx Instructions: I find this patient to be medically disabled and qualified for Disabled Parking as indicated and signed on the accompanying Disabled Parking Application for Individuals. (DME) lancets 33 gauge misc See Rx Instructions .ROUTE .MEDSUPPLY Qty: 100 3RF Rx Instructions: Use to test blood glucose TID cyanocobalamin (vitamin B-12) [Vitamin B-12] 1,000 mcg Tablet 1,000 mcg PO QAM aspirin 81 mg Tablet 81 mg PO QAM cholecalciferol (vitamin D3) [Vitamin D3] 125 mcg (5,000 unit) Tablet 125 mcg PO DAILY Antacid (calcium carbonate) 215 mg calcium (500 mg) Tablet,Chewable 215 mg PO QAM Referrals: Rao Richard MD [Primary Care Provider] - Stand Alone Forms: Patient Portal/API
--- NOTE | 2024-08-19 18:07 | EKG_ITS ---
[address] [address] Test Date: 2024-08-19 Pat Name: Bharat Mpcherson Department: Room: Gender: Male Match Up Person: SHREYAS : 1960 Requested By: Order Number: [id number] Reading MD: Hill England Measurements Intervals [place] Rate: 88 P: 84 WV: 140 QRS: 65 QRSD: 76 T: 67 QT: 354 QTc: 428 Interpretive Statements Normal sinus rhythm Electronically Signed On 08-22-2024 17:39:25 PDT by Hill England
[2024-08-19 18:16] LABS: Add Manual Diff / Slide Review NO; Basophils Absolute Auto 0 /uL (0-100); Basophils Percent Auto 0.5 % (0-2); Eosinophils Absolute Auto 300 /uL (0-450); Eosinophils Percent Auto 4.3 % (2-4); Hematocrit 34.9 % (41-53); Hemoglobin 11.7 g/dL (13.5-17.5); Lymphocytes Absolute Auto 1900 /uL (1100-4500); Lymphocytes Percent Auto 32.1 % (25-40); Mean Corpuscular HGB Conc 33.7 % (30-36); Mean Corpuscular Hemoglobin 34.3 PG (26-34); Mean Corpuscular Volume 101.9 fL (80-100); Monocytes Absolute Auto 700 /uL (0-900); Monocytes Percent Auto 11.8 % (3-14); Neutrophils Absolute Auto 3100 /uL (1500-7000); Neutrophils Percent Auto 51.3 % (50-75); Platelet Count 269 X10^3/uL (150-400); Red Blood Cell Count 3.42 X10^6/uL (4.5-5.9); Red Cell Distribution Width 14.5 % (11.6-14.8)
[2024-08-19] MEDS: MORPHINE 2 MG/ML INJ IV (18:16)
[2024-08-19 18:31] LABS: Alanine Aminotransferase 17 IU/L (<50); Albumin 3.6 g/dL (3.5-5.0); Albumin Globulin Ratio 1.7 (1.0-2.8); Alkaline Phosphatase 79 U/L (38-126); Aspartate Aminotransferase 23 IU/L (17-59); BUN Creatinine Ratio 7.4 (6-22); Bilirubin Total 0.3 mg/dL (0.2-1.3); Blood Urea Nitrogen 5 mg/dL (9-20); Calcium 9.5 mg/dL (8.4-10.2); Carbon Dioxide 17 mmol/L (22-32); Chloride 95 mmol/L (98-107); Estimated Glomerular Filt Rate > 60 mL/min (>60); Globulin 2.1 g/dL (1.7-4.1); Glucose 151 mg/dL (80-110); HEMOLYSIS < 15 (0-50); Lipase 35 U/L (23-300); Sodium 128 mmol/L (137-145); Total Protein 5.7 g/dL (6.3-8.2)
--- NOTE | 2024-08-19 19:00 | DI.CT.S_ITS ---
PROCEDURE: CT ABDOMEN PELVIS W CON INDICATIONS: mid ab pain, hx pancreatitis TECHNIQUE: After the administration of intravenous contrast, axial sections acquired from the lung bases to the pubic symphysis. Coronal and sagittal reformats were performed. For radiation dose reduction, the following was used: automated exposure control, adjustment of mA and/or kV according to patient size. COMPARISON: [facility], CT, CT CHEST ABD PEL W CON, 07/16/2023, 8:39. FINDINGS: Image quality: Diagnostic. Lower Chest: No pleural or pericardial effusion. Moderate to heavy coronary artery calcification partially imaged. ABDOMEN: Liver: Mild hepatic steatosis. No solid mass. Gallbladder: Decompressed. No stones or wall thickening. Biliary ducts: No biliary dilation. Pancreas: Focal low-density enlargement of the proximal pancreatic tail. This area of focal low-density measures roughly 2.2 x 1.9 by 2.0 cm. The distal tail is relatively decompressed and there is no ductal dilatation. No significant peripancreatic inflammation. Spleen: Size is within normal limits. Adrenal Glands: No adrenal nodules. Kidneys and Ureters: Symmetric enhancement. No nephrolithiasis or hydronephrosis. No hydroureter. Stomach and Bowel: Mildly increased quantity of solid stool present in the ascending and transverse colon. There is mild ascending colonic wall edema and slight wall thickening. No significant pericolonic inflammation or fluid. Stomach and small bowel are normal. Peritoneum: There are several surgical clips in the anterior peritoneal cavity. No free fluid or free air. Ventral Wall: No significant ventral hernia. Abdominal Nodes: No retroperitoneal or mesenteric adenopathy by size criteria. Vessels: The abdominal aorta, IVC, and portal vein are of normal caliber. The splenic vein is attenuated and there are several perigastric varices. Moderate abdominal aortic atherosclerotic calcification. PELVIS: Pelvic Organs: Unremarkable. Bladder: Moderate circumferential bladder wall thickening. No stones or perivesicular inflammation. Pelvic Nodes: No enlarged lymph nodes. Miscellaneous: No inguinal hernias are seen. Bones: No aggressive osseous abnormality. IMPRESSION: No CT findings of acute pancreatitis. There is focal low-density in the proximal pancreatic tail which may be of resolving pancreatic pseudocyst or possible mass. Further evaluation as an outpatient with contrast-enhanced pancreas protocol MRI is recommended. There is attenuation of the splenic vein suggesting chronic pancreatitis and development of perigastric varices. Mild wall thickening and edema involving the proximal colon. Correlate with symptoms of colitis. Mild hepatic steatosis. Coronary artery disease. Dictated by: Makenna Browning M.D. on 08/19/2024 at 19:32 Approved by: Makenna Browning M.D. on 08/19/2024 at 19:42
== END 2024-08-19 20:20 | disposition home or self-care (01) ==
PROVIDERS: Student in an Organized Health Care Education/Training Program; Emergency Provider Emergency Medicine; PCP Family Medicine
DX: R10.9 Unspecified abdominal pain (principal); E87.1 Hypo-osmolality and hyponatremia; Q45.3 Other congenital malformations of pancreas and pancreatic duct; Z79.899 Other long term (current) drug therapy
CPT/HCPCS: 36415; 74177; 80053; 81003; 83690; 85025; 93005; 96374; 99284; J2270; Q9967

== ENCOUNTER → 2024-08-31 07:38 | Outpatient (CLI) | payer OTHER, SELFPAY ==
[2020-11-08 19:14] VITALS: BMI 23.6
--- NOTE | 2024-08-31 07:39 | DI.MRI.S_ITS ---
PROCEDURE: MR AB PANCREATIC/MRCP PROTOCOL INDICATIONS: evaluate pancreatic pseudocyst from ED visit 08.20.24 TECHNIQUE: Coronal HASTE through the abdomen, axial 2-D FLASH in- and [id number], and breath-hold T2 FSE with fat saturation through the biliary system and pancreas. Oblique coronal and axial thin-slice HASTE, radial thick-slab HASTE centered on the extrahepatic bile ducts. 20 cc ProHance IV contrast. COMPARISON: [facility], CT, CT ABDOMEN PELVIS W CON, 08/19/2024, 19:06. [facility], CT, CT CHEST ABD PEL W CON, 07/16/2023, 8:39. FINDINGS: Image quality: Diagnostic. Gallbladder: No gallstones or wall thickening. Biliary ducts: No biliary dilation. Pancreas: No ductal dilation. Hypoenhancing mass in the tail the pancreas measuring 2.4 x 2 cm, (11/06). There is restricted diffusion. Subtle T2 signal. T1 isointense. The splenic vein is occluded. There are upper abdominal varices. Abuts the splenic artery. Close proximity to the SMA. Lesion abuts the duodenum. Small cyst superior to the body of the pancreas measuring 1.1 cm, (07/17). No significant pancreatic edema. OTHER: Lung bases: Unremarkable. Liver: No solid mass. Mild hepatic steatosis. Spleen: Size is within normal limits. Adrenal Glands: No adrenal nodules. Kidneys and Ureters: No hydronephrosis. No solid mass. No complex renal cystic lesion which requires follow up. Stomach and Bowel: No dilated loops of bowel. Somewhat prominent stool in the colon. Peritoneum: No abnormal intraperitoneal fluid. No free air. Ventral Wall: No hernia. Abdominal Nodes: No retroperitoneal or mesenteric adenopathy by size criteria. Vessels: No abdominal aortic aneurysm. Calcified plaque in the aorta. Bones: No aggressive osseous abnormality. IMPRESSION: 1. Hypoenhancing mass in the body of the pancreas measuring 2.4 cm. Most consistent with pancreatic adenocarcinoma. 2. 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 Lesion abuts the splenic artery and the duodenum. 3. Small cyst superior to the pancreatic body measuring 1.1 cm. 4. No pancreatic ductal dilatation. No metastatic disease identified. Message conveyed triage nurse to office of Dr. Richard. Dictated by: Alan Umana M.D. on 08/31/2024 at 10:56 Approved by: Alan Umana M.D. on 08/31/2024 at 12:34
== END ==
LOC: MRI 07:38
PROVIDERS: PCP Family Medicine; Referring Provider Family Medicine; Visit Provider Family Medicine
DX: K85.90 Acute pancreatitis without necrosis or infection, unspecified (principal); Q45.3 Other congenital malformations of pancreas and pancreatic duct; K86.3 Pseudocyst of pancreas; K86.9 Disease of pancreas, unspecified; I82.890 Acute embolism and thrombosis of other specified veins; N32.89 Other specified disorders of bladder; R10.9 Unspecified abdominal pain; F17.210 Nicotine dependence, cigarettes, uncomplicated
CPT/HCPCS: 74183; 81001; 87086; A9579

== ENCOUNTER → 2024-08-31 10:47 | Outpatient (CLI) | payer OTHER, SELFPAY ==
[2020-11-08 19:14] VITALS: BMI 23.6
[2024-08-31 13:36] LABS: Appearance Urine UA CLEAR; Bilirubin Urine UA NEGATIVE (NEGATIVE); Color Urine UA YELLOW; Glucose Urine UA 3+ g/dL (Negative); Ketones Urine UA NEGATIVE (NEGATIVE); Leukocyte Esterase Urine UA NEGATIVE (NEGATIVE); Nitrite Urine UA NEGATIVE (Negative); Occult Blood Urine UA NEGATIVE (Negative); Protein Urine UA NEGATIVE (Negative); Specific Gravity Urine UA <=1.005 (1.000-1.035)
[2024-08-31 14:06] LABS: Bacteria Urine Few (2-10); Culture Indicated Urine Specimen Cultured; RBC Urine 1-5/HPF (0-5/HPF); Squamous Epithelial Cell Urine 1-5 /HPF (0-5/HPF); Urine Volume 10mL (spun); WBC Urine 5-10/HPF (0-5/HPF)
== END ==
PROVIDERS: PCP Family Medicine; Referring Provider Family Medicine; Visit Provider Family Medicine
DX: N32.89 Other specified disorders of bladder (principal); R10.9 Unspecified abdominal pain; F17.210 Nicotine dependence, cigarettes, uncomplicated
CPT/HCPCS: 81001; 87086

== ENCOUNTER → 2024-09-21 07:21 | Outpatient (CLI) | payer OTHER, SELFPAY ==
[2020-11-08 19:14] VITALS: BMI 23.6
[2024-09-21 07:54] LABS: Hemoglobin A1C% w Est Avg Glu 7.9 % (4.0-6.0)
[2024-09-21 08:01] LABS: HEMOLYSIS < 15 (0-50); Iron 99 ug/dL (49-181)
[2024-09-21 08:03] LABS: Alanine Aminotransferase 18 IU/L (<50); Albumin 3.3 g/dL (3.5-5.0); Albumin Globulin Ratio 1.5 (1.0-2.8); Alkaline Phosphatase 83 U/L (38-126); Aspartate Aminotransferase 24 IU/L (17-59); BUN Creatinine Ratio 13.1 (6-22); Bilirubin Total 0.7 mg/dL (0.2-1.3); Blood Urea Nitrogen 8 mg/dL (9-20); Calcium 9.5 mg/dL (8.4-10.2); Carbon Dioxide 29 mmol/L (22-32); Chloride 96 mmol/L (98-107); Estimated Glomerular Filt Rate > 60 mL/min (>60); Globulin 2.2 g/dL (1.7-4.1); Glucose 152 mg/dL (80-110); HEMOLYSIS < 15 (0-50); Potassium 4.1 mmol/L (3.4-5.1); Sodium 129 mmol/L (137-145); Total Protein 5.5 g/dL (6.3-8.2)
[2024-09-21 08:08] LABS: Add Manual Diff / Slide Review NO; Basophils Absolute Auto 100 /uL (0-100); Basophils Percent Auto 1.4 % (0-2); Eosinophils Absolute Auto 200 /uL (0-450); Eosinophils Percent Auto 4.4 % (2-4); Hematocrit 35.4 % (41-53); Hemoglobin 12.1 g/dL (13.5-17.5); Lymphocytes Absolute Auto 1100 /uL (1100-4500); Lymphocytes Percent Auto 26.6 % (25-40); Mean Corpuscular HGB Conc 34.2 % (30-36); Mean Corpuscular Hemoglobin 33.8 PG (26-34); Mean Corpuscular Volume 98.8 fL (80-100); Monocytes Absolute Auto 400 /uL (0-900); Monocytes Percent Auto 10.5 % (3-14); Neutrophils Absolute Auto 2400 /uL (1500-7000); Neutrophils Percent Auto 57.1 % (50-75); Platelet Count 291 X10^3/uL (150-400); Red Blood Cell Count 3.58 X10^6/uL (4.5-5.9); Red Cell Distribution Width 13.8 % (11.6-14.8); White Blood Cell Count 4.1 X10^3/uL (4.5-11.0)
[2024-09-21 08:11] LABS: Percent Iron Saturation 36 % (20-50); Total Iron Binding Capacity 274 ug/dL (261-462); Transferrin 221 mg/dL (206-381)
[2024-09-21 08:34] LABS: Prostate Specific Antigen Scrn 3.03 ng/mL (0.1-4.0)
[2024-09-21 08:38] LABS: Ferritin 23 ng/mL (18-464)
== END ==
LOC: LAB 07:22
PROVIDERS: PCP Family Medicine; Referring Provider Family Medicine; Visit Provider Family Medicine
DX: I25.10 Atherosclerotic heart disease of native coronary artery without angina pectoris (principal); R68.81 Early satiety; F17.210 Nicotine dependence, cigarettes, uncomplicated; E87.1 Hypo-osmolality and hyponatremia; E78.5 Hyperlipidemia, unspecified; I10 Essential (primary) hypertension; E11.9 Type 2 diabetes mellitus without complications; Z12.5 Encounter for screening for malignant neoplasm of prostate; R10.9 Unspecified abdominal pain; R63.4 Abnormal weight loss; K63.5 Polyp of colon; E78.2 Mixed hyperlipidemia; D64.9 Anemia, unspecified; C25.9 Malignant neoplasm of pancreas, unspecified
CPT/HCPCS: 36415; 80053; 82728; 83036; 83540; 83550; 85025; G0103

== ENCOUNTER → 2024-09-28 10:17 | Outpatient (CLI) | payer OTHER, SELFPAY ==
[2020-11-08 19:14] VITALS: BMI 23.6
== END ==
PROVIDERS: PCP Family Medicine; Visit Provider Family Medicine
DX: R30.0 Dysuria (principal)
CPT/HCPCS: 87077; 87086; 87186

== ENCOUNTER → 2024-10-02 13:09 | Outpatient (CLI) | payer OTHER, SELFPAY ==
[2020-11-08 19:14] VITALS: BMI 23.6
[2024-10-02 13:40] LABS: Prothrombin Time 10.9 SECONDS (9.4-12.5)
== END ==
PROVIDERS: PCP Family Medicine; Referring Provider Internal Medicine Gastroenterology; Visit Provider Internal Medicine Gastroenterology
DX: K86.89 Other specified diseases of pancreas (principal)
CPT/HCPCS: 36415; 85610

== ENCOUNTER 2024-11-01 07:45 | Emergency (ER) | payer OTHER, SELFPAY ==
[2020-11-08 19:14] VITALS: BMI 23.6
[2024-11-01] VITALS (9 sets, daily range): BP systolic 129–156; BP diastolic 75–88; PULSE 63–76; RESP 16; TEMP 36.3–36.6; O2SAT 100; BMI 19.0
--- NOTE | 2024-11-01 08:09 | ED.GENADULT ---
HPI - General Adult General Chief complaint: Shortness of Breath/Dyspnea Stated complaint: Trouble breathing Time Seen by Provider: 11/01/24 07:59 History of Present Illness HPI narrative: 64-year-old gentleman with CT abnormality August 19, 2024 eventually diagnosed as metastatic pancreatic cancer, he was seen last week at [facility] in his going to have a port placed next week for palliative chemo to last for 2 months. Additional medical issues include diabetes, hypertension, reflux, anemia and osteoporosis He awoke this morning at 4:00 a.m. feeling significantly short of breath with some pain in the posterior left chest area. No palpitations, nausea, vomiting, fevers, recent upper respiratory symptoms, constipation, lower extremity edema or orthopnea. Related Data Home Medications Medication Instructions Recorded Confirmed cyanocobalamin (vitamin B-12) 1,000 mcg PO QAM 04/23/19 09/28/24 1,000 mcg tablet (Vitamin B-12) aspirin 81 mg tablet 81 mg PO QAM 11/08/20 09/28/24 calcium carbonate (Antacid 215 mg PO QAM 11/08/20 09/28/24 (calcium carbonate)) cholecalciferol (vitamin D3) 125 125 mcg PO DAILY 11/08/20 09/28/24 mcg (5,000 unit) tablet (Vitamin D3) Previous Rx's Medication Instructions Recorded blood sugar diagnostic #100 ea 04/08/23 blood sugar diagnostic (OneTouch #100 strips 04/08/23 Ultra Test strips) Disabled Parking Permit #1 ea 07/08/23 lancets 33 gauge #100 ea 12/16/23 atorvastatin 10 mg tablet 10 mg PO BEDTIME #90 tabs 03/16/24 dapagliflozin propanediol 10 mg 10 mg PO DAILY #90 tabs 03/16/24 tablet (Farxiga) lisinopril 40 mg tablet 40 mg PO BID #180 tabs 03/16/24 metformin 1,000 mg tablet,extended 1,000 mg PO QPM #90 tabs 03/16/24 release 24hr (osmotic) ferrous sulfate 324 mg (65 mg 324 mg PO DAILY #90 tabs 06/22/24 iron) tablet,delayed release metoprolol succinate 50 mg 50 mg PO DAILY #90 tabs 06/22/24 tablet,extended release 24 hr omeprazole 20 mg tablet,delayed 40 mg (2 x 20 mg) PO QAM #180 tabs 06/22/24 release sulfamethoxazole 800 1 tab PO BID #14 tabs 09/28/24 mg-trimethoprim 160 mg tablet (Bactrim DS) Allergies Allergy/AdvReac Type Severity Reaction Status Date / Time No Known Drug Allergies Allergy Verified 09/28/24 09:47 Review of Systems Review of Systems Narrative: Pertinent positive and negative findings as per HPI Patient History Medical History CAD (coronary artery disease) Early satiety Chronic hyponatremia Erectile dysfunction Wears glasses Osteoporosis (~2018) Fractures (~2004) Chicken pox Vertigo Hemorrhoid Anemia Hyperlipidemia Acute radial nerve palsy Pancreatitis (~2001) Alcohol dependence Tobacco dependency Alcohol withdrawal Pneumonia Multiple fractures of ribs Hypertension GERD (gastroesophageal reflux disease) Diabetes Surgical History Anesthesia S/P exploratory laparotomy (~2001) Status post hernia repair Family History Mother Diabetes mellitus Father Hypertension Bladder cancer Social History marital status: household members: spouse lives independently: Yes occupational status: employed Smoking Status: Current every day smoker alcohol intake: current substance use type: does not use Smoking Status: Current every day smoker tobacco type: cigarettes alcohol intake frequency: 3 or more drinks per day Alcohol type: beer and hard liquor Exam Initial Vital Signs Initial Vital Signs: Vital Signs Pulse Rate 72 11/01/24 08:08 General: Frail, chronically ill-appearing appears fatigued he is able to speak in complete sentences HEENT: Moist mucous membranes, normal sclera with reactive pupils, Respiratory: Lungs with scattered rhonchi through left posterior lung [place] Cardiac: Regular rate and rhythm no murmurs no bruits Abdomen: Soft, nontender, good bowel tones, no flank pain Skin: Somewhat pale but otherwise Warm and dry, no rashes Neurologic: Globally weak but otherwise Grossly neurologically intact with no obvious asymmetries or abnormalities Extremities: No trauma, Psych: Cooperative, appropriate insight and affect Course Orders Ordered: ED Orders 11/01/24 08:21 XR chest 1V Stat Urinalysis and Microscopic Stat EKG-12 Lead Stat 11/01/24 08:31 Complete Blood Count AUTO DIFF Stat Comprehensive Metabolic Panel Stat Covid-19 + FLU A/B + RSV - PCR Stat D Dimer Stat Lactate (Lactic Acid) Stat Lipase Stat NT-proBNP (BNP-Adult 18+) Stat Procalcitonin Stat Troponin I Stat Vital Signs Vital signs: Vital Signs - 8 hr 11/01/24 08:08 11/01/24 08:09 11/01/24 08:09 Temperature Pulse Rate 72 71 Respiratory Rate Blood Pressure 129/75 Pulse Oximetry 100 Oxygen Delivery Method 11/01/24 08:11 11/01/24 08:30 11/01/24 08:30 Temperature 97.3 F L Pulse Rate 71 76 Respiratory Rate 16 Blood Pressure 129/75 136/88 Pulse Oximetry 100 100 Oxygen Delivery Method Room Air 11/01/24 09:00 11/01/24 09:00 11/01/24 09:30 Temperature Pulse Rate 68 Respiratory Rate Blood Pressure 145/76 H 156/81 H Pulse Oximetry 100 Oxygen Delivery Method 11/01/24 09:30 11/01/24 10:00 11/01/24 10:00 Temperature Pulse Rate 64 63 Respiratory Rate Blood Pressure 138/79 Pulse Oximetry 100 100 Oxygen Delivery Method Medical Decision Making Lab Data 11/01/24 08:31 11/01/24 08:31 Labs: Lab Results 11/01/24 Range/Units 08:31 WBC 6.3 (4.5-11.0) X10^3/uL RBC 3.97 L (4.5-5.9) X10^6/uL Hgb 13.2 L (13.5-17.5) g/dL Hct 38.3 L (41-53) % MCV 96.4 (80-100) fL MCH 33.2 (26-34) PG MCHC 34.4 (30-36) % RDW 13.6 (11.6-14.8) % Plt Count 380 (150-400) X10^3/uL Neut % (Auto) 69.2 (50-75) % Lymph % (Auto) 21.3 L (25-40) % [place] % (Auto) 6.8 (3-14) % Eos % (Auto) 1.9 L (2-4) % Baso % (Auto) 0.8 (0-2) % Neut # (Auto) 4400 (9412-1962) /uL Lymph # (Auto) 1300 (6862-9017) /uL [place] # (Auto) 400 (0-900) /uL Eos # (Auto) 100 (0-450) /uL Baso # (Auto) 100 (0-100) /uL D-Dimer 217 (<500) ng/ml Sodium 122 L (137-145) mmol/L Potassium 4.8 (3.4-5.1) mmol/L Chloride 91 L (98-107) mmol/L Carbon Dioxide 25 (22-32) mmol/L BUN 9 (9-20) mg/dL Creatinine 0.61 L (0.66-1.25) mg/dL Estimated GFR > 60 (>60) mL/min BUN/Creatinine Ratio 14.8 (6-22) Glucose 195 H (80-110) mg/dL Lactate 1.6 (0.7-2.1) mmol/L Calcium 9.5 (8.4-10.2) mg/dL Total Bilirubin 0.7 (0.2-1.3) mg/dL AST 36 (17-59) IU/L ALT 22 (<50) IU/L Alkaline Phosphatase 96 (38-126) U/L Troponin I < 0.012 (0.01-0.034) ng/mL NT-Pro-B Natriuret Pep 449 H (<125) pg/mL Total Protein 6.6 (6.3-8.2) g/dL Albumin 4.1 (3.5-5.0) g/dL Globulin 2.5 (1.7-4.1) g/dL Albumin/Globulin Ratio 1.6 (1.0-2.8) Lipase 57 (23-300) U/L Procalcitonin 0.047 (<0.5) ng/mL SARS-CoV-2 (PCR) Negative (Negative) Influenza A (RT-PCR) Flu a negative (NEGATIVE) Influenza B (RT-PCR) Flu b negative (NEGATIVE) RSV (PCR) Negative (Negative) MDM Narrative Medical decision making narrative: CC: Acute left-sided posterior chest pain with dyspnea at 4:00 a.m. this morning Complicating co-morbidities: Recently diagnosed stage IV pancreatic cancer is not started palliative chemo yet, coronary artery disease, hypertension, diabetes, reflux Data collected from: patient, Social determinants of health that may influence the patients condition: Multiple evaluations to regarding his newly diagnosed pancreatic cancer Medical records reviewed: Recent primary care notes, oncology notes from September are all reviewed Differential considered: PE, cardiac etiology, pleural effusion, GI bleeding/acute anemia Exam documented above, pertinent findings include: Frail, appears chronically ill, rhonchi on the left side Lab Test results independently reviewed as above. Pertinent findings: CBC is unremarkable with slight increase in his chronic anemia Chemistries show sodium at 1:22 a.m. prior has been at 1:29 a.m.. Renal function is appropriate No signs of sepsis Liver studies are reassuring BNP is minimally elevated at 449 Procalcitonin is not elevated Troponin is undetectable D-dimer is low suggesting no pulmonary embolism Independently reviewed EKG: Sinus rhythm at a rate of 67 with no acute ischemic changes Imaging studies independently reviewed: Chest x-ray shows no acute findings Treatments: Toradol Discussion: 64-year-old gentleman with the acute onset left posterior rib pain with dyspnea at 4:00 a.m. this morning. Workup shows no obvious pathology including no DVT, congestive heart failure, pneumothorax, pleural effusion, consolidated pulmonary finding, obvious metastatic lesion. All of these reviewed with the patient. He is feeling somewhat better. He has follow up scheduled with his doctors for a port and begin chemotherapy. In the past he has had some elevated blood pressure with ibuprofen so we will suggest Tylenol for medium pain he has oxycodone for use at home. Given the location of the pain certainly is concerning for pain related to his recently diagnosed pancreatic mass. At this time there was no indication for hospitalization and patient is safe for discharge Discharge Plan Departure Patient Disposition: Home Clinical Impression: Acute thoracic back pain Qualifiers: Back pain laterality: left Qualified Code(s): M54.6 - Pain in thoracic spine Instructions: DI for Musculoskeletal Pain Activity Restrictions/Additional Instructions: Thank you for coming in today Your workup is actually very reassuring. I am not find any life-threatening abnormalities including blood clots, lung infections, collapsed lung, heart attack, heart failure. I do not see any obvious mass, tumor, growth related to your pancreatic cancer I suspect that this is musculoskeletal type pain, pain from bones muscles and soft tissue. There was a very real possibility that is also pain related to your pancreatic cancer. I would suggest Tylenol as needed for the pain and it is okay to use the oxycodone that you have at home if the pain is significant. Please keep all of your future appointments. I wish you luck in getting your port placed in with your chemotherapy. If you find that you are getting worse or develop any new symptoms, please feel free to return to the emergency department for further evaluation. Prescriptions: No Action metformin 1,000 mg tablet extended release 24 hr 1,000 mg PO QPM Qty: 90 3RF Farxiga 10 mg tablet 10 mg PO DAILY Qty: 90 3RF atorvastatin 10 mg tablet 10 mg PO BEDTIME Qty: 90 3RF lisinopril 40 mg tablet 40 mg PO BID Qty: 180 3RF omeprazole 20 mg tablet,delayed release (DR/EC) 40 mg PO QAM Qty: 180 3RF ferrous sulfate 324 mg (65 mg iron) tablet,delayed release (DR/EC) 324 mg PO DAILY Qty: 90 2RF metoprolol succinate 50 mg tablet extended release 24 hr 50 mg PO DAILY Qty: 90 3RF (DME) OneTouch Ultra Test Strip See Rx Instructions .ROUTE .COMPLEX Qty: 100 11RF Dose Instruction: USE TO TEST BLOOD SUGARS THREE TIMES DAILY Rx Instructions: USE TO TEST BLOOD SUGARS THREE TIMES DAILY (DME) blood sugar diagnostic Strip See Rx Instructions .ROUTE .MEDSUPPLY Qty: 100 3RF Rx Instructions: As directed, daily (DME) Disabled Parking Permit See Rx Instructions .ROUTE .MEDSUPPLY Qty: 1 0RF Rx Instructions: I find this patient to be medically disabled and qualified for Disabled Parking as indicated and signed on the accompanying Disabled Parking Application for Individuals. (DME) lancets 33 gauge misc See Rx Instructions .ROUTE .MEDSUPPLY Qty: 100 3RF Rx Instructions: Use to test blood glucose TID sulfamethoxazole-trimethoprim [Bactrim DS] 800-160 mg tablet 1 tab PO BID Qty: 14 0RF Hold Instructions: Home Medication placed on hold at Doctor's office cyanocobalamin (vitamin B-12) [Vitamin B-12] 1,000 mcg Tablet 1,000 mcg PO QAM aspirin 81 mg Tablet 81 mg PO QAM cholecalciferol (vitamin D3) [Vitamin D3] 125 mcg (5,000 unit) Tablet 125 mcg PO DAILY Antacid (calcium carbonate) 215 mg calcium (500 mg) Tablet,Chewable 215 mg PO QAM Referrals: Rao Richard MD [Primary Care Provider] - Stand Alone Forms: Patient Portal/API/Survey
--- NOTE | 2024-11-01 08:21 | DI.RAD.S_ITS ---
PROCEDURE: XR CHEST 1V INDICATIONS: dyspnea TECHNIQUE: One view of the chest was acquired. COMPARISON: [facility], CR, XR CHEST 1V, 11/18/2021, 9:05. [facility], CR, XR CHEST 1V, 04/24/2019, 5:33. FINDINGS: Surgical changes and devices: None. Lungs and pleura: No dense airspace disease or pleural effusions. Mediastinum: Normal heart size, unchanged Bones and chest wall: Degenerative findings IMPRESSION: No acute radiographic abnormality on this single view study. Dictated by: Wilton Lowry M.D. on 11/01/2024 at 8:52 Approved by: Wilton Lowry M.D. on 11/01/2024 at 8:53
[2024-11-01 08:39] LABS: Add Manual Diff / Slide Review NO; Basophils Absolute Auto 100 /uL (0-100); Basophils Percent Auto 0.8 % (0-2); Eosinophils Absolute Auto 100 /uL (0-450); Eosinophils Percent Auto 1.9 % (2-4); Hematocrit 38.3 % (41-53); Hemoglobin 13.2 g/dL (13.5-17.5); Lymphocytes Absolute Auto 1300 /uL (1100-4500); Lymphocytes Percent Auto 21.3 % (25-40); Mean Corpuscular HGB Conc 34.4 % (30-36); Mean Corpuscular Hemoglobin 33.2 PG (26-34); Mean Corpuscular Volume 96.4 fL (80-100); Monocytes Absolute Auto 400 /uL (0-900); Monocytes Percent Auto 6.8 % (3-14); Neutrophils Absolute Auto 4400 /uL (1500-7000); Neutrophils Percent Auto 69.2 % (50-75); Platelet Count 380 X10^3/uL (150-400); Red Blood Cell Count 3.97 X10^6/uL (4.5-5.9); Red Cell Distribution Width 13.6 % (11.6-14.8); White Blood Cell Count 6.3 X10^3/uL (4.5-11.0)
--- NOTE | 2024-11-01 08:45 | EKG_ITS ---
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
[2024-11-01 08:50] LABS: Alanine Aminotransferase 22 IU/L (<50); Albumin 4.1 g/dL (3.5-5.0); Albumin Globulin Ratio 1.6 (1.0-2.8); Alkaline Phosphatase 96 U/L (38-126); BUN Creatinine Ratio 14.8 (6-22); Bilirubin Total 0.7 mg/dL (0.2-1.3); Blood Urea Nitrogen 9 mg/dL (9-20); Calcium 9.5 mg/dL (8.4-10.2); Carbon Dioxide 25 mmol/L (22-32); Chloride 91 mmol/L (98-107); D Dimer 217 ng/ml (<500); Estimated Glomerular Filt Rate > 60 mL/min (>60); Globulin 2.5 g/dL (1.7-4.1); Glucose 195 mg/dL (80-110); Lactate (Lactic Acid) 1.6 mmol/L (0.7-2.1); Lipase 57 U/L (23-300); Sodium 122 mmol/L (137-145); Total Protein 6.6 g/dL (6.3-8.2)
[2024-11-01 08:52] LABS: HEMOLYSIS 93 (0-50); Potassium 4.8 mmol/L (3.4-5.1)
[2024-11-01 08:53] LABS: Aspartate Aminotransferase 36 IU/L (17-59)
[2024-11-01 09:02] LABS: NT-proBNP (BNP-Adult 18+) 449 pg/mL (<125); Troponin I < 0.012 ng/mL (0.01-0.034)
[2024-11-01 09:07] LABS: Procalcitonin 0.047 ng/mL (<0.5)
[2024-11-01 09:21] LABS: Influenza A - CEPHEID Flu A NEGATIVE (NEGATIVE); Influenza B - CEPHEID Flu B NEGATIVE (NEGATIVE); Respiratory Syncytial Virus Negative (Negative)
[2024-11-01 09:27] LABS: COVID-19 CEPHEID 4-PLEX PCR Negative (Negative)
[2024-11-01] MEDS: KETOROLAC 30 MG/ML VIAL 15 MG IV (10:49)
== END 2024-11-01 10:58 | disposition home or self-care (01) ==
PROVIDERS: Emergency Provider Emergency Medicine; PCP Family Medicine
DX: M54.6 Pain in thoracic spine (principal); R06.02 Shortness of breath; R07.9 Chest pain, unspecified; C25.9 Malignant neoplasm of pancreas, unspecified; I25.10 Atherosclerotic heart disease of native coronary artery without angina pectoris; I10 Essential (primary) hypertension; K21.9 Gastro-esophageal reflux disease without esophagitis; E11.9 Type 2 diabetes mellitus without complications; F17.210 Nicotine dependence, cigarettes, uncomplicated
CPT/HCPCS: 0241U; 36415; 71045; 80053; 83605; 83690; 83880; 84145; 84484; 85025; 85379; 93005; 96374; 99284; J1885

== ENCOUNTER 2024-11-14 09:25 | Emergency (ER) | payer OTHER, SELFPAY ==
[2020-11-08 19:14] VITALS: BMI 23.6
[2024-11-14] VITALS (29 sets, daily range): BP systolic 102–193; BP diastolic 64–78; PULSE 72–109; RESP 12–28; TEMP 36.6; O2SAT 84–100; BMI 17.8
--- NOTE | 2024-11-14 09:41 | EKG_ITS ---
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
--- NOTE | 2024-11-14 09:46 | DI.RAD.S_ITS ---
PROCEDURE: XR CHEST 1V INDICATIONS: Shortness of breath TECHNIQUE: One view of the chest was acquired. COMPARISON: [facility], CR, XR CHEST 1V, 11/01/2024, 8:24. FINDINGS: Surgical changes and devices: Interval left chest Port-A-Cath placement Lungs and pleura: Lungs are clear. No pleural effusions or pneumothorax. Mediastinum: Mediastinal contours appear normal. Heart size is normal. Bones and chest wall: No suspicious bony lesions. Overlying soft tissues appear unremarkable. IMPRESSION: No acute cardiopulmonary abnormality is seen. Dictated by: Adalid Julian M.D. on 11/14/2024 at 9:57 Approved by: Adalid Julian M.D. on 11/14/2024 at 10:02
--- NOTE | 2024-11-14 10:10 | ED_ITS ---
HPI - SOB/Dyspnea General Chief Complaint: Shortness of Breath/Dyspnea Stated Complaint: coughing, Headache, SOB Time Seen by Provider: 11/14/24 09:57 Source: patient Mode of arrival: Wheelchair Limitations: no limitations History of Present Illness HPI Narrative: Patient here with for complaints of cough cold congestion shortness of breath that started last night. Patient has history of pancreatic cancer. Med port placed at [facility] last week and has started chemotherapy. Patient sees oncologist Dr. Schulz. Patient in no respiratory distress. 100% room air. Does have coarse lung sounds right greater than left. No known sick contacts. Related Data Home Medications Medication Instructions Recorded Confirmed cyanocobalamin (vitamin B-12) 1,000 mcg PO QAM 04/23/19 11/15/24 1,000 mcg tablet (Vitamin B-12) aspirin 81 mg tablet 81 mg PO QAM 11/08/20 11/15/24 calcium carbonate (Antacid 215 mg PO QAM 11/08/20 11/15/24 (calcium carbonate)) cholecalciferol (vitamin D3) 125 125 mcg PO DAILY 11/08/20 11/15/24 mcg (5,000 unit) tablet (Vitamin D3) ondansetron 8 mg disintegrating mg PO DAILY 11/15/24 11/15/24 tablet oxycodone-acetaminophen 10 mg-325 tab PO 11/15/24 11/15/24 mg tablet prochlorperazine maleate 10 mg 10 mg PO Q6H PRN 11/15/24 11/15/24 tablet Previous Rx's Medication Instructions Recorded blood sugar diagnostic #100 ea 04/08/23 blood sugar diagnostic (OneTouch #100 strips 04/08/23 Ultra Test strips) Disabled Parking Permit #1 ea 07/08/23 lancets 33 gauge #100 ea 12/16/23 atorvastatin 10 mg tablet 10 mg PO BEDTIME #90 tabs 03/16/24 dapagliflozin propanediol 10 mg 10 mg PO DAILY #90 tabs 03/16/24 tablet (Farxiga) lisinopril 40 mg tablet 40 mg PO BID #180 tabs 03/16/24 metformin 1,000 mg tablet,extended 1,000 mg PO QPM #90 tabs 03/16/24 release 24hr (osmotic) ferrous sulfate 324 mg (65 mg 324 mg PO DAILY #90 tabs 06/22/24 iron) tablet,delayed release metoprolol succinate 50 mg 50 mg PO DAILY #90 tabs 06/22/24 tablet,extended release 24 hr omeprazole 20 mg tablet,delayed 40 mg (2 x 20 mg) PO QAM #180 tabs 06/22/24 release sulfamethoxazole 800 1 tab PO BID #14 tabs 09/28/24 mg-trimethoprim 160 mg tablet (Bactrim DS) albuterol sulfate 90 mcg/actuation 2 inhalation inhalation QID PRN 11/14/24 aerosol inhaler (Ventolin HFA) shortness of breath or wheezing #6.7 grams nicotine 14 mg/24 hr daily 1 patch transdermal DAILY #14 ea 11/15/24 transdermal patch (Nicoderm CQ) nicotine 21 mg/24 hr daily 1 patch transdermal DAILY #28 ea 11/15/24 transdermal patch (Nicoderm CQ) nicotine 7 mg/24 hr daily 1 patch transdermal Q24H #14 ea 11/15/24 transdermal patch (Nicoderm CQ) Allergies Allergy/AdvReac Type Severity Reaction Status Date / Time ibuprofen Allergy Hypertensio Verified 11/15/24 13:31 n Review of Systems Review of Systems Narrative: GENERAL: Negative chills, fatigue, malaise, fever, sweats. HEENT: Negative sinus pain, ear pain, sore throat RESPIRATORY: Positive dyspnea, cough CARDIOVASCULAR: Negative chest pain, palpitations GASTROINTESTINAL: Negative nausea, vomiting, abdominal pain : Negative dysuria, frequency, hematuria MUSCULOSKELETAL: Negative muscle or bony pain SKIN: Negative rash, skin lesions NEUROLOGIC: Negative weakness, numbness ROS Unobtainable: All systems reviewed & are unremarkable except as noted in HPI and below Patient History Medical History CAD (coronary artery disease) Early satiety Chronic hyponatremia Erectile dysfunction Wears glasses Osteoporosis (~2018) Fractures (~2004) Chicken pox Vertigo Hemorrhoid Anemia Hyperlipidemia Acute radial nerve palsy Pancreatitis (~2001) Alcohol dependence Tobacco dependency Alcohol withdrawal Pneumonia Multiple fractures of ribs Hypertension GERD (gastroesophageal reflux disease) Diabetes Surgical History Anesthesia S/P exploratory laparotomy (~2001) Status post hernia repair Family History Mother Diabetes mellitus Father Hypertension Bladder cancer Social History marital status: household members: spouse lives independently: Yes occupational status: employed Smoking Status: Current every day smoker alcohol intake: current substance use type: does not use Smoking Status: Current every day smoker tobacco type: cigarettes alcohol intake frequency: 3 or more drinks per day Alcohol type: beer and hard liquor Exam Narrative Exam Narrative: GENERAL: in no distress, not toxic not dyspneic HEAD: Normocephalic. EYES: Pupils equal round ENT: Mucous membranes moist. NECK: Trachea midline. CARDIOVASCULAR: Regular rate and rhythm RESPIRATORY: Patient is speaking full sentences. No respiratory distress. Coarse lung sounds at the bases right greater than left. GASTROINTESTINAL: Abdomen soft, non-tender EXTREMITIES: No gross deformities. BACK: No flank tenderness. NEURO: AOx4. SKIN: Warm and dry PSYCH: Not anxious, is cooperative Initial Vital Signs Initial Vital Signs: Vital Signs Pulse Rate 103 H 11/14/24 09:32 Respiratory Rate 26 H 11/14/24 09:32 Course Orders Ordered: Discontinued Medications Albuterol/Ipratropium (Albuterol/Ipratropium 3 Ml Ampul) 3 ml INH NOW ONE Stop: 11/14/24 14:18 Last Admin: 11/14/24 14:27 Dose: 3 ml Documented By: SP Sodium Chloride (Normal Saline 0.9%) 500 mls @ 1,000 mls/hr IV BOLUS ONE Stop: 11/14/24 11:51 Last Infusion: 11/14/24 12:46 Dose: Infused Documented By: Admin: 11/14/24 12:05 Dose: 1,000 mls/hr Documented By: BRIAN Vital Signs Vital signs: Vital Signs - 8 hr 11/14/24 09:32 11/14/24 09:33 11/14/24 09:33 Temperature Pulse Rate 103 H 103 H Respiratory Rate 26 H 18 Blood Pressure 119/73 Pulse Oximetry Oxygen Delivery Method Oxygen Flow Rate 11/14/24 09:41 11/14/24 10:00 11/14/24 10:00 Temperature 97.8 F Pulse Rate 103 H 99 H Respiratory Rate 24 16 Blood Pressure 193/73 H 103/66 Pulse Oximetry 100 100 Oxygen Delivery Method Room Air Oxygen Flow Rate 11/14/24 10:15 11/14/24 10:15 11/14/24 10:30 Temperature Pulse Rate 95 H Respiratory Rate 16 Blood Pressure 103/68 112/71 Pulse Oximetry 100 Oxygen Delivery Method Oxygen Flow Rate 11/14/24 10:30 11/14/24 10:44 11/14/24 10:45 Temperature Pulse Rate 84 76 Respiratory Rate 16 22 Blood Pressure 121/69 Pulse Oximetry 100 97 Oxygen Delivery Method Oxygen Flow Rate 11/14/24 10:45 11/14/24 11:01 11/14/24 11:07 Temperature Pulse Rate 76 Respiratory Rate 21 Blood Pressure Pulse Oximetry 98 99 93 Oxygen Delivery Method Room Air Oxygen Flow Rate 11/14/24 11:07 11/14/24 11:15 11/14/24 11:15 Temperature Pulse Rate 94 H Respiratory Rate 16 Blood Pressure 123/71 114/75 Pulse Oximetry Oxygen Delivery Method Oxygen Flow Rate 11/14/24 11:30 11/14/24 11:30 11/14/24 11:57 Temperature Pulse Rate 91 H 84 Respiratory Rate 16 17 Blood Pressure 118/78 Pulse Oximetry 85 L 88 L Oxygen Delivery Method Room Air Nasal Cannula Oxygen Flow Rate 4 11/14/24 11:57 11/14/24 11:59 11/14/24 12:00 Temperature Pulse Rate 84 Respiratory Rate 13 Blood Pressure 139/71 120/69 Pulse Oximetry 94 Oxygen Delivery Method Oximask Oxygen Flow Rate 4 11/14/24 12:00 11/14/24 12:15 11/14/24 12:15 Temperature Pulse Rate 88 80 Respiratory Rate 15 12 Blood Pressure 122/69 Pulse Oximetry 100 97 Oxygen Delivery Method Oximask Oximask Oxygen Flow Rate 2 2 11/14/24 12:30 11/14/24 12:30 11/14/24 12:45 Temperature Pulse Rate 72 84 Respiratory Rate 21 19 Blood Pressure 120/64 Pulse Oximetry 99 99 Oxygen Delivery Method Oximask Oximask Oxygen Flow Rate 2 2 11/14/24 12:45 11/14/24 13:00 11/14/24 13:00 Temperature Pulse Rate 94 H Respiratory Rate 17 Blood Pressure 118/66 103/64 Pulse Oximetry 94 Oxygen Delivery Method Room Air Oxygen Flow Rate 11/14/24 13:15 11/14/24 13:15 11/14/24 13:30 Temperature Pulse Rate 90 Respiratory Rate 18 Blood Pressure 102/68 108/68 Pulse Oximetry 100 Oxygen Delivery Method Room Air Oxygen Flow Rate 11/14/24 13:30 11/14/24 13:45 11/14/24 13:45 Temperature Pulse Rate 95 H 92 H Respiratory Rate 24 19 Blood Pressure 107/64 Pulse Oximetry 100 100 Oxygen Delivery Method Room Air Room Air Oxygen Flow Rate 11/14/24 14:00 11/14/24 14:04 11/14/24 14:30 Temperature Pulse Rate 95 H 103 H Respiratory Rate 20 Blood Pressure Pulse Oximetry 100 84 L 90 L Oxygen Delivery Method Room Air Room Air Room Air Oxygen Flow Rate 11/14/24 14:30 11/14/24 15:00 Temperature Pulse Rate 100 H 101 H Respiratory Rate 22 21 Blood Pressure Pulse Oximetry 93 Oxygen Delivery Method Oxygen Flow Rate MDM - SOB/Dyspnea Lab Data 11/14/24 10:00 11/14/24 10:00 Labs: Lab Results 11/14/24 11/14/24 Range/Units 09:49 10:00 WBC 9.2 (4.5-11.0) X10^3/uL RBC 3.21 L (4.5-5.9) X10^6/uL Hgb 10.7 L (13.5-17.5) g/dL Hct 30.8 L (41-53) % MCV 96.0 (80-100) fL MCH 33.3 (26-34) PG MCHC 34.6 (30-36) % RDW 13.5 (11.6-14.8) % Plt Count TNP Neut % (Auto) 89.1 H (50-75) % Lymph % (Auto) 8.2 L (25-40) % [place] % (Auto) 1.9 L (3-14) % Eos % (Auto) 0.4 L (2-4) % Baso % (Auto) 0.4 (0-2) % Neut # (Auto) 8200 H (2172-1302) /uL Lymph # (Auto) 800 L (9961-4388) /uL [place] # (Auto) 200 (0-900) /uL Eos # (Auto) 0 (0-450) /uL Baso # (Auto) 0 (0-100) /uL PT 11.1 (9.4-12.5) SECONDS INR 1.0 (0.9-1.3) D-Dimer 526 H (<500) ng/ml Sodium 128 L (137-145) mmol/L Potassium 3.9 (3.4-5.1) mmol/L Chloride 98 (98-107) mmol/L Carbon Dioxide 27 (22-32) mmol/L BUN 9 (9-20) mg/dL Creatinine 0.51 L (0.66-1.25) mg/dL Estimated GFR > 60 (>60) mL/min BUN/Creatinine Ratio 17.6 (6-22) Glucose 232 H (80-110) mg/dL Lactate 1.1 (0.7-2.1) mmol/L Calcium 8.8 (8.4-10.2) mg/dL Total Bilirubin 0.5 (0.2-1.3) mg/dL AST 32 (17-59) IU/L ALT 19 (<50) IU/L Alkaline Phosphatase 93 (38-126) U/L Troponin I < 0.012 (0.01-0.034) ng/mL NT-Pro-B Natriuret Pep 580 H (<125) pg/mL Total Protein 5.6 L (6.3-8.2) g/dL Albumin 3.2 L (3.5-5.0) g/dL Globulin 2.4 (1.7-4.1) g/dL Albumin/Globulin Ratio 1.3 (1.0-2.8) Chlamy pneumoniae PCR Not detected (Not Detect) Adenovirus (PCR) Not detected (Not Detect) B. pertussis DNA (PCR) Not detected (Not Detect) B.parapertussis DNA PCR Not detected (Not Detecte) Coronavirus OC43 (PCR) Not detected (Not Detect) Coronavirus HKU1 (PCR) Not detected (Not Detect) Coronavirus 229E (PCR) Not detected (Not Detect) SARS-CoV-2 (PCR) Not detected (Not Detecte) Coronavirus NL63 (PCR) Not detected (Not Detect) Human Metapneumovir PCR Not detected (Not Detect) Influenza Type A (PCR) Not detected (Not Detect) Influenza Type B (PCR) Not detected (Not Detect) M. pneumoniae (PCR) Not detected (Not Detect) Parainfluenza 1 (PCR) Not detected (Not Detect) Parainfluenza 2 (PCR) Not detected (Not Detect) Parainfluenza 3 (PCR) Not detected (Not Detect) Parainfluenza 4 (PCR) Not detected (Not Detect) RSV (PCR) Not detected (Not Detect) Entero/Rhino (PCR) Not detected (Not Detect) Imaging Data Chest x-ray: Radiologist's Impression: [address] [address] XRay Report Signed Patient: Bharat Mcpherson MR#: [id number] : 1960 Acct:[id number] Age/Sex: 64 / M Date of Service: 11/14/24 Loc: ED Accession Number: [id number] Procedure: XR chest 1V Ordering Provider: Tyrese Michele MD PROCEDURE: XR CHEST 1V INDICATIONS: Shortness of breath TECHNIQUE: One view of the chest was acquired. COMPARISON: [facility], , XR CHEST 1V, 11/01/2024, 8:24. FINDINGS: Surgical changes and devices: Interval left chest Port-A-Cath placement Lungs and pleura: Lungs are clear. No pleural effusions or pneumothorax. Mediastinum: Mediastinal contours appear normal. Heart size is normal. Bones and chest wall: No suspicious bony lesions. Overlying soft tissues appear unremarkable. IMPRESSION: No acute cardiopulmonary abnormality is seen. Dictated by: Adalid Julian M.D. on 11/14/2024 at 9:57 Approved by: Adalid Julian M.D. on 11/14/2024 at 10:02 [facility] Narrative Medical decision making narrative: Patient here with for complaints of cough cold congestion shortness of breath that started last night. Patient has history of pancreatic cancer. Med port placed at [facility] last week and has started chemotherapy. Patient sees oncologist Dr. Schulz. Patient in no respiratory distress. 100% room air. Does have coarse lung sounds right greater than left. No known sick contacts. After history and exam CBC CMP respiratory panel EKG troponin BNP D-dimer chest x-ray lactic acid [facility] Medical records reviewed: No recent visit for this complaint Differential considered: Includes but not limited to pneumonia bronchitis COVID influenza rhino virus pulmonary embolism pleural effusion Lab Test results independently reviewed as above. Pertinent findings: WBC 9.2 hemoglobin 10.7 INR 1.0 sodium 128 potassium 3.9 GFR greater than 60 lactate 1.1 BNP 580 troponin less than 0.012 respiratory panel negative Independently reviewed EKG sinus tachycardia rate 102 otherwise normal EKG Imaging studies independently reviewed: Chest x-ray no acute finding Consultations: None indicated at this time. Treatments: DuoNeb normal saline Re-evaluations: 4:00 p.m.. Patient feeling much better after DuoNeb treatment. Up and walking and 92% room air. He is at baseline according to patient and family. I will prescribe inhaler for home. Likely develop being possible asthma emphysema from his smoking. Encouraged him to stop smoking. Return precautions reviewed. They desire discharge home. Discussion: Appropriate for discharge home exam is reassuring. Patient likely developing asthma or emphysema. Patient has significant improvement with breathing treatment here. Inhaler prescription provided. Return precautions reviewed. They desire discharge home. Diagnosis: Acute bronchitis Discharge Plan Departure Patient Disposition: Home Clinical Impression: Acute bronchitis Qualifiers: Bronchitis organism: unspecified organism Qualified Code(s): J20.9 - Acute bronchitis, unspecified Instructions: DI for Acute Bronchitis Activity Restrictions/Additional Instructions: Please stop smoking. You are being treated for bronchitis. Use inhaler 2 puffs every 4 hours as needed for shortness of breath or cough. No prescriptions for antibiotics are indicated. No pneumonia was seen. Return if worse if any questions or concerns. See family doctor this week for re-evaluation. Please turkey picker your inhaler at the pharmacy this evening. Prescriptions: New albuterol sulfate [Ventolin HFA] 90 mcg/actuation HFA aerosol inhaler 2 inhalation INHALATION QID PRN (Reason: shortness of breath or wheezing) Qty: 6.7 0RF No Action metformin 1,000 mg tablet extended release 24 hr 1,000 mg PO QPM Qty: 90 3RF Farxiga 10 mg tablet 10 mg PO DAILY Qty: 90 3RF atorvastatin 10 mg tablet 10 mg PO BEDTIME Qty: 90 3RF lisinopril 40 mg tablet 40 mg PO BID Qty: 180 3RF omeprazole 20 mg tablet,delayed release (DR/EC) 40 mg PO QAM Qty: 180 3RF ferrous sulfate 324 mg (65 mg iron) tablet,delayed release (DR/EC) 324 mg PO DAILY Qty: 90 2RF metoprolol succinate 50 mg tablet extended release 24 hr 50 mg PO DAILY Qty: 90 3RF (DME) OneTouch Ultra Test Strip See Rx Instructions .ROUTE .COMPLEX Qty: 100 11RF Dose Instruction: USE TO TEST BLOOD SUGARS THREE TIMES DAILY Rx Instructions: USE TO TEST BLOOD SUGARS THREE TIMES DAILY (DME) blood sugar diagnostic Strip See Rx Instructions .ROUTE .MEDSUPPLY Qty: 100 3RF Rx Instructions: As directed, daily (DME) Disabled Parking Permit See Rx Instructions .ROUTE .MEDSUPPLY Qty: 1 0RF Rx Instructions: I find this patient to be medically disabled and qualified for Disabled Parking as indicated and signed on the accompanying Disabled Parking Application for Individuals. (DME) lancets 33 gauge misc See Rx Instructions .ROUTE .MEDSUPPLY Qty: 100 3RF Rx Instructions: Use to test blood glucose TID sulfamethoxazole-trimethoprim [Bactrim DS] 800-160 mg tablet 1 tab PO BID Qty: 14 0RF Hold Instructions: Home Medication placed on hold at Doctor's office oxycodone-acetaminophen 10-325 mg tablet PO prochlorperazine maleate 10 mg tablet 10 mg PO Q6H PRN ondansetron 8 mg tablet,disintegrating PO DAILY nicotine [Nicoderm CQ] 21 mg/24 hr patch 24 hour 1 patch transdermal DAILY Qty: 28 1RF nicotine [Nicoderm CQ] 14 mg/24 hr patch 24 hour 1 patch transdermal DAILY Qty: 14 0RF Rx Instructions: Use daily for 2 weeks, then reduce to 7mg patch for 2 weeks nicotine [Nicoderm CQ] 7 mg/24 hr patch 24 hour 1 patch transdermal Q24H Qty: 14 0RF cyanocobalamin (vitamin B-12) [Vitamin B-12] 1,000 mcg Tablet 1,000 mcg PO QAM aspirin 81 mg Tablet 81 mg PO QAM cholecalciferol (vitamin D3) [Vitamin D3] 125 mcg (5,000 unit) Tablet 125 mcg PO DAILY Antacid (calcium carbonate) 215 mg calcium (500 mg) Tablet,Chewable 215 mg PO QAM Referrals: Rao Richard MD [Primary Care Provider] - Stand Alone Forms: Patient Portal/API/Survey
[2024-11-14 10:16] LABS: Add Manual Diff / Slide Review NO; Basophils Absolute Auto 0 /uL (0-100); Basophils Percent Auto 0.4 % (0-2); Eosinophils Absolute Auto 0 /uL (0-450); Eosinophils Percent Auto 0.4 % (2-4); Hematocrit 30.8 % (41-53); Hemoglobin 10.7 g/dL (13.5-17.5); Lymphocytes Absolute Auto 800 /uL (1100-4500); Lymphocytes Percent Auto 8.2 % (25-40); Mean Corpuscular HGB Conc 34.6 % (30-36); Mean Corpuscular Hemoglobin 33.3 PG (26-34); Monocytes Absolute Auto 200 /uL (0-900); Monocytes Percent Auto 1.9 % (3-14); Neutrophils Absolute Auto 8200 /uL (1500-7000); Neutrophils Percent Auto 89.1 % (50-75); Prothrombin Time 11.1 SECONDS (9.4-12.5); Red Blood Cell Count 3.21 X10^6/uL (4.5-5.9); Red Cell Distribution Width 13.5 % (11.6-14.8); White Blood Cell Count 9.2 X10^3/uL (4.5-11.0)
[2024-11-14 10:24] LABS: D Dimer 526 ng/ml (<500)
[2024-11-14 10:28] LABS: Alanine Aminotransferase 19 IU/L (<50); Albumin 3.2 g/dL (3.5-5.0); Albumin Globulin Ratio 1.3 (1.0-2.8); Alkaline Phosphatase 93 U/L (38-126); Aspartate Aminotransferase 32 IU/L (17-59); BUN Creatinine Ratio 17.6 (6-22); Bilirubin Total 0.5 mg/dL (0.2-1.3); Blood Urea Nitrogen 9 mg/dL (9-20); Calcium 8.8 mg/dL (8.4-10.2); Carbon Dioxide 27 mmol/L (22-32); Chloride 98 mmol/L (98-107); Estimated Glomerular Filt Rate > 60 mL/min (>60); Globulin 2.4 g/dL (1.7-4.1); Glucose 232 mg/dL (80-110); HEMOLYSIS 35 (0-50); Lactate (Lactic Acid) 1.1 mmol/L (0.7-2.1); Potassium 3.9 mmol/L (3.4-5.1); Sodium 128 mmol/L (137-145); Total Protein 5.6 g/dL (6.3-8.2)
--- NOTE | 2024-11-14 10:33 | PC.NURSE ---
Patient complaint this this IV was causing him excess pain and this RN removed.
[2024-11-14 10:40] LABS: NT-proBNP (BNP-Adult 18+) 580 pg/mL (<125); Troponin I < 0.012 ng/mL (0.01-0.034)
[2024-11-14 10:41] LABS: Adenovirus Not Detected (Not Detect); B. parapertussis Not Detected (Not Detecte); Bordetella pertussis Not Detected (Not Detect); Chlamydophila pneumoniae Not Detected (Not Detect); Coronavirus 229E Not Detected (Not Detect); Coronavirus HKU1 Not Detected (Not Detect); Coronavirus NL 63 Not Detected (Not Detect); Coronavirus OC43 Not Detected (Not Detect); Human Metapneumovirus Not Detected (Not Detect); Human Rhinovirus/Enterovirus Not Detected (Not Detect); Influenza A Not Detected (Not Detect); Influenza B Not Detected (Not Detect); Mycoplasma pneumoniae Not Detected (Not Detect); Parainfluenza Virus 1 Not Detected (Not Detect); Parainfluenza Virus 2 Not Detected (Not Detect); Parainfluenza Virus 3 Not Detected (Not Detect); Parainfluenza Virus 4 Not Detected (Not Detect); Respiratory Syncytial Virus Not Detected (Not Detect); SARS- CoV-2 Not Detected (Not Detecte)
--- NOTE | 2024-11-14 11:22 | DI.CT.S_ITS ---
PROCEDURE: CT ANGIO CHEST PE PROTOCOL INDICATIONS: Dyspnea TECHNIQUE: After the administration of intravenous contrast, 2 mm thick sections acquired from the pulmonary apices to the posterior costophrenic angles. 3-dimensional maximum intensity projection (MIP) coronal and sagittal reformats were then acquired through the thorax. For radiation dose reduction, the following was used: automated exposure control, adjustment of mA and/or kV according to patient size. COMPARISON: None. FINDINGS: Image quality: Diagnostic. Pulmonary arteries: Pulmonary arteries are normal in size, and demonstrate no intraluminal filling defects to suggest central pulmonary embolism. Lower Neck: No enlarged lymph nodes. Thyroid: No thyroid nodules which require sonographic follow up, per consensus guidelines. Axillae: No enlarged lymph nodes. Chest Wall: Unremarkable. Bones: Osteopenia with increased thoracic kyphosis. Lungs and Pleura: No pneumothorax or pleural effusions. No consolidation or suspicious nodules. Heart: Heart size is normal. No pericardial effusion. Thoracic Vessels: No aortic aneurysm. Mediastinum and Lidia: No enlarged lymph nodes. Esophagus: No wall thickening. No hiatal hernia. Upper Abdomen: Visualized upper abdomen solid organs and bowel loops appear normal. IMPRESSION: No pulmonary embolus. No acute cardiopulmonary process. Osteopenia with increased thoracic kyphosis Dictated by: Adalid Julian M.D. on 11/14/2024 at 12:18 Approved by: Adalid Julian M.D. on 11/14/2024 at 12:25
[2024-11-14] MEDS: SODIUM CHLORIDE 0.9% 500 ML 1000 ML IV (12:05)
[2024-11-14] MEDS: ALBUTEROL/IPRATROPIUM 3 ML AMPUL INH (14:27)
--- NOTE | 2024-11-14 16:01 | PC.NURSE ---
Ambulation Assessment Note - After the patient finished walking and returned to their bed, he stated he felt normal when asked.
--- NOTE | 2024-11-14 16:06 | PC.NURSE ---
Called respiratory therapy for spacer training.
== END 2024-11-14 16:28 | disposition home or self-care (01) ==
PROVIDERS: Emergency Provider Emergency Medicine; PCP Family Medicine
DX: J20.9 Acute bronchitis, unspecified (principal); C25.9 Malignant neoplasm of pancreas, unspecified; Z95.828 Presence of other vascular implants and grafts; F17.210 Nicotine dependence, cigarettes, uncomplicated
CPT/HCPCS: 36415; 71045; 71275; 80053; 83605; 83880; 84484; 85025; 85379; 85610; 87633; 93005; 93010; 94640; 96360; 96361; 99284; 99285; Q9967

== ENCOUNTER 2024-12-13 14:07 | Emergency (ER) | payer OTHER, SELFPAY ==
[2020-11-08 19:14] VITALS: BMI 23.6
[2024-12-13] VITALS (10 sets, daily range): BP systolic 96–131; BP diastolic 54–79; PULSE 84–98; RESP 14–20; TEMP 36.6; O2SAT 93–100; BMI 18.8
--- NOTE | 2024-12-13 14:33 | DI.RAD.S_ITS ---
PROCEDURE: XR CHEST 1V INDICATIONS: chest pain TECHNIQUE: One view of the chest was acquired. COMPARISON: [facility], CR, XR CHEST 1V, 11/14/2024, 9:43. FINDINGS: Surgical changes and devices: Left chest Port-A-Cath Lungs and pleura: Lungs are clear. No pleural effusions or pneumothorax. Mediastinum: Mediastinal contours appear normal. Heart size is normal. Bones and chest wall: No suspicious bony lesions. Overlying soft tissues appear unremarkable. IMPRESSION: No acute cardiopulmonary abnormality is seen. Dictated by: Adalid Julian M.D. on 12/13/2024 at 15:43 Approved by: Adalid Julian M.D. on 12/13/2024 at 15:52
--- NOTE | 2024-12-13 14:55 | EKG_ITS ---
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
[2024-12-13 15:06] LABS: Add Manual Diff / Slide Review NO; Basophils Absolute Auto 0 /uL (0-100); Basophils Percent Auto 0.3 % (0-2); Eosinophils Absolute Auto 300 /uL (0-450); Eosinophils Percent Auto 4.5 % (2-4); Hematocrit 32.4 % (41-53); Hemoglobin 10.9 g/dL (13.5-17.5); Lymphocytes Absolute Auto 900 /uL (1100-4500); Lymphocytes Percent Auto 13.4 % (25-40); Mean Corpuscular HGB Conc 33.6 % (30-36); Mean Corpuscular Hemoglobin 32.6 PG (26-34); Monocytes Absolute Auto 100 /uL (0-900); Monocytes Percent Auto 1.4 % (3-14); Neutrophils Absolute Auto 5100 /uL (1500-7000); Neutrophils Percent Auto 80.4 % (50-75); Platelet Count 307 X10^3/uL (150-400); Red Blood Cell Count 3.34 X10^6/uL (4.5-5.9); Red Cell Distribution Width 14.3 % (11.6-14.8); White Blood Cell Count 6.4 X10^3/uL (4.5-11.0)
[2024-12-13 15:11] LABS: INR 0.9 (0.9-1.3); Prothrombin Time 10.3 SECONDS (9.4-12.5)
[2024-12-13 15:14] LABS: PTT Partial Thromboplastin Tim 41 SECONDS (25.1-36.5)
[2024-12-13 15:29] LABS: Alanine Aminotransferase 70 IU/L (<50); Albumin 3.4 g/dL (3.5-5.0); Albumin Globulin Ratio 1.5 (1.0-2.8); Alkaline Phosphatase 162 U/L (38-126); Aspartate Aminotransferase 59 IU/L (17-59); BUN Creatinine Ratio 18.5 (6-22); Bilirubin Total 0.7 mg/dL (0.2-1.3); Blood Urea Nitrogen 12 mg/dL (9-20); Calcium 8.8 mg/dL (8.4-10.2); Carbon Dioxide 24 mmol/L (22-32); Chloride 97 mmol/L (98-107); Creatine Kinase 33 U/L (55-170); Estimated Glomerular Filt Rate > 60 mL/min (>60); Globulin 2.3 g/dL (1.7-4.1); HEMOLYSIS < 15 (0-50); Lipase 25 U/L (23-300); Magnesium 1.5 mg/dL (1.6-2.3); Potassium 4.6 mmol/L (3.4-5.1); Sodium 128 mmol/L (137-145); Total Protein 5.7 g/dL (6.3-8.2)
[2024-12-13 15:30] LABS: Glucose 544 mg/dL (80-110)
[2024-12-13 15:39] LABS: NT-proBNP (BNP-Adult 18+) 479 pg/mL (<125); Troponin I < 0.012 ng/mL (0.01-0.034)
[2024-12-13] MEDS: SODIUM CHLORIDE 0.9% 1,000 ML 1000 ML IV (15:52)
--- NOTE | 2024-12-13 16:22 | ED_ITS ---
HPI - General Adult <La Arce DO - Last Filed: 12/14/24 18:30> General Chief complaint: Weakness Stated complaint: swelling and px in feet and legs, sent by Dr Queen Time Seen by Provider: 12/13/24 15:31 Source: patient, RN notes reviewed and old records reviewed Mode of arrival: Ambulatory Limitations: no limitations History of Present Illness HPI narrative: 64-year-old male stage IV pancreatic cancer with Mets to lungs and stomach recently started chemotherapy in November presents for swelling bilateral lower extremities for the past month. Patient states he has had increasing swelling was seen here on November 14 states they did not treat the swelling but at that time was found to have bronchitis and was discharged home with the inhaler. Patient states no fevers or chills he denies any chest pain or shortness of breath denies any orthopnea. States swelling does not seem any better with elevation in his lower extremities. He denies any nausea or vomiting no new issues with bowel movements or urination. He does note weight loss. Patient has not been on any diuretics in the past does not have a history of congestive heart failure. Daughter states he had a port placed in November but denies other surgeries. Is in process of quitting using tobacco in his using rarely over the past 4 weeks. Has mostly stopped alcohol but did have a drink in the last day or 2. No recreational drugs. Dr. Richard this is primary care physician. Dr. Goodman he was oncologist at [facility]. Patient's home medication list includes paclitaxel, gemcitabine for his chemotherapy. Zofran, prochlorperazine side in lorazepam PRN for nausea, laxatives, Aubrey 10/325, albuterol PRN, omeprazole, lisinopril 40 mg daily, metoprolol succinate extended release 50 mg, aspirin 81 mg, metformin 1000 mg, Farxiga 10 mg, lisinopril 40 mg and atorvastatin 10 mg. Patient has been using a nicotine patch. Has had Benadryl and Imodium PRN as well. Related Data Home Medications Medication Instructions Recorded Confirmed cyanocobalamin (vitamin B-12) 1,000 mcg PO QAM 04/23/19 11/15/24 1,000 mcg tablet (Vitamin B-12) aspirin 81 mg tablet 81 mg PO QAM 11/08/20 11/15/24 calcium carbonate (Antacid 215 mg PO QAM 11/08/20 11/15/24 (calcium carbonate)) cholecalciferol (vitamin D3) 125 125 mcg PO DAILY 11/08/20 11/15/24 mcg (5,000 unit) tablet (Vitamin D3) ondansetron 8 mg disintegrating mg PO DAILY 11/15/24 11/15/24 tablet oxycodone-acetaminophen 10 mg-325 tab PO 11/15/24 11/15/24 mg tablet prochlorperazine maleate 10 mg 10 mg PO Q6H PRN 11/15/24 11/15/24 tablet Previous Rx's Medication Instructions Recorded blood sugar diagnostic #100 ea 04/08/23 blood sugar diagnostic (OneTouch #100 strips 04/08/23 Ultra Test strips) Disabled Parking Permit #1 ea 07/08/23 lancets 33 gauge #100 ea 12/16/23 atorvastatin 10 mg tablet 10 mg PO BEDTIME #90 tabs 03/16/24 dapagliflozin propanediol 10 mg 10 mg PO DAILY #90 tabs 03/16/24 tablet (Farxiga) lisinopril 40 mg tablet 40 mg PO BID #180 tabs 03/16/24 metformin 1,000 mg tablet,extended 1,000 mg PO QPM #90 tabs 03/16/24 release 24hr (osmotic) ferrous sulfate 324 mg (65 mg 324 mg PO DAILY #90 tabs 06/22/24 iron) tablet,delayed release metoprolol succinate 50 mg 50 mg PO DAILY #90 tabs 06/22/24 tablet,extended release 24 hr omeprazole 20 mg tablet,delayed 40 mg (2 x 20 mg) PO QAM #180 tabs 06/22/24 release sulfamethoxazole 800 1 tab PO BID #14 tabs 09/28/24 mg-trimethoprim 160 mg tablet (Bactrim DS) albuterol sulfate 90 mcg/actuation 2 inhalation inhalation QID PRN 11/14/24 aerosol inhaler (Ventolin HFA) shortness of breath or wheezing #6.7 grams nicotine 14 mg/24 hr daily 1 patch transdermal DAILY #14 ea 11/15/24 transdermal patch (Nicoderm CQ) nicotine 21 mg/24 hr daily 1 patch transdermal DAILY #28 ea 11/15/24 transdermal patch (Nicoderm CQ) nicotine 7 mg/24 hr daily 1 patch transdermal Q24H #14 ea 11/15/24 transdermal patch (Nicoderm CQ) Allergies Allergy/AdvReac Type Severity Reaction Status Date / Time ibuprofen Allergy Hypertensio Verified 11/15/24 13:31 n Review of Systems <La Arce DO - Last Filed: 12/14/24 18:30> Review of Systems ROS Unobtainable: All systems reviewed & are unremarkable except as noted in HPI and below Patient History <La Arce DO - Last Filed: 12/14/24 18:30> Medical History CAD (coronary artery disease) Early satiety Chronic hyponatremia Erectile dysfunction Wears glasses Osteoporosis (~2018) Fractures (~2004) Chicken pox Vertigo Hemorrhoid Anemia Hyperlipidemia Acute radial nerve palsy Pancreatitis (~2001) Alcohol dependence Tobacco dependency Alcohol withdrawal Pneumonia Multiple fractures of ribs Hypertension GERD (gastroesophageal reflux disease) Diabetes Surgical History Anesthesia S/P exploratory laparotomy (~2001) Status post hernia repair Family History Mother Diabetes mellitus Father Hypertension Bladder cancer Social History marital status: household members: spouse lives independently: Yes occupational status: employed Smoking Status: Former smoker alcohol intake: current substance use type: does not use Smoking Status: Former smoker tobacco type: cigarettes alcohol intake frequency: 3 or more drinks per day Alcohol type: hard liquor Exam <La Arce DO - Last Filed: 12/14/24 18:30> Narrative Exam Narrative: GENERAL: Alert and oriented x three, thin male in mild distress. HEENT: Head normocephalic, atraumatic, EOMI, pupils reactive, face symmetric, moist mucous membranes NECK: Supple, full range of motion CARDIOVASCULAR: Regular rate and rhythm without murmurs, rubs or gallops. RESPIRATORY: Breath sounds equal bilaterally, no wheezes rales or rhonchi. ABDOMEN: Soft, nontender. Nondistended. Normoactive bowel sounds all 4 quadrants. No guarding or rebound, rigidity, no mass : No CVA tenderness EXTREMITIES: Normal range of motion, no clubbing. Patient has bilateral lower extremity edema there is some slight erythema, skin is shiny with no chronic venous stasis changes otherwise noted. Extends to just below the knees. Cap refill less than 2 seconds bilateral lower extremities. Neurovascularly intact. Normal range of motion. NEUROLOGICAL: Cranial nerves II through XII grossly intact. Moving all extremities SKIN: Warm, dry, no petechiae, no rashes or lesions. Initial Vital Signs Initial Vital Signs: Vital Signs Temperature 97.8 F 12/13/24 14:19 Pulse Rate 98 H 12/13/24 14:19 Respiratory Rate 20 12/13/24 14:19 Blood Pressure 120/68 12/13/24 14:19 Oxygen Delivery Method Room Air 12/13/24 14:19 <Hill Leyva, DO - Last Filed: 12/13/24 21:54> Initial Vital Signs Initial Vital Signs: Vital Signs Temperature 97.8 F 12/13/24 14:19 Pulse Rate 98 H 12/13/24 14:19 Respiratory Rate 20 12/13/24 14:19 Blood Pressure 120/68 12/13/24 14:19 Oxygen Delivery Method Room Air 12/13/24 14:19 Course <La Arce, DO - Last Filed: 12/14/24 18:30> Orders Ordered: Discontinued Medications Aspirin (Aspirin 81 Mg Chew Tab) 324 mg PO NOW ONE Stop: 12/13/24 14:33 Last Admin: 12/13/24 15:41 Dose: Not Given Documented By: DENI Furosemide (Furosemide 40 Mg/4 Ml Vial) 40 mg IV NOW ONE Stop: 12/13/24 16:59 Last Admin: 12/13/24 17:15 Dose: 40 mg Documented By: HAIDER Sodium Chloride (Normal Saline 0.9%) 1,000 mls @ 1,000 mls/hr IV BOLUS ONE Stop: 12/13/24 16:31 Last Infusion: 12/13/24 17:02 Dose: Infused Documented By: Admin: 12/13/24 15:52 Dose: 1,000 mls/hr Documented By: ANDREE Insulin Human Regular (Insulin Regular 100 Unit/Ml 3 Ml Vial) 4 unit SUBCUT NOW ONE Stop: 12/13/24 18:17 Last Admin: 12/13/24 18:25 Dose: 4 unit Documented By: EDISON Co-signed By: DENI Vital Signs Vital signs: Vital Signs - 8 hr 12/13/24 14:19 12/13/24 18:06 12/13/24 18:06 Temperature 97.8 F Pulse Rate 98 H 84 Respiratory Rate 20 Blood Pressure 120/68 131/79 Pulse Oximetry 93 Oxygen Delivery Method Room Air 12/13/24 18:30 12/13/24 18:30 12/13/24 19:00 Temperature Pulse Rate 84 Respiratory Rate Blood Pressure 120/77 107/70 Pulse Oximetry 100 Oxygen Delivery Method 12/13/24 19:00 12/13/24 19:30 12/13/24 19:30 Temperature Pulse Rate 88 88 Respiratory Rate Blood Pressure 106/66 Pulse Oximetry 100 100 Oxygen Delivery Method 12/13/24 20:00 12/13/24 20:00 12/13/24 20:30 Temperature Pulse Rate 88 Respiratory Rate Blood Pressure 107/70 104/72 Pulse Oximetry 100 Oxygen Delivery Method 12/13/24 20:30 12/13/24 21:00 12/13/24 21:00 Temperature Pulse Rate 88 Respiratory Rate Blood Pressure 96/56 L Pulse Oximetry 100 100 Oxygen Delivery Method 12/13/24 21:30 Temperature Pulse Rate 98 H Respiratory Rate Blood Pressure Pulse Oximetry 100 Oxygen Delivery Method <Hill Leyva, DO - Last Filed: 12/13/24 21:54> Orders Ordered: Discontinued Medications Aspirin (Aspirin 81 Mg Chew Tab) 324 mg PO NOW ONE Stop: 12/13/24 14:33 Last Admin: 12/13/24 15:41 Dose: Not Given Documented By: DENI Furosemide (Furosemide 40 Mg/4 Ml Vial) 40 mg IV NOW ONE Stop: 12/13/24 16:59 Last Admin: 12/13/24 17:15 Dose: 40 mg Documented By: HAIDER Sodium Chloride (Normal Saline 0.9%) 1,000 mls @ 1,000 mls/hr IV BOLUS ONE Stop: 12/13/24 16:31 Last Infusion: 12/13/24 17:02 Dose: Infused Documented By: Admin: 12/13/24 15:52 Dose: 1,000 mls/hr Documented By: ANDREE Insulin Human Regular (Insulin Regular 100 Unit/Ml 3 Ml Vial) 4 unit SUBCUT NOW ONE Stop: 12/13/24 18:17 Last Admin: 12/13/24 18:25 Dose: 4 unit Documented By: ZGG Co-signed By: DENI Vital Signs Vital signs: Vital Signs - 8 hr 12/13/24 14:19 12/13/24 18:06 12/13/24 18:06 Temperature 97.8 F Pulse Rate 98 H 84 Respiratory Rate 20 Blood Pressure 120/68 131/79 Pulse Oximetry 93 Oxygen Delivery Method Room Air 12/13/24 18:30 12/13/24 18:30 12/13/24 19:00 Temperature Pulse Rate 84 Respiratory Rate Blood Pressure 120/77 107/70 Pulse Oximetry 100 Oxygen Delivery Method 12/13/24 19:00 12/13/24 19:30 12/13/24 19:30 Temperature Pulse Rate 88 88 Respiratory Rate Blood Pressure 106/66 Pulse Oximetry 100 100 Oxygen Delivery Method 12/13/24 20:00 12/13/24 20:00 12/13/24 20:30 Temperature Pulse Rate 88 Respiratory Rate Blood Pressure 107/70 104/72 Pulse Oximetry 100 Oxygen Delivery Method 12/13/24 20:30 12/13/24 21:00 12/13/24 21:00 Temperature Pulse Rate 88 Respiratory Rate Blood Pressure 96/56 L Pulse Oximetry 100 100 Oxygen Delivery Method 12/13/24 21:30 Temperature Pulse Rate 98 H Respiratory Rate Blood Pressure Pulse Oximetry 100 Oxygen Delivery Method Medical Decision Making <La Arce, DO - Last Filed: 12/14/24 18:30> Lab Data 12/13/24 14:35 12/13/24 14:35 Labs: Lab Results 12/13/24 12/13/24 Range/Units 14:35 15:49 WBC 6.4 (4.5-11.0) X10^3/uL RBC 3.34 L (4.5-5.9) X10^6/uL Hgb 10.9 L (13.5-17.5) g/dL Hct 32.4 L (41-53) % MCV 97.0 (80-100) fL MCH 32.6 (26-34) PG MCHC 33.6 (30-36) % RDW 14.3 (11.6-14.8) % Plt Count 307 (150-400) X10^3/uL Neut % (Auto) 80.4 H (50-75) % Lymph % (Auto) 13.4 L (25-40) % [place] % (Auto) 1.4 L (3-14) % Eos % (Auto) 4.5 H (2-4) % Baso % (Auto) 0.3 (0-2) % Neut # (Auto) 5100 (3983-6791) /uL Lymph # (Auto) 900 L (2721-1268) /uL [place] # (Auto) 100 (0-900) /uL Eos # (Auto) 300 (0-450) /uL Baso # (Auto) 0 (0-100) /uL PT 10.3 (9.4-12.5) SECONDS INR 0.9 (0.9-1.3) APTT 41 H (25.1-36.5) SECONDS VBG pH 7.35 (7.33-7.43) VBG pCO2 45.5 (45-50) mmHg VBG pO2 28 L (35-45) mmHg VBG HCO3 25 (24-28) mmol/L VBG Total CO2 24 (24-29) mmol/L VBG O2 Saturation 49 L (70-75) % VBG Base Excess -0.6 L (0-4) mmol/L FiO2 % 21.0 % % Sodium 128 L (137-145) mmol/L Potassium 4.6 (3.4-5.1) mmol/L Chloride 97 L (98-107) mmol/L Carbon Dioxide 24 (22-32) mmol/L BUN 12 (9-20) mg/dL Creatinine 0.65 L (0.66-1.25) mg/dL Estimated GFR > 60 (>60) mL/min BUN/Creatinine Ratio 18.5 (6-22) Glucose 544 H* (80-110) mg/dL Calcium 8.8 (8.4-10.2) mg/dL Magnesium 1.5 L (1.6-2.3) mg/dL Total Bilirubin 0.7 (0.2-1.3) mg/dL AST 59 (17-59) IU/L ALT 70 H (<50) IU/L Alkaline Phosphatase 162 H (38-126) U/L Total Creatine Kinase 33 L (55-170) U/L Troponin I < 0.012 (0.01-0.034) ng/mL NT-Pro-B Natriuret Pep 479 H (<125) pg/mL Total Protein 5.7 L (6.3-8.2) g/dL Albumin 3.4 L (3.5-5.0) g/dL Globulin 2.3 (1.7-4.1) g/dL Albumin/Globulin Ratio 1.5 (1.0-2.8) Lipase 25 (23-300) U/L Ketones 0.20 (<0.27) mmol/L Point of Care Testing Glucose POC 304 Point of care testing: Point of Care Testing Glucose POC 304 Imaging Data Chest x-ray: Radiologist's Impression: [address] [address] XRay Report Signed Patient: Bharat Mcpherson MR#: [id number] : 1960 Acct:[id number] Age/Sex: 64 / M Date of Service: 12/13/24 Loc: ED Accession Number: [id number] Procedure: XR chest 1V Ordering Provider: La Arce D.O. PROCEDURE: XR CHEST 1V INDICATIONS: chest pain TECHNIQUE: One view of the chest was acquired. COMPARISON: [facility], , XR CHEST 1V, 11/14/2024, 9:43. FINDINGS: Surgical changes and devices: Left chest Port-A-Cath Lungs and pleura: Lungs are clear. No pleural effusions or pneumothorax. Mediastinum: Mediastinal contours appear normal. Heart size is normal. Bones and chest wall: No suspicious bony lesions. Overlying soft tissues appear unremarkable. IMPRESSION: No acute cardiopulmonary abnormality is seen. Dictated by: Adalid Julian M.D. on 12/13/2024 at 15:43 Approved by: Adalid Julian M.D. on 12/13/2024 at 15:52 ECG Data Attestation: I personally reviewed and interpreted this ECG as follows: Prior ECG tracings: available for review Interpretation: Sinus rhythm rate of 91 NV 132 QRS 82 QTC of 423, no acute ST elevation depression noted. Patient has prior from 11/14/2024 no acute changes from ST segments patient was sinus tach on that EKG. [facility] Narrative Medical decision making narrative: Labs show white count of 6.4 hemoglobin of 10.9 platelets of 307. INR 0.9. Glucose is 544 patient's sodium is 128, when corrected he was 139. Potassium 4.6 chloride 97 CO2 is 24 with a BUN 12, creatinine 0.65, Mag 1.5 calcium is 8.8 bilirubin is 0.7 with a AST of 49 ALT is 70 alk-phos of 162 total CK is 33 with a troponin of 0.012 with a BNP of 479. Ketones are 0.20 Anion gap uncorrected as 7, anion gap with corrected sodium is 18. Chest x-ray shows no acute change DVT ultrasound Sinus rhythm, rate of 91 Patient received a L bolus of NS with plan for recheck of glucose after. Patient was given a dose of Lasix. He was not on any diuretics currently. <Hill Leyva, DO - Last Filed: 12/13/24 21:54> Lab Data Labs: Lab Results 12/13/24 12/13/24 Range/Units 14:35 15:49 WBC 6.4 (4.5-11.0) X10^3/uL RBC 3.34 L (4.5-5.9) X10^6/uL Hgb 10.9 L (13.5-17.5) g/dL Hct 32.4 L (41-53) % MCV 97.0 (80-100) fL MCH 32.6 (26-34) PG MCHC 33.6 (30-36) % RDW 14.3 (11.6-14.8) % Plt Count 307 (150-400) X10^3/uL Neut % (Auto) 80.4 H (50-75) % Lymph % (Auto) 13.4 L (25-40) % [place] % (Auto) 1.4 L (3-14) % Eos % (Auto) 4.5 H (2-4) % Baso % (Auto) 0.3 (0-2) % Neut # (Auto) 5100 (4961-1313) /uL Lymph # (Auto) 900 L (9290-8590) /uL [place] # (Auto) 100 (0-900) /uL Eos # (Auto) 300 (0-450) /uL Baso # (Auto) 0 (0-100) /uL PT 10.3 (9.4-12.5) SECONDS INR 0.9 (0.9-1.3) APTT 41 H (25.1-36.5) SECONDS VBG pH 7.35 (7.33-7.43) VBG pCO2 45.5 (45-50) mmHg VBG pO2 28 L (35-45) mmHg VBG HCO3 25 (24-28) mmol/L VBG Total CO2 24 (24-29) mmol/L VBG O2 Saturation 49 L (70-75) % VBG Base Excess -0.6 L (0-4) mmol/L FiO2 % 21.0 % % Sodium 128 L (137-145) mmol/L Potassium 4.6 (3.4-5.1) mmol/L Chloride 97 L (98-107) mmol/L Carbon Dioxide 24 (22-32) mmol/L BUN 12 (9-20) mg/dL Creatinine 0.65 L (0.66-1.25) mg/dL Estimated GFR > 60 (>60) mL/min BUN/Creatinine Ratio 18.5 (6-22) Glucose 544 H* (80-110) mg/dL Calcium 8.8 (8.4-10.2) mg/dL Magnesium 1.5 L (1.6-2.3) mg/dL Total Bilirubin 0.7 (0.2-1.3) mg/dL AST 59 (17-59) IU/L ALT 70 H (<50) IU/L Alkaline Phosphatase 162 H (38-126) U/L Total Creatine Kinase 33 L (55-170) U/L Troponin I < 0.012 (0.01-0.034) ng/mL NT-Pro-B Natriuret Pep 479 H (<125) pg/mL Total Protein 5.7 L (6.3-8.2) g/dL Albumin 3.4 L (3.5-5.0) g/dL Globulin 2.3 (1.7-4.1) g/dL Albumin/Globulin Ratio 1.5 (1.0-2.8) Lipase 25 (23-300) U/L Ketones 0.20 (<0.27) mmol/L Point of Care Testing Glucose POC 304 Point of care testing: Point of Care Testing Glucose POC 304 Imaging Data US - DVT: Radiologist's Impression: [address] [address] Ultrasound Report Signed Patient: Bharat Mcpherson MR#: [id number] : 1960 Acct:[id number] Age/Sex: 64 / M Date of Service: 12/13/24 Loc: ED Accession Number: [id number] Procedure: US periph venous low extrem bi Ordering Provider: La Arce D.O. PROCEDURE: US PERIPH VENOUS LOW EXTREM BI INDICATIONS: b/l LE swelling, stage 4 ca TECHNIQUE: Real-time imaging, as well as color and pulse Doppler interrogation, were performed of the deep veins of both legs from the inguinal ligament to the popliteal fossa, with documentation of the visualized calf veins. COMPARISON: [facility], CT, CT ANGIO CHEST PE PROTOCOL, 11/14/2024, 11:46. FINDINGS: Right: The common femoral, femoral, popliteal, and the visualized calf veins are normally compressible, and free of intraluminal thrombus. Color and pulse Doppler demonstrate normal phasic intravascular flow. There is normal augmentation response to distal compression maneuver. Left: The common femoral, femoral, popliteal, and the visualized calf veins are normally compressible, and free of intraluminal thrombus. Color and pulse Doppler demonstrate normal phasic intravascular flow. There is normal augmentation response to distal compression maneuver. IMPRESSION: No findings of deep venous thrombosis in either lower extremity. MDM Narrative Medical decision making narrative: Labs show white count of 6.4 hemoglobin of 10.9 platelets of 307. INR 0.9. Glucose is 544 patient's sodium is 128, when corrected he was 139. Potassium 4.6 chloride 97 CO2 is 24 with a BUN 12, creatinine 0.65, Mag 1.5 calcium is 8.8 bilirubin is 0.7 with a AST of 49 ALT is 70 alk-phos of 162 total CK is 33 with a troponin of 0.012 with a BNP of 479. Ketones are 0.20 Anion gap uncorrected as 7, anion gap with corrected sodium is 18. Chest x-ray shows no acute change DVT ultrasound Sinus rhythm, rate of 91 Patient received a L bolus of NS with plan for recheck of glucose after. Patient was given a dose of Lasix. He was not on any diuretics currently. 1800 (Dr. leyva): Patient was signed out to me by morning provider patient history of stage IV cancer with diabetes came in for complaining of persistent swelling to the legs bilaterally has been ongoing for ?awhile: Patient noted to be hyperglycemic in the 500s 1 L normal saline form units of subcutaneous insulin was given patient is glucose 304, patient not in DKA. Ultrasound negative for DVT, patient was given strict return precautions verbalized understanding of this and agrees to being discharged home with outpatient follow up Discharge Plan Departure Patient Disposition: Home Clinical Impression: Hyperglycemia, Bilateral leg edema Activity Restrictions/Additional Instructions: Please read the discharge instructions sheet carefully and bring all papers to all doctor follow-up visits, as it may contain information that your doctor may want to see. Disease processes change and evolve, if your symptoms worsen or if you develop any new symptoms that are concerning to you please return for evaluation. Your evaluation today does not show any evidence of any life- threatening/serious illnesses requiring admission to the hospital or surgery. Please follow-up with your doctor for re-evaluation in approximately 1 day. Seek immediate medical attention for any worrisome symptoms. *If you do not have a primary care provider please contact the [facility] Resource line at [phone]. They will ask some questions about your medical history and help get you set up with a doctor in the community. Prescriptions: No Action metformin 1,000 mg tablet extended release 24 hr 1,000 mg PO QPM Qty: 90 3RF Farxiga 10 mg tablet 10 mg PO DAILY Qty: 90 3RF atorvastatin 10 mg tablet 10 mg PO BEDTIME Qty: 90 3RF lisinopril 40 mg tablet 40 mg PO BID Qty: 180 3RF omeprazole 20 mg tablet,delayed release (DR/EC) 40 mg PO QAM Qty: 180 3RF ferrous sulfate 324 mg (65 mg iron) tablet,delayed release (DR/EC) 324 mg PO DAILY Qty: 90 2RF metoprolol succinate 50 mg tablet extended release 24 hr 50 mg PO DAILY Qty: 90 3RF (DME) OneTouch Ultra Test Strip See Rx Instructions .ROUTE .COMPLEX Qty: 100 11RF Dose Instruction: USE TO TEST BLOOD SUGARS THREE TIMES DAILY Rx Instructions: USE TO TEST BLOOD SUGARS THREE TIMES DAILY (DME) blood sugar diagnostic Strip See Rx Instructions .ROUTE .MEDSUPPLY Qty: 100 3RF Rx Instructions: As directed, daily (DME) Disabled Parking Permit See Rx Instructions .ROUTE .MEDSUPPLY Qty: 1 0RF Rx Instructions: I find this patient to be medically disabled and qualified for Disabled Parking as indicated and signed on the accompanying Disabled Parking Application for Individuals. (DME) lancets 33 gauge misc See Rx Instructions .ROUTE .MEDSUPPLY Qty: 100 3RF Rx Instructions: Use to test blood glucose TID sulfamethoxazole-trimethoprim [Bactrim DS] 800-160 mg tablet 1 tab PO BID Qty: 14 0RF Hold Instructions: Home Medication placed on hold at Doctor's office oxycodone-acetaminophen 10-325 mg tablet PO prochlorperazine maleate 10 mg tablet 10 mg PO Q6H PRN ondansetron 8 mg tablet,disintegrating PO DAILY nicotine [Nicoderm CQ] 21 mg/24 hr patch 24 hour 1 patch transdermal DAILY Qty: 28 1RF nicotine [Nicoderm CQ] 14 mg/24 hr patch 24 hour 1 patch transdermal DAILY Qty: 14 0RF Rx Instructions: Use daily for 2 weeks, then reduce to 7mg patch for 2 weeks nicotine [Nicoderm CQ] 7 mg/24 hr patch 24 hour 1 patch transdermal Q24H Qty: 14 0RF cyanocobalamin (vitamin B-12) [Vitamin B-12] 1,000 mcg Tablet 1,000 mcg PO QAM aspirin 81 mg Tablet 81 mg PO QAM cholecalciferol (vitamin D3) [Vitamin D3] 125 mcg (5,000 unit) Tablet 125 mcg PO DAILY Antacid (calcium carbonate) 215 mg calcium (500 mg) Tablet,Chewable 215 mg PO QAM albuterol sulfate [Ventolin HFA] 90 mcg/actuation HFA aerosol inhaler 2 inhalation INHALATION QID PRN (Reason: shortness of breath or wheezing) Qty: 6.7 0RF Referrals: Rao Richard MD [Primary Care Provider] - Stand Alone Forms: Patient Portal/API/Survey
--- NOTE | 2024-12-13 16:57 | DI.US.S_ITS ---
PROCEDURE: US PERIPH VENOUS LOW EXTREM BI INDICATIONS: b/l LE swelling, stage 4 ca TECHNIQUE: Real-time imaging, as well as color and pulse Doppler interrogation, were performed of the deep veins of both legs from the inguinal ligament to the popliteal fossa, with documentation of the visualized calf veins. COMPARISON: [facility], CT, CT ANGIO CHEST PE PROTOCOL, 11/14/2024, 11:46. FINDINGS: Right: The common femoral, femoral, popliteal, and the visualized calf veins are normally compressible, and free of intraluminal thrombus. Color and pulse Doppler demonstrate normal phasic intravascular flow. There is normal augmentation response to distal compression maneuver. Left: The common femoral, femoral, popliteal, and the visualized calf veins are normally compressible, and free of intraluminal thrombus. Color and pulse Doppler demonstrate normal phasic intravascular flow. There is normal augmentation response to distal compression maneuver. IMPRESSION: No findings of deep venous thrombosis in either lower extremity. Dictated by: Alan Umana M.D. on 12/13/2024 at 18:49 Approved by: Alan Umana M.D. on 12/13/2024 at 18:54
[2024-12-13] MEDS: FUROSEMIDE 40 MG/4 ML VIAL IV (17:15)
--- NOTE | 2024-12-13 18:03 | PC.NURSE ---
Patient has been dx with pancreatic cancer since september. Since then he's been getting chemo 3x with last dose on tuesday. He's been having back pain, itchyness, body aches and stomach pain all from the chemo he stated. Hes here for worsening lower ext edema. he denies SOB, orthopnea, chest pain or pressure.
[2024-12-13] MEDS: INSULIN REGULAR 100 UNIT/ML 3 ML VIAL SUBCUT (18:25)
--- NOTE | 2024-12-13 22:14 | PC.NURSE ---
patient's blood pressure was discussed by the provider at discharge and was okayed to DC
[2024-12-14 07:24] LABS: Base Excess VBG -0.6 mmol/L (0-4); HCO3 VBG 25 mmol/L (24-28); Oxygen Saturation VBG 49 % (70-75); PCO2 VBG 45.5 mmHg (45-50); PO2 VBG 28 mmHg (35-45); Total CO2 VBG 24 mmol/L (24-29); pH VBG 7.35 (7.33-7.43)
== END 2024-12-13 22:14 | disposition home or self-care (01) ==
PROVIDERS: Emergency Medicine; Emergency Provider Student in an Organized Health Care Education/Training Program; PCP Family Medicine
DX: E11.65 Type 2 diabetes mellitus with hyperglycemia (principal); R60.0 Localized edema; C25.9 Malignant neoplasm of pancreas, unspecified; C78.00 Secondary malignant neoplasm of unspecified lung; Z92.21 Personal history of antineoplastic chemotherapy; I50.9 Heart failure, unspecified; Z72.0 Tobacco use; F10.90 Alcohol use, unspecified, uncomplicated; Z79.84 Long term (current) use of oral hypoglycemic drugs; R07.9 Chest pain, unspecified
CPT/HCPCS: 36415; 71045; 80053; 82009; 82550; 82805; 82962; 83690; 83735; 83880; 84484; 85025; 85610; 85730; 93005; 93970; 96361; 96372; 96374; 99284; J1940

== ENCOUNTER 2024-12-20 10:24 | Observation (INO) | payer OTHER, MEDICAID, SELFPAY ==
[2020-11-08 19:14] VITALS: BMI 23.6
[2024-12-20] VITALS (49 sets, daily range): BP systolic 79–109; BP diastolic 52–71; PULSE 79–98; RESP 9–24; TEMP 36.9; O2SAT 89–100; BMI 18.7; BMI 18.5
--- NOTE | 2024-12-20 11:13 | DI.RAD.S_ITS ---
PROCEDURE: XR CHEST 1V INDICATIONS: Shortness of breath TECHNIQUE: One view of the chest was acquired. COMPARISON: [facility], CR, XR CHEST 1V, 12/13/2024, 15:00. FINDINGS: Surgical changes and devices: Left chest wall Port-A-Cath tip is in SVC. Lungs and pleura: Lungs are clear. No pleural effusions or pneumothorax. Mediastinum: Mediastinal contours appear normal. Heart size is normal. Bones and chest wall: Subacute to old minimally displaced fractures involving left posterior lateral 3rd through 8th rib fractures are seen. Overlying soft tissues appear unremarkable. IMPRESSION: No acute cardiopulmonary pathology. Dictated by: Sumit Robles M.D. on 12/20/2024 at 11:28 Approved by: Sumit Robles M.D. on 12/20/2024 at 11:30
--- NOTE | 2024-12-20 11:22 | EKG_ITS ---
[address] [address] Test Date: 2024-12-20 Pat Name: Bharat Mcpherson Department: Located Within [facility] Room: Gender: Male Vp Marketing: ALBINA : 1960 Requested By: Order Number: [id number] Reading MD: Sarath Guerra MD Measurements Intervals [place] Rate: 86 P: 82 FL: 132 QRS: 67 QRSD: 76 T: 64 QT: 364 QTc: 435 Interpretive Statements Normal sinus rhythm Electronically Signed On 12-21-2024 6:50:32 PST by Sarath Guerra MD
[2024-12-20 11:30] LABS: Add Manual Diff / Slide Review NO; Basophils Absolute Auto 0 /uL (0-100); Basophils Percent Auto 0.1 % (0-2); Eosinophils Absolute Auto 100 /uL (0-450); Eosinophils Percent Auto 1.4 % (2-4); Hematocrit 30.1 % (41-53); Hemoglobin 10.2 g/dL (13.5-17.5); Lymphocytes Absolute Auto 400 /uL (1100-4500); Lymphocytes Percent Auto 5.9 % (25-40); Mean Corpuscular HGB Conc 34.1 % (30-36); Mean Corpuscular Hemoglobin 32.9 PG (26-34); Mean Corpuscular Volume 96.5 fL (80-100); Monocytes Absolute Auto 0 /uL (0-900); Monocytes Percent Auto 0.4 % (3-14); Neutrophils Absolute Auto 7000 /uL (1500-7000); Neutrophils Percent Auto 92.2 % (50-75); Platelet Count 165 X10^3/uL (150-400); Red Blood Cell Count 3.12 X10^6/uL (4.5-5.9); White Blood Cell Count 7.6 X10^3/uL (4.5-11.0)
[2024-12-20 11:33] LABS: Prothrombin Time 11.1 SECONDS (9.4-12.5)
[2024-12-20 11:41] LABS: Alanine Aminotransferase 75 IU/L (<50); Albumin 3.5 g/dL (3.5-5.0); Albumin Globulin Ratio 1.4 (1.0-2.8); Alkaline Phosphatase 99 U/L (38-126); Aspartate Aminotransferase 144 IU/L (17-59); Bilirubin Total 0.8 mg/dL (0.2-1.3); Blood Urea Nitrogen 11 mg/dL (9-20); Calcium 8.6 mg/dL (8.4-10.2); Carbon Dioxide 25 mmol/L (22-32); Chloride 98 mmol/L (98-107); Estimated Glomerular Filt Rate > 60 mL/min (>60); Globulin 2.5 g/dL (1.7-4.1); Glucose 243 mg/dL (80-110); HEMOLYSIS 27 (0-50); Potassium 4.1 mmol/L (3.4-5.1); Sodium 130 mmol/L (137-145)
[2024-12-20 11:48] LABS: Lactate (Lactic Acid) 2.2 mmol/L (0.7-2.1)
[2024-12-20 11:52] LABS: NT-proBNP (BNP-Adult 18+) 430 pg/mL (<125); Troponin I < 0.012 ng/mL (0.01-0.034)
--- NOTE | 2024-12-20 12:00 | PC.NURSE ---
Patient here in department for sob and bilateral lower extremity swelling, patient legs are reddened and warm to touch with 1+pitting edema, tender to the touch. Patient has pancreatic cancer. Patient has not taken any medication for the pain, does not like how oxycodone makes him constipated
[2024-12-20 12:54] LABS: Reflexed Lactate in 2 Hours Y
[2024-12-20] MEDS: ACETAMINOPHEN 325 MG TABLET 975 MG PO ×2 (13:35→23:10)
[2024-12-20 13:53] LABS: Lactate 2HR (Lactic Acid Rflx) 1.7 mmol/L (0.7-2.1)
--- NOTE | 2024-12-20 15:27 | PC.NURSE ---
Patient blood pressure dropped to 82/57, laid the patient down flat, patient appears very drowsy. Provider Yazmin is aware, 500 bolus ordered. Patient blood sugar is 157. Patient took lasix, lisinopril, and metoprolol this AM.
--- NOTE | 2024-12-20 15:29 | ED_ITS ---
HPI - SOB/Dyspnea General Chief Complaint: Shortness of Breath/Dyspnea Stated Complaint: SOB Time Seen by Provider: 12/20/24 13:02 Source: patient, EMS, RN notes reviewed and old records reviewed Mode of arrival: EMS History of Present Illness HPI Narrative: 64-year-old male stage IV pancreatic cancer with Mets to lungs are stomach recently started chemotherapy in November with bilateral lower extremity swelling. Patient presents with shortness of breath and persistent swelling of his lower extremities. Patient has been receiving chemotherapy had a dose on Tuesday has a follow up dose this coming Tuesday. Patient was complaining of shortness of breath over the past 24 hours some increasing swelling and discomfort in his extremities. Denies shortness of breath currently, no chest pain, no nausea or vomiting, has had bowel movements little bit of diarrhea no black or bloody stools. No dysuria urgency or frequency. They note a little bit of redness to the legs. Patient has not had any fevers at home. Daughter states after he ate earlier today started to seem more uncomfortable and complaining of shortness of breath. Patient did recently have 40 mg Lasix added, Lantus as well as potassium supplementation. Started these in the last day. Patient has met with Oncology have not discussed code status. Patient indicates he had likely not want CPR is unclear about intubation or pressors. Discussed with family and asked him to discuss this now. Related Data Home Medications Medication Instructions Recorded Confirmed cyanocobalamin (vitamin B-12) 1,000 mcg PO QAM 04/23/19 12/18/24 1,000 mcg tablet (Vitamin B-12) aspirin 81 mg tablet 81 mg PO QAM 11/08/20 12/18/24 calcium carbonate (Antacid 215 mg PO QAM 11/08/20 12/18/24 (calcium carbonate)) cholecalciferol (vitamin D3) 125 125 mcg PO DAILY 11/08/20 12/18/24 mcg (5,000 unit) tablet (Vitamin D3) ondansetron 8 mg disintegrating mg PO DAILY 11/15/24 12/18/24 tablet oxycodone-acetaminophen 10 mg-325 tab PO 11/15/24 12/18/24 mg tablet prochlorperazine maleate 10 mg 10 mg PO Q6H PRN 11/15/24 12/18/24 tablet gemcitabine [Gemzar] IV 12/18/24 12/18/24 lorazepam 0.5 mg tablet 0.5 mg PO DAILY PRN 12/18/24 12/18/24 paclitaxel protein-bound IV 12/18/24 12/18/24 polyethylene glycol 3350 17 gram 17 g PO DAILY 12/18/24 12/18/24 oral powder packet (Miralax) sennosides 8.6 mg tablet 8.6 mg PO DAILY 12/18/24 12/18/24 (Black-Draught Lax-Senna) Previous Rx's Medication Instructions Recorded Disabled Parking Permit #1 ea 07/08/23 lancets 33 gauge #100 ea 12/16/23 atorvastatin 10 mg tablet 10 mg PO BEDTIME #90 tabs 03/16/24 dapagliflozin propanediol 10 mg 10 mg PO DAILY #90 tabs 03/16/24 tablet (Farxiga) lisinopril 40 mg tablet 40 mg PO BID #180 tabs 03/16/24 metformin 1,000 mg tablet,extended 1,000 mg PO QPM #90 tabs 03/16/24 release 24hr (osmotic) metoprolol succinate 50 mg 50 mg PO DAILY #90 tabs 06/22/24 tablet,extended release 24 hr omeprazole 20 mg tablet,delayed 40 mg (2 x 20 mg) PO QAM #180 tabs 06/22/24 release albuterol sulfate 90 mcg/actuation 2 inhalation inhalation QID PRN 11/14/24 aerosol inhaler (Ventolin HFA) shortness of breath or wheezing #6.7 grams nicotine 14 mg/24 hr daily 1 patch transdermal DAILY #14 ea 11/15/24 transdermal patch (Nicoderm CQ) nicotine 21 mg/24 hr daily 1 patch transdermal DAILY #28 ea 11/15/24 transdermal patch (Nicoderm CQ) nicotine 7 mg/24 hr daily 1 patch transdermal Q24H #14 ea 11/15/24 transdermal patch (Nicoderm CQ) blood sugar diagnostic (OneTouch #100 strips 12/18/24 Ultra Test strips) furosemide 20 mg tablet (Lasix) 20 mg PO DAILY #63 tabs 12/18/24 lisinopril 20 mg tablet 20 mg PO DAILY #90 tabs 12/18/24 potassium chloride 10 mEq 10 meq PO DAILY #60 tabs 12/18/24 tablet,extended release insulin glargine-yfgn 100 unit/mL 10 unit (0.1 mL) SUBCUT BID #15 mL 12/19/24 (3 mL) subcutaneous pen pen needle, diabetic 31 gauge x #100 ea 12/19/2403/22 Allergies Allergy/AdvReac Type Severity Reaction Status Date / Time ibuprofen Allergy Hypertensio Verified 12/18/24 15:09 n Review of Systems Review of Systems ROS Unobtainable: All systems reviewed & are unremarkable except as noted in HPI and below Patient History Medical History Pancreatic cancer CAD (coronary artery disease) Early satiety Chronic hyponatremia Erectile dysfunction Wears glasses Osteoporosis (~2018) Fractures (~2004) Chicken pox Vertigo Hemorrhoid Anemia Hyperlipidemia Acute radial nerve palsy Pancreatitis (~2001) Alcohol dependence Tobacco dependency Alcohol withdrawal Pneumonia Multiple fractures of ribs Hypertension GERD (gastroesophageal reflux disease) Diabetes Surgical History Anesthesia S/P exploratory laparotomy (~2001) Status post hernia repair Family History Mother Diabetes mellitus Father Hypertension Bladder cancer Social History marital status: household members: spouse lives independently: Yes occupational status: employed Smoking Status: Former smoker alcohol intake: current substance use type: does not use Smoking Status: Former smoker tobacco type: cigarettes alcohol intake frequency: 3 or more drinks per day Alcohol type: hard liquor Exam Narrative Exam Narrative: GENERAL: Alert and oriented x three, thin male in mild distress. HEENT: Head normocephalic, atraumatic, EOMI, pupils reactive, face symmetric, moist mucous membranes NECK: Supple, full range of motion CARDIOVASCULAR: Regular rate and rhythm without murmurs, rubs or gallops. Patient has a edema bilateral lower extremities pedal and pretibial 2+ edema. Slight erythema to both lower extremities over the feet. Patient has a port on left upper chest. RESPIRATORY: Breath sounds equal bilaterally, no wheezes rales or rhonchi. No tachypnea, no accessory muscle use. ABDOMEN: Soft, nontender. Normoactive bowel sounds all 4 quadrants. No guarding or rebound, rigidity, no mass : No CVA tenderness EXTREMITIES: Normal range of motion, no clubbing or edema. Neurovascularly intact NEUROLOGICAL: Cranial nerves II through XII grossly intact. Moving all extremities SKIN: Warm, dry, no petechiae, no rashes or lesions. Initial Vital Signs Initial Vital Signs: Vital Signs Blood Pressure 99/63 12/20/24 10:45 Course Orders Ordered: ED Orders 12/20/24 11:07 Complete Blood Count AUTO DIFF Stat 12/20/24 11:13 XR chest 1V Stat EKG-12 Lead Stat Measure peak expiratory flow ONCE RT Consult Eval and Treat NOW 12/20/24 11:14 Comprehensive Metabolic Panel Stat Lactate (Lactic Acid) Stat Lipase Stat NT-proBNP (BNP-Adult 18+) Stat Procalcitonin Stat Prothrombin Time INR Stat Troponin I Stat 12/20/24 15:43 CT abdomen pelvis w con Stat CT angio chest PE protocol Stat 12/20/24 16:21 Covid-19 + FLU A/B + RSV - PCR Stat 12/20/24 16:50 Ammonia (NH3) Stat Blood Culture Stat 12/20/24 17:19 UA Complete [Urinalysis and Microscopic] Stat Discontinued Medications Acetaminophen (Acetaminophen 325 Mg Tablet) 975 mg PO NOW ONE Stop: 12/20/24 13:03 Last Admin: 12/20/24 13:35 Dose: 975 mg Documented By: FLETCHER Sodium Chloride (Normal Saline 0.9%) 500 mls @ 1,000 mls/hr IV BOLUS ONE Stop: 12/20/24 15:55 Last Infusion: 12/20/24 16:47 Dose: Infused Documented By: Admin: 12/20/24 15:32 Dose: 1,000 mls/hr Documented By: FLETCHER Piperacillin Sod/Tazobactam (Sod 4.5 gm/ Sodium Chloride) 100 mls @ 200 mls/hr IV NOW ONE Stop: 12/20/24 15:49 Last Infusion: 12/20/24 17:40 Dose: Infused Documented By: Admin: 12/20/24 17:02 Dose: 200 mls/hr Documented By: FLETCHER Lidocaine HCl (Lidocaine 2% (Glydo) 6 Ml Gel) 6 ml TOP NOW ONE Stop: 12/20/24 17:45 Last Admin: 12/20/24 18:45 Dose: 6 ml Documented By: SIN Vital Signs Vital signs: Vital Signs - 8 hr 12/20/24 11:13 12/20/24 11:15 12/20/24 11:15 Temperature 98.5 F Pulse Rate 87 87 Respiratory Rate 16 18 Blood Pressure 104/64 104/64 Pulse Oximetry 100 100 Oxygen Delivery Method Room Air 12/20/24 11:30 12/20/24 11:30 12/20/24 11:45 Temperature Pulse Rate 90 Respiratory Rate 19 Blood Pressure 109/71 107/65 Pulse Oximetry 98 Oxygen Delivery Method 12/20/24 11:45 12/20/24 12:00 12/20/24 12:00 Temperature Pulse Rate 84 93 H Respiratory Rate 18 16 Blood Pressure 92/67 Pulse Oximetry 100 100 Oxygen Delivery Method Room Air 12/20/24 12:30 12/20/24 12:31 12/20/24 12:31 Temperature Pulse Rate 91 H 91 H Respiratory Rate 20 22 Blood Pressure 99/64 Pulse Oximetry 100 100 Oxygen Delivery Method 12/20/24 12:45 12/20/24 12:45 12/20/24 13:00 Temperature Pulse Rate 85 83 Respiratory Rate 19 17 Blood Pressure 97/62 Pulse Oximetry 100 100 Oxygen Delivery Method 12/20/24 13:00 12/20/24 13:15 12/20/24 13:15 Temperature Pulse Rate 91 H Respiratory Rate 13 Blood Pressure 102/66 99/67 Pulse Oximetry Oxygen Delivery Method 12/20/24 13:30 12/20/24 13:40 12/20/24 13:40 Temperature Pulse Rate 89 86 Respiratory Rate 15 14 Blood Pressure 107/60 Pulse Oximetry 100 Oxygen Delivery Method 12/20/24 13:47 12/20/24 13:47 12/20/24 14:00 Temperature Pulse Rate 81 Respiratory Rate 18 Blood Pressure 103/64 102/63 Pulse Oximetry 100 Oxygen Delivery Method 12/20/24 14:00 12/20/24 14:15 12/20/24 14:15 Temperature Pulse Rate 79 84 Respiratory Rate 15 18 Blood Pressure 100/64 Pulse Oximetry 100 96 Oxygen Delivery Method 12/20/24 14:30 12/20/24 14:30 12/20/24 14:45 Temperature Pulse Rate 94 H Respiratory Rate 24 Blood Pressure 93/62 87/58 L Pulse Oximetry 100 Oxygen Delivery Method 12/20/24 14:45 12/20/24 14:52 12/20/24 14:52 Temperature Pulse Rate 82 86 Respiratory Rate 18 23 Blood Pressure 94/58 L Pulse Oximetry 100 100 Oxygen Delivery Method 12/20/24 15:00 12/20/24 15:00 12/20/24 15:03 Temperature Pulse Rate 82 Respiratory Rate 17 Blood Pressure 84/57 L 84/53 L Pulse Oximetry 99 Oxygen Delivery Method 12/20/24 15:03 12/20/24 15:07 12/20/24 15:08 Temperature Pulse Rate 84 85 Respiratory Rate 23 18 Blood Pressure 85/58 L Pulse Oximetry 100 100 Oxygen Delivery Method Room Air 12/20/24 15:08 12/20/24 15:10 12/20/24 15:10 Temperature Pulse Rate 85 87 Respiratory Rate 19 18 Blood Pressure 82/57 L Pulse Oximetry 100 100 Oxygen Delivery Method 12/20/24 15:20 12/20/24 15:20 12/20/24 15:23 Temperature Pulse Rate 98 H Respiratory Rate 19 Blood Pressure 79/54 L 88/52 L Pulse Oximetry 100 Oxygen Delivery Method 12/20/24 15:23 12/20/24 15:30 12/20/24 15:30 Temperature Pulse Rate 88 82 Respiratory Rate 9 L 12 Blood Pressure 90/55 L Pulse Oximetry 100 100 Oxygen Delivery Method 12/20/24 15:40 12/20/24 15:40 12/20/24 15:50 Temperature Pulse Rate 87 Respiratory Rate 21 Blood Pressure 92/58 L 93/57 L Pulse Oximetry 100 Oxygen Delivery Method 12/20/24 15:50 12/20/24 16:03 12/20/24 16:05 Temperature Pulse Rate 84 83 83 Respiratory Rate 18 18 14 Blood Pressure Pulse Oximetry 100 100 94 Oxygen Delivery Method 12/20/24 16:05 12/20/24 16:10 12/20/24 16:10 Temperature Pulse Rate 83 Respiratory Rate 19 Blood Pressure 96/57 L 90/56 L Pulse Oximetry 100 Oxygen Delivery Method 12/20/24 16:20 12/20/24 16:20 12/20/24 16:30 Temperature Pulse Rate 82 89 Respiratory Rate 19 18 Blood Pressure 88/58 L Pulse Oximetry 100 100 Oxygen Delivery Method 12/20/24 16:30 12/20/24 16:40 12/20/24 16:40 Temperature Pulse Rate 88 Respiratory Rate 20 Blood Pressure 95/61 96/64 Pulse Oximetry 100 Oxygen Delivery Method 12/20/24 16:50 12/20/24 16:50 12/20/24 17:00 Temperature Pulse Rate 86 Respiratory Rate 12 Blood Pressure 88/60 L 91/59 L Pulse Oximetry 100 Oxygen Delivery Method 12/20/24 17:00 12/20/24 17:10 12/20/24 17:10 Temperature Pulse Rate 84 82 Respiratory Rate 14 16 Blood Pressure 81/53 L Pulse Oximetry 100 100 Oxygen Delivery Method 12/20/24 17:20 12/20/24 17:20 12/20/24 17:30 Temperature Pulse Rate 88 Respiratory Rate 16 Blood Pressure 87/57 L 92/60 Pulse Oximetry 89 L Oxygen Delivery Method 12/20/24 17:34 12/20/24 17:40 12/20/24 17:50 Temperature Pulse Rate 88 Respiratory Rate 19 Blood Pressure 86/58 L Pulse Oximetry 97 Oxygen Delivery Method Room Air 12/20/24 18:00 12/20/24 18:00 12/20/24 18:10 Temperature Pulse Rate 89 Respiratory Rate 13 Blood Pressure 88/59 L 98/60 Pulse Oximetry Oxygen Delivery Method 12/20/24 18:10 12/20/24 18:20 12/20/24 18:20 Temperature Pulse Rate 85 86 Respiratory Rate 16 19 Blood Pressure 87/56 L Pulse Oximetry Oxygen Delivery Method 12/20/24 18:30 12/20/24 18:30 Temperature Pulse Rate 84 Respiratory Rate 14 Blood Pressure 92/56 L Pulse Oximetry Oxygen Delivery Method MDM - SOB/Dyspnea Lab Data 12/20/24 11:07 12/20/24 11:14 Labs: Lab Results 12/20/24 12/20/24 12/20/24 Range/Units 11:07 11:14 13:35 WBC 7.6 (4.5-11.0) X10^3/uL RBC 3.12 L (4.5-5.9) X10^6/uL Hgb 10.2 L (13.5-17.5) g/dL Hct 30.1 L (41-53) % MCV 96.5 (80-100) fL MCH 32.9 (26-34) PG MCHC 34.1 (30-36) % RDW 14.0 (11.6-14.8) % Plt Count 165 (150-400) X10^3/uL Neut % (Auto) 92.2 H (50-75) % Lymph % (Auto) 5.9 L (25-40) % [place] % (Auto) 0.4 L (3-14) % Eos % (Auto) 1.4 L (2-4) % Baso % (Auto) 0.1 (0-2) % Neut # (Auto) 7000 (4754-2606) /uL Lymph # (Auto) 400 L (7153-6119) /uL [place] # (Auto) 0 (0-900) /uL Eos # (Auto) 100 (0-450) /uL Baso # (Auto) 0 (0-100) /uL PT 11.1 (9.4-12.5) SECONDS INR 1.0 (0.9-1.3) Sodium 130 L (137-145) mmol/L Potassium 4.1 (3.4-5.1) mmol/L Chloride 98 (98-107) mmol/L Carbon Dioxide 25 (22-32) mmol/L BUN 11 (9-20) mg/dL Creatinine 0.61 L (0.66-1.25) mg/dL Estimated GFR > 60 (>60) mL/min BUN/Creatinine Ratio 18.0 (6-22) Glucose 243 H D (80-110) mg/dL Lactate 2.2 H 1.7 (0.7-2.1) mmol/L Calcium 8.6 (8.4-10.2) mg/dL Total Bilirubin 0.8 (0.2-1.3) mg/dL AST 144 H (17-59) IU/L ALT 75 H (<50) IU/L Alkaline Phosphatase 99 D (38-126) U/L Ammonia (9-30) umol/L Troponin I < 0.012 (0.01-0.034) ng/mL NT-Pro-B Natriuret Pep 430 H (<125) pg/mL Total Protein 6.0 L (6.3-8.2) g/dL Albumin 3.5 (3.5-5.0) g/dL Globulin 2.5 (1.7-4.1) g/dL Albumin/Globulin Ratio 1.4 (1.0-2.8) Lipase 14 L (23-300) U/L Procalcitonin 0.108 (<0.5) ng/mL Urine Color Urine Appearance Urine pH (4.5-8.0) Ur Specific [place] (1.000-1.035) Urine Protein (Negative) Urine Glucose (UA) (Negative) g/dL Urine Ketones (NEGATIVE) Urine Occult Blood (Negative) Urine Nitrate (Negative) Urine Bilirubin (NEGATIVE) Urine Urobilinogen (0.2) E.U./dL Ur Leukocyte Esterase (NEGATIVE) Urine RBC (0-5/HPF) Urine WBC (0-5/HPF) Ur Squamous Epith Cells (0-5/HPF) Urine Bacteria (None) Ur Culture Indicated? Vol Urine Centrifuged SARS-CoV-2 (PCR) (Negative) Influenza A (RT-PCR) (NEGATIVE) Influenza B (RT-PCR) (NEGATIVE) RSV (PCR) (Negative) 12/20/24 12/20/24 12/20/24 Range/Units 16:21 16:50 17:19 WBC (4.5-11.0) X10^3/uL RBC (4.5-5.9) X10^6/uL Hgb (13.5-17.5) g/dL Hct (41-53) % MCV (80-100) fL MCH (26-34) PG MCHC (30-36) % RDW (11.6-14.8) % Plt Count (150-400) X10^3/uL Neut % (Auto) (50-75) % Lymph % (Auto) (25-40) % [place] % (Auto) (3-14) % Eos % (Auto) (2-4) % Baso % (Auto) (0-2) % Neut # (Auto) (7024-7638) /uL Lymph # (Auto) (2007-5707) /uL [place] # (Auto) (0-900) /uL Eos # (Auto) (0-450) /uL Baso # (Auto) (0-100) /uL PT (9.4-12.5) SECONDS INR (0.9-1.3) Sodium (137-145) mmol/L Potassium (3.4-5.1) mmol/L Chloride (98-107) mmol/L Carbon Dioxide (22-32) mmol/L BUN (9-20) mg/dL Creatinine (0.66-1.25) mg/dL Estimated GFR (>60) mL/min BUN/Creatinine Ratio (6-22) Glucose (80-110) mg/dL Lactate (0.7-2.1) mmol/L Calcium (8.4-10.2) mg/dL Total Bilirubin (0.2-1.3) mg/dL AST (17-59) IU/L ALT (<50) IU/L Alkaline Phosphatase (38-126) U/L Ammonia < 9 L (9-30) umol/L Troponin I (0.01-0.034) ng/mL NT-Pro-B Natriuret Pep (<125) pg/mL Total Protein (6.3-8.2) g/dL Albumin (3.5-5.0) g/dL Globulin (1.7-4.1) g/dL Albumin/Globulin Ratio (1.0-2.8) Lipase (23-300) U/L Procalcitonin (<0.5) ng/mL Urine Color Yellow Urine Appearance Clear Urine pH 5.5 (4.5-8.0) Ur Specific [place] <=1.005 (1.000-1.035) Urine Protein Negative (Negative) Urine Glucose (UA) 3+ H (Negative) g/dL Urine Ketones Negative (NEGATIVE) Urine Occult Blood Negative (Negative) Urine Nitrate Negative (Negative) Urine Bilirubin Negative (NEGATIVE) Urine Urobilinogen 0.2 (0.2) E.U./dL Ur Leukocyte Esterase Negative (NEGATIVE) Urine RBC None seen (0-5/HPF) Urine WBC None seen (0-5/HPF) Ur Squamous Epith Cells None seen (0-5/HPF) Urine Bacteria None seen (None) Ur Culture Indicated? Cult not indicated Vol Urine Centrifuged 10ml (spun) SARS-CoV-2 (PCR) Negative (Negative) Influenza A (RT-PCR) Flu a negative (NEGATIVE) Influenza B (RT-PCR) Flu b negative (NEGATIVE) RSV (PCR) Negative (Negative) Point of Care Testing Glucose POC 157 Urine Dip Bedside Urine Glucose 1000 mg/dl Bedside Urine Bilirubin - Negative Bedside Urine Ketone - Negative Urine Specific [place] 1.015 Bedside Urine Occult Blood - Negative Bedside Urine pH 6 Bedside Urine Protein - Negative Bedside Urine Urobilinogen - Negative Bedside Urine Nitrite - Negative Bedside Urine Leukocytes - Negative Esterase Imaging Data Chest x-ray: Radiologist's Impression: Close Chest X-Ray (Signed) Sumit Robles - 12/20/24 Vascular Ultrasound (Signed) Call,Alan - 12/13/24 Chest X-Ray (Signed) Javan Julianderic - 12/13/24 Chest CTA (Signed) Javan Julianderic - 11/14/24 Chest X-Ray (Signed) Valeri Julianic - 11/14/24 Chest X-Ray (Signed) Wilton Lowry - 11/01/24 Abdomen MRI with MRCP (Signed) Call,Alan - 08/31/24 Abdomen/Pelvis CT (Signed) Makenna Browning - 08/19/24 Outside DI 07/26/24 CT Lung (Signed) Sumit Robles - 07/06/24 Radiology Report (Cancelled) Nestor Pacheco - 08/19/23 Myocardial Perfusion Scan Nuc Med (Signed) Nestor Pacheco - 08/19/23 Radiology Report (Cancelled) Nestor Pacheco - 08/19/23 Echocardiogram Ultrasound (Signed) Chuy Pa - 07/29/23 Chest/Abdomen/Pelvis CT (Signed) Joesph Tinsley - 07/16/[address] (Signed) Genaro Cruz - 04/15/23 Cervical Spine MRI (Signed) Elle Martinez - 01/07/23 Telemetry Strips 04/09/22 DI Result CC 04/06/22 Cervical Spine MRI (Signed) Parish Young - 11/18/21 Brain MRI (Signed) Donna Pierre - 11/18/21 Head/Neck CTA (Signed) Sánchez Armenta - 11/18/[address] (Signed) Rosa Vanegas - 11/18/21 Chest X-Ray (Signed) Rosa Vanegas - 11/18/21 DI Result 05/18/21 Brain MRI (Signed) Donna Pierre - 11/08/20 Telemetry Strips 11/08/20 Head/Neck CTA (Signed) Sushil Sanches - 11/08/20 Cervical Spine MRI (Signed) Sumit Robles - 11/08/[address] (Signed) Sushil Sanches - 11/08/20 Chest X-Ray (Signed) Sumit Robles - 04/24/19 Chest Ultrasound (Signed) Humberto Goodman - 04/24/19 Telemetry Strips 04/22/[address] (Signed) Faisal Mason - 04/22/19 Chest/Abdomen/Pelvis CT (Signed) Faisal Mason - 04/22/[address] (Signed) Faisal Mason - 04/22/19 Chest X-Ray (Addendum) Sánchez Armenta - 04/22/19 Launch?Image [address] [address] XRay Report Signed Patient: Bharat Mcpherson MR#: [id number] : 1960 Acct:[id number] Age/Sex: 64 / M Date of Service: 12/20/24 Loc: ED Accession Number: [id number] Procedure: XR chest 1V Ordering Provider: La Arce D.O. PROCEDURE: XR CHEST 1V INDICATIONS: Shortness of breath TECHNIQUE: One view of the chest was acquired. COMPARISON: [facility], , XR CHEST 1V, 12/13/2024, 15:00. FINDINGS: Surgical changes and devices: Left chest wall Port-A-Cath tip is in SVC. Lungs and pleura: Lungs are clear. No pleural effusions or pneumothorax. Mediastinum: Mediastinal contours appear normal. Heart size is normal. Bones and chest wall: Subacute to old minimally displaced fractures involving left posterior lateral 3rd through 8th rib fractures are seen. Overlying soft tissues appear unremarkable. IMPRESSION: No acute cardiopulmonary pathology. Dictated by: Sumit Robles M.D. on 12/20/2024 at 11:28 Approved by: Sumit Robles M.D. on 12/20/2024 at 11:30 [facility] Narrative Medical decision making narrative: 64-year-old male recently started on chemotherapy for reported stage IV cancer has had increasing shortness of breath felt generally weak some increasing swelling of lower extremities. Exam patient does have bilateral dependent edema slightly erythematous but is bilateral. Patient was seen here on the 13 of December had DVT ultrasounds and workup at that time has been taking Lasix but was not found to be in florid heart failure. He did have chemotherapy on Tuesday also was started on Lasix, oral potassium in the last several days so may have a component of dehydration and side effect from his chemotherapy. Chest x-ray shows no acute change EKG shows sinus rhythm rate 86 MI 132 QRS is 76 QTC of 435. Labs show white count of 7.6 hemoglobin 10.2, platelets of 165, sodium is 130 potassium 4.1 chloride 98 CO2 is 25 BUN 11 creatinine 0.61 glucose of 243 lactate 2.2 with a repeat of 1.7 AST ALT are slightly elevated 144 and 75 but normal bilirubin troponins less than 0.012 CTA PE protocol shows no PE no thoracic aortic aneurysm trace pericardial effusion moderate two-vessel coronary artery atherosclerotic calcification no focal infiltrate no pleural effusion or pneumothorax. Generalized anasarca. CT abdomen pelvis with contrast shows generalized anasarca suggested 3rd spacing bowel obstruction or abdominal bowel wall thickening [id number] constipation no free fluid or free air stable hypodense area involving proximal pancreatic tail less well seen on current study other findings unchanged from recent study. UA 3+ glucose otherwise negative. Patient has quite a bit of urine in his bladder on imaging. Has urinated in department. bladder scan post void was 480s had Deluca catheter placed with immediate output 400mL. We will obtain CT angio of the chest with complaint of shortness of breath and hypotension he was not tachycardic but pulmonary embolism is high on differential patient is not anticoagulated with lower extremity swelling could be potential obstructive changes so CT abdomen pelvis was included as well. Patient had DVT ultrasound on his last visit on 12/13/2024. We will also obtain labs for infection, urinalysis, patient was given fluids dose of IV antibiotic re-evaluated. Also discussed with the patient's family he has stage IV pancreatic cancer discussed goals of care and code status. They state they have not had these discussions yet. We did discuss patient may potentially need pressors or further interventions. Did clarify with the patient's family is not a lot of other metastatic lesions on his CT imaging patient's states he had imaging unclear if this was CT or PET scan but did show metastatic lesions in several locations consistent with patients stage 4 cancer diagnosis. Patient has had 1.5 L of normal saline we will complete [address] Valdez, hospitalist at 6:22 p.m. accepts for inpatient would like for us to clarify pressors and appropriate access. Asks us to message Dr. Diana overnight tele hospitalist with family and patients ultimate decision at this time patient admitted for hypotension, known cancer, hyponatremia, urinary retention and possible chemotherapy side effects. Have not initiated pressors at this point is map has been 75 consistently. 1907: After discussion several discussions with the patient he was okay with pressors but DNR/DNI he has a port in place which we can give pressors if needed. Map has been 75 currently so not felt required to start at this time but discussed with family may require overnight. All questions answered. Discharge Plan Departure Patient Disposition: Admitted as Observation Clinical Impression: Hypotension, Urinary retention, Hyponatremia Prescriptions: No Action insulin glargine-yfgn 100 unit/mL (3 mL) insulin pen 10 unit SUBCUT BID Qty: 15 3RF (DME) pen needle, diabetic 31 gauge x 5/16 needle See Rx Instructions .Route Qty: 100 2RF Rx Instructions: Use to inject insulin twice dialy metformin 1,000 mg tablet extended release 24 hr 1,000 mg PO QPM Qty: 90 3RF Farxiga 10 mg tablet 10 mg PO DAILY Qty: 90 3RF atorvastatin 10 mg tablet 10 mg PO BEDTIME Qty: 90 3RF lisinopril 40 mg tablet 40 mg PO BID Qty: 180 3RF Hold Instructions: Home Medication placed on hold at Doctor's office omeprazole 20 mg tablet,delayed release (DR/EC) 40 mg PO QAM Qty: 180 3RF metoprolol succinate 50 mg tablet extended release 24 hr 50 mg PO DAILY Qty: 90 3RF (DME) Disabled Parking Permit See Rx Instructions .ROUTE .MEDSUPPLY Qty: 1 0RF Rx Instructions: I find this patient to be medically disabled and qualified for Disabled Parking as indicated and signed on the accompanying Disabled Parking Application for Individuals. (DME) lancets 33 gauge misc See Rx Instructions .ROUTE .MEDSUPPLY Qty: 100 3RF Rx Instructions: Use to test blood glucose TID oxycodone-acetaminophen 10-325 mg tablet PO prochlorperazine maleate 10 mg tablet 10 mg PO Q6H PRN ondansetron 8 mg tablet,disintegrating PO DAILY nicotine [Nicoderm CQ] 21 mg/24 hr patch 24 hour 1 patch transdermal DAILY Qty: 28 1RF nicotine [Nicoderm CQ] 14 mg/24 hr patch 24 hour 1 patch transdermal DAILY Qty: 14 0RF Rx Instructions: Use daily for 2 weeks, then reduce to 7mg patch for 2 weeks nicotine [Nicoderm CQ] 7 mg/24 hr patch 24 hour 1 patch transdermal Q24H Qty: 14 0RF lorazepam 0.5 mg tablet 0.5 mg PO DAILY PRN polyethylene glycol 3350 [Miralax] 17 gram powder in packet 17 g PO DAILY sennosides [Black-Draught Lax-Senna] 8.6 mg tablet 8.6 mg PO DAILY paclitaxel protein-bound IV gemcitabine [Gemzar] IV lisinopril 20 mg tablet 20 mg PO DAILY Qty: 90 1RF potassium chloride 10 mEq tablet extended release 10 meq PO DAILY Qty: 60 1RF furosemide [Lasix] 20 mg tablet 20 mg PO DAILY Qty: 63 1RF Rx Instructions: Take 2 tabs (40mg) for first 3 days, then t 1 tab daily thereafter (DME) OneTouch Ultra Test Strip See Rx Instructions .ROUTE .COMPLEX Qty: 100 11RF Dose Instruction: USE TO TEST BLOOD SUGARS THREE TIMES DAILY Rx Instructions: USE TO TEST BLOOD SUGARS THREE TIMES DAILY cyanocobalamin (vitamin B-12) [Vitamin B-12] 1,000 mcg Tablet 1,000 mcg PO QAM aspirin 81 mg Tablet 81 mg PO QAM cholecalciferol (vitamin D3) [Vitamin D3] 125 mcg (5,000 unit) Tablet 125 mcg PO DAILY Antacid (calcium carbonate) 215 mg calcium (500 mg) Tablet,Chewable 215 mg PO QAM albuterol sulfate [Ventolin HFA] 90 mcg/actuation HFA aerosol inhaler 2 inhalation INHALATION QID PRN (Reason: shortness of breath or wheezing) Qty: 6.7 0RF Referrals: Rao Richard MD [Primary Care Provider] -
[2024-12-20] MEDS: SODIUM CHLORIDE 0.9% 500 ML 1000 ML IV (15:32)
--- NOTE | 2024-12-20 15:43 | DI.CT.S_ITS ---
PROCEDURE: CT ABDOMEN PELVIS W CON INDICATIONS: swelling legs, low bp, stage 4 prostate cancer, ? pe TECHNIQUE: After the administration of intravenous contrast, axial sections acquired from the lung bases to the pubic symphysis. Coronal and sagittal reformats were performed. For radiation dose reduction, the following was used: automated exposure control, adjustment of mA and/or kV according to patient size. COMPARISON: [facility], CT, CT ABDOMEN PELVIS W CON, 08/19/2024, 19:06. FINDINGS: Image quality: Diagnostic. Lower Chest: Please refer to CT angiogram of chest study from the same day. ABDOMEN: Liver: No solid mass. Gallbladder: No radiopaque gallstones or wall thickening. Biliary ducts: No biliary dilation. Pancreas: No ductal dilation. Previously described 2.2 x 1.9 x 2 cm hypodense area involving pancreatic tail/body is less well seen on the current study, however is grossly unchanged in overall size. Spleen: Size is within normal limits. Adrenal Glands: No adrenal nodules. Kidneys and Ureters: No hydronephrosis. No solid mass. No complex renal cystic lesion which requires follow up. Stomach and Bowel: Normal colonic caliber, without significant wall thickening. Moderate amount of fecal matter throughout the colon is seen. Appendix is visualized and is within normal limits. Peritoneum: No abnormal intraperitoneal fluid. No free air. Ventral Wall: No significant ventral hernia. Generalized anasarca is seen. Abdominal Nodes: No retroperitoneal or mesenteric adenopathy by size criteria. Vessels: Aorta and inferior vena cava are normal in size. Mala epigastric varices are again seen unchanged from prior study. PELVIS: Pelvic Organs: Unremarkable. Bladder: No bladder wall thickening, accounting for underdistention. Pelvic Nodes: No enlarged lymph nodes. Miscellaneous: No inguinal hernias are seen. Bones: No aggressive osseous abnormality. IMPRESSION: 1. Generalized anasarca suggestive of 3rd spacing. 2. No bowel obstruction or abnormal bowel wall thickening. [id number] constipation. No free fluid or free air. 3. Stable hypodense area involving proximal pancreatic tail less well seen on the current study. 4. Other findings are all unchanged from recent study. Dictated by: Sumit Robles M.D. on 12/20/2024 at 16:41 Approved by: Sumit Robles M.D. on 12/20/2024 at 16:46
--- NOTE | 2024-12-20 15:43 | DI.CT.S_ITS ---
PROCEDURE: CT ANGIO CHEST PE PROTOCOL INDICATIONS: swelling legs, low bp, stage 4 prostate cancer, ? pe TECHNIQUE: After the administration of intravenous contrast, 2 mm thick sections acquired from the pulmonary apices to the posterior costophrenic angles. 3-dimensional maximum intensity projection (MIP) coronal and sagittal reformats were then acquired through the thorax. For radiation dose reduction, the following was used: automated exposure control, adjustment of mA and/or kV according to patient size. COMPARISON: [facility], CT, CT ANGIO CHEST PE PROTOCOL, 11/14/2024, 11:46. FINDINGS: Image quality: Diagnostic. Pulmonary arteries: Pulmonary arteries are normal in size, and demonstrate no intraluminal filling defects to suggest central pulmonary embolism. Lower Neck: No enlarged lymph nodes. Thyroid: No thyroid nodules which require sonographic follow up, per consensus guidelines. Axillae: No enlarged lymph nodes. Chest Wall: Generalized anasarca. Left chest wall Port-A-Cath tip is in SVC. Bones: No aggressive appearing bony lesions. Degenerative disc disease throughout thoracic spine is seen. Lungs and Pleura: No pneumothorax or pleural effusions. Dependent atelectasis are seen in posterior aspect of bilateral lung bases. No consolidation or suspicious nodules. Heart: Heart size is normal. Trace amount of pericardial effusion is seen. Thoracic Vessels: No aortic aneurysm. 2 vessel coronary artery atherosclerotic calcifications are noted. Mediastinum and Lidia: No enlarged lymph nodes. Esophagus: No wall thickening. No hiatal hernia. Upper Abdomen: Visualized upper abdomen solid organs and bowel loops appear normal. IMPRESSION: 1. No pulmonary emboli. No thoracic aortic aneurysm. 2. Trace pericardial effusion. No mediastinal or hilar lymphadenopathy. Moderate 2 vessel coronary artery atherosclerotic calcifications. 3. No focal infiltrate, pleural effusion or pneumothorax. 4. Generalized anasarca. Dictated by: Sumit Robles M.D. on 12/20/2024 at 16:39 Approved by: Sumit Robles M.D. on 12/20/2024 at 16:41
[2024-12-20 15:58] LABS: Lipase 14 U/L (23-300)
[2024-12-20 16:15] LABS: Procalcitonin 0.108 ng/mL (<0.5)
[2024-12-20] MEDS: PIPERACILLIN/TAZO 4.5 GM in SODIUM CHLORIDE 0.9% 100 ML IV (17:02)
[2024-12-20 17:16] LABS: Ammonia (NH3) < 9 umol/L (9-30)
[2024-12-20 17:36] LABS: Appearance Urine UA CLEAR; Bilirubin Urine UA NEGATIVE (NEGATIVE); Color Urine UA YELLOW; Glucose Urine UA 3+ g/dL (Negative); Ketones Urine UA NEGATIVE (NEGATIVE); Leukocyte Esterase Urine UA NEGATIVE (NEGATIVE); Nitrite Urine UA NEGATIVE (Negative); Occult Blood Urine UA NEGATIVE (Negative); Protein Urine UA NEGATIVE (Negative); Specific Gravity Urine UA <=1.005 (1.000-1.035); Urobilinogen Urine UA 0.2 E.U./dL (0.2); pH Urine UA 5.5 (4.5-8.0)
[2024-12-20 17:41] LABS: Influenza A - CEPHEID Flu A NEGATIVE (NEGATIVE); Influenza B - CEPHEID Flu B NEGATIVE (NEGATIVE); Respiratory Syncytial Virus Negative (Negative)
[2024-12-20 17:42] LABS: Bacteria Urine None Seen; Culture Indicated Urine Cult Not Indicated; RBC Urine None Seen (0-5/HPF); Squamous Epithelial Cell Urine None Seen (0-5/HPF); Urine Volume 10mL (spun); WBC Urine None Seen (0-5/HPF)
[2024-12-20 17:44] LABS: COVID-19 CEPHEID 4-PLEX PCR Negative (Negative)
[2024-12-20] MEDS: LIDOCAINE 2% (GLYDO) 6 ML GEL TOP (18:45)
--- NOTE | 2024-12-20 23:41 | PM.HP.1 ---
History of Present Illness History of Present Illness Date Patient Seen: 12/20/24 Time Patient Seen: 23:00 Chief complaint: SOB Narrative: 64 y/o with pancreatic carcinoma stage 4, with stomach and lung metastases, started chemotherapy a month ago. Recent worsening SOB, legs swelling, had added Lasix to his regimen. Presented a day later hypotensive, w/o clear evidence of infection. Apparently has same PO intake as in the last few days. Labs mostly unremarkable, with albumin WNR and elevated LFTs, neutrophilia with normal WBC, mild anemia, mildly elevated LA. On the way to hospital he received 500 cc of NS by EMS and in the ED 1 L of NS. Had one dose of Zosyn. His BP stabilized, systolic > 90. At one point considered for pressor that was not used eventually. Developed urinary retention and had Deluca with unremarkable UA. Placed in observation with diagnosis of hypotension, hypervolemic hyponatremia and anasarca, suspected sepsis. [facility] Medical History Pancreatic cancer CAD (coronary artery disease) Early satiety Chronic hyponatremia Erectile dysfunction Wears glasses Osteoporosis (~2018) Fractures (~2004) Chicken pox Vertigo Hemorrhoid Anemia Hyperlipidemia Acute radial nerve palsy Pancreatitis (~2001) Alcohol dependence Tobacco dependency Alcohol withdrawal Pneumonia Multiple fractures of ribs Hypertension GERD (gastroesophageal reflux disease) Diabetes Surgical History Anesthesia S/P exploratory laparotomy (~2001) Status post hernia repair Family History Mother Diabetes mellitus Father Hypertension Bladder cancer Social History marital status: household members: spouse lives independently: Yes occupational status: employed Smoking Status: Former smoker alcohol intake: former substance use type: does not use Meds Home Medications and Allergies Home Medications Medication Instructions Recorded Confirmed Type cyanocobalamin (vitamin B-12) 1,000 mcg PO QAM 04/23/19 12/20/24 History 1,000 mcg tablet (Vitamin B-12) aspirin 81 mg tablet 81 mg PO QAM 11/08/20 12/20/24 History Disabled Parking Permit #1 ea 07/08/23 12/20/24 Rx lancets 33 gauge #100 ea 12/16/23 12/20/24 Rx atorvastatin 10 mg tablet 10 mg PO BEDTIME #90 tabs 03/16/24 12/20/24 Rx dapagliflozin propanediol 10 mg 10 mg PO DAILY #90 tabs 03/16/24 12/20/24 Rx tablet (Farxiga) lisinopril 40 mg tablet 40 mg PO BID #180 tabs 03/16/24 12/18/24 Rx metformin 1,000 mg tablet,extended 1,000 mg PO QPM #90 tabs 03/16/24 12/20/24 Rx release 24hr (osmotic) metoprolol succinate 50 mg 50 mg PO DAILY #90 tabs 06/22/24 12/20/24 Rx tablet,extended release 24 hr omeprazole 20 mg tablet,delayed 40 mg (2 x 20 mg) PO QAM #180 tabs 06/22/24 12/20/24 Rx release albuterol sulfate 90 mcg/actuation 2 inhalation inhalation QID PRN 11/14/24 12/20/24 Rx aerosol inhaler (Ventolin HFA) shortness of breath or wheezing #6.7 grams nicotine 14 mg/24 hr daily 1 patch transdermal DAILY #14 ea 11/15/24 12/20/24 Rx transdermal patch (Nicoderm CQ) nicotine 21 mg/24 hr daily 1 patch transdermal DAILY #28 ea 11/15/24 12/20/24 Rx transdermal patch (Nicoderm CQ) nicotine 7 mg/24 hr daily 1 patch transdermal Q24H #14 ea 11/15/24 12/20/24 Rx transdermal patch (Nicoderm CQ) ondansetron 8 mg disintegrating 8 mg PO DAILY 11/15/24 12/20/24 History tablet oxycodone-acetaminophen 10 mg-325 1 tab PO Q6HR 11/15/24 12/20/24 History mg tablet prochlorperazine maleate 10 mg 10 mg PO Q6H PRN Nausea 11/15/24 12/20/24 History tablet blood sugar diagnostic (OneTouch #100 strips 12/18/24 12/20/24 Rx Ultra Test strips) gemcitabine [Gemzar] 1 dose IV 12/18/24 12/18/24 History lisinopril 20 mg tablet 20 mg PO DAILY #90 tabs 12/18/24 12/20/24 Rx lorazepam 0.5 mg tablet 0.5 mg PO DAILY PRN NAUSEA 12/18/24 12/20/24 History paclitaxel protein-bound 1 dose IV 12/18/24 12/18/24 History polyethylene glycol 3350 17 gram 17 g PO DAILY 12/18/24 12/20/24 History oral powder packet (Miralax) potassium chloride 10 mEq 10 meq PO DAILY #60 tabs 12/18/24 12/20/24 Rx tablet,extended release sennosides 8.6 mg tablet 8.6 mg PO DAILY 12/18/24 12/20/24 History (Black-Draught Lax-Senna) insulin glargine-yfgn 100 unit/mL 10 unit (0.1 mL) SUBCUT BID #15 mL 12/19/24 12/20/24 Rx (3 mL) subcutaneous pen pen needle, diabetic 31 gauge x #100 ea 12/19/24 12/20/24 Rx 5/16 Calcium Citrate With D 12/20/24 History furosemide 20 mg tablet (Lasix) 40 mg PO DAILY 12/20/24 12/20/24 History Allergies Allergy/AdvReac Type Severity Reaction Status Date / Time ibuprofen Allergy Hypertensio Verified 12/18/24 15:09 n Review of Systems Review of Systems Narrative: General - generalized weakness GI - chronic epigastric pain CVS - w/o chest pain or palpitations RS - chronic shortness of breath EXT -swollen legs Exam Vital Signs (past 8 hours): - 12/20/24 15:50 12/20/24 15:50 12/20/24 16:03 Pulse Rate 84 83 Respiratory Rate 18 18 Blood Pressure 93/57 L Pulse Oximetry 100 100 Oxygen Delivery Method 12/20/24 16:05 12/20/24 16:05 12/20/24 16:10 Pulse Rate 83 Respiratory Rate 14 Blood Pressure 96/57 L 90/56 L Pulse Oximetry 94 Oxygen Delivery Method 12/20/24 16:10 12/20/24 16:20 12/20/24 16:20 Pulse Rate 83 82 Respiratory Rate 19 19 Blood Pressure 88/58 L Pulse Oximetry 100 100 Oxygen Delivery Method 12/20/24 16:30 12/20/24 16:30 12/20/24 16:40 Pulse Rate 89 88 Respiratory Rate 18 20 Blood Pressure 95/61 Pulse Oximetry 100 100 Oxygen Delivery Method 12/20/24 16:40 12/20/24 16:50 12/20/24 16:50 Pulse Rate 86 Respiratory Rate 12 Blood Pressure 96/64 88/60 L Pulse Oximetry 100 Oxygen Delivery Method 12/20/24 17:00 12/20/24 17:00 12/20/24 17:10 Pulse Rate 84 Respiratory Rate 14 Blood Pressure 91/59 L 81/53 L Pulse Oximetry 100 Oxygen Delivery Method 12/20/24 17:10 12/20/24 17:20 12/20/24 17:20 Pulse Rate 82 88 Respiratory Rate 16 16 Blood Pressure 87/57 L Pulse Oximetry 100 89 L Oxygen Delivery Method 12/20/24 17:30 12/20/24 17:34 12/20/24 17:40 Pulse Rate 88 Respiratory Rate 19 Blood Pressure 92/60 Pulse Oximetry 97 Oxygen Delivery Method Room Air 12/20/24 17:50 12/20/24 18:00 12/20/24 18:00 Pulse Rate 89 Respiratory Rate 13 Blood Pressure 86/58 L 88/59 L Pulse Oximetry Oxygen Delivery Method 12/20/24 18:10 12/20/24 18:10 12/20/24 18:20 Pulse Rate 85 Respiratory Rate 16 Blood Pressure 98/60 87/56 L Pulse Oximetry Oxygen Delivery Method 12/20/24 18:20 12/20/24 18:30 12/20/24 18:30 Pulse Rate 86 84 Respiratory Rate 19 14 Blood Pressure 92/56 L Pulse Oximetry Oxygen Delivery Method Oxygen Delivery Method Room Air Narrative Exam Narrative: General - cachectic, temporal wasting, anasarca, appears weak and older then stated age, daughter at bedside Skin - not jaundiced CVS - RRR GI - tender abdomen RS - normal respiratory effort EXT - swollen legs Neuro - w/o focal deficits, lucid Objective ECG Impression: NSR 86 Labs 12/20/24 11:07 12/20/24 11:14 Labs: Laboratory Results - last 24 hr 12/20/24 12/20/24 12/20/24 11:07 11:14 13:35 WBC 7.6 RBC 3.12 L Hgb 10.2 L Hct 30.1 L MCV 96.5 MCH 32.9 MCHC 34.1 RDW 14.0 Plt Count 165 Neut % (Auto) 92.2 H Lymph % (Auto) 5.9 L [place] % (Auto) 0.4 L Eos % (Auto) 1.4 L Baso % (Auto) 0.1 Neut # (Auto) 7000 Lymph # (Auto) 400 L [place] # (Auto) 0 Eos # (Auto) 100 Baso # (Auto) 0 PT 11.1 INR 1.0 Sodium 130 L Potassium 4.1 Chloride 98 Carbon Dioxide 25 BUN 11 Creatinine 0.61 L Estimated GFR > 60 BUN/Creatinine Ratio 18.0 Glucose 243 H D Lactate 2.2 H 1.7 Calcium 8.6 Total Bilirubin 0.8 AST 144 H ALT 75 H Alkaline Phosphatase 99 D Ammonia Troponin I < 0.012 NT-Pro-B Natriuret Pep 430 H Total Protein 6.0 L Albumin 3.5 Globulin 2.5 Albumin/Globulin Ratio 1.4 Lipase 14 L Procalcitonin 0.108 Urine Color Urine Appearance Urine pH Ur Specific Catherine Urine Protein Urine Glucose (UA) Urine Ketones Urine Occult Blood Urine Nitrate Urine Bilirubin Urine Urobilinogen Ur Leukocyte Esterase Urine RBC Urine WBC Ur Squamous Epith Cells Urine Bacteria Ur Culture Indicated? Vol Urine Centrifuged SARS-CoV-2 (PCR) Influenza A (RT-PCR) Influenza B (RT-PCR) RSV (PCR) 12/20/24 12/20/24 12/20/24 16:21 16:50 17:19 WBC RBC Hgb Hct MCV MCH MCHC RDW Plt Count Neut % (Auto) Lymph % (Auto) [place] % (Auto) Eos % (Auto) Baso % (Auto) Neut # (Auto) Lymph # (Auto) [place] # (Auto) Eos # (Auto) Baso # (Auto) PT INR Sodium Potassium Chloride Carbon Dioxide BUN Creatinine Estimated GFR BUN/Creatinine Ratio Glucose Lactate Calcium Total Bilirubin AST ALT Alkaline Phosphatase Ammonia < 9 L Troponin I NT-Pro-B Natriuret Pep Total Protein Albumin Globulin Albumin/Globulin Ratio Lipase Procalcitonin Urine Color Yellow Urine Appearance Clear Urine pH 5.5 Ur Specific Catherine <=1.005 Urine Protein Negative Urine Glucose (UA) 3+ H Urine Ketones Negative Urine Occult Blood Negative Urine Nitrate Negative Urine Bilirubin Negative Urine Urobilinogen 0.2 Ur Leukocyte Esterase Negative Urine RBC None seen Urine WBC None seen Ur Squamous Epith Cells None seen Urine Bacteria None seen Ur Culture Indicated? Cult not indicated Vol Urine Centrifuged 10ml (spun) SARS-CoV-2 (PCR) Negative Influenza A (RT-PCR) Flu a negative Influenza B (RT-PCR) Flu b negative RSV (PCR) Negative Assessment & Plan Assessment and plan (1) Hypotension: Status: Acute (2) Pancreatic cancer: Qualifiers: Pancreatic malignancy location: unspecified Qualified Code(s): C25.9 - Malignant neoplasm of pancreas, unspecified Status: Acute (3) Diabetes: Qualifiers: Diabetes mellitus type: type 2 Diabetes mellitus mcc insulin use: without termite treater use Diabetes mellitus complication status: without complication Qualified Code(s): E11.9 - Type 2 diabetes mellitus without complications Status: Chronic (4) Anemia: Qualifiers: Anemia type: unspecified type Qualified Code(s): D64.9 - Anemia, unspecified Status: Acute (5) Bilateral lower extremity edema: Status: Acute (6) Hyponatremia: Status: Acute (7) Urinary retention: Status: Acute Assessment & Plan narrative: Hypotension - likely dehydration with recent use of Lasix - had 1.5 L of NS total, continue witrh NS at 100 cc/h - BC sent out, had 1 x Zosyn, source not obvious, monitored on telemetry, abx to continue if indicated Pancreatic Carcinoma - metastases to lungs and stomach with chronic SOB, early satiety, weight loss - oncology follow up - pain management, DNR DM - ss and CCD only, holding home medications - metformin, Jardiance, Lantus HTN - holding home medications - metoprolol and Lisinopril GERD - Protonix Urinary Retention - catheterized - consider Flomax with improved BP DVT prophylaxis - heparin, SCDs Time-Based Coding :: [TOTAL MINUTES] spent with patient and on the chart (including review of chart, obtaining history, exam, reviewing outside data, placing orders, documenting exam and treatment plan, and counseling patient) on [DATE]. Quality VTE Deep Vein Thrombosis/Pulmonary Embolism Present on Admission: No
[2024-12-21] MEDS: SODIUM CHLORIDE 0.9% 1,000 ML 100 ML IV ×2 (01:09→09:17)
[2024-12-21 01:30] VITALS: BP 85/53; PULSE 83; RESP 15; TEMP 36.3; O2SAT 99
[2024-12-21 04:03] VITALS: BP 99/58
[2024-12-21 06:00] VITALS: BP 93/58; PULSE 84; RESP 16; TEMP 36.6; O2SAT 99
[2024-12-21 06:27] LABS: Add Manual Diff / Slide Review NO; Basophils Absolute Auto 0 /uL (0-100); Basophils Percent Auto 0.3 % (0-2); Eosinophils Absolute Auto 200 /uL (0-450); Eosinophils Percent Auto 3.8 % (2-4); Hematocrit 25.6 % (41-53); Hemoglobin 8.7 g/dL (13.5-17.5); Lymphocytes Absolute Auto 500 /uL (1100-4500); Lymphocytes Percent Auto 8.2 % (25-40); Mean Corpuscular Hemoglobin 33.1 PG (26-34); Mean Corpuscular Volume 97.2 fL (80-100); Monocytes Absolute Auto 100 /uL (0-900); Monocytes Percent Auto 1.3 % (3-14); Neutrophils Absolute Auto 5200 /uL (1500-7000); Neutrophils Percent Auto 86.4 % (50-75); Platelet Count 120 X10^3/uL (150-400); Red Blood Cell Count 2.63 X10^6/uL (4.5-5.9); Red Cell Distribution Width 14.2 % (11.6-14.8)
[2024-12-21 06:36] LABS: Alanine Aminotransferase 63 IU/L (<50); Albumin 2.3 g/dL (3.5-5.0); Albumin Globulin Ratio 1.2 (1.0-2.8); Alkaline Phosphatase 107 U/L (38-126); Aspartate Aminotransferase 89 IU/L (17-59); BUN Creatinine Ratio 18.6 (6-22); Bilirubin Total 0.4 mg/dL (0.2-1.3); Blood Urea Nitrogen 11 mg/dL (9-20); Calcium 7.9 mg/dL (8.4-10.2); Carbon Dioxide 24 mmol/L (22-32); Chloride 103 mmol/L (98-107); Estimated Glomerular Filt Rate > 60 mL/min (>60); Globulin 1.9 g/dL (1.7-4.1); Glucose 257 mg/dL (80-110); HEMOLYSIS 18 (0-50); Potassium 3.5 mmol/L (3.4-5.1); Sodium 131 mmol/L (137-145); Total Protein 4.2 g/dL (6.3-8.2)
--- NOTE | 2024-12-21 09:10 | PM.PN.IH.1 ---
Subjective Subjective Date Patient Seen: 12/21/24 Time Patient Seen: 08:15 Interval history: Narrative: 64 y/o with pancreatic carcinoma stage 4, with stomach and lung metastases, started chemotherapy a month ago. Recent worsening SOB, legs swelling, had added Lasix to his regimen. Presented a day later hypotensive, w/o clear evidence of infection. Apparently has same PO intake as in the last few days. Labs mostly unremarkable, with albumin WNR and elevated LFTs, neutrophilia with normal WBC, mild anemia, mildly elevated LA. On the way to hospital he received 500 cc of NS by EMS and in the ED 1 L of NS. Had one dose of Zosyn. His BP stabilized, systolic > 90. At one point considered for pressor that was not used eventually. Developed urinary retention and had Deluca with unremarkable UA. Placed in observation with diagnosis of hypotension, hypervolemic hyponatremia and anasarca, suspected sepsis. Subjective: Patient reports doing significantly better. He states leg pain, swelling and redness also feels better. Exam Vital Signs (past 8 hours): - 12/21/24 01:30 12/21/24 04:03 12/21/24 06:00 Temperature 97.4 F L 97.8 F Pulse Rate 83 84 Respiratory Rate 15 16 Blood Pressure 85/53 L 99/58 L 93/58 L Pulse Oximetry 99 99 Oxygen Flow Rate 0 0 Oxygen Delivery Method Room Air Oxygen Flow Rate 0 Narrative Exam Narrative: GENERAL: This is a well-nourished, well-developed patient, in no apparent distress. HEAD: Atraumatic. Normocephalic. No temporal or scalp tenderness. EYES: Pupils equal round and reactive. Extraocular motions intact. No scleral icterus. No injection or drainage. ENT: Mucous membranes pink and moist. NECK: Trachea midline. No JVD, bruits or lymphadenopathy. Supple, nontender, no meningeal signs. CARDIOVASCULAR: Regular rate and rhythm without murmurs, gallops, or rubs. RESPIRATORY: Clear to auscultation. GASTROINTESTINAL: Abdomen soft, non-tender, nondistended. EXTREMITIES: 1+ edema, lower extremities mildly tender in the pretibial regions bilaterally. BACK: Nontender without deformity or crepitance. No flank tenderness. NEUROLOGIC: Alert, oriented, speech fluent, full upper and lower motor strength, no focal deficits evident. DERMATOLOGIC: No rashes or skin lesions. Objective Imaging *: Radiologist's impression: 1. Bilateral lower extremity Dopplers 12/13/2024: No findings of deep venous thrombosis in either lower extremity. 2. Chest x-ray 12/20/2024: No acute cardiopulmonary pathology. 3. Abdomen/pelvis CT 12/20/2024: 1. Generalized anasarca suggestive of 3rd spacing. 2. No bowel obstruction or abnormal bowel wall thickening. [id number] constipation. No free fluid or free air. 3. Stable hypodense area involving proximal pancreatic tail less well seen on the current study. 4. Other findings are all unchanged from recent study. 4. Chest CT angiography 12/20/2024: 1. No pulmonary emboli. No thoracic aortic aneurysm. 2. Trace pericardial effusion. No mediastinal or hilar lymphadenopathy. Moderate 2 vessel coronary artery atherosclerotic calcifications. 3. No focal infiltrate, pleural effusion or pneumothorax. 4. Generalized anasarca. Labs 12/21/24 06:15 12/21/24 06:15 Labs: Laboratory Results - last 24 hr 12/20/24 12/20/24 12/20/24 11:07 11:14 13:35 WBC 7.6 RBC 3.12 L Hgb 10.2 L Hct 30.1 L MCV 96.5 MCH 32.9 MCHC 34.1 RDW 14.0 Plt Count 165 Neut % (Auto) 92.2 H Lymph % (Auto) 5.9 L [place] % (Auto) 0.4 L Eos % (Auto) 1.4 L Baso % (Auto) 0.1 Neut # (Auto) 7000 Lymph # (Auto) 400 L [place] # (Auto) 0 Eos # (Auto) 100 Baso # (Auto) 0 PT 11.1 INR 1.0 Sodium 130 L Potassium 4.1 Chloride 98 Carbon Dioxide 25 BUN 11 Creatinine 0.61 L Estimated GFR > 60 BUN/Creatinine Ratio 18.0 Glucose 243 H D Lactate 2.2 H 1.7 Calcium 8.6 Total Bilirubin 0.8 AST 144 H ALT 75 H Alkaline Phosphatase 99 D Ammonia Troponin I < 0.012 NT-Pro-B Natriuret Pep 430 H Total Protein 6.0 L Albumin 3.5 Globulin 2.5 Albumin/Globulin Ratio 1.4 Lipase 14 L Procalcitonin 0.108 Urine Color Urine Appearance Urine pH Ur Specific [place] Urine Protein Urine Glucose (UA) Urine Ketones Urine Occult Blood Urine Nitrate Urine Bilirubin Urine Urobilinogen Ur Leukocyte Esterase Urine RBC Urine WBC Ur Squamous Epith Cells Urine Bacteria Ur Culture Indicated? Vol Urine Centrifuged SARS-CoV-2 (PCR) Influenza A (RT-PCR) Influenza B (RT-PCR) RSV (PCR) 12/20/24 12/20/24 12/20/24 16:21 16:50 17:19 WBC RBC Hgb Hct MCV MCH MCHC RDW Plt Count Neut % (Auto) Lymph % (Auto) [place] % (Auto) Eos % (Auto) Baso % (Auto) Neut # (Auto) Lymph # (Auto) [place] # (Auto) Eos # (Auto) Baso # (Auto) PT INR Sodium Potassium Chloride Carbon Dioxide BUN Creatinine Estimated GFR BUN/Creatinine Ratio Glucose Lactate Calcium Total Bilirubin AST ALT Alkaline Phosphatase Ammonia < 9 L Troponin I NT-Pro-B Natriuret Pep Total Protein Albumin Globulin Albumin/Globulin Ratio Lipase Procalcitonin Urine Color Yellow Urine Appearance Clear Urine pH 5.5 Ur Specific [place] <=1.005 Urine Protein Negative Urine Glucose (UA) 3+ H Urine Ketones Negative Urine Occult Blood Negative Urine Nitrate Negative Urine Bilirubin Negative Urine Urobilinogen 0.2 Ur Leukocyte Esterase Negative Urine RBC None seen Urine WBC None seen Ur Squamous Epith Cells None seen Urine Bacteria None seen Ur Culture Indicated? Cult not indicated Vol Urine Centrifuged 10ml (spun) SARS-CoV-2 (PCR) Negative Influenza A (RT-PCR) Flu a negative Influenza B (RT-PCR) Flu b negative RSV (PCR) Negative 12/21/24 06:15 WBC 6.0 RBC 2.63 L Hgb 8.7 L Hct 25.6 L MCV 97.2 MCH 33.1 MCHC 34.0 RDW 14.2 Plt Count 120 L Neut % (Auto) 86.4 H Lymph % (Auto) 8.2 L [place] % (Auto) 1.3 L Eos % (Auto) 3.8 Baso % (Auto) 0.3 Neut # (Auto) 5200 Lymph # (Auto) 500 L [place] # (Auto) 100 Eos # (Auto) 200 Baso # (Auto) 0 PT INR Sodium 131 L Potassium 3.5 Chloride 103 Carbon Dioxide 24 BUN 11 Creatinine 0.59 L Estimated GFR > 60 BUN/Creatinine Ratio 18.6 Glucose 257 H Lactate Calcium 7.9 L Total Bilirubin 0.4 AST 89 H ALT 63 H Alkaline Phosphatase 107 Ammonia Troponin I NT-Pro-B Natriuret Pep Total Protein 4.2 L Albumin 2.3 L Globulin 1.9 Albumin/Globulin Ratio 1.2 Lipase Procalcitonin Urine Color Urine Appearance Urine pH Ur Specific [place] Urine Protein Urine Glucose (UA) Urine Ketones Urine Occult Blood Urine Nitrate Urine Bilirubin Urine Urobilinogen Ur Leukocyte Esterase Urine RBC Urine WBC Ur Squamous Epith Cells Urine Bacteria Ur Culture Indicated? Vol Urine Centrifuged SARS-CoV-2 (PCR) Influenza A (RT-PCR) Influenza B (RT-PCR) RSV (PCR) [facility] Medical History Acute radial nerve palsy Alcohol dependence Alcohol withdrawal Anemia CAD (coronary artery disease) Chicken pox Chronic hyponatremia Diabetes Early satiety Erectile dysfunction Fractures (~2004) GERD (gastroesophageal reflux disease) Hemorrhoid Hyperlipidemia Hypertension Multiple fractures of ribs Osteoporosis (~2018) Pancreatic cancer Pancreatitis (~2001) Pneumonia Tobacco dependency Vertigo Wears glasses Surgical History Anesthesia S/P exploratory laparotomy (~2001) Status post hernia repair Family History Mother Diabetes mellitus Father Hypertension Bladder cancer Social History marital status: household members: spouse lives independently: Yes occupational status: employed Smoking Status: Former smoker alcohol intake: former substance use type: does not use Assessment & Plan Assessment & Plan narrative: Hypotension - likely dehydration with recent use of Lasix - had 1.5 L of NS total, continue witrh NS at 100 cc/h - BC sent out, had 1 x Zosyn, source not obvious, monitored on telemetry, abx to continue if indicated - no identifiable source of infection at this point, but suspected Pancreatic Carcinoma - metastases to lungs and stomach with chronic SOB, early satiety, weight loss - oncology follow up - pain management, DNR DM - ss and CCD only, holding home medications - metformin, Jardiance, Lantus HTN - holding home medications - metoprolol and Lisinopril GERD - Protonix Urinary Retention - catheterized - consider Flomax with improved BP DVT prophylaxis - heparin, SCDs Quality VTE Deep Vein Thrombosis/Pulmonary Embolism Present on Admission: No 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
[2024-12-21] MEDS: ACETAMINOPHEN 325 MG TABLET 975 MG PO (09:17)
[2024-12-21] MEDS: SENNOSIDES 8.6 MG TABLET PO (09:18)
[2024-12-21] MEDS: PANTOPRAZOLE DR 40 MG TABLET PO (09:18)
[2024-12-21] MEDS: HEPARIN 5,000 UNIT/ML VIAL 5000 UNIT SUBCUT ×2 (09:19→21:13)
[2024-12-21] MEDS: INSULIN LISPRO 100 UNIT/ML 3ML VIAL SUBCUT ×3 (09:56→17:38)
[2024-12-21] MEDS: NICOTINE 14 PATCH 14 MG TOP (10:54)
[2024-12-21 12:47] VITALS: BP 88/54; PULSE 96; RESP 16; TEMP 36.2; O2SAT 98
--- NOTE | 2024-12-21 14:39 | CM.DANOTE ---
Addendum entered by RICHARD Moura 12/21/24 17:18: DCP Update: Per MD, Home health referral ordered. DCP sent referral via fax to [facility] and [facility] due to pt's location on [place]. Per Janice GUTIERREZ, pt insurance not accepted at this time. Pending response from [facility]. [id number] signed order completed. Plan: Home with family 12/22/24 or when medically stable, pending home health agency acceptance. RANDI Barrientos Original Note: DCP Assessment Note: Pt is a 64yo male, resident of [place], is admitted for hypotension, urinary retention, hyponatremia. Patient has Stage IV Pancreatic CA. Pt lives in a house with his , Crissy. Pt's Primary Care Provider is Dr. Rao Richard and insurance is [employer] and Self Pay. Reviewed chart and discussed with multidisciplinary team pt's medical status and initial discharge needs. Per RN and MD, pt discharge pending urinary output and blood pressure stabilization. DCP met w/patient at bedside; introduced self and role. Patient was found in bed, alert and oriented, cooperative with assessment. Pt confirmed living situation and good support in spouse and daughter. Pt expressed preference in discharging home as soon as medically cleared. Pt and family verbalized understanding that his blood pressure and urinary retention must be stabilized before discharge home. Pt has no hx of home health or SNF Rehab. DCP discussed home health for RN and HH Aide with family, pt and family agreeable with home health referral. Reviewed Medicare Choice list and pending preference. DCP called pt PCP for request of follow up appt. Pt has a follow up appt with Dr. Richard on Tuesday, 12/28 at 10:00am already established. Plan: Anticipating dc home when medically cleared, family will transport. CM team will follow closely for coordination of discharge plans. RANDI Barrientos Discharge Planning/Care Management CM Discharge Assessment Start: 12/21/24 14:37 Freq: Status: Active Protocol: Document 12/21/24 14:37 MW (Rec: 12/21/24 14:39 MW [id number]) Discharge Planning Assessment Assigned Chain Saw Mechanic RICHARD Addison DPOA/Assigned Designee Name Crissy, Spouse Contact Information [phone] Advance Directives? No History Provided By Patient,Medical Record Prior Living Arrangements House Household Members spouse Type of transporation used prior to Relies on Others admit Independent with ADL's Yes Is patient alert and oriented? Yes Needs Assistance With Bathing,Meal Prep,Toileting, Managing Medications,Home Chores / Shopping Caregiver for Another No DME Already Rented / Owned FWW / Walker,Cane Patient/Family Preference Home with Home Health Barriers to Discharge Yes Discharge Plan Home Transportation Arrangement Family to provide transport. Referrals Initiated None needed If patient plan is home with home health Yes : Has signed face to face form been completed? Medicare Choice List Provided Yes Medicare choice list reviewed on patient,family electronic tablet with Review Status In Process Please Provide Date Initial DC 12/21/24 Assessment Was Performed Next Review Type Continued Stay Review
[2024-12-21 16:00] VITALS: BP 115/72; PULSE 102; RESP 16; TEMP 36.7
[2024-12-21] MEDS: POTASSIUM CHLORIDE 20 MEQ TAB 40 MEQ PO (17:38)
[2024-12-21] MEDS: INSULIN GLARGINE 100 UNIT/ML 3ML PEN 10 UNIT SUBCUT ×2 (18:21→21:49)
[2024-12-21 20:00] VITALS: BP 98/59; PULSE 110; RESP 16; TEMP 36.6; O2SAT 100
[2024-12-22 02:30] VITALS: BP 103/61; PULSE 101; RESP 15; TEMP 36.5; O2SAT 100
[2024-12-22] MEDS: DEXTROSE 10 % IN WATER 100 ML 1200 ML IV (02:40)
[2024-12-22] MEDS: DEXTROSE 5% WATER 1,000 ML 84 ML IV (04:12)
[2024-12-22 06:00] VITALS: BP 119/71; PULSE 89; RESP 15; TEMP 36.1; O2SAT 100
[2024-12-22 07:12] LABS: BUN Creatinine Ratio 20.4 (6-22); Blood Urea Nitrogen 11 mg/dL (9-20); Calcium 8.1 mg/dL (8.4-10.2); Carbon Dioxide 21 mmol/L (22-32); Chloride 100 mmol/L (98-107); Estimated Glomerular Filt Rate > 60 mL/min (>60); Glucose 201 mg/dL (80-110); HEMOLYSIS < 15 (0-50); Potassium 3.6 mmol/L (3.4-5.1); Sodium 128 mmol/L (137-145)
[2024-12-22 08:00] VITALS: BP 117/69; PULSE 85; RESP 14; TEMP 36.4; O2SAT 100
[2024-12-22] MEDS: INSULIN LISPRO 100 UNIT/ML 3ML VIAL SUBCUT (08:52)
[2024-12-22] MEDS: HEPARIN 5,000 UNIT/ML VIAL 5000 UNIT SUBCUT (08:52)
[2024-12-22] MEDS: NICOTINE 14 PATCH 14 MG TOP (08:54)
[2024-12-22] MEDS: PANTOPRAZOLE DR 40 MG TABLET PO (08:54)
--- NOTE | 2024-12-22 10:49 | PM.DS.IH.1 ---
History of Present Illness History of Present Illness Date Patient Seen: 12/22/24 Time Patient Seen: 09:30 Chief complaint: SOB Narrative: 64 y/o with pancreatic carcinoma stage 4, with stomach and lung metastases, started chemotherapy a month ago. Recent worsening SOB, legs swelling, had added Lasix to his regimen. Presented a day later hypotensive, w/o clear evidence of infection. Apparently has same PO intake as in the last few days. Labs mostly unremarkable, with albumin WNR and elevated LFTs, neutrophilia with normal WBC, mild anemia, mildly elevated LA. On the way to hospital he received 500 cc of NS by EMS and in the ED 1 L of NS. Had one dose of Zosyn. His BP stabilized, systolic > 90. At one point considered for pressor that was not used eventually. Developed urinary retention and had Deluca with unremarkable UA. Placed in observation with diagnosis of hypotension, hypervolemic hyponatremia and anasarca, suspected sepsis. Discharge Providers Provider Date of admission: 12/20/24 19:15 Discharge Date: 12/22/24 Primary care physician: Rao Richard MD Consults: 12/21/24 16:34 Consult to Home Health Routine Comment: RN, MATT Aide Reason For Exam: Pancreatic CA, Urinary retention, Hypotension Discharge provider: Benny Tam MD Summary Hospital Course Discharge Diagnosis: 1. Hypotension, likely due to dehydration from effects of recent chemotherapy. 2. Metastatic pancreatic cancer. 3. Diabetes mellitus, type 2. 4. Hypertension. 5. GERD. 6. BPH with transient urinary retention, resolved. Hospital Course: The patient was admitted and hydrated intravenously. He improved over subsequent days without evidence of sepsis or infection. He had transient urinary retention requiring placement of urinary catheter. This was removed and he was able to void freely. Lisinopril and metoprolol were withheld during hospitalization and following discharge pending follow-up with his primary care provider. Discussions were carried out regarding possible hospice consultation. Patient in his will consider and discuss with their primary oncologist and provider following discharge. Blood sugars were elevated during hospitalization, however, with sliding scale coverage he developed transient hypoglycemia. His Lantus dose was reduced at discharge. He developed mild swelling in the posterior hands related to peripheral IV catheter placement. No other issues arose. Status at Discharge Cognitive/behavioral status at discharge: oriented Functional status at discharge: independent ambulation Overall status at discharge: patient is back to baseline Time Spent with Patient Time spent: Greater than 30 minutes Exam Vital Signs (past 8 hours): - 12/22/24 06:00 12/22/24 08:00 Temperature 96.9 F L 97.6 F Pulse Rate 89 85 Respiratory Rate 15 14 Blood Pressure 119/71 117/69 Pulse Oximetry 100 100 Oxygen Flow Rate 0 Oxygen Delivery Method Room Air Oxygen Flow Rate 0 Narrative Exam Narrative: GENERAL: This is a thin male patient, in no apparent distress. EYES: Pupils equal round and reactive. Extraocular motions intact. No scleral icterus. No injection or drainage. ENT: Mucous membranes pink and moist. NECK: Trachea midline. No JVD, bruits or lymphadenopathy. Supple, nontender, no meningeal signs. CARDIOVASCULAR: Regular rate and rhythm without murmurs, gallops, or rubs. RESPIRATORY: Clear to auscultation. GASTROINTESTINAL: Abdomen soft, non-tender, nondistended. EXTREMITIES: 1+ edema, lower extremities mildly tender in the pretibial regions bilaterally, and mild edema in the hands. NEUROLOGIC: Alert, oriented, speech fluent, full upper and lower motor strength, no focal deficits evident. DERMATOLOGIC: No rashes or skin lesions. Objective Imaging *: Radiologist's impression: 1. Bilateral lower extremity Dopplers 12/13/2024: No findings of deep venous thrombosis in either lower extremity. 2. Chest x-ray 12/20/2024: No acute cardiopulmonary pathology. 3. Abdomen/pelvis CT 12/20/2024: 1. Generalized anasarca suggestive of 3rd spacing. 2. No bowel obstruction or abnormal bowel wall thickening. [id number] constipation. No free fluid or free air. 3. Stable hypodense area involving proximal pancreatic tail less well seen on the current study. 4. Other findings are all unchanged from recent study. 4. Chest CT angiography 12/20/2024: 1. No pulmonary emboli. No thoracic aortic aneurysm. 2. Trace pericardial effusion. No mediastinal or hilar lymphadenopathy. Moderate 2 vessel coronary artery atherosclerotic calcifications. 3. No focal infiltrate, pleural effusion or pneumothorax. 4. Generalized anasarca. Labs 12/21/24 06:15 12/22/24 06:29 Labs: Laboratory Results - last 24 hr 12/22/24 06:29 Sodium 128 L Potassium 3.6 Chloride 100 Carbon Dioxide 21 L BUN 11 Creatinine 0.54 L Estimated GFR > 60 BUN/Creatinine Ratio 20.4 Glucose 201 H Calcium 8.1 L PFSH Medical History Acute radial nerve palsy Alcohol dependence Alcohol withdrawal Anemia CAD (coronary artery disease) Chicken pox Chronic hyponatremia Diabetes Early satiety Erectile dysfunction Fractures (~2004) GERD (gastroesophageal reflux disease) Hemorrhoid Hyperlipidemia Hypertension Multiple fractures of ribs Osteoporosis (~2018) Pancreatic cancer Pancreatitis (~2001) Pneumonia Tobacco dependency Vertigo Wears glasses Surgical History Anesthesia S/P exploratory laparotomy (~2001) Status post hernia repair Family History Mother Diabetes mellitus Father Hypertension Bladder cancer Social History marital status: household members: spouse lives independently: Yes occupational status: employed Smoking Status: Former smoker alcohol intake: former substance use type: does not use Discharge Plan Discharge Plan Patient Disposition: Home Provider Discharge Comment: Followup with Dr. Richard 1 week and oncology as planned Discharge orders & Medications Prescriptions: Continued (DME) pen needle, diabetic 31 gauge x 5/16 needle See Rx Instructions .Route Qty: 100 2RF Rx Instructions: Use to inject insulin twice dialy metformin 1,000 mg tablet extended release 24 hr 1,000 mg PO QPM Qty: 90 3RF Farxiga 10 mg tablet 10 mg PO DAILY Qty: 90 3RF atorvastatin 10 mg tablet 10 mg PO BEDTIME Qty: 90 3RF omeprazole 20 mg tablet,delayed release (DR/EC) 40 mg PO QAM Qty: 180 3RF (DME) Disabled Parking Permit See Rx Instructions .ROUTE .MEDSUPPLY Qty: 1 0RF Rx Instructions: I find this patient to be medically disabled and qualified for Disabled Parking as indicated and signed on the accompanying Disabled Parking Application for Individuals. (DME) lancets 33 gauge misc See Rx Instructions .ROUTE .MEDSUPPLY Qty: 100 3RF Rx Instructions: Use to test blood glucose TID oxycodone-acetaminophen 10-325 mg tablet 1 tab PO Q6HR prochlorperazine maleate 10 mg tablet 10 mg PO Q6H PRN (Reason: Nausea) ondansetron 8 mg tablet,disintegrating 8 mg PO DAILY nicotine [Nicoderm CQ] 14 mg/24 hr patch 24 hour 1 patch transdermal DAILY Qty: 14 0RF Rx Instructions: Use daily for 2 weeks, then reduce to 7mg patch for 2 weeks lorazepam 0.5 mg tablet 0.5 mg PO DAILY PRN (Reason: NAUSEA) polyethylene glycol 3350 [Miralax] 17 gram powder in packet 17 g PO DAILY sennosides [Black-Draught Lax-Senna] 8.6 mg tablet 8.6 mg PO DAILY paclitaxel protein-bound 1 dose IV Rx Instructions: chemo gemcitabine [Gemzar] 1 dose IV potassium chloride 10 mEq tablet extended release 10 meq PO DAILY Qty: 60 1RF (DME) OneTouch Ultra Test Strip See Rx Instructions .ROUTE .COMPLEX Qty: 100 11RF Dose Instruction: USE TO TEST BLOOD SUGARS THREE TIMES DAILY Rx Instructions: USE TO TEST BLOOD SUGARS THREE TIMES DAILY cyanocobalamin (vitamin B-12) [Vitamin B-12] 1,000 mcg Tablet 1,000 mcg PO QAM furosemide [Lasix] 20 mg tablet 40 mg PO DAILY Rx Instructions: Take 2 tabs (40mg) for first 3 days, then t 1 tab daily thereafter Calcium Citrate With D Rx Instructions: 630mg w/vitamin d 500mg aspirin 81 mg Tablet 81 mg PO QAM albuterol sulfate [Ventolin HFA] 90 mcg/actuation HFA aerosol inhaler 2 inhalation INHALATION QID PRN (Reason: shortness of breath or wheezing) Qty: 6.7 0RF Changed insulin glargine-yfgn 100 unit/mL (3 mL) insulin pen 5 unit SUBCUT DAILY Qty: 15 3RF Discontinued lisinopril 40 mg tablet 40 mg PO BID Qty: 180 3RF Hold Instructions: Home Medication placed on hold at Doctor's office metoprolol succinate 50 mg tablet extended release 24 hr 50 mg PO DAILY Qty: 90 3RF nicotine [Nicoderm CQ] 21 mg/24 hr patch 24 hour 1 patch transdermal DAILY Qty: 28 1RF nicotine [Nicoderm CQ] 7 mg/24 hr patch 24 hour 1 patch transdermal Q24H Qty: 14 0RF lisinopril 20 mg tablet 20 mg PO DAILY Qty: 90 1RF Follow up/Referrals: Rao Richard MD [Primary Care Provider] - Diet/Activity/Treatments Diet comment: Drink enough low-sugar fluids to stay well-hydrated Catheter comment: If you are unable to urinate return to the emergency room for evaluation Visit Report/Discharge Packet Instructions: Type 2 Diabetes, DI for Hyponatremia, How to Prevent Falls, DI for Urinary Retention in Men, How to Monitor Your Blood Pressure at Home, DI for Hypotension Stand Alone Forms: Patient Portal/API, Stroke Signs & Symptoms Discharge Data Primary Care Provider: Rao Richard Attending Provider: Sebastian Valdez Admit Date/Time: 12/20/24 19:15 Quality VTE Deep Vein Thrombosis/Pulmonary Embolism Present on Admission: No MIPS - Admit I confirm the patient?s Advance Care Plan is present, Code status is documented, Surrogate decision maker is in patient?s record [If Yes, STOP here]: Yes MIPS - Meds 'Current medications' to include all prescriptions, epyo-ecb-cvcnbsn products, herbals, cannabis/cannabidiol products, and vitamin/mineral/dietary (nutritional) supplements. I have utilized all available resources to obtain, update, or review the patient?s current medications. [If Yes, STOP here]: Yes MIPS - DC The patient has a history of heart transplant or Left Ventricular Assist Device (LVAD). If yes, STOP here.: No The patient has current or prior documentation of left ventricular ejection fraction (LVEF) less than or equal to 40%, or moderate or severely depressed left ventricular systolic function.: No A. The patient was prescribed or already taking an Angiotensin-Converting Enzyme (JANET) Inhibitor, or Angiotensin Receptor Alvaro (ARB).: No B. The patient was prescribed or already taking a beta-alvaro. [If Yes to Both A & B, STOP here]: No Patient not prescribed/taking JANET or ARB, no reason given.: No Patient not prescribed/taking beta-alvaro, no reason given.: No PROFEE Charge Codes Discharge inpatient/observation: [id number]
--- NOTE | 2024-12-22 11:13 | CM.DPC ---
DCP Discharge Home Per MD, pt is medically stable to d/c home today with outpt f/u with PCP in one week and ongoing f/u with Oncologist as scheduled. Pt has upcoming scheduled chemo with Onc on Tue12/24/24 but likely not strong enough to complete at this time but pt will discuss with Oncology. MD states discussion with pt bedside regarding Hospice and pt agreeable to consider pending outpt f/u and MD will updated PCP as well regarding pt status and discussion. FARZAD confirmed that [facility] and they are the only agencies currently covering [facility]. FARZAD made initial referral to [facility] requesting f/u with pt and family for Info Visit for likely future need. FARZAD updated TCM group on pt discharge home today and need for f/u with Dr. Richrad in one week and ongoing discussion about possible hospice vs continuing chemo. RICHARD Boles
--- NOTE | 2024-12-22 19:48 | PC.NURSE ---
Discharge: Pt and family are ready to d/c to home. D/c instructions reviewed. Seen by MD and given in structions for discharge. Pt has a bp cuff at home and knows how to use it. gives most care and she will find a smaller cuff for pt's arm. Questions answered. Pt d/c to home via auto with spouse.
== END 2024-12-22 11:35 | disposition home or self-care (01) ==
LOC: ED 19:12 → AC 12-21 07:53
PROVIDERS: Internal Medicine; Admitting Provider Hospitalist; Emergency Provider Emergency Medicine; PCP Family Medicine; Referring Provider Emergency Medicine; Visit Provider Hospitalist
DX: C25.9 Malignant neoplasm of pancreas, unspecified (principal); I95.9 Hypotension, unspecified; E87.1 Hypo-osmolality and hyponatremia; R33.9 Retention of urine, unspecified; D64.9 Anemia, unspecified; R60.1 Generalized edema; E11.9 Type 2 diabetes mellitus without complications; I10 Essential (primary) hypertension; K21.9 Gastro-esophageal reflux disease without esophagitis; Z11.52 Encounter for screening for COVID-19; Z87.891 Personal history of nicotine dependence; Z79.4 Long term (current) use of insulin; Z79.84 Long term (current) use of oral hypoglycemic drugs
CPT/HCPCS: 0241U; 36415; 71045; 71275; 74177; 80048; 80053; 81001; 81003; 82140; 82962; 83605; 83690; 83880; 84145; 84484; 85025; 85610; 87040; 93005; 93010; 96361; 96365; 96372; 99284; 99285; G0378; J1644; J1815; J2543; Q9967